=== PATIENT | female | born 1950 | race Caucasian/White ===

== ENCOUNTER 2017-10-04 17:51 | Inpatient (IN) | payer MEDICARE, SELFPAY ==
[2017-10-04 17:52] VITALS: BP 174/96; PULSE 81; RESP 16; TEMP 36.6; O2SAT 97; BMI 21.0
[2017-10-04 17:56] VITALS: BP 174/96; PULSE 79; RESP 16; O2SAT 98
[2017-10-04] MEDS: oxyCODONE 5 MG Tablet 10 MG PO (18:46)
--- NOTE | 2017-10-04 18:50 | RAD_ITS ---
STUDY: X-RAY - PELVIS AND RIGHT HIP REASON FOR EXAM: Female, 67 years old. Fall. Right hip pain. TECHNIQUE: Radiological exam, hip, unilateral, with pelvis when performed; 2 or 3 views. COMPARISON: June 30, 2015. FINDINGS: There is a non-specific bowel gas pattern. Normal visualized soft tissue structures. There is generalized osteopenia. There is mild arthrosis of the left hip. There is a stable right total hip arthroplasty with no complications noted. There are clips in the pelvis unchanged from the prior study. 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 Stable right total hip arthroplasty without acute abnormality. Electronically Signed: Joel Hurtado MD at 19:33 EST , Service support ,
--- NOTE | 2017-10-04 19:46 | CT_ITS ---
STUDY: NONCONTRAST RIGHT HIP CT REASON FOR EXAM: Female, 67 years old. Pain, fall RADIATION DOSAGE (If Supplied By Facility): CTDIvol = ( 15.45 ) mGy, DLP = ( 528.71 ) mGycm. Individualized dose optimization techniques were used for this CT.? FLUOROSCOPY TIME (if supplied): ( ) minutes/seconds TECHNIQUE: Noncontrast axial images with reformatted sagittal and coronal images submitted for evaluation. COMPARISON: 10/04/2017 x-ray. FINDINGS: Fracture involving the anterior aspect of the proximal femur. Hip prosthesis in place without loosening or breakage. Artifact from the hip prosthesis. No soft tissue mass or abnormal fluid collection. CT/Extremity Lower without Contra IMPRESSION: Nondisplaced fracture involving the proximal right femur. Hip prosthesis in place without loosening. Electronically Signed: Nahun Fabian DO at 20:38 EST , Service support ,
[2017-10-04 20:55] VITALS: BP 155/93; PULSE 87; RESP 20; O2SAT 99
--- NOTE | 2017-10-04 21:42 | HP.PCM_ITS ---
Problem List (1) Hip fracture, right Status: Acute Qualifiers: Encounter type: initial encounter Fracture type: closed Qualified Code(s) : S72.001A - Fracture of unspecified part of neck of right femur, initial encounter for closed fracture (2) HTN (hypertension) Status: Chronic Qualifiers: Hypertension type: essential hypertension Qualified Code(s): I10 - Essential (primary) hypertension (3) COPD (chronic obstructive pulmonary disease) Status: Chronic Qualifiers: COPD type: unspecified COPD Qualified Code(s): J44.9 - Chronic obstructive pulmonary disease, unspecified (4) Seizure disorder Status: Chronic (5) Anxiety Status: Chronic History of Present Illness Date of Admission: 10/04/17 Chief Complaint: Right hip pain The patient is a 67 year old F with past medical history of hypertension, seizure disorder, anxiety, COPD comes in after a fall and right hip pain. She has history of right total hip arthroplasty. She states that 2 days prior to being admitted, she had a seizure disorder while sitting at her table. Her daughter was present. Her daughter says she had a total of 3 seizures. She woke up and soon felt pain in the right hip. She felt that she had bruised the right hip. She did not go to the hospital because she felt okay. She however has had progressive pain in the right hip and came to the ED. ED, her vitals were temperature 97.9, heart rate of 81, blood pressure 174/96, respiratory rate is 16, SPO2 97% on room air. Routine blood work showed RBC count of 6.9, Hb 13.0, platelets of 243. Sodium was 131 potassium 3.0 bicarbonate 32 BUN 8, creatinine 0.77. Patient's right hip x-ray was negative. CT scan of the hip shows nondisplaced fracture involving the proximal right femur. Past Medical History Past Medical History (Chronic Problems): Chronic Problems HTN (hypertension) (Chronic) COPD (chronic obstructive pulmonary disease) (Chronic) Seizure disorder (Chronic) Depressed (Chronic) Cardiac dysrhythmia (Chronic) Anxiety (Chronic) Allergies hydrocodone bitartrate [From Vicodin] Allergy (Verified 10/04/17 17:56) Rash Home Medications: Ambulatory Orders Medication Instructions Recorded Albuterol Inhaler [Ventolin Hfa] 2 puff INHALATION Q4H PRN PRN 05/16/14 Fluticasone/Salmeterol [Advair 1 puff INHALATION BID PRN 05/16/14 100/50 Diskus] Levetiracetam [Keppra] 500 mg PO BID 05/16/14 Hydroxyzine HCl 1 - 2 tab PO Q8H PRN PRN 06/17/15 Trazodone HCl [Desyrel] 100 mg PO QHS 06/17/15 Aspirin 325 mg PO BID #60 tablet 07/02/15 Oxycodone HCl/Acetaminophen 1 - 2 tablet PO Q6H PRN PRN #80 07/02/15 [Percocet 5-325] tablet Escitalopram Oxalate [Lexapro] 10 mg PO DAILY 10/04/17 Surgical History: - - back surgeries x 3, spinal fusion surgery, bilateral carpal tunnel surgeries, Right knee surgeries 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, Depression [employer] History: No pertinent [employer] history Smoking Status: Current every day smoker Tobacco Use: Cigarettes Alcohol: None Drugs: None - *Family History Maternal History Items: Heart Disease - CHF Paternal History Items: No pertinent history Review of Systems Constitutional: Denies: Anorexia, Chills, Fever, Weakness, Weight Change Eyes: Denies: Blurred vision, Conjunctivae Inflammation, Redness, Vision Change HEENT: Denies: Difficulty Hearing, Difficulty Swallowing, Head Aches, Sinus Congestion, Sinus Drainage Cardiovascular: Denies: Chest Pain, Claudication, Chest Pressure, Chest Tightness, Orthopnea, Palpitations, Paroxysmal Noc. Dyspnea Respiratory: Denies: Cough, Hemoptysis, Pleuritic Pain, Shortness of breath at rest, Shortness of breath upon exertion, Sputum production Gastrointestinal: Denies: Abdominal Pain, Constipation, Hematemesis, Hematochezia, Nausea, Vomiting Genitourinary: Denies: Dysuria Musculoskeletal: Denies: Joint Pain, Joint stiffness, Joint swelling, Joint Tenderness Skin: Denies: Dryness, Jaundice, Rash, Wounds Neurological: Denies: Difficulty swallowing, Focal weakness, Numbness, Tingling Psychiatric: Denies: Anxiety, Depression, Homicidal Ideations, Suicidal Ideations Endocrine: Denies: Change in Body Habitus, Heat/ Cold Intolerance Hematologic/ Lymphatic: Denies: Easy Bruising, Easy Bleeding VTE Information - Inpt Only VTE Present on Admission: No VTE Pharm Prophylaxis ordered?: Yes Patient Problems: Active and Suspected Problems Hip fracture, right (Acute) - Physical Exam General: Alert, Oriented x3, Cooperative, No apparent distress HEENT: Atraumatic, PERRLA, EOMI, Normocephalic Oral: Moist Mucosa Neck: Supple Lungs: Clear to auscultation, Normal air movement Cardiovascular: Regular rate, Regular Rhythm, Normal S1, Normal S2, No murmurs Abdomen: Bowel Sounds Present, Soft, Non Tender Extremities: No edema, Tenderness - over the right hip, external rotation of hip. Skin: No rashes Musculoskeletal: - - unable to ambulate Lymphatic: No Cervical, Supraclavicular, or Inguinal Adenopathy Neurological: Cranial nerves II-XII grossly intact, Neuro grossly intact Psych/Mental Status: Normal Affect, Appropriate Vital Signs Temp Pulse Resp BP Pulse Ox 97.9 F 87 20 H 155/93 H 99 10/04/17 17:52 10/04/17 20:55 10/04/17 20:55 10/04/17 20:55 10/04/17 20:55 Oxygen Delivery Method Room Air Weight: 59.2 kg Body Mass Index (BMI) 21.0 Assessment/Plan Active and Suspected Problems Hip fracture, right (Acute) 67 year old F with past medical history of seizure disorder, anxiety, COPD comes in after a fall and right hip pain. She has history of right total hip arthroplasty. She states that 2 days prior to being admitted, she had a seizure disorder while sitting at her table. 1. Acute right hip pain secondary to right periprosthetic hip fracture, orthopedic surgery consulted by ED, per the ED, orthopedic team felt that this is nonoperative, patient was unable to ambulate out of the ED, will be admitted for pain control and possible short-term rehab. Plan: Admit to the [facility] floor, pain control with IV morphine and oxycodone, PT and OT to evaluate and treat, care management consult for discharge planning. 2. Possible breakthrough seizure in a patient with history of seizures, on Keppra, patient denies missing any medications, neurology consult, check Keppra levels, continue on Keppra 500 mg twice daily, seizure precautions. 3. Hypokalemia, replaced, recheck in a.m. 4. Hyponatremia, acute, likely secondary to fluid shifts, repeat labs in the morning 5. COPD, stable and not in acute exacerbation 6. History of chronic back pain, prophylaxis, patient needs to be worked up in the outpatient for osteoporosis, will check vitamin D levels, continue with pain control with morphine and oxycodone as needed 7. Chronic nicotine use disorder, patient smokes 1 pack per day, advised to quit, refused nicotine patch in the hospital 8. DVT Prophylaxis with Lovenox subcu Code Visit Inpatient E&M: 72955 Init Hosp L3
[2017-10-04 22:12] VITALS: BP 145/90; PULSE 93; RESP 20; TEMP 36.7; O2SAT 96
[2017-10-04 23:03] LABS: Absolute Lymphocyte Count 1.81 X10^3/ul (0.83-4.51); Absolute Neutrophil Count 4.2 X10^3/uL (2.0-7.7); Basophil# 0.01 X10^3/uL; Basophil% 0.1 % (0-1); Eosinophil# 0.12 X10^3/uL; Eosinophils% 1.7 % (0-5); Hematocrit 37.7 % (37-47); Lymphocyte # 1.81 X10^3/ul (4.0); Lymphocyte % 26.1 % (19-41); Mean Corp Hgb Conc 34.5 g/gl (32-36); Mean Corpuscular Hgb 30.5 pg (27.0-32.0); Mean Corpuscular Volume 88.5 fL (81-99); Mean Platelet Vol. 8.8 fl (6.2-12.0); Monocyte# 0.75 X10^3/uL; Monocyte% 10.8 % (0-10); Neutrophil # 4.24 X10^3/uL (2.7-7.7); Neutrophil % 61.2 % (47-70); Platelet Count 243 K/mm3 (150-450); RBC Distribution Width CV 12.5 % (11.6-14.6); RBC Distribution Width SD 40.3 fl (35.1-43.9); Red Blood Count 4.26 M/mm3 (4.2-5.4); White Blood Count 6.9 K/mm3 (4.4-11.0)
[2017-10-04 23:04] LABS: POSITIVE COUNT NO; POSITIVE DIFFERENTIAL NO; POSITIVE MORPHOLOGY NO
[2017-10-04 23:06] LABS: Prothrombin Time (Protime)PT. 12.4 SECONDS (11.7-14.9)
[2017-10-04 23:07] LABS: Partial Thromboplast Time 26.7 Seconds (24.1-36.2)
[2017-10-04 23:12] VITALS: BMI 19.6; BMI 19.7
[2017-10-04 23:15] LABS: Anion Gap 9 (5-15); BUN 8 mg/dL (7-18); BUN/Creat Ratio 10.4 RATIO (10-20); Calcium,Total 8.7 mg/dL (8.5-10.1); Chloride 90 mmol/L (98-107); Creatinine, Serum 0.77 mg/dL (0.55-1.02); EST Glomerular Filtration Rate 79 mL/min (>60); Est Glom Filt Rate - Afr Amer 96 mL/min (>60); Glucose 103 mg/dL (74-106); Sodium Level 131 mmol/L (136-145)
[2017-10-04 23:53] VITALS: BP 146/97; PULSE 80; RESP 16; TEMP 36.7; O2SAT 99
[2017-10-05] VITALS (10 sets, daily range): BP systolic 90–114; BP diastolic 55–71; PULSE 84–95; RESP 16–18; TEMP 36.6–37.3; O2SAT 87–100
--- NOTE | 2017-10-05 00:06 | ED.VISSUMM ---
- ER Visit Summary Date of Service: 10/05/17 Chief Complaint: Right lower extremity injury History of Present Illness: The patient is a 67 F presenting for evaluation secondary to a fall and right hip pain. Patient has a history of a total hip arthroplasty in the past, and states that she also has an underlying history of seizures. Patient states that on Monday she potentially had a seizure and fell and injured her right hip. She has had increasingly worse pain with ambulation of the right hip, and I was unable to bear weight. She denies any other injuries at this time, states she has maybe some mild right knee pain but denies significant pain with that. Review of systems otherwise negative. Physical Examination: Primary survey: Airway is patent, breath sounds equal bilateral, central peripheral pulses 2+ and symmetric, GCS 15 out of 15. Vitals within normal limits. Secondary survey: General: Well-nourished well-developed no acute distress Head: Normocephalic atraumatic Eyes: PERRLA, EOMI ENT: TMs clear no hemotympanum no drainage Neck: Nontender full range of motion, no step-offs noted Heart: Regular rate and rhythm no murmurs Lungs: Respirations nondistressed, lung sounds clear to auscultation bilaterally, chest nontender, normal chest excursion bilaterally Abdomen: Soft nontender nondistended normal bowel sounds no palpable abdominal masses Back: Nontender no step-offs noted Extremities: Pain with palpation of the right hip, no pain with logroll. Skin: Normal color no trauma Neuro: Alert and oriented ?4, GCS 15 out of 15, no lateralizing neurological deficits. Test Results: X-ray of the right hip found to be negative, CT of the right hip shows a periprosthetic proximal femur fracture Emergency Department Course and Treatment: Patient presented for evaluation secondary to a hip injury. Primary and secondary survey showed only injuries to the right hip. I was going to x-ray the patient's right knee which she states was mildly painful but she declined x-ray. Initial x-rays of the hip were negative, but the patient's inability to ambulate prompted me to order a CT. CT was ordered and showed a periprosthetic hip fracture. I contacted Dr. Judd from orthopedics who states that this is nonoperative, the patient was unable to ambulate, so she will be admitted for physical therapy, and potential placement to rehab Disposition: Admission Impression: 1. Right closed periprosthetic femur fracture 2. Functional decline This note was generated with [employer] dictation software. It may contain incorrect words, spelling, and punctuation that were not noted in review of the chart prior to signing ED Disposition - Plan for ED Patient: Disposition: Acute Care Hospital [facility] Chief Complaint: Lower Extremity Injury
[2017-10-05] MEDS: oxyCODONE 5 MG Tablet PO ×5 (00:11→21:02)
[2017-10-05] MEDS: Aspirin 325 MG Tablet PO ×2 (00:12→08:02)
[2017-10-05] MEDS: levETIRAcetam 500 MG Tablet PO ×3 (00:12→21:03)
--- NOTE | 2017-10-05 00:14 | ED.DCSUM_ITS ---
- ER Visit Summary Date of Service: 10/05/17 Chief Complaint: Right lower extremity injury History of Present Illness: The patient is a 67 F presenting for evaluation secondary to a fall and right hip pain. Patient has a history of a total hip arthroplasty in the past, and states that she also has an underlying history of seizures. Patient states that on Monday she potentially had a seizure and fell and injured her right hip. She has had increasingly worse pain with ambulation of the right hip, and I was unable to bear weight. She denies any other injuries at this time, states she has maybe some mild right knee pain but denies significant pain with that. Review of systems otherwise negative. Physical Examination: Primary survey: Airway is patent, breath sounds equal bilateral, central peripheral pulses 2+ and symmetric, GCS 15 out of 15. Vitals within normal limits. Secondary survey: General: Well-nourished well-developed no acute distress Head: Normocephalic atraumatic Eyes: PERRLA, EOMI ENT: TMs clear no hemotympanum no drainage Neck: Nontender full range of motion, no step-offs noted Heart: Regular rate and rhythm no murmurs Lungs: Respirations nondistressed, lung sounds clear to auscultation bilaterally , chest nontender, normal chest excursion bilaterally Abdomen: Soft nontender nondistended normal bowel sounds no palpable abdominal masses Back: Nontender no step-offs noted Extremities: Pain with palpation of the right hip, no pain with logroll. Skin: Normal color no trauma Neuro: Alert and oriented ?4, GCS 15 out of 15, no lateralizing neurological deficits. Test Results: X-ray of the right hip found to be negative, CT of the right hip shows a periprosthetic proximal femur fracture Emergency Department Course and Treatment: Patient presented for evaluation secondary to a hip injury. Primary and secondary survey showed only injuries to the right hip. I was going to x-ray the patient's right knee which she states was mildly painful but she declined x-ray. Initial x-rays of the hip were negative, but the patient's inability to ambulate prompted me to order a CT. CT was ordered and showed a periprosthetic hip fracture. I contacted Dr. Judd from orthopedics who states that this is nonoperative, the patient was unable to ambulate, so she will be admitted for physical therapy, and potential placement to rehab Disposition: Admission Impression: 1. Right closed periprosthetic femur fracture 2. Functional decline This note was generated with [employer] dictation software. It may contain incorrect words, spelling, and punctuation that were not noted in review of the chart prior to signing ED Disposition - Plan for ED Patient: Disposition: [facility] Chief Complaint: Lower Extremity Injury
--- NOTE | 2017-10-05 02:57 | NURSING ---
Called lab to find out how to enter order for Keppra level in the am as requested by Dr. Morrissey. Lab entered it for me since it would not come up on my screen.
--- NOTE | 2017-10-05 04:27 | NURSING ---
Called lab and spoke with Steve. He stated that there was a label for Michael that printed off and he will make sure order is in. At this time, it is not showing up on my order screen.
[2017-10-05] MEDS: 0.9% NaCl Peripheral Flush Adult/Peds IV ×3 (05:16→16:48)
[2017-10-05 06:08] LABS: Absolute Lymphocyte Count 1.87 X10^3/ul (0.83-4.51); Absolute Neutrophil Count 2.2 X10^3/uL (2.0-7.7); Basophil# 0.02 X10^3/uL; Basophil% 0.4 % (0-1); Eosinophil# 0.25 X10^3/uL; Eosinophils% 4.8 % (0-5); Hematocrit 36.5 % (37-47); Hemoglobin 12.8 g/dl (12.0-15.0); Lymphocyte # 1.87 X10^3/ul (4.0); Lymphocyte % 36.1 % (19-41); Mean Corp Hgb Conc 35.1 g/gl (32-36); Mean Corpuscular Hgb 31.3 pg (27.0-32.0); Mean Corpuscular Volume 89.2 fL (81-99); Mean Platelet Vol. 9.2 fl (6.2-12.0); Monocyte% 15.4 % (0-10); Neutrophil # 2.23 X10^3/uL (2.7-7.7); Neutrophil % 43.1 % (47-70); Platelet Count 254 K/mm3 (150-450); RBC Distribution Width CV 12.6 % (11.6-14.6); RBC Distribution Width SD 40.4 fl (35.1-43.9); Red Blood Count 4.09 M/mm3 (4.2-5.4); White Blood Count 5.2 K/mm3 (4.4-11.0)
[2017-10-05 06:24] LABS: Anion Gap 7 (5-15); BUN 10 mg/dL (7-18); BUN/Creat Ratio 10.9 RATIO (10-20); Calcium,Total 8.5 mg/dL (8.5-10.1); Chloride 93 mmol/L (98-107); Creatinine, Serum 0.92 mg/dL (0.55-1.02); EST Glomerular Filtration Rate 65 mL/min (>60); Est Glom Filt Rate - Afr Amer 78 mL/min (>60); Estimated Creatinine Clearance 51.09 ml/min; Glucose 97 mg/dL (74-106); Potassium 3.1 mmol/L (3.5-5.1); Sodium Level 133 mmol/L (136-145)
[2017-10-05 06:26] LABS: POSITIVE COUNT NO; POSITIVE DIFFERENTIAL NO; POSITIVE MORPHOLOGY NO
[2017-10-05] MEDS: Budesonide Respules 0.5 MG/2 ML AMPUL.NEB. INHALATION ×2 (06:54→19:20)
[2017-10-05] MEDS: Ipratropium/Albuterol Sulfate 3 ML AMPUL.NEB INHALATION ×2 (06:54→19:20)
[2017-10-05] MEDS: Escitalopram Oxalate 10 MG Tablet PO (09:38)
[2017-10-05] MEDS: Enoxaparin 40 MG/0.4 ML Syringe SC (09:38)
--- NOTE | 2017-10-05 10:23 | PCM.PROGNOTE ---
Patient Problems: Active and Suspected Problems Hip fracture, right (Acute) Subjective: Chief complaint: Follow-up after admission for acute nondisplaced traumatic fracture of the proximal right femur and seizure. Patient seen and examined. No acute events overnight. At this time, her right hip pain is controlled, stable. Denies any significant complaints. This past Monday, patient had a seizure and she fell. After she fell, she started having right hip pain but she was able to put some weight on it. Her right hip pain worsened yesterday and she decided to come to the emergency room. At this time, her vital signs are stable. - Physical Exam General: Alert, Oriented x3, Cooperative, No apparent distress HEENT: Atraumatic, PERRLA, EOMI Oral: Moist Mucosa, No Gingival or Mucosal Lesions/ Ulcerations Neck: Supple, No JVD, Negative Carotid Bruits, Trachea Midline, Thyroid Normal Size and Texture Lungs: Clear to auscultation, No rhonchi, No wheeze, No rales, Diminished Cardiovascular: Regular rate, Regular Rhythm, Normal S1, Normal S2, No murmurs Abdomen: Bowel Sounds Present, Soft, Non Tender, Non-Distended, No Hepato-splenomegaly Extremities: No clubbing, No cyanosis, No edema Skin: No rashes, No breakdown Lymphatic: No Cervical, Supraclavicular, or Inguinal Adenopathy Neurological: Cranial nerves II-XII grossly intact, Neuro grossly intact Psych/Mental Status: Normal Affect, Appropriate, Alert and oriented to time, place, person, mood and affect Vital Signs Temp Pulse Resp BP Pulse Ox 98.3 F 88 18 104/69 95 10/05/17 07:59 10/05/17 07:59 10/05/17 07:59 10/05/17 07:59 10/05/17 07:59 Oxygen Flow Rate 2 Oxygen Delivery Method Nasal Cannula Weight: 121 lb 14.4 oz Body Mass Index (BMI) 19.6 Laboratory Tests Past 24 Hrs 10/04/17 10/04/17 10/04/17 22:48 22:48 22:48 WBC 6.9 RBC 4.26 Hgb 13.0 Hct 37.7 MCV 88.5 MCH 30.5 MCHC 34.5 RDW 12.5 RDW Differential 40.3 Plt Count 243 MPV 8.8 Immature Gran % (Auto) 0.100 Neut % (Auto) 61.2 Lymph % (Auto) 26.1 Converse % (Auto) 10.8 H Eos % (Auto) 1.7 Baso % (Auto) 0.1 Absolute Neuts (auto) 4.2 Absolute Lymphs (auto) 1.81 Total Counted Not Reportable PT 12.4 INR 1.0 APTT 26.7 Sodium 131 L Potassium 3.0 L Chloride 90 L Carbon Dioxide 32.0 Anion Gap 9 BUN 8 Creatinine 0.77 Estim Creat Clear Calc 47.00 Est GFR (MDRD) Af Amer 96 Est GFR (MDRD) Non-Af 79 BUN/Creatinine Ratio 10.4 Glucose 103 Calcium 8.7 Vit D 1,25-Dihydroxy Levetiracetam 10/05/17 10/05/17 10/05/17 05:40 05:40 05:40 WBC 5.2 RBC 4.09 L Hgb 12.8 Hct 36.5 L MCV 89.2 MCH 31.3 MCHC 35.1 RDW 12.6 RDW Differential 40.4 Plt Count 254 MPV 9.2 Immature Gran % (Auto) 0.200 Neut % (Auto) 43.1 L Lymph % (Auto) 36.1 Converse % (Auto) 15.4 H Eos % (Auto) 4.8 Baso % (Auto) 0.4 Absolute Neuts (auto) 2.2 Absolute Lymphs (auto) 1.87 Total Counted Not Reportable PT INR APTT Sodium 133 L Potassium 3.1 L Chloride 93 L Carbon Dioxide 33.0 H Anion Gap 7 BUN 10 Creatinine 0.92 Estim Creat Clear Calc 51.09 Est GFR (MDRD) Af Amer 78 Est GFR (MDRD) Non-Af 65 BUN/Creatinine Ratio 10.9 Glucose 97 Calcium 8.5 Vit D 1,25-Dihydroxy Levetiracetam Pending 10/05/17 05:40 WBC RBC Hgb Hct MCV MCH MCHC RDW RDW Differential Plt Count MPV Immature Gran % (Auto) Neut % (Auto) Lymph % (Auto) Converse % (Auto) Eos % (Auto) Baso % (Auto) Absolute Neuts (auto) Absolute Lymphs (auto) Total Counted PT INR APTT Sodium Potassium Chloride Carbon Dioxide Anion Gap BUN Creatinine Estim Creat Clear Calc Est GFR (MDRD) Af Amer Est GFR (MDRD) Non-Af BUN/Creatinine Ratio Glucose Calcium Vit D 1,25-Dihydroxy Pending Levetiracetam Clinical Impression(s) from Imaging Studies Hip/Pelvis X-Ray 10/04/17 18:50 IMPRESSION: 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 Stable right total hip arthroplasty without acute abnormality. Electronically Signed: Joel Hurtado MD at 19:33 EST , Service support , Lower Extremity CT 10/04/17 19:46 IMPRESSION: Nondisplaced fracture involving the proximal right femur. Hip prosthesis in place without loosening. Electronically Signed: Nahun Fabian DO at 20:38 EST , Service support , Assessment/Plan Active and Suspected Problems Hip fracture, right (Acute) This is a 67 years old female patient presented to the emergency room because of right hip pain, found to have nondisplaced fracture of the proximal right femur due to fall secondary to seizure. #1 acute nondisplaced traumatic fracture of the proximal right femur: Due to fall secondary to seizure. CT scan right hip reviewed. She is on IV morphine and oxycodone as needed for pain. Right hip pain is well-controlled. Vital signs are stable. Orthopedic surgery consulted. Reportedly, no plan for surgery, awaiting official consultation. #2 seizure: Patient had a seizure on Monday and then she started having right hip pain. She does have a history of seizure, has been on Keppra. Apparently, her seizure has been under controlled and she has been compliant with her medication. She is on Keppra, neurology consulted. #3 hyponatremia/hypokalemia: Seems to be hypovolemic hyponatremia. Plan to replace sodium and potassium with normal saline with potassium supplement, repeat BMP tomorrow. #4 COPD: Clinically stable, pulse ox is normal on room air. She is on bronchodilators. #5 seizure disorder: Continue Keppra. #6 anxiety/depression: Continue Lexapro and trazodone. #7 DVT prophylaxis: Subcu Lovenox. This note was generated with [employer] software. It may contain incorrect words, spelling, and punctuation that were not noted in checking the note before signing. Code Visit Inpatient E&M: 03214 Subs Hosp L2
--- NOTE | 2017-10-05 10:26 | PN_ITS ---
Patient Problems: Active and Suspected Problems Hip fracture, right (Acute) Subjective: Chief complaint: Follow-up after admission for acute nondisplaced traumatic fracture of the proximal right femur and seizure. Patient seen and examined. No acute events overnight. At this time, her right hip pain is controlled, stable. Denies any significant complaints. This past Monday, patient had a seizure and she fell. After she fell, she started having right hip pain but she was able to put some weight on it. Her right hip pain worsened yesterday and she decided to come to the emergency room. At this time , her vital signs are stable. - Physical Exam General: Alert, Oriented x3, Cooperative, No apparent distress HEENT: Atraumatic, PERRLA, EOMI Oral: Moist Mucosa, No Gingival or Mucosal Lesions/ Ulcerations Neck: Supple, No JVD, Negative Carotid Bruits, Trachea Midline, Thyroid Normal Size and Texture Lungs: Clear to auscultation, No rhonchi, No wheeze, No rales, Diminished Cardiovascular: Regular rate, Regular Rhythm, Normal S1, Normal S2, No murmurs Abdomen: Bowel Sounds Present, Soft, Non Tender, Non-Distended, No Hepato- splenomegaly Extremities: No clubbing, No cyanosis, No edema Skin: No rashes, No breakdown Lymphatic: No Cervical, Supraclavicular, or Inguinal Adenopathy Neurological: Cranial nerves II-XII grossly intact, Neuro grossly intact Psych/Mental Status: Normal Affect, Appropriate, Alert and oriented to time, place, person, mood and affect Vital Signs Temp Pulse Resp BP Pulse Ox 98.3 F 88 18 104/69 95 10/05/17 07:59 10/05/17 07:59 10/05/17 07:59 10/05/17 07:59 10/05/17 07:59 Oxygen Flow Rate 2 Oxygen Delivery Method Nasal Cannula Weight: 121 lb 14.4 oz Body Mass Index (BMI) 19.6 Laboratory Tests Past 24 Hrs 10/04/17 10/04/17 10/04/17 22:48 22:48 22:48 WBC 6.9 RBC 4.26 Hgb 13.0 Hct 37.7 MCV 88.5 MCH 30.5 MCHC 34.5 RDW 12.5 RDW Differential 40.3 Plt Count 243 MPV 8.8 Immature Gran % (Auto) 0.100 Neut % (Auto) 61.2 Lymph % (Auto) 26.1 [place] % (Auto) 10.8 H Eos % (Auto) 1.7 Baso % (Auto) 0.1 Absolute Neuts (auto) 4.2 Absolute Lymphs (auto) 1.81 Total Counted Not Reportable PT 12.4 INR 1.0 APTT 26.7 Sodium 131 L Potassium 3.0 L Chloride 90 L Carbon Dioxide 32.0 Anion Gap 9 BUN 8 Creatinine 0.77 Estim Creat Clear Calc 47.00 Est GFR (MDRD) Af Amer 96 Est GFR (MDRD) Non-Af 79 BUN/Creatinine Ratio 10.4 Glucose 103 Calcium 8.7 Vit D 1,25-Dihydroxy Levetiracetam 10/05/17 10/05/17 10/05/17 05:40 05:40 05:40 WBC 5.2 RBC 4.09 L Hgb 12.8 Hct 36.5 L MCV 89.2 MCH 31.3 MCHC 35.1 RDW 12.6 RDW Differential 40.4 Plt Count 254 MPV 9.2 Immature Gran % (Auto) 0.200 Neut % (Auto) 43.1 L Lymph % (Auto) 36.1 [place] % (Auto) 15.4 H Eos % (Auto) 4.8 Baso % (Auto) 0.4 Absolute Neuts (auto) 2.2 Absolute Lymphs (auto) 1.87 Total Counted Not Reportable PT INR APTT Sodium 133 L Potassium 3.1 L Chloride 93 L Carbon Dioxide 33.0 H Anion Gap 7 BUN 10 Creatinine 0.92 Estim Creat Clear Calc 51.09 Est GFR (MDRD) Af Amer 78 Est GFR (MDRD) Non-Af 65 BUN/Creatinine Ratio 10.9 Glucose 97 Calcium 8.5 Vit D 1,25-Dihydroxy Levetiracetam Pending 10/05/17 05:40 WBC RBC Hgb Hct MCV MCH MCHC RDW RDW Differential Plt Count MPV Immature Gran % (Auto) Neut % (Auto) Lymph % (Auto) [place] % (Auto) Eos % (Auto) Baso % (Auto) Absolute Neuts (auto) Absolute Lymphs (auto) Total Counted PT INR APTT Sodium Potassium Chloride Carbon Dioxide Anion Gap BUN Creatinine Estim Creat Clear Calc Est GFR (MDRD) Af Amer Est GFR (MDRD) Non-Af BUN/Creatinine Ratio Glucose Calcium Vit D 1,25-Dihydroxy Pending Levetiracetam Clinical Impression(s) from Imaging Studies Hip/Pelvis X-Ray 10/04/17 18:50 IMPRESSION: 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 Stable right total hip arthroplasty without acute abnormality. Electronically Signed: Joel Hurtado MD at 19:33 EST , Service support , Lower Extremity CT 10/04/17 19:46 IMPRESSION: Nondisplaced fracture involving the proximal right femur. Hip prosthesis in place without loosening. Electronically Signed: Nahun Fabian DO at 20:38 EST , Service support , Assessment/Plan Active and Suspected Problems Hip fracture, right (Acute) This is a 67 years old female patient presented to the emergency room because of right hip pain, found to have nondisplaced fracture of the proximal right femur due to fall secondary to seizure. #1 acute nondisplaced traumatic fracture of the proximal right femur: Due to fall secondary to seizure. CT scan right hip reviewed. She is on IV morphine and oxycodone as needed for pain. Right hip pain is well-controlled. Vital signs are stable. Orthopedic surgery consulted. Reportedly, no plan for surgery, awaiting official consultation. #2 seizure: Patient had a seizure on Monday and then she started having right hip pain. She does have a history of seizure, has been on Keppra. Apparently, her seizure has been under controlled and she has been compliant with her medication. She is on Keppra, neurology consulted. #3 hyponatremia/hypokalemia: Seems to be hypovolemic hyponatremia. Plan to replace sodium and potassium with normal saline with potassium supplement, repeat BMP tomorrow. #4 COPD: Clinically stable, pulse ox is normal on room air. She is on bronchodilators. #5 seizure disorder: Continue Keppra. #6 anxiety/depression: Continue Lexapro and trazodone. #7 DVT prophylaxis: Subcu Lovenox. This note was generated with ChatLing[employer] software. It may contain incorrect words, spelling, and punctuation that were not noted in checking the note before signing. Code Visit Inpatient E&M: 71603 Subs Hosp L2
--- NOTE | 2017-10-05 10:59 | CASEMGMT ---
Social Work Referral received to determine d/c plan. SW met with pt in room and introduced self and role of SW. Pt lives in a two story home with first floor setup. 3 steps to enter home which pt describes as dangerous. Pt lives with her daughter Rashmi however, dgt works and pt is home alone during the day. Prior to fall at home pt was independent with ADLs and IADLs, continued to drive and took care of own finances. Pt does have a walker, cane and shower chair. Pt sees Dr. Bennett in [place] for PCP and uses [facility] for pharmacy. Pt previously had a hip replacement and was in the [facility] inpatient rehab for post acute care. Pt acknowledging that she will need rehab prior to returning home and would like to go to [facility] inpt rehab. SW explained that if she does not qualify for inpt rehab then TCU or community SNF may be an option. Pt states she would like to stay at [facility] for post acute care and would prefer not to go to community skilled nursing. Referral placed to Nguyen in [place] as well as Jennifer in [facility]. SW will follow to assist with placement in most appropriate setting. Throughout assessment pt mentioned stressors at home. SW encouraged pt to discuss home situation and coping with difficult situations. Pt states she does have depression and anxiety. She has [facility] and has seen a therapist in the past. Pt acknowledges that it has been over a year since she has seen the therapist and should follow up with her. SW encouraged pt to verbalize feelings and emotional support provided. Advance Care planning discussed at length with pt and options reviewed. Pt choosing to complete living will and health care power of traffic law attorney. SW assisted pt with completion of these documents. Original given to pt and copy placed on chart. Plan: [facility] [place] vs TCU, pending insurance authorization [facility] Nicole
[2017-10-05 11:12] LABS: Magnesium 2.2 mg/dL (1.6-2.6)
--- NOTE | 2017-10-05 15:29 | PCM.CONS.GEN ---
Reason for Consult Date of Consultation: 10/05/17 Reason for Consultation: Right periprosthetic femur fracture History of Present Illness: The patient is a 67 year old F [who is a longtime patient of Dr. Darryl Melvin. She has previously had a right total hip arthroplasty. She was doing very well with regards to the hip. Very pleased with her surgical outcome. Apparently Monday evening she was at home and had a seizure. She has a history of a seizure disorder. She fell injuring her right side. She was taken to [facility] emergency department. A CT scan of the right hip revealed a right sided periprosthetic femur fracture. Orthopedics was consulted. She currently complains of right hip pain. Some lateral knee pain. Eyes numbness or tingling into the right lower extremity. She does have a history of smoking. Patient currently rates the pain level is 6-7 out of 10.] Past Medical History Past Medical History (Chronic Problems): Chronic Problems COPD (chronic obstructive pulmonary disease) (Chronic) Seizure disorder (Chronic) Depressed (Chronic) Cardiac dysrhythmia (Chronic) Anxiety (Chronic) Allergies hydrocodone bitartrate [From Vicodin] Allergy (Verified 10/04/17 17:56) Rash Home Medications: Ambulatory Orders Medication Instructions Recorded Albuterol Inhaler [Ventolin Hfa] 2 puff INHALATION Q4H PRN PRN 05/16/14 Fluticasone/Salmeterol [Advair 1 puff INHALATION BID PRN 05/16/14 100/50 Diskus] Levetiracetam [Keppra] 500 mg PO BID 05/16/14 Hydroxyzine HCl 1 - 2 tab PO Q8H PRN PRN 06/17/15 Trazodone HCl [Desyrel] 100 mg PO QHS 06/17/15 Aspirin 325 mg PO BID #60 tablet 07/02/15 Oxycodone HCl/Acetaminophen 1 - 2 tablet PO Q6H PRN PRN #80 07/02/15 [Percocet 5-325] tablet Escitalopram Oxalate [Lexapro] 10 mg PO DAILY 10/04/17 Surgical History: - - back surgeries x 3, spinal fusion surgery, bilateral carpal tunnel surgeries, Right knee surgeries 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, 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 Smoking Status: Current every day smoker Tobacco Use: Cigarettes Alcohol: None Drugs: None - *Family History Maternal History Items: Heart Disease - CHF Paternal History Items: No pertinent history Sibling History Items: No pertinent history Review of Systems Constitutional: Denies: Chills, Fever, Weight Change HEENT: Denies: Head Aches, Sinus Congestion, Sinus Drainage Cardiovascular: Denies: Chest Pain, Palpitations Respiratory: Denies: Cough, Shortness of breath at rest, Sputum production Gastrointestinal: Denies: Abdominal Pain, Nausea, Vomiting Genitourinary: Denies: Dysuria Musculoskeletal: Denies: Joint Pain, Joint Tenderness Skin: Denies: Rash, Wounds Neurological: Denies: Numbness, Tingling, Focal weakness Psychiatric: Denies: Anxiety, Depression, Homicidal Ideations, Suicidal Ideations Hematologic/ Lymphatic: Denies: Easy Bruising, Easy Bleeding Patient Problems: Active and Suspected Problems Hip fracture, right (Acute) Objective: Patient is alert and oriented ?3. No acute distress at rest. Breathing easily without respiratory distress. She has tenderness to palpation over the greater trochanter on the right. She has some hip and thigh pain with gentle flexion and extension of the right hip. Small area of ecchymosis over the lateral knee. There is tenderness over this area. Otherwise knee is without tenderness to palpation. Gentle range of motion of the left knee is without pain. Negative Grace bilaterally. Without signs of DVT. Right ankle is without tenderness to palpation full range of motion without pain pedal pulses present and equal bilaterally. Neurovascularly intact. Patient able to actively plantar and dorsiflex bilateral feet against resistance. Neurovascularly intact. X-rays and CT scan of right hip were discussed and reviewed with Dr. Franklyn Judd revealing no bony abnormalities on the x-rays with a previous right total hip arthroplasty. CT scan is with a nondisplaced fracture involving the right proximal femur - Physical Exam Vital Signs Temp Pulse Resp BP Pulse Ox 98.2 F 91 16 100/64 100 10/05/17 14:23 10/05/17 14:23 10/05/17 14:23 10/05/17 14:23 10/05/17 14:23 Oxygen Flow Rate 2 Oxygen Delivery Method Nasal Cannula Weight: 55.3 kg Body Mass Index (BMI) 19.6 Intake and Output for Last 24 Hours 10/03/17 10/04/17 10/05/17 23:59 23:59 23:59 Intake Total 231 / 231 Balance Laboratory Tests Past 24 Hrs 10/04/17 10/04/17 10/04/17 22:48 22:48 22:48 WBC 6.9 RBC 4.26 Hgb 13.0 Hct 37.7 MCV 88.5 MCH 30.5 MCHC 34.5 RDW 12.5 RDW Differential 40.3 Plt Count 243 MPV 8.8 Immature Gran % (Auto) 0.100 Neut % (Auto) 61.2 Lymph % (Auto) 26.1 Collin % (Auto) 10.8 H Eos % (Auto) 1.7 Baso % (Auto) 0.1 Absolute Neuts (auto) 4.2 Absolute Lymphs (auto) 1.81 Total Counted Not Reportable PT 12.4 INR 1.0 APTT 26.7 Sodium 131 L Potassium 3.0 L Chloride 90 L Carbon Dioxide 32.0 Anion Gap 9 BUN 8 Creatinine 0.77 Estim Creat Clear Calc 47.00 Est GFR (MDRD) Af Amer 96 Est GFR (MDRD) Non-Af 79 BUN/Creatinine Ratio 10.4 Glucose 103 Calcium 8.7 Magnesium Vit D 1,25-Dihydroxy Levetiracetam 10/05/17 10/05/17 10/05/17 05:40 05:40 05:40 WBC 5.2 RBC 4.09 L Hgb 12.8 Hct 36.5 L MCV 89.2 MCH 31.3 MCHC 35.1 RDW 12.6 RDW Differential 40.4 Plt Count 254 MPV 9.2 Immature Gran % (Auto) 0.200 Neut % (Auto) 43.1 L Lymph % (Auto) 36.1 Collin % (Auto) 15.4 H Eos % (Auto) 4.8 Baso % (Auto) 0.4 Absolute Neuts (auto) 2.2 Absolute Lymphs (auto) 1.87 Total Counted Not Reportable PT INR APTT Sodium 133 L Potassium 3.1 L Chloride 93 L Carbon Dioxide 33.0 H Anion Gap 7 BUN 10 Creatinine 0.92 Estim Creat Clear Calc 51.09 Est GFR (MDRD) Af Amer 78 Est GFR (MDRD) Non-Af 65 BUN/Creatinine Ratio 10.9 Glucose 97 Calcium 8.5 Magnesium Vit D 1,25-Dihydroxy Levetiracetam Pending 10/05/17 10/05/17 05:40 05:40 WBC RBC Hgb Hct MCV MCH MCHC RDW RDW Differential Plt Count MPV Immature Gran % (Auto) Neut % (Auto) Lymph % (Auto) Collin % (Auto) Eos % (Auto) Baso % (Auto) Absolute Neuts (auto) Absolute Lymphs (auto) Total Counted PT INR APTT Sodium Potassium Chloride Carbon Dioxide Anion Gap BUN Creatinine Estim Creat Clear Calc Est GFR (MDRD) Af Amer Est GFR (MDRD) Non-Af BUN/Creatinine Ratio Glucose Calcium Magnesium 2.2 Vit D 1,25-Dihydroxy Pending Levetiracetam Assessment/Plan Active and Suspected Problems Hip fracture, right (Acute) Assessment is right sided periprosthetic femur fracture nondisplaced with a history of a right total hip arthroplasty. Patient will rest ice elevate the hip as needed for pain or swelling. She will remain nonweightbearing right lower extremity with a walker for a minimum of 6 weeks. She may work on gentle range of motion of the right hip knee and ankle. Recommend working with physical therapy. Smoking cessation was advised. Continue OxyIR as prescribed as needed for pain. Anticipate that this problem will be treated nonoperatively. Patient will follow-up in 7-10 days for reassessment of right hip in the office with x-rays. I think discharge planning for nursing home facility is reasonable as she lives at home with her daughter who works full-time and she is on her own a lot.
[2017-10-06 04:36] VITALS: BP 128/75; PULSE 82; RESP 14; TEMP 37.1; O2SAT 100
[2017-10-06 06:35] LABS: Anion Gap 7 (5-15); BUN 19 mg/dL (7-18); BUN/Creat Ratio 26.3 RATIO (10-20); Calcium,Total 8.3 mg/dL (8.5-10.1); Chloride 97 mmol/L (98-107); Creatinine, Serum 0.72 mg/dL (0.55-1.02); EST Glomerular Filtration Rate 85 mL/min (>60); Est Glom Filt Rate - Afr Amer 103 mL/min (>60); Estimated Creatinine Clearance 47.01 ml/min; Glucose 93 mg/dL (74-106); Potassium 4.4 mmol/L (3.5-5.1); Sodium Level 135 mmol/L (136-145)
[2017-10-06 07:36] VITALS: PULSE 105; RESP 18; O2SAT 97
[2017-10-06] MEDS: Budesonide Respules 0.5 MG/2 ML AMPUL.NEB. INHALATION (07:36)
[2017-10-06] MEDS: Ipratropium/Albuterol Sulfate 3 ML AMPUL.NEB INHALATION (07:36)
[2017-10-06 08:11] VITALS: BP 129/82; PULSE 90; RESP 20; TEMP 36.9; O2SAT 98
[2017-10-06 08:14] VITALS: PULSE 90
[2017-10-06] MEDS: Escitalopram Oxalate 10 MG Tablet PO (10:05)
[2017-10-06] MEDS: Enoxaparin 40 MG/0.4 ML Syringe SC (10:05)
[2017-10-06] MEDS: levETIRAcetam 500 MG Tablet PO ×2 (10:05→21:01)
[2017-10-06] MEDS: oxyCODONE 5 MG Tablet PO ×3 (10:13→21:01)
--- NOTE | 2017-10-06 10:16 | PCM.PROGNOTE ---
Patient Problems: Active and Suspected Problems Hip fracture, right (Acute) Subjective: Chief complaint: Follow-up after admission for acute nondisplaced traumatic fracture of the proximal right femur and seizure. Patient seen and examined. No acute events overnight. Right hip pain is well-controlled. She denies any significant symptoms. Vital signs are stable. - Physical Exam General: Alert, Oriented x3, Cooperative, No apparent distress HEENT: Atraumatic, PERRLA, EOMI Oral: Moist Mucosa, No Gingival or Mucosal Lesions/ Ulcerations Neck: Supple, No JVD, Negative Carotid Bruits, Trachea Midline, Thyroid Normal Size and Texture Lungs: Clear to auscultation, No rhonchi, No wheeze, No rales, Diminished Cardiovascular: Regular rate, Regular Rhythm, Normal S1, Normal S2, PMI Normal Abdomen: Bowel Sounds Present, Soft, Non Tender, Non-Distended, No Hepato-splenomegaly Extremities: No clubbing, No cyanosis, No edema Skin: No rashes, No breakdown Lymphatic: No Cervical, Supraclavicular, or Inguinal Adenopathy Neurological: Cranial nerves II-XII grossly intact, Motor Exam 5/5 strength throughout Psych/Mental Status: Normal Affect, Appropriate, Alert and oriented to time, place, person, mood and affect Vital Signs Temp Pulse Resp BP Pulse Ox 98.5 F 90 20 H 129/82 H 98 10/06/17 08:11 10/06/17 08:14 10/06/17 08:11 10/06/17 08:11 10/06/17 08:11 Oxygen Flow Rate 1 Oxygen Delivery Method Room Air Weight: 121 lb 14.65 oz Body Mass Index (BMI) 19.6 Intake and Output for Last 24 Hours 10/04/17 10/05/17 10/06/17 23:59 23:59 23:59 Intake Total 936 / 936 500 / 500 Balance 936 / 936 500 / 500 Laboratory Tests Past 24 Hrs 10/05/17 10/06/17 05:40 05:50 Sodium 135 L Potassium 4.4 Chloride 97 L Carbon Dioxide 31.0 Anion Gap 7 BUN 19 H Creatinine 0.72 Estim Creat Clear Calc 47.01 Est GFR (MDRD) Af Amer 103 Est GFR (MDRD) Non-Af 85 BUN/Creatinine Ratio 26.3 H Glucose 93 Calcium 8.3 L Magnesium 2.2 Assessment/Plan Active and Suspected Problems Hip fracture, right (Acute) This is a 67 years old female patient presented to the emergency room because of right hip pain, found to have nondisplaced fracture of the proximal right femur due to fall secondary to seizure. #1 acute nondisplaced traumatic fracture of the proximal right femur: Due to fall secondary to seizure. CT scan right hip reviewed. She is on IV morphine and oxycodone as needed for pain. Right hip pain is well-controlled. Vital signs are stable. Orthopedic surgery consulted and recommended conservative management, no surgery, recommended nonweightbearing. Plan: Placement to nursing home facility. #2 seizure: Patient had a seizure on Monday and then she started having right hip pain. She does have a history of seizure, has been on Keppra. Apparently, her seizure has been under controlled and she has been compliant with her medication. She is on Keppra, awaiting neurology recommendation. #3 hyponatremia/hypokalemia: Seems to be hypovolemic hyponatremia. Potassium replaced and corrected, sodium improved. #4 COPD: Clinically stable, pulse ox is normal on room air. She is on bronchodilators. #5 seizure disorder: Continue Keppra. #6 anxiety/depression: Continue Lexapro and trazodone. #7 DVT prophylaxis: Subcu Lovenox. This note was generated with TaxJar dictation software. It may contain incorrect words, spelling, and punctuation that were not noted in checking the note before signing. Code Visit Inpatient E&M: 71268 Subs Hosp L2
--- NOTE | 2017-10-06 10:20 | PN_ITS ---
Patient Problems: Active and Suspected Problems Hip fracture, right (Acute) Subjective: Chief complaint: Follow-up after admission for acute nondisplaced traumatic fracture of the proximal right femur and seizure. Patient seen and examined. No acute events overnight. Right hip pain is well- controlled. She denies any significant symptoms. Vital signs are stable. - Physical Exam General: Alert, Oriented x3, Cooperative, No apparent distress HEENT: Atraumatic, PERRLA, EOMI Oral: Moist Mucosa, No Gingival or Mucosal Lesions/ Ulcerations Neck: Supple, No JVD, Negative Carotid Bruits, Trachea Midline, Thyroid Normal Size and Texture Lungs: Clear to auscultation, No rhonchi, No wheeze, No rales, Diminished Cardiovascular: Regular rate, Regular Rhythm, Normal S1, Normal S2, PMI Normal Abdomen: Bowel Sounds Present, Soft, Non Tender, Non-Distended, No Hepato- splenomegaly Extremities: No clubbing, No cyanosis, No edema Skin: No rashes, No breakdown Lymphatic: No Cervical, Supraclavicular, or Inguinal Adenopathy Neurological: Cranial nerves II-XII grossly intact, Motor Exam 5/5 strength throughout Psych/Mental Status: Normal Affect, Appropriate, Alert and oriented to time, place, person, mood and affect Vital Signs Temp Pulse Resp BP Pulse Ox 98.5 F 90 20 H 129/82 H 98 10/06/17 08:11 10/06/17 08:14 10/06/17 08:11 10/06/17 08:11 10/06/17 08:11 Oxygen Flow Rate 1 Oxygen Delivery Method Room Air Weight: 121 lb 14.65 oz Body Mass Index (BMI) 19.6 Intake and Output for Last 24 Hours 10/04/17 10/05/17 10/06/17 23:59 23:59 23:59 Intake Total 936 / 936 500 / 500 Balance 936 / 936 500 / 500 Laboratory Tests Past 24 Hrs 10/05/17 10/06/17 05:40 05:50 Sodium 135 L Potassium 4.4 Chloride 97 L Carbon Dioxide 31.0 Anion Gap 7 BUN 19 H Creatinine 0.72 Estim Creat Clear Calc 47.01 Est GFR (MDRD) Af Amer 103 Est GFR (MDRD) Non-Af 85 BUN/Creatinine Ratio 26.3 H Glucose 93 Calcium 8.3 L Magnesium 2.2 Assessment/Plan Active and Suspected Problems Hip fracture, right (Acute) This is a 67 years old female patient presented to the emergency room because of right hip pain, found to have nondisplaced fracture of the proximal right femur due to fall secondary to seizure. #1 acute nondisplaced traumatic fracture of the proximal right femur: Due to fall secondary to seizure. CT scan right hip reviewed. She is on IV morphine and oxycodone as needed for pain. Right hip pain is well-controlled. Vital signs are stable. Orthopedic surgery consulted and recommended conservative management, no surgery, recommended nonweightbearing. Plan: Placement to [facility] facility. #2 seizure: Patient had a seizure on Monday and then she started having right hip pain. She does have a history of seizure, has been on Keppra. Apparently, her seizure has been under controlled and she has been compliant with her medication. She is on Keppra, awaiting neurology recommendation. #3 hyponatremia/hypokalemia: Seems to be hypovolemic hyponatremia. Potassium replaced and corrected, sodium improved. #4 COPD: Clinically stable, pulse ox is normal on room air. She is on bronchodilators. #5 seizure disorder: Continue Keppra. #6 anxiety/depression: Continue Lexapro and trazodone. #7 DVT prophylaxis: Subcu Lovenox. This note was generated with [employer] dictation software. It may contain incorrect words, spelling, and punctuation that were not noted in checking the note before signing. Code Visit Inpatient E&M: 58374 Subs Hosp L2
--- NOTE | 2017-10-06 10:23 | PCM.CONS.GEN ---
Reason for Consult Date of Consultation: 10/06/17 Reason for Consultation: seizure History of Present Illness: The patient is a 67 year old right handed white female who fell monday evening, she was sitting, stood up felt head tingling, hot, blood mendoza next thing she remembers is awakening on the floor, was normal within a few minutes. no tongue biting. daughter apparently witnessed shaking, no incontinence. did not call the squad until monday due to right hip pain, apparently fractured right hip in her fall, now is non-weight bearing. apparently this is non-operative, history of right thr previously. admits to occasional light headedness when stands. no med changes or recent illness, but does admit to stress. history of seizures unclear. saw mati previously. prescribed keppra. Past Medical History Past Medical History (Chronic Problems): Chronic Problems COPD (chronic obstructive pulmonary disease) (Chronic) Seizure disorder (Chronic) Depressed (Chronic) Cardiac dysrhythmia (Chronic) Anxiety (Chronic) Allergies hydrocodone bitartrate [From Vicodin] Allergy (Verified 10/04/17 17:56) Rash Home Medications: Ambulatory Orders Medication Instructions Recorded Albuterol Inhaler [Ventolin Hfa] 2 puff INHALATION Q4H PRN PRN 05/16/14 Fluticasone/Salmeterol [Advair 1 puff INHALATION BID PRN 05/16/14 100/50 Diskus] Levetiracetam [Keppra] 500 mg PO BID 05/16/14 Hydroxyzine HCl 1 - 2 tab PO Q8H PRN PRN 06/17/15 Trazodone HCl [Desyrel] 100 mg PO QHS 06/17/15 Aspirin 325 mg PO BID #60 tablet 07/02/15 Oxycodone HCl/Acetaminophen 1 - 2 tablet PO Q6H PRN PRN #80 07/02/15 [Percocet 5-325] tablet Escitalopram Oxalate [Lexapro] 10 mg PO DAILY 10/04/17 Surgical History: - - back surgeries x 3, spinal fusion surgery, bilateral carpal tunnel surgeries, Right knee surgeries 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, Depression [employer]IDE [employer] History: No pertinent OUTSIDE [employer] SAL[employer]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 history Smoking Status: Current every day smoker Tobacco Use: Cigarettes Alcohol: None Drugs: None - *Family History Maternal History Items: Heart Disease - CHF Paternal History Items: No pertinent history Sibling History Items: No pertinent history Review of Systems Constitutional: Denies: Chills, Fever, Weight Change HEENT: Denies: Head Aches, Sinus Congestion, Sinus Drainage Cardiovascular: Denies: Chest Pain, Palpitations Respiratory: Denies: Cough, Shortness of breath at rest, Sputum production Gastrointestinal: Denies: Abdominal Pain, Nausea, Vomiting Genitourinary: Denies: Dysuria Musculoskeletal: Denies: Joint Pain, Joint Tenderness Skin: Denies: Rash, Wounds Neurological: Denies: Numbness, Tingling, Focal weakness Psychiatric: Denies: Anxiety, Depression, Homicidal Ideations, Suicidal Ideations Hematologic/ Lymphatic: Denies: Easy Bruising, Easy Bleeding Patient Problems: Active and Suspected Problems Hip fracture, right (Acute) - Physical Exam General: Alert, Oriented x3, Cooperative HEENT: Atraumatic, PERRLA, EOMI, Normocephalic Neck: Supple, No JVD, Negative Carotid Bruits Lungs: Clear to auscultation, Normal air movement Cardiovascular: Regular rate, No murmurs Abdomen: Bowel Sounds Present, Soft, Non Tender Extremities: No edema, Capillary Refill Less than 3 Seconds Skin: No rashes, No breakdown Musculoskeletal: No Tenderness to Palpation of Joints or Extremities Neurological: Cranial nerves II-XII grossly intact Psych/Mental Status: Normal Affect, Appropriate Vital Signs Temp Pulse Resp BP Pulse Ox 36.9 C 90 20 H 129/82 H 98 10/06/17 08:11 10/06/17 08:14 10/06/17 08:11 10/06/17 08:11 10/06/17 08:11 Oxygen Flow Rate 1 Oxygen Delivery Method Room Air Weight: 55.3 kg Body Mass Index (BMI) 19.6 Intake and Output for Last 24 Hours 10/04/17 10/05/17 10/06/17 23:59 23:59 23:59 Intake Total 936 / 936 500 / 500 Balance 936 / 936 500 / 500 Laboratory Tests Past 24 Hrs 10/05/17 10/06/17 05:40 05:50 Sodium 135 L Potassium 4.4 Chloride 97 L Carbon Dioxide 31.0 Anion Gap 7 BUN 19 H Creatinine 0.72 Estim Creat Clear Calc 47.01 Est GFR (MDRD) Af Amer 103 Est GFR (MDRD) Non-Af 85 BUN/Creatinine Ratio 26.3 H Glucose 93 Calcium 8.3 L Magnesium 2.2 Assessment/Plan Active and Suspected Problems Hip fracture, right (Acute) seizure vs syncope, favor syncope, due to multiple factors including mild hyponatremia,depression, copd now complicated by right hip fx continue keppra 500mg bid ok to dc from neuro f/u as op increase fluid intake ? op eval for weight loss ? hyponatremia : rec follow as op
--- NOTE | 2017-10-06 10:33 | CASEMGMT ---
Social Work Note Placed call to [facility] to check on status of pre-cert. At this time there has not been a determination made by insurance. SW to continue to follow and assist with discharge planning. Plan: RANJIT vs. JODIE Castelan, [employer], [employer]
[2017-10-06 15:00] VITALS: BP 101/65; PULSE 107; RESP 18; TEMP 37.1; O2SAT 94
[2017-10-06 20:52] VITALS: BP 138/83; PULSE 80; RESP 18; TEMP 36.9; O2SAT 94
[2017-10-06] MEDS: Ondansetron 4 MG/2 ML Vial IV (22:16)
[2017-10-06] MEDS: 0.9% NaCl Peripheral Flush Adult/Peds IV (22:26)
[2017-10-07] VITALS (7 sets, daily range): BP systolic 104–150; BP diastolic 67–84; PULSE 83–95; RESP 14–20; TEMP 36.4–37.2; O2SAT 92–97
[2017-10-07] MEDS: Ipratropium/Albuterol Sulfate 3 ML AMPUL.NEB INHALATION ×3 (07:11→19:09)
[2017-10-07] MEDS: Budesonide Respules 0.5 MG/2 ML AMPUL.NEB. INHALATION ×2 (07:11→19:09)
[2017-10-07] MEDS: Ondansetron 4 MG/2 ML Vial IV (07:45)
--- NOTE | 2017-10-07 10:28 | NURSING ---
pt wishes to hold off on taking 1000 meds due to nausea at this time.
[2017-10-07] MEDS: Enoxaparin 40 MG/0.4 ML Syringe SC (10:50)
[2017-10-07] MEDS: Escitalopram Oxalate 10 MG Tablet PO (10:50)
[2017-10-07] MEDS: levETIRAcetam 500 MG Tablet PO ×2 (10:50→21:15)
--- NOTE | 2017-10-07 10:54 | PCM.PROGNOTE ---
Patient Problems: Active and Suspected Problems Hip fracture, right (Acute) Subjective: Chief complaint: Follow-up after admission for acute nondisplaced traumatic fracture of the proximal right femur and seizure. Patient seen and examined. No acute events overnight. This morning, she complained of back pain as well as nausea. She reported mild abdominal discomfort and she attributed to the back pain it. History of chronic back pain and she has been on Percocet chronically. Her vital signs are stable. - Physical Exam General: Alert, Oriented x3, Cooperative HEENT: Atraumatic, PERRLA, EOMI Oral: Moist Mucosa, No Gingival or Mucosal Lesions/ Ulcerations Neck: Supple, No JVD, Negative Carotid Bruits, Trachea Midline, Thyroid Normal Size and Texture Lungs: Clear to auscultation, No rhonchi, No wheeze, No rales, Diminished Cardiovascular: Regular rate, Regular Rhythm, Normal S1, Normal S2, PMI Normal Abdomen: Bowel Sounds Present, Soft, Non Tender, Non-Distended, No Hepato-splenomegaly Extremities: No clubbing, No cyanosis, No edema Skin: No rashes, No breakdown Lymphatic: No Cervical, Supraclavicular, or Inguinal Adenopathy Neurological: Cranial nerves II-XII grossly intact, Neuro grossly intact Psych/Mental Status: Normal Affect, Appropriate Vital Signs Temp Pulse Resp BP Pulse Ox 98.6 F 91 18 150/77 H 93 10/07/17 07:40 10/07/17 07:40 10/07/17 07:40 10/07/17 07:40 10/07/17 07:40 Oxygen Flow Rate 1 Oxygen Delivery Method Room Air Weight: 121 lb 14.65 oz Body Mass Index (BMI) 19.6 Intake and Output for Last 24 Hours 10/05/17 10/06/17 10/07/17 23:59 23:59 23:59 Intake Total 936 / 936 500 / 500 Output Total 600 / 600 Balance 936 / 936 500 / 500 -600 / -600 Assessment/Plan Active and Suspected Problems Hip fracture, right (Acute) This is a 67 years old female patient presented to the emergency room because of right hip pain, found to have nondisplaced fracture of the proximal right femur due to fall secondary to seizure. #1 acute nondisplaced traumatic fracture of the proximal right femur: Due to fall secondary to seizure. CT scan right hip reviewed. She is on IV morphine and oxycodone as needed for pain. Time, her right hip pain and back pain is not well controlled. She is stated that she takes Percocet 10/325 at home. Vital signs are stable. Orthopedic surgery consulted and recommended conservative management, no surgery, recommended nonweightbearing. Plan: Increase OxyIR to 10 mg every 6 as needed, IV antiemetics, awaiting insurance approval for placement to [facility] facility. #2 seizure: Patient had a seizure on Monday and then she started having right hip pain. She does have a history of seizure, has been on Keppra. Neurology evaluated the patient and recommended to keep her on Keppra 500 mg p.o. daily. #3 hyponatremia/hypokalemia: Seems to be hypovolemic hyponatremia. Potassium replaced and corrected, sodium improved. #4 COPD: Clinically stable, pulse ox is normal on room air. She is on bronchodilators. #5 seizure disorder: Continue Keppra. #6 anxiety/depression: Continue Lexapro and trazodone. #7 DVT prophylaxis: Subcu Lovenox. This note was generated with [employer] dictation software. It may contain incorrect words, spelling, and punctuation that were not noted in checking the note before signing. Code Visit Inpatient E&M: 39483 Subs Hosp L2
--- NOTE | 2017-10-07 10:57 | PN_ITS ---
Patient Problems: Active and Suspected Problems Hip fracture, right (Acute) Subjective: Chief complaint: Follow-up after admission for acute nondisplaced traumatic fracture of the proximal right femur and seizure. Patient seen and examined. No acute events overnight. This morning, she complained of back pain as well as nausea. She reported mild abdominal discomfort and she attributed to the back pain it. History of chronic back pain and she has been on Percocet chronically. Her vital signs are stable. - Physical Exam General: Alert, Oriented x3, Cooperative HEENT: Atraumatic, PERRLA, EOMI Oral: Moist Mucosa, No Gingival or Mucosal Lesions/ Ulcerations Neck: Supple, No JVD, Negative Carotid Bruits, Trachea Midline, Thyroid Normal Size and Texture Lungs: Clear to auscultation, No rhonchi, No wheeze, No rales, Diminished Cardiovascular: Regular rate, Regular Rhythm, Normal S1, Normal S2, PMI Normal Abdomen: Bowel Sounds Present, Soft, Non Tender, Non-Distended, No Hepato- splenomegaly Extremities: No clubbing, No cyanosis, No edema Skin: No rashes, No breakdown Lymphatic: No Cervical, Supraclavicular, or Inguinal Adenopathy Neurological: Cranial nerves II-XII grossly intact, Neuro grossly intact Psych/Mental Status: Normal Affect, Appropriate Vital Signs Temp Pulse Resp BP Pulse Ox 98.6 F 91 18 150/77 H 93 10/07/17 07:40 10/07/17 07:40 10/07/17 07:40 10/07/17 07:40 10/07/17 07:40 Oxygen Flow Rate 1 Oxygen Delivery Method Room Air Weight: 121 lb 14.65 oz Body Mass Index (BMI) 19.6 Intake and Output for Last 24 Hours 10/05/17 10/06/17 10/07/17 23:59 23:59 23:59 Intake Total 936 / 936 500 / 500 Output Total 600 / 600 Balance 936 / 936 500 / 500 -600 / -600 Assessment/Plan Active and Suspected Problems Hip fracture, right (Acute) This is a 67 years old female patient presented to the emergency room because of right hip pain, found to have nondisplaced fracture of the proximal right femur due to fall secondary to seizure. #1 acute nondisplaced traumatic fracture of the proximal right femur: Due to fall secondary to seizure. CT scan right hip reviewed. She is on IV morphine and oxycodone as needed for pain. Time, her right hip pain and back pain is not well controlled. She is stated that she takes Percocet 10/325 at home. Vital signs are stable. Orthopedic surgery consulted and recommended conservative management, no surgery, recommended nonweightbearing. Plan: Increase OxyIR to 10 mg every 6 as needed, IV antiemetics, awaiting insurance approval for placement to [facility] facility. #2 seizure: Patient had a seizure on Monday and then she started having right hip pain. She does have a history of seizure, has been on Keppra. Neurology evaluated the patient and recommended to keep her on Keppra 500 mg p.o. daily. #3 hyponatremia/hypokalemia: Seems to be hypovolemic hyponatremia. Potassium replaced and corrected, sodium improved. #4 COPD: Clinically stable, pulse ox is normal on room air. She is on bronchodilators. #5 seizure disorder: Continue Keppra. #6 anxiety/depression: Continue Lexapro and trazodone. #7 DVT prophylaxis: Subcu Lovenox. This note was generated with [employer] dictation software. It may contain incorrect words, spelling, and punctuation that were not noted in checking the note before signing. Code Visit Inpatient E&M: 44038 Subs Hosp L2
[2017-10-07] MEDS: oxyCODONE 5 MG Tablet 10 MG PO ×2 (11:08→18:48)
[2017-10-08] VITALS (8 sets, daily range): BP systolic 109–133; BP diastolic 68–80; PULSE 81–98; RESP 16–20; TEMP 36.4–36.9; O2SAT 94–96
[2017-10-08] MEDS: oxyCODONE 5 MG Tablet 10 MG PO ×4 (01:50→21:29)
[2017-10-08] MEDS: Ipratropium/Albuterol Sulfate 3 ML AMPUL.NEB INHALATION ×3 (07:17→19:45)
[2017-10-08] MEDS: Budesonide Respules 0.5 MG/2 ML AMPUL.NEB. INHALATION ×2 (07:18→19:45)
--- NOTE | 2017-10-08 07:26 | NURSING ---
Gave prune juice this am, last bm was last Monday.
[2017-10-08 08:51] LABS: KEPPRA (LEVETIRACETAM) 13.6 ug/mL (10.0-40.0)
--- NOTE | 2017-10-08 09:42 | PCM.PROGNOTE ---
Patient Problems: Active and Suspected Problems Hip fracture, right (Acute) Subjective: Chief complaint: Follow-up after admission for acute nondisplaced traumatic fracture of the proximal right femur and seizure. Patient seen and examined. No acute events overnight. Back pain and right hip pain is manageable with the current pain medication regimen. she has no more abdominal pain or nausea. Vital signs are stable. - Physical Exam General: Alert, Oriented x3, Cooperative, No apparent distress HEENT: Atraumatic, PERRLA, EOMI Oral: Moist Mucosa, No Gingival or Mucosal Lesions/ Ulcerations Neck: Supple, No JVD, Negative Carotid Bruits, Trachea Midline Lungs: Clear to auscultation, No rhonchi, No wheeze, No rales, Diminished Cardiovascular: Regular rate, Regular Rhythm, Normal S1, Normal S2, No murmurs Abdomen: Bowel Sounds Present, Soft, Non Tender, Non-Distended, No Hepato-splenomegaly Extremities: No clubbing, No cyanosis, No edema Skin: No rashes, No breakdown Lymphatic: No Cervical, Supraclavicular, or Inguinal Adenopathy Neurological: Cranial nerves II-XII grossly intact, Neuro grossly intact Psych/Mental Status: Normal Affect, Appropriate Vital Signs Temp Pulse Resp BP Pulse Ox 98 F 85 20 H 133/71 H 94 10/08/17 07:50 10/08/17 07:50 10/08/17 08:00 10/08/17 07:50 10/08/17 08:00 Oxygen Flow Rate 1 Oxygen Delivery Method Room Air Weight: 121 lb 14.65 oz Body Mass Index (BMI) 19.6 Intake and Output for Last 24 Hours 10/06/17 10/07/17 10/08/17 23:59 23:59 23:59 Intake Total 500 / 500 460 / 460 550 / 550 Output Total 1200 / 1200 Balance 500 / 500 -740 / -740 550 / 550 Laboratory Tests Past 24 Hrs 10/05/17 05:40 Levetiracetam 13.6 Assessment/Plan Active and Suspected Problems Hip fracture, right (Acute) This is a 67 years old female patient presented to the emergency room because of right hip pain, found to have nondisplaced fracture of the proximal right femur due to fall secondary to seizure. #1 acute nondisplaced traumatic fracture of the proximal right femur: Due to fall secondary to seizure. CT scan right hip reviewed. She is on IV morphine and oxycodone as needed for pain. Dose of OxyIR increased to 10 mg every 6 hours yesterday. Her pain as manageable at this time. Vital signs are stable. Orthopedic surgery consulted and recommended conservative management, no surgery, recommended nonweightbearing. Plan: Awaiting insurance approval for placement to halfway facility. #2 seizure: Breakthrough seizure. Patient was on Keppra, compliant. Keppra level is therapeutic. Patient had a seizure on Monday and then she started having right hip pain. She does have a history of seizure, has been on Keppra. Neurology evaluated the patient and recommended to keep her on Keppra 500 mg p.o. daily. #3 hyponatremia/hypokalemia: Seems to be hypovolemic hyponatremia. Potassium replaced and corrected, sodium improved. #4 COPD: Clinically stable, pulse ox is normal on room air. She is on bronchodilators. #5 seizure disorder: Continue Keppra. #6 anxiety/depression: Continue Lexapro and trazodone. #7 DVT prophylaxis: Subcu Lovenox. This note was generated with [employer] dictation software. It may contain incorrect words, spelling, and punctuation that were not noted in checking the note before signing. Code Visit Inpatient E&M: 29325 Subs Hosp L2
--- NOTE | 2017-10-08 09:45 | PN_ITS ---
Patient Problems: Active and Suspected Problems Hip fracture, right (Acute) Subjective: Chief complaint: Follow-up after admission for acute nondisplaced traumatic fracture of the proximal right femur and seizure. Patient seen and examined. No acute events overnight. Back pain and right hip pain is manageable with the current pain medication regimen. she has no more abdominal pain or nausea. Vital signs are stable. - Physical Exam General: Alert, Oriented x3, Cooperative, No apparent distress HEENT: Atraumatic, PERRLA, EOMI Oral: Moist Mucosa, No Gingival or Mucosal Lesions/ Ulcerations Neck: Supple, No JVD, Negative Carotid Bruits, Trachea Midline Lungs: Clear to auscultation, No rhonchi, No wheeze, No rales, Diminished Cardiovascular: Regular rate, Regular Rhythm, Normal S1, Normal S2, No murmurs Abdomen: Bowel Sounds Present, Soft, Non Tender, Non-Distended, No Hepato- splenomegaly Extremities: No clubbing, No cyanosis, No edema Skin: No rashes, No breakdown Lymphatic: No Cervical, Supraclavicular, or Inguinal Adenopathy Neurological: Cranial nerves II-XII grossly intact, Neuro grossly intact Psych/Mental Status: Normal Affect, Appropriate Vital Signs Temp Pulse Resp BP Pulse Ox 98 F 85 20 H 133/71 H 94 10/08/17 07:50 10/08/17 07:50 10/08/17 08:00 10/08/17 07:50 10/08/17 08:00 Oxygen Flow Rate 1 Oxygen Delivery Method Room Air Weight: 121 lb 14.65 oz Body Mass Index (BMI) 19.6 Intake and Output for Last 24 Hours 10/06/17 10/07/17 10/08/17 23:59 23:59 23:59 Intake Total 500 / 500 460 / 460 550 / 550 Output Total 1200 / 1200 Balance 500 / 500 -740 / -740 550 / 550 Laboratory Tests Past 24 Hrs 10/05/17 05:40 Levetiracetam 13.6 Assessment/Plan Active and Suspected Problems Hip fracture, right (Acute) This is a 67 years old female patient presented to the emergency room because of right hip pain, found to have nondisplaced fracture of the proximal right femur due to fall secondary to seizure. #1 acute nondisplaced traumatic fracture of the proximal right femur: Due to fall secondary to seizure. CT scan right hip reviewed. She is on IV morphine and oxycodone as needed for pain. Dose of OxyIR increased to 10 mg every 6 hours yesterday. Her pain as manageable at this time. Vital signs are stable. Orthopedic surgery consulted and recommended conservative management, no surgery, recommended nonweightbearing. Plan: Awaiting insurance approval for placement to [facility] facility. #2 seizure: Breakthrough seizure. Patient was on Keppra, compliant. Keppra level is therapeutic. Patient had a seizure on Monday and then she started having right hip pain. She does have a history of seizure, has been on Keppra. Neurology evaluated the patient and recommended to keep her on Keppra 500 mg p.o. daily. #3 hyponatremia/hypokalemia: Seems to be hypovolemic hyponatremia. Potassium replaced and corrected, sodium improved. #4 COPD: Clinically stable, pulse ox is normal on room air. She is on bronchodilators. #5 seizure disorder: Continue Keppra. #6 anxiety/depression: Continue Lexapro and trazodone. #7 DVT prophylaxis: Subcu Lovenox. This note was generated with [employer] dictation software. It may contain incorrect words, spelling, and punctuation that were not noted in checking the note before signing. Code Visit Inpatient E&M: 38140 Subs Hosp L2
[2017-10-08] MEDS: Enoxaparin 40 MG/0.4 ML Syringe SC (10:46)
[2017-10-08] MEDS: levETIRAcetam 500 MG Tablet PO ×2 (10:46→21:29)
[2017-10-08] MEDS: Escitalopram Oxalate 10 MG Tablet PO (10:46)
[2017-10-08] MEDS: Magnesium Hydroxide 30 ML UDC PO (10:52)
[2017-10-09] VITALS (9 sets, daily range): BP systolic 110–127; BP diastolic 72–80; PULSE 72–91; RESP 14–18; TEMP 36.7–37; O2SAT 94–98
[2017-10-09] MEDS: Budesonide Respules 0.5 MG/2 ML AMPUL.NEB. INHALATION ×2 (07:23→18:38)
[2017-10-09] MEDS: Ipratropium/Albuterol Sulfate 3 ML AMPUL.NEB INHALATION ×3 (07:23→18:38)
[2017-10-09] MEDS: oxyCODONE 5 MG Tablet 10 MG PO ×3 (08:48→22:18)
[2017-10-09] MEDS: Enoxaparin 40 MG/0.4 ML Syringe SC (08:51)
[2017-10-09] MEDS: Escitalopram Oxalate 10 MG Tablet PO (08:51)
[2017-10-09] MEDS: levETIRAcetam 500 MG Tablet PO ×2 (08:51→22:17)
--- NOTE | 2017-10-09 10:05 | PCM.PN.HOSP ---
Patient Problems: Active and Suspected Problems Hip fracture, right (Acute) Subjective: Patient with no acute events overnight per self and per nursing report. She states that she has been performing in bed exercises per PT, OT direction. She remains nonweightbearing. She notes pain has increased over the weekend and does feel a little bit more debilitated; however, this is improved with pain regimen. She remains amenable to [facility]iary facility versus acute rehabilitation placement. Patient denies fevers, chills, nausea, emesis, abdominal pain, chest pain or dyspnea. Objective: Physical Examination: General: awake, alert, oriented x 3 and cooperative, seated upright in bed in no apparent distress, fatigued appearance. Skin: normal color, turgor, no icterus, cyanosis. HEENT: AT/NC, EOMI, PERRLA, MMM. Lungs: CTA bilaterally, moderate effort, moderate decrease BL bases, no rales, ronchi or wheezing. Heart: Regular rate and rhythm; no gallop, rub audible. Abdomen: soft, thin habitus, NTTP, ND, normal BS. Extremities: no cyanosis, clubbing, s/p fall w/ R hip/RLE pain, s/p femur fx, distal pulses intact BL. Neurological: patient awake, alert, oriented x 3; cognitive function intact; pupils equally reactive to light and accomodation; cranial nerves II-XII grossly normal, moving all 4 extremities, limited RLE s/p femur fracture/fall, NWB status, strength accordingly severely globally decreased. Psychiatric: affect appears fatigued, mildly flat, no acute evidence of depressive or anxiety feelings. Vitals/I&O's: Vital Signs Temp Pulse Resp BP Pulse Ox 98.3 F 74 18 127/77 H 97 10/09/17 09:41 10/09/17 09:41 10/09/17 09:41 10/09/17 09:41 10/09/17 09:41 Oxygen Flow Rate 1 Oxygen Delivery Method Room Air Weight: 121 lb 14.65 oz Body Mass Index (BMI) 19.6 Intake and Output for Last 24 Hours 10/07/17 10/08/17 10/09/17 23:59 23:59 23:59 Intake Total 460 / 460 1270 / 1270 200 / 200 Output Total 1200 / 1200 700 / 700 Balance -740 / -740 570 / 570 200 / 200 Current Medications Albuterol Sulfate (Ventolin Aerosols) 2.5 mg INHALATION Q4HWA.RT PRN PRN Reason: SHORTNESS OF BREATH Albuterol/Ipratropium (Duoneb) 3 ml INHALATION Q6H.RT [facility] Last Admin: 10/09/17 07:23 Dose: 3 ml Budesonide (Pulmicort Aerosol) 0.5 mg INHALATION Q12H.RT [facility] Last Admin: 10/09/17 07:23 Dose: 0.5 mg Enoxaparin Sodium (Lovenox) 40 mg SC DAILY@1000 [facility] Last Admin: 10/09/17 08:51 Dose: 40 mg Escitalopram Oxalate (Lexapro) 10 mg PO DAILY [facility] Last Admin: 10/09/17 08:51 Dose: 10 mg Hydralazine HCl (Apresoline) 5 mg IV Q6H PRN PRN PRN Reason: BLOOD PRESSURE Levetiracetam (Keppra) 500 mg PO BID [facility] Last Admin: 10/09/17 08:51 Dose: 500 mg Magnesium Hydroxide (Milk Of Magnesia) 30 ml PO DAILY PRN PRN PRN Reason: Constipation Last Admin: 10/08/17 10:52 Dose: 30 ml Morphine Sulfate (Morphine) 1 mg IV Q4H PRN PRN PRN Reason: SEVERE PAIN (6-10/10) Last Admin: 10/07/17 07:46 Dose: 1 mg Nutritional Formula (Lactose Free) (Ensure Clear) 120 ml PO 4X/DAY [facility] Last Admin: 10/09/17 08:53 Dose: 120 ml Ondansetron HCl (Zofran) 4 mg IV Q8H PRN PRN PRN Reason: NAUSEA Last Admin: 10/07/17 07:45 Dose: 4 mg Oxycodone HCl (Oxyir) 10 mg PO Q6H PRN PRN PRN Reason: SEVERE PAIN (6-10/10) Last Admin: 10/09/17 08:48 Dose: 10 mg Sodium Chloride () 5 - 30 ml IV UD PRN PRN Reason: SALINE FLUSH Last Admin: 10/06/17 22:26 Dose: 10 ml Trazodone HCl (Desyrel) 100 mg PO QHS [facility] Last Admin: 10/08/17 21:29 Dose: 100 mg Assessment/Plan Active and Suspected Problems Hip fracture, right (Acute) The patient is a 67 y/o F w/ PMHx: Seizure Disorder, Chronic COPD, Anxiety and Depression, Chronic COPD who presents to the [facility] ED on 10/04/17 with history of breakthrough seizure with following resolution of post-ictal phase, R sided hip and lower extremity pain. (1) General debility, R hip pain s/p mechanical fall w/ acute nondisplaced traumatic fracture of the proximal right femur: Plain film noting acute nondisplaced traumatic fracture of the proximal right femur. Orthopedic surgery consulted from ED. Admitted to [facility], Orthopedic surgery evaluation performed, decision for conservative management, no OR intervention, NWB status until cleared per Orthopedic surgery, plan SNF placement per PT, OT, CM recommendations. (2) Seizure disorder: Patient maintained on keppra, therapeutic, Neurology consulted and recommended continuation keppra 500 mg daily. Seizure precautions. (3) Acute Electrolyte Disturbances, hyponatremia/hypokalemia: Hypovolemic hyponatremia, improved w/ hydration, trending. Mild Hypokalemia, corrected with supplementation. (4) Will maintain on ATC duonebs, PRN albuterol, HOB, IS parameters. (5) Anxiety and Depression: Maintain on home Lexapro and trazodone. (6) Chronic Severe Protein-Calorie Malnutrition: Evidenced per habitus, BMI, chronic disease states, debility, muscle and fat loss. Nutrition consulted. (7) Tobacco Abuse: Encouraged cessation, inpatient consultation per RT, NR if desired. (8) DVT Prophylaxis: SCDs, lovenox. Code Visit Inpatient E&M: 81363 Subs Hosp L2
--- NOTE | 2017-10-09 10:11 | PN_ITS ---
Patient Problems: Active and Suspected Problems Hip fracture, right (Acute) Subjective: Patient with no acute events overnight per self and per nursing report. She states that she has been performing in bed exercises per PT, OT direction. She remains nonweightbearing. She notes pain has increased over the weekend and does feel a little bit more debilitated; however, this is improved with pain regimen. She remains amenable to residential facility versus acute rehabilitation placement. Patient denies fevers, chills, nausea, emesis, abdominal pain, chest pain or dyspnea. Objective: Physical Examination: General: awake, alert, oriented x 3 and cooperative, seated upright in bed in no apparent distress, fatigued appearance. Skin: normal color, turgor, no icterus, cyanosis. HEENT: AT/NC, EOMI, PERRLA, MMM. Lungs: CTA bilaterally, moderate effort, moderate decrease BL bases, no rales, ronchi or wheezing. Heart: Regular rate and rhythm; no gallop, rub audible. Abdomen: soft, thin habitus, NTTP, ND, normal BS. Extremities: no cyanosis, clubbing, s/p fall w/ R hip/RLE pain, s/p femur fx, distal pulses intact BL. Neurological: patient awake, alert, oriented x 3; cognitive function intact; pupils equally reactive to light and accomodation; cranial nerves II-XII grossly normal, moving all 4 extremities, limited RLE s/p femur fracture/fall, NWB status, strength accordingly severely globally decreased. Psychiatric: affect appears fatigued, mildly flat, no acute evidence of depressive or anxiety feelings. Vitals/I&O's: Vital Signs Temp Pulse Resp BP Pulse Ox 98.3 F 74 18 127/77 H 97 10/09/17 09:41 10/09/17 09:41 10/09/17 09:41 10/09/17 09:41 10/09/17 09:41 Oxygen Flow Rate 1 Oxygen Delivery Method Room Air Weight: 121 lb 14.65 oz Body Mass Index (BMI) 19.6 Intake and Output for Last 24 Hours 10/07/17 10/08/17 10/09/17 23:59 23:59 23:59 Intake Total 460 / 460 1270 / 1270 200 / 200 Output Total 1200 / 1200 700 / 700 Balance -740 / -740 570 / 570 200 / 200 Current Medications Albuterol Sulfate (Ventolin Aerosols) 2.5 mg INHALATION Q4HWA.RT PRN PRN Reason: SHORTNESS OF BREATH Albuterol/Ipratropium (Duoneb) 3 ml INHALATION Q6H.RT [facility] Last Admin: 10/09/17 07:23 Dose: 3 ml Budesonide (Pulmicort Aerosol) 0.5 mg INHALATION Q12H.RT [facility] Last Admin: 10/09/17 07:23 Dose: 0.5 mg Enoxaparin Sodium (Lovenox) 40 mg SC DAILY@1000 [facility] Last Admin: 10/09/17 08:51 Dose: 40 mg Escitalopram Oxalate (Lexapro) 10 mg PO DAILY [facility] Last Admin: 10/09/17 08:51 Dose: 10 mg Hydralazine HCl (Apresoline) 5 mg IV Q6H PRN PRN PRN Reason: BLOOD PRESSURE Levetiracetam (Keppra) 500 mg PO BID [facility] Last Admin: 10/09/17 08:51 Dose: 500 mg Magnesium Hydroxide (Milk Of Magnesia) 30 ml PO DAILY PRN PRN PRN Reason: Constipation Last Admin: 10/08/17 10:52 Dose: 30 ml Morphine Sulfate (Morphine) 1 mg IV Q4H PRN PRN PRN Reason: SEVERE PAIN (6-10/10) Last Admin: 10/07/17 07:46 Dose: 1 mg Nutritional Formula (Lactose Free) (Ensure Clear) 120 ml PO 4X/DAY [facility] Last Admin: 10/09/17 08:53 Dose: 120 ml Ondansetron HCl (Zofran) 4 mg IV Q8H PRN PRN PRN Reason: NAUSEA Last Admin: 10/07/17 07:45 Dose: 4 mg Oxycodone HCl (Oxyir) 10 mg PO Q6H PRN PRN PRN Reason: SEVERE PAIN (6-10/10) Last Admin: 10/09/17 08:48 Dose: 10 mg Sodium Chloride () 5 - 30 ml IV UD PRN PRN Reason: SALINE FLUSH Last Admin: 10/06/17 22:26 Dose: 10 ml Trazodone HCl (Desyrel) 100 mg PO QHS [facility] Last Admin: 10/08/17 21:29 Dose: 100 mg Assessment/Plan Active and Suspected Problems Hip fracture, right (Acute) The patient is a 67 y/o F w/ PMHx: Seizure Disorder, Chronic COPD, Anxiety and Depression, Chronic COPD who presents to the [facility] ED on 10/04/17 with history of breakthrough seizure with following resolution of post-ictal phase, R sided hip and lower extremity pain. (1) General debility, R hip pain s/p mechanical fall w/ acute nondisplaced traumatic fracture of the proximal right femur: Plain film noting acute nondisplaced traumatic fracture of the proximal right femur. Orthopedic surgery consulted from ED. Admitted to [place], Orthopedic surgery evaluation performed, decision for conservative management, no OR intervention, NWB status until cleared per Orthopedic surgery, plan SNF placement per PT, OT, CM recommendations. (2) Seizure disorder: Patient maintained on keppra, therapeutic, Neurology consulted and recommended continuation keppra 500 mg daily. Seizure precautions. (3) Acute Electrolyte Disturbances, hyponatremia/hypokalemia: Hypovolemic hyponatremia, improved w/ hydration, trending. Mild Hypokalemia, corrected with supplementation. (4) Will maintain on ATC duonebs, PRN albuterol, HOB, IS parameters. (5) Anxiety and Depression: Maintain on home Lexapro and trazodone. (6) Chronic Severe Protein-Calorie Malnutrition: Evidenced per habitus, BMI, chronic disease states, debility, muscle and fat loss. Nutrition consulted. (7) Tobacco Abuse: Encouraged cessation, inpatient consultation per RT, NR if desired. (8) DVT Prophylaxis: SCDs, lovenox. Code Visit Inpatient E&M: 78891 Subs Hosp L2
--- NOTE | 2017-10-09 11:03 | DCINST_ITS ---
- Discharge Diagnoses Current Active Problems: Current Active and Chronic Problems Hip fracture, right (Acute) (1) General debility, R hip pain s/p mechanical fall w/ acute nondisplaced traumatic fracture of the proximal right femur (2) Seizure disorder with breakthrough seizure (3) Acute Electrolyte Disturbances, hyponatremia (hypovolemia), hypokalema (4) Anxiety and Depression: Maintain on home Lexapro and trazodone. (5) Chronic Severe Protein-Calorie Malnutrition: Evidenced per habitus, BMI, chronic disease states, debility, muscle and fat loss. Nutrition consulted. (6) Tobacco Abuse: Encouraged cessation, inpatient consultation per RT, NR if desired. You will use the following diet at home:: Regular Your food should be the consistency of: Regular Your liquids should be the consistency of: Regular/Thin Discharge Activity: - - NWB to the RLE until otherwise determined per Orthopedic surgery. May resume sexual activity in: - - Once cleared per Orthopedic surgery. Weight Bearing Status: No weight bearing - NWB to RLE. Keep extremity elevated above heart level: Right Leg Call your doctor if you observe: Fever of 101 or Higher, Inability to urinate, Inability to have a bowel movement, Shortness of breath, Dizziness, Fainting spells, Chest pain, Calf discomfort, Uncontrolled pain Instructions: Understanding Hip Fractures, After a Hip Fracture: Common Questions, What is COPD?, Caring for Your Inhaler, Using an Inhaler Without a Spacer, Why Do You Smoke?, Planning to Quit Smoking, Getting Support for Quitting Smoking Allergies/Adverse Reactions: Allergies hydrocodone bitartrate [From Vicodin] Allergy (Mild, Verified 10/07/17 03:40) Rash itching and rash Milk Containing Products Adverse Reaction (Mild, Verified 10/07/17 03:42) Abd cramps/vomiting/nausea stomach upset, nausea, vomiting, cramping when to much milk is consumed Medications to take at Discharge Albuterol Inhaler [Ventolin Hfa] 2 puff INHALATION Q4H PRN PRN 05/16/14 Fluticasone/Salmeterol [Advair 100/50 Diskus] 1 puff INHALATION BID PRN Levetiracetam [Keppra] 500 mg PO BID 05/16/14 Hydroxyzine HCl 1 - 2 tab PO Q8H PRN PRN 06/17/15 Trazodone HCl [Desyrel] 100 mg PO QHS 06/17/15 Aspirin 325 mg PO BID #60 tablet 07/02/15 Escitalopram Oxalate [Lexapro] 10 mg PO DAILY 10/04/17 Docusate Sodium [Colace] 100 mg PO BID #60 capsule 10/09/17 Ensure Clear 120 ml PO 4X/DAY liquid 10/09/17 Magnesium Hydroxide [Milk Of Magnesia] 30 ml PO DAILY PRN PRN udc 10/09/17 Oxycodone [Oxyir] 10 mg PO Q6H PRN PRN #20 tab 10/09/17 The following prescriptions were given: Oxycodone [Oxyir] 10 mg PO Q6H PRN PRN #20 tab PRN Reason: Severe Pain (-05/23) Docusate Sodium [Colace] 100 mg PO BID #60 capsule Primary Care Physician: Ashley Bennett [Primary Care Provider] - Please follow up with your Primary Care Physician in: Follow-up within 3-5 days of rehab discharge to review admission. Please Follow Up With: Emeterio Esquivel MD When: Follow-up with your Neurologist or Dr. Esquivel (BRAILLE AND TALKING BOOKS CLERK/PA) within 1-2 weeks. Proposed Discharge Date: 10/09/17
--- NOTE | 2017-10-09 11:04 | TREXTCAR_ITS ---
- Diet 10/06/17 10:10 Diet: Regular Diet Is pt able to select menu?: Yes Diet Comments: milk sensitivity - Routine Orders/Code Status Enema Type: Fleetz Enema Frequency: Daily PRN Suppository Type: Dulcolax 10mg Suppository Frequency: Daily PRN Keep PO Greater than or Equal to (%): 90 Routine Lab Work: - - Repeat CBC, BMP within 1 week. Code Status: Full Code - Suggestions for Active Care Change Position every (hours): 2 Hours to sit in a chair: 6 Times a day to sit in chair: 3 - Therapies Weight Bearing: Non weight bearing - NWB to RLE. Extremity Affected:: Right Lower Physical Therapy: Eval and Treat Occupational Therapy: Eval and Treat - Problem/Diagnosis (1) Hip fracture, right Status: Acute Comment: Non-operable, conservative treatment, continue NWB status. Current Visit: Yes (2) COPD (chronic obstructive pulmonary disease) Status: Chronic Current Visit: No (3) Seizure disorder Status: Chronic Current Visit: No (4) Depressed Status: Chronic Current Visit: No (5) Anxiety Status: Chronic Current Visit: No - Allergies/Procedures Done in Hospital Allergies/Adverse Reactions: Allergies hydrocodone bitartrate [From Vicodin] Allergy (Mild, Verified 10/07/17 03:40) Rash itching and rash Milk Containing Products Adverse Reaction (Mild, Verified 10/07/17 03:42) Abd cramps/vomiting/nausea stomach upset, nausea, vomiting, cramping when to much milk is consumed Procedures: EKG - Type of Care/Length of Stay Estimated LOS: Convalescent Care Less Than 30 days Type of Care Needed: Skilled Rehab Potential: Good Prognosis: Good - Additional Orders/Day of Discharge Additional Orders: (1) HOB. (2) Fall precautions. (3) IS 10x/hr 7a-7p. (4) Continued PT, OT therapies. (5) OOB to chair for all meals. (6) NWB to RLE until cleared per Orthopedic surgery. (7) Follow-up with her Neurologist or if preference may follow-up with Dr. Esquivel office, may see TELEVISION ENGINEERING TEACHER/PA. H&P will serve as current which was dated: 10/04/17 Day of Discharge: 10/09/17 - Follow Up Care Primary Care Physician: Ashley Bennett [Primary Care Provider] - Please follow up with your Primary Care Physician in: Follow-up within 3-5 days of rehab discharge to review admission. Please Follow Up With: Emeterio Esquivel MD When: Follow-up with your Neurologist or Dr. Esquivel (TELEVISION ENGINEERING TEACHER/PA) within 1-2 weeks. Please Follow Up With: Franklyn Judd MD When: Follow-up within 1-2 weeks.
--- NOTE | 2017-10-09 11:08 | PCM.DC.SUM ---
Discharge Date and Diagnosis - Problem List Patient Problems: Active and Suspected Problems Hip fracture, right (Acute) Non-operable, conservative treatment, continue NWB status. Date of Admission: 10/04/17 Date of Discharge: 10/09/17 - Primary Discharge Diagnosis Active and Suspected Problems Hip fracture, right (Acute) Non-operable, conservative treatment, continue NWB status. (1) General debility, R hip pain s/p mechanical fall w/ acute nondisplaced traumatic fracture of the proximal right femur (2) Seizure disorder with breakthrough seizure (3) Acute Electrolyte Disturbances, hyponatremia (hypovolemia), hypokalema (4) Anxiety and Depression (5) Chronic Severe Protein-Calorie Malnutrition (6) Tobacco Abuse - Secondary Discharge Diagnosis Chronic Problems COPD (chronic obstructive pulmonary disease) (Chronic) Seizure disorder (Chronic) Depressed (Chronic) Cardiac dysrhythmia (Chronic) Anxiety (Chronic) Hospital Course and Treatment Dr. Judd Orthopedic surgery Operations: None Procedures: EKG Summary of Care Provided: The patient is a 67 y/o F w/ PMHx: Seizure Disorder, Chronic COPD, Anxiety and Depression, Chronic COPD who presented to the [facility] ED on 10/04/17 with history of breakthrough seizure with following resolution of post-ictal phase, R sided hip and lower extremity pain. ED evaluation with Plain film noting acute nondisplaced traumatic fracture of the proximal right femur. Orthopedic surgery consulted from ED. Admitted to [place], Orthopedic surgery evaluation performed, decision for conservative management, no OR intervention, NWB status until cleared per Orthopedic surgery, SNF placement per PT, OT, CM recommendations. Patient maintained on keppra, therapeutic, Neurology consulted and recommended continuation keppra regimen. Seizure precautions maintained without further event. Upon ED presentation noted mild Electrolyte Disturbances w/ hyponatremia/hypokalemia felt secondary to Hypovolemic hyponatremia, improved w/ hydration, trending. Mild Hypokalemia, corrected with supplementation. Maintianed on ATC duonebs, PRN albuterol, HOB, IS parameters. Noted Chronic Severe Protein-Calorie Malnutrition evidenced per habitus, BMI, chronic disease states, debility, muscle and fat loss. Nutrition consulted during admission. Encouraged tobacco cessation, inpatient consultation per RT, NR if desired. Patient discharged to in stable condition with follow-up recommended with her PCP, her Neurologist or Dr. Esquivel office if desired as well as Dr. Judd, Orthopedic surgery. Discharge Activity: - - NWB to the RLE until otherwise determined per Orthopedic surgery. May resume sexual activity in: - - Once cleared per Orthopedic surgery. Weight Bearing Status: No weight bearing - NWB to RLE. Keep extremity elevated above heart level: Right Leg Call your doctor if you observe: Fever of 101 or Higher, Inability to urinate, Inability to have a bowel movement, Shortness of breath, Dizziness, Fainting spells, Chest pain, Calf discomfort, Uncontrolled pain Home Medications: Medications to take at Discharge Albuterol Inhaler [Ventolin Hfa] 2 puff INHALATION Q4H PRN PRN 05/16/14 Fluticasone/Salmeterol [Advair 100/50 Diskus] 1 puff INHALATION BID PRN 05/16/14 Levetiracetam [Keppra] 500 mg PO BID 05/16/14 Hydroxyzine HCl 1 - 2 tab PO Q8H PRN PRN 06/17/15 Trazodone HCl [Desyrel] 100 mg PO QHS 06/17/15 Aspirin 325 mg PO BID #60 tablet 07/02/15 Escitalopram Oxalate [Lexapro] 10 mg PO DAILY 10/04/17 Docusate Sodium [Colace] 100 mg PO BID #60 capsule 10/09/17 Ensure Clear 120 ml PO 4X/DAY liquid 10/09/17 Magnesium Hydroxide [Milk Of Magnesia] 30 ml PO DAILY PRN PRN udc 10/09/17 Oxycodone [Oxyir] 10 mg PO Q6H PRN PRN #20 tab 10/09/17 Following Prescrptions Were Given to Patient: Oxycodone [Oxyir] 10 mg PO Q6H PRN PRN #20 tab PRN Reason: Severe Pain (-05/23) Docusate Sodium [Colace] 100 mg PO BID #60 capsule Primary Care Physician: Ashley Bennett [Primary Care Provider] - Please follow up with your Primary Care Physician in: Follow-up within 3-5 days of rehab discharge to review admission. Please Follow Up With: Emeterio Esquivel MD When: Follow-up with your Neurologist or Dr. Esquivel (QUANTITATIVE ASSOCIATE/PA) within 1-2 weeks. Please Follow Up With: Franklyn Judd MD When: Follow-up within 1-2 weeks. Patient Instructions: What is COPD?, Caring for Your Inhaler, Using an Inhaler Without a Spacer, Why Do You Smoke?, Planning to Quit Smoking, Getting Support for Quitting Smoking, Understanding Hip Fractures, After a Hip Fracture: Common Questions Minutes spent on discharge:: 35 Patient Condition:: Fair Meaningful Use Info Meaningful Use Diagnoses (Choose all that apply): None applicable
--- NOTE | 2017-10-09 11:11 | DS.PCM_ITS ---
Discharge Date and Diagnosis - Problem List Patient Problems: Active and Suspected Problems Hip fracture, right (Acute) Non-operable, conservative treatment, continue NWB status. Date of Admission: 10/04/17 Date of Discharge: 10/09/17 - Primary Discharge Diagnosis Active and Suspected Problems Hip fracture, right (Acute) Non-operable, conservative treatment, continue NWB status. (1) General debility, R hip pain s/p mechanical fall w/ acute nondisplaced traumatic fracture of the proximal right femur (2) Seizure disorder with breakthrough seizure (3) Acute Electrolyte Disturbances, hyponatremia (hypovolemia), hypokalema (4) Anxiety and Depression (5) Chronic Severe Protein-Calorie Malnutrition (6) Tobacco Abuse - Secondary Discharge Diagnosis Chronic Problems COPD (chronic obstructive pulmonary disease) (Chronic) Seizure disorder (Chronic) Depressed (Chronic) Cardiac dysrhythmia (Chronic) Anxiety (Chronic) Hospital Course and Treatment Dr. Judd Orthopedic surgery Operations: None Procedures: EKG Summary of Care Provided: The patient is a 67 y/o F w/ PMHx: Seizure Disorder, Chronic COPD, Anxiety and Depression, Chronic COPD who presented to the [facility] ED on 10/04/17 with history of breakthrough seizure with following resolution of post-ictal phase, R sided hip and lower extremity pain. ED evaluation with Plain film noting acute nondisplaced traumatic fracture of the proximal right femur. Orthopedic surgery consulted from ED. Admitted to [place], Orthopedic surgery evaluation performed, decision for conservative management, no OR intervention, NWB status until cleared per Orthopedic surgery, SNF placement per PT, OT, CM recommendations. Patient maintained on keppra, therapeutic, Neurology consulted and recommended continuation keppra regimen. Seizure precautions maintained without further event. Upon ED presentation noted mild Electrolyte Disturbances w/ hyponatremia/ hypokalemia felt secondary to Hypovolemic hyponatremia, improved w/ hydration, trending. Mild Hypokalemia, corrected with supplementation. Maintianed on ATC duonebs, PRN albuterol, HOB, IS parameters. Noted Chronic Severe Protein- Calorie Malnutrition evidenced per habitus, BMI, chronic disease states, debility, muscle and fat loss. Nutrition consulted during admission. Encouraged tobacco cessation, inpatient consultation per RT, NR if desired. Patient discharged to in stable condition with follow-up recommended with her PCP, her Neurologist or Dr. Esquivel office if desired as well as Dr. Judd, Orthopedic surgery. Discharge Activity: - - NWB to the RLE until otherwise determined per Orthopedic surgery. May resume sexual activity in: - - Once cleared per Orthopedic surgery. Weight Bearing Status: No weight bearing - NWB to RLE. Keep extremity elevated above heart level: Right Leg Call your doctor if you observe: Fever of 101 or Higher, Inability to urinate, Inability to have a bowel movement, Shortness of breath, Dizziness, Fainting spells, Chest pain, Calf discomfort, Uncontrolled pain Home Medications: Medications to take at Discharge Albuterol Inhaler [Ventolin Hfa] 2 puff INHALATION Q4H PRN PRN 05/16/14 Fluticasone/Salmeterol [Advair 100/50 Diskus] 1 puff INHALATION BID PRN Levetiracetam [Keppra] 500 mg PO BID 05/16/14 Hydroxyzine HCl 1 - 2 tab PO Q8H PRN PRN 06/17/15 Trazodone HCl [Desyrel] 100 mg PO QHS 06/17/15 Aspirin 325 mg PO BID #60 tablet 07/02/15 Escitalopram Oxalate [Lexapro] 10 mg PO DAILY 10/04/17 Docusate Sodium [Colace] 100 mg PO BID #60 capsule 10/09/17 Ensure Clear 120 ml PO 4X/DAY liquid 10/09/17 Magnesium Hydroxide [Milk Of Magnesia] 30 ml PO DAILY PRN PRN udc 10/09/17 Oxycodone [Oxyir] 10 mg PO Q6H PRN PRN #20 tab 10/09/17 Following Prescrptions Were Given to Patient: Oxycodone [Oxyir] 10 mg PO Q6H PRN PRN #20 tab PRN Reason: Severe Pain (-05/23) Docusate Sodium [Colace] 100 mg PO BID #60 capsule Primary Care Physician: Ashley Bennett [Primary Care Provider] - Please follow up with your Primary Care Physician in: Follow-up within 3-5 days of rehab discharge to review admission. Please Follow Up With: Emeterio Esquivel MD When: Follow-up with your Neurologist or Dr. Esquivel (OWNER CONSULTING ENGINEER/PA) within 1-2 weeks. Please Follow Up With: Franklyn Judd MD When: Follow-up within 1-2 weeks. Patient Instructions: What is COPD?, Caring for Your Inhaler, Using an Inhaler Without a Spacer, Why Do You Smoke?, Planning to Quit Smoking, Getting Support for Quitting Smoking, Understanding Hip Fractures, After a Hip Fracture: Common Questions Minutes spent on discharge:: 35 Patient Condition:: Fair Meaningful Use Info Meaningful Use Diagnoses (Choose all that apply): None applicable
--- NOTE | 2017-10-09 12:06 | CASEMGMT ---
Social Work Note Placed call to [facility] who states they still do not have pre-cert, but that [facility] requested updated clinicals this date. Anticipate a response today. Physician has completed discharge orders if needed. Plan: RANJIT vs. JODIE Castelan, HEARING CONSULTANT, [employer]
--- NOTE | 2017-10-09 14:19 | CASEMGMT ---
Social Work Note Call from Irene, nurse at [facility], stating that pre-cert has been denied for [facility]. Inform that we will be submitting for pre-cert on our TCU. Notified Jennifer via vm and pre-cert for TCU to be initiated. Plan: TCU pending pre-cert. Madeline Castelan, GENERAL CLEANER, HOTEL ATTENDANT
[2017-10-09] MEDS: Magnesium Hydroxide 30 ML UDC PO (16:03)
[2017-10-10 04:20] VITALS: BP 124/70; PULSE 80; RESP 16; TEMP 36.7; O2SAT 97
[2017-10-10] MEDS: oxyCODONE 5 MG Tablet 10 MG PO ×2 (04:25→11:52)
[2017-10-10 07:39] VITALS: O2SAT 96
--- NOTE | 2017-10-10 08:17 | PCM.PN.HOSP ---
Patient Problems: Active and Suspected Problems Hip fracture, right (Acute) Non-operable, conservative treatment, continue NWB status. Subjective: Patient with no acute events overnight per self and per nursing report. She does state she is mildly constipated and requesting an enema which she notes always works. She notes difficulty sleeping overnight secondary to mild discomfort but otherwise states she is feeling well and eager for discharge to assisted facility. Certification for TCU transition obtained this morning with plan for transition there today. Patient denies fevers, chills, nausea, emesis, abdominal pain, chest pain or dyspnea. Objective: Physical Examination: General: awake, alert, oriented x 3 and cooperative, seated upright in bedside chair, in no apparent distress. Skin: normal color, turgor, no icterus, cyanosis. HEENT: AT/NC, EOMI, PERRLA, MMM. Lungs: CTA bilaterally, moderate effort, moderate decrease BL bases, no rales, ronchi or wheezing. Heart: Regular rate and rhythm; no gallop, rub audible. Abdomen: soft, thin habitus, NTTP, ND, normal BS. Extremities: no cyanosis, clubbing, s/p fall w/ R hip/RLE pain, s/p femur fx, distal pulses intact BL. Neurological: patient awake, alert, oriented x 3; cognitive function intact; pupils equally reactive to light and accomodation; cranial nerves II-XII grossly normal, moving all 4 extremities, limited RLE s/p femur fracture/fall, NWB status, strength accordingly moderate to severely globally decreased. Psychiatric: affect appears normal, no acute evidence of depressive or anxiety feelings. Vitals/I&O's: Vital Signs Temp Pulse Resp BP Pulse Ox 98.0 F 80 16 124/70 H 96 10/10/17 04:20 10/10/17 04:20 10/10/17 04:20 10/10/17 04:20 10/10/17 07:39 Oxygen Flow Rate 1 Oxygen Delivery Method Room Air Weight: 121 lb 14.65 oz Body Mass Index (BMI) 19.6 Intake and Output for Last 24 Hours 10/08/17 10/09/17 10/10/17 23:59 23:59 23:59 Intake Total 1270 / 1270 1989 Output Total 700 / 700 1949 Balance 570 / 570 1989 -1949 Current Medications Albuterol Sulfate (Ventolin Aerosols) 2.5 mg INHALATION Q4HWA.RT PRN PRN Reason: SHORTNESS OF BREATH Albuterol/Ipratropium (Duoneb) 3 ml INHALATION Q6H.RT [facility] Last Admin: 10/10/17 07:40 Dose: Not Given Budesonide (Pulmicort Aerosol) 0.5 mg INHALATION Q12H.RT [facility] Last Admin: 10/10/17 07:41 Dose: Not Given Enoxaparin Sodium (Lovenox) 40 mg SC DAILY@1000 [facility] Last Admin: 10/09/17 08:51 Dose: 40 mg Escitalopram Oxalate (Lexapro) 10 mg PO DAILY [facility] Last Admin: 10/09/17 08:51 Dose: 10 mg Hydralazine HCl (Apresoline) 5 mg IV Q6H PRN PRN PRN Reason: BLOOD PRESSURE Levetiracetam (Keppra) 500 mg PO BID [facility] Last Admin: 10/09/17 22:17 Dose: 500 mg Magnesium Hydroxide (Milk Of Magnesia) 30 ml PO DAILY PRN PRN PRN Reason: Constipation Last Admin: 10/09/17 16:03 Dose: 30 ml Morphine Sulfate (Morphine) 1 mg IV Q4H PRN PRN PRN Reason: SEVERE PAIN (6-10/10) Last Admin: 10/07/17 07:46 Dose: 1 mg Nutritional Formula (Lactose Free) (Ensure Clear) 120 ml PO 4X/DAY [facility] Last Admin: 10/09/17 22:17 Dose: 120 ml Ondansetron HCl (Zofran) 4 mg IV Q8H PRN PRN PRN Reason: NAUSEA Last Admin: 10/07/17 07:45 Dose: 4 mg Oxycodone HCl (Oxyir) 10 mg PO Q6H PRN PRN PRN Reason: SEVERE PAIN (6-10/10) Last Admin: 10/10/17 04:25 Dose: 10 mg Sodium Chloride () 5 - 30 ml IV UD PRN PRN Reason: SALINE FLUSH Last Admin: 10/06/17 22:26 Dose: 10 ml Trazodone HCl (Desyrel) 100 mg PO QHS [facility] Last Admin: 10/09/17 22:18 Dose: 100 mg Assessment/Plan Active and Suspected Problems Hip fracture, right (Acute) Non-operable, conservative treatment, continue NWB status. The patient is a 67 y/o F w/ PMHx: Seizure Disorder, Chronic COPD, Anxiety and Depression, Chronic COPD who presents to the [facility] ED on 10/04/17 with history of breakthrough seizure with following resolution of post-ictal phase, R sided hip and lower extremity pain. (1) General debility, R hip pain s/p mechanical fall w/ acute nondisplaced traumatic fracture of the proximal right femur: Plain film noting acute nondisplaced traumatic fracture of the proximal right femur. Orthopedic surgery consulted from ED. Admitted to ND, Orthopedic surgery evaluation performed, decision for conservative management, no OR intervention, NWB status until cleared per Orthopedic surgery. Attempted acute rehab placement, denied, 10/10/17 AM SNF/TCU placement certification obtained, will transition this AM per PT, OT, CM recommendations. (2) Seizure disorder: Patient maintained on keppra, therapeutic, Neurology consulted and recommended continuation keppra home regimen. Seizure precautions. (3) Acute Electrolyte Disturbances, hyponatremia/hypokalemia: Hypovolemic hyponatremia, improved w/ hydration, trending. Mild Hypokalemia, corrected with supplementation. 10/10/17 repeat BMP stable appearing, Na 136, K 4.3. (4) Chronic COPD: Will maintain on ATC duonebs, PRN albuterol, HOB, IS parameters. (5) Anxiety and Depression: Maintain on home Lexapro and trazodone. (6) Chronic Severe Protein-Calorie Malnutrition: Evidenced per habitus, BMI, chronic disease states, debility, muscle and fat loss. Nutrition consulted. (7) Tobacco Abuse: Encouraged cessation, inpatient consultation per RT, NR if desired. (8) DVT Prophylaxis: SCDs, lovenox. Code Visit Inpatient E&M: 97653 Disch Hosp - See discharge note.
[2017-10-10 09:13] LABS: Anion Gap 5 (5-15); BUN 22 mg/dL (7-18); BUN/Creat Ratio 33.1 RATIO (10-20); Calcium,Total 8.8 mg/dL (8.5-10.1); Chloride 98 mmol/L (98-107); Creatinine, Serum 0.66 mg/dL (0.55-1.02); EST Glomerular Filtration Rate 94 mL/min (>60); Est Glom Filt Rate - Afr Amer 113 mL/min (>60); Estimated Creatinine Clearance 47.01 ml/min; Glucose 84 mg/dL (74-106); Potassium 4.3 mmol/L (3.5-5.1); Sodium Level 136 mmol/L (136-145)
[2017-10-10 09:38] VITALS: BP 127/71; PULSE 78; RESP 18; TEMP 36.4; O2SAT 99
--- NOTE | 2017-10-10 09:40 | CASEMGMT ---
Social Work Note Call from Jennifer that the pt has been approved for TCU. Paged physician to update and notified RN. Discharge summary, medlist and scripts faxed to unit. Plan: TCU for rehabilitation. Madeline Castelan, CAMPUS WELLNESS COORDINATOR, FORESTRY PATROLMAN
[2017-10-10] MEDS: levETIRAcetam 500 MG Tablet PO (10:25)
[2017-10-10] MEDS: Enoxaparin 40 MG/0.4 ML Syringe SC (10:25)
[2017-10-10] MEDS: Escitalopram Oxalate 10 MG Tablet PO (10:25)
[2017-10-10] MEDS: Fleet Enema 1 ML RECTAL (10:30)
[2017-10-10] MEDS: Ipratropium/Albuterol Sulfate 3 ML AMPUL.NEB INHALATION (12:48)
[2017-10-10 13:23] VITALS: PULSE 84; RESP 17
[2017-10-10 13:54] VITALS: BP 128/60; PULSE 74; RESP 18; TEMP 36.8; O2SAT 98
== END 2017-10-10 14:06 | disposition skilled nursing facility (03) | DRG 536 ==
LOC: ED 21:21 → MS3 21:50
PROVIDERS: Hospitalist; Admitting Provider Internal Medicine; Emergency Provider Emergency Medicine; Family Provider Family Medicine; PCP Family Medicine; Visit Provider Family Medicine
DX: S72.001A Fracture of unspecified part of neck of right femur, initial encounter for closed fracture (principal); M97.01XA Periprosthetic fracture around internal prosthetic right hip joint, initial encounter; Z68.1 Body mass index [BMI] 19.9 or less, adult; E87.1 Hypo-osmolality and hyponatremia; E46 Unspecified protein-calorie malnutrition; J44.9 Chronic obstructive pulmonary disease, unspecified; Z23 Encounter for immunization; W19.XXXA Unspecified fall, initial encounter; G40.909 Epilepsy, unspecified, not intractable, without status epilepticus; F32.9 Major depressive disorder, single episode, unspecified; F41.9 Anxiety disorder, unspecified; E87.6 Hypokalemia; F17.210 Nicotine dependence, cigarettes, uncomplicated; Z96.641 Presence of right artificial hip joint
CPT/HCPCS: 36415; 73502; 73700; 80048; 80177; 82652; 83735; 85025; 85610; 85730; 94640; 97110; 97116; 97162; 97165; 97530; 97535; 97802; 99285; 99406; J7030; 90686; A4216; J2405

== ENCOUNTER 2017-10-10 14:15 | Inpatient (IN) | payer MEDICARE, SELFPAY ==
--- NOTE | 2017-10-10 14:24 | NURSING ---
Pt arrived via bed from [facility]
[2017-10-10 14:51] VITALS: BMI 20.9
[2017-10-10 14:58] VITALS: BMI 21.0
[2017-10-10 14:59] VITALS: BP 117/70; PULSE 93; RESP 16; TEMP 36.9; O2SAT 96
[2017-10-10] MEDS: Aspirin 325 MG Tablet PO (18:44)
[2017-10-10] MEDS: Docusate Sodium 100 MG Capsule PO (18:44)
[2017-10-10] MEDS: levETIRAcetam 500 MG Tablet PO (18:44)
[2017-10-10] MEDS: oxyCODONE 5 MG Tablet 10 MG PO (18:52)
[2017-10-10 19:40] VITALS: O2SAT 96
--- NOTE | 2017-10-10 19:43 | PCM.HP.STD ---
Problem List (1) Fall Status: Acute (2) Hypertension Status: Chronic (3) Insomnia Status: Chronic (4) Tobacco abuse Status: Chronic (5) Hip fracture, right Status: Acute Qualifiers: Comment: Non-operable, conservative treatment, continue NWB status. (6) COPD (chronic obstructive pulmonary disease) Status: Chronic Qualifiers: (7) Seizure disorder Status: Chronic (8) Depressed Status: Chronic (9) Anxiety Status: Chronic History of Present Illness Date of Admission: 10/10/17 Chief Complaint: Here for rehabilitation, strengthening, prior to discharge home with family. The patient is a 67 year old Female with below past medical history presented to [facility] Emergency Department 10/05/2017 with right lower extremity injury. 10/04/2017 X-ray pelvis, right hip showed osteopenia, osteoarthritis left hip, stable right total hip arthroplasty without acute abnormality. 10/04/2017 CT right hip showed nondisplaced fracture involving proximal right femur, hip prosthesis in place without loosening. Fall, right hip pain, history of seizures. Seizures, fall, right hip pain. Increased pain with walking, unable to bear weight. 10/04/2017 Admit to Hospital. Pain control, PT/OT. Consult Neurology for seizure disorder. 10/05/2017 Dr. Franklyn Judd recommended non-operative management of right hip fracture. 10/06/2017 Dr. Esquivel thought syncope mult-factorial. Continue Keppra 500MG BID for seizure control. Insurance denied acute rehab placement. 10/10/2017 Admit to TCU for rehabilitation, strengthening, prior to discharge home with family. Past Medical History Past Medical History (Chronic Problems): Chronic Problems Hypertension (Chronic) Insomnia (Chronic) Tobacco abuse (Chronic) COPD (chronic obstructive pulmonary disease) (Chronic) Seizure disorder (Chronic) Depressed (Chronic) Cardiac dysrhythmia (Chronic) Anxiety (Chronic) Allergies hydrocodone bitartrate [From Vicodin] Allergy (Mild, Verified 10/07/17 03:40) Rash itching and rash Milk Containing Products Adverse Reaction (Mild, Verified 10/07/17 03:42) Abd cramps/vomiting/nausea stomach upset, nausea, vomiting, cramping when to much milk is consumed Home Medications: Ambulatory Orders Medication Instructions Recorded Albuterol Inhaler [Ventolin Hfa] 2 puff INHALATION Q4H PRN PRN 05/16/14 Fluticasone/Salmeterol [Advair 1 puff INHALATION BID PRN 05/16/14 100/50 Diskus] Levetiracetam [Keppra] 500 mg PO BID 05/16/14 Hydroxyzine HCl 1 - 2 tab PO Q8H PRN PRN 06/17/15 Trazodone HCl [Desyrel] 100 mg PO QHS 06/17/15 Escitalopram Oxalate [Lexapro] 10 mg PO DAILY 10/04/17 Magnesium Hydroxide [Milk Of 30 ml PO DAILY PRN PRN udc 10/09/17 Magnesia] Oxycodone [Oxyir] 10 mg PO Q6H PRN PRN #20 tab 10/09/17 Aspirin 325 mg PO BID 10/10/17 Docusate Sodium [Colace] 100 mg PO BID 10/10/17 Ensure Clear 120 ml PO 4X/DAY 10/10/17 Surgical History: total hip arthroplasty - Right., - - back surgeries x 3, spinal fusion surgery, bilateral carpal tunnel surgeries, Right knee surgeries 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, Depression UNDERCOVER COP History: No pertinent UNDERCOVER COP history Lives: With Family Smoking Status: Current every day smoker Tobacco Use: Cigarettes Alcohol: None Drugs: None - *Family History Maternal History Items: Heart Disease - CHF Paternal History Items: No pertinent history Sibling History Items: No pertinent history Review of Systems Constitutional: Denies: Chills, Fever, Weight Change HEENT: Denies: Head Aches, Sinus Congestion, Sinus Drainage Cardiovascular: Denies: Chest Pain, Palpitations Respiratory: Denies: Cough, Shortness of breath at rest, Sputum production Gastrointestinal: Denies: Abdominal Pain, Nausea, Vomiting Genitourinary: Denies: Dysuria Musculoskeletal: Denies: Joint Pain, Joint Tenderness Skin: Denies: Rash, Wounds Neurological: Denies: Numbness, Tingling, Focal weakness Psychiatric: Denies: Anxiety, Depression, Homicidal Ideations, Suicidal Ideations Hematologic/ Lymphatic: Denies: Easy Bruising, Easy Bleeding VTE Information - Inpt Only VTE Present on Admission: No VTE Mechan Device Prophylaxis: Knee High KEENAN Hose VTE Pharm Prophylaxis ordered?: Yes Patient Problems: Active and Suspected Problems Fall (Acute) - Physical Exam General: Alert, Oriented x3, Cooperative HEENT: Atraumatic, PERRLA, EOMI, Normocephalic Neck: Supple, No JVD, Negative Carotid Bruits Lungs: Clear to auscultation, Normal air movement Cardiovascular: Regular rate, No murmurs Abdomen: Bowel Sounds Present, Soft, Non Tender Extremities: No edema, Capillary Refill Less than 3 Seconds Skin: No rashes, No breakdown Musculoskeletal: No Tenderness to Palpation of Joints or Extremities Neurological: Cranial nerves II-XII grossly intact Psych/Mental Status: Normal Affect, Appropriate Vital Signs Temp Pulse Resp BP Pulse Ox 98.4 F 93 16 117/70 96 10/10/17 14:59 10/10/17 14:59 10/10/17 14:59 10/10/17 14:59 10/10/17 19:40 Oxygen Delivery Method Room Air Weight: 58.9 kg Body Mass Index (BMI) 20.9 Intake and Output for Last 24 Hours 10/08/17 10/09/17 10/10/17 23:59 23:59 23:59 Intake Total 120 / 120 Balance 120 / 120 Assessment/Plan Active and Suspected Problems Fall (Acute) 67 year old female with below past medical history hospitalized for fall, acute non-displaced fracture right hip, Dr. Judd recommended non-operative management, complicated by seizure disorder, admitted to TCU for debility, rehabilitation, strengthening, prior to discharge home with family. Debility - PT/OT. Pain - Tylenol 1000MG Q8H PRN mild pain, Oxycodone 10MG Q6H PRN severe pain. Bowel - Miralax 17GM daily, Senna/colace 2 tablets BID, Dulcolax 10MG [place] PRN. Pneumonia vaccination - Administer Prevnar 13 and/or Pneumovax 23 as necessary. DVT Prophylaxis - Aspirin 325MG BID. COPD - Advair 100/50mg 1 puff BID, Albuterol 2 puffs Q4H PRN. Nutrition - Ensure Clear 120ML 4x/day. Depression - Escitalopram 10MG daily. Anxiety - Hydroxyzine 10-20MG Q8H PRN. Seizure disorder - Keppra 500MG BID. Insomnia - Trazodone 100MG QHS. Tobacco Abuse - Counseled resident on smoking cessation.
--- NOTE | 2017-10-10 19:51 | HP.PCM_ITS ---
Problem List (1) Fall Status: Acute (2) Hypertension Status: Chronic (3) Insomnia Status: Chronic (4) Tobacco abuse Status: Chronic (5) Hip fracture, right Status: Acute Qualifiers: Comment: Non-operable, conservative treatment, continue NWB status. (6) COPD (chronic obstructive pulmonary disease) Status: Chronic Qualifiers: (7) Seizure disorder Status: Chronic (8) Depressed Status: Chronic (9) Anxiety Status: Chronic History of Present Illness Date of Admission: 10/10/17 Chief Complaint: Here for rehabilitation, strengthening, prior to discharge home with family. The patient is a 67 year old Female with below past medical history presented to [facility] Emergency Department 10/05/2017 with right lower extremity injury. 10/04/2017 X-ray pelvis, right hip showed osteopenia, osteoarthritis left hip, stable right total hip arthroplasty without acute abnormality. 10/04/2017 CT right hip showed nondisplaced fracture involving proximal right femur, hip prosthesis in place without loosening. Fall, right hip pain, history of seizures. Seizures, fall, right hip pain. Increased pain with walking, unable to bear weight. 10/04/2017 Admit to Hospital. Pain control, PT/OT. Consult Neurology for seizure disorder. 10/05/2017 Dr. Franklyn Judd recommended non-operative management of right hip fracture. 10/06/2017 Dr. Esquivel thought syncope mult-factorial. Continue Keppra 500MG BID for seizure control. Insurance denied acute rehab placement. 10/10/2017 Admit to TCU for rehabilitation, strengthening, prior to discharge home with family. Past Medical History Past Medical History (Chronic Problems): Chronic Problems Hypertension (Chronic) Insomnia (Chronic) Tobacco abuse (Chronic) COPD (chronic obstructive pulmonary disease) (Chronic) Seizure disorder (Chronic) Depressed (Chronic) Cardiac dysrhythmia (Chronic) Anxiety (Chronic) Allergies hydrocodone bitartrate [From Vicodin] Allergy (Mild, Verified 10/07/17 03:40) Rash itching and rash Milk Containing Products Adverse Reaction (Mild, Verified 10/07/17 03:42) Abd cramps/vomiting/nausea stomach upset, nausea, vomiting, cramping when to much milk is consumed Home Medications: Ambulatory Orders Medication Instructions Recorded Albuterol Inhaler [Ventolin Hfa] 2 puff INHALATION Q4H PRN PRN 05/16/14 Fluticasone/Salmeterol [Advair 1 puff INHALATION BID PRN 05/16/14 100/50 Diskus] Levetiracetam [Keppra] 500 mg PO BID 05/16/14 Hydroxyzine HCl 1 - 2 tab PO Q8H PRN PRN 06/17/15 Trazodone HCl [Desyrel] 100 mg PO QHS 06/17/15 Escitalopram Oxalate [Lexapro] 10 mg PO DAILY 10/04/17 Magnesium Hydroxide [Milk Of 30 ml PO DAILY PRN PRN udc 10/09/17 Magnesia] Oxycodone [Oxyir] 10 mg PO Q6H PRN PRN #20 tab 10/09/17 Aspirin 325 mg PO BID 10/10/17 Docusate Sodium [Colace] 100 mg PO BID 10/10/17 Ensure Clear 120 ml PO 4X/DAY 10/10/17 Surgical History: total hip arthroplasty - Right., - - back surgeries x 3, spinal fusion surgery, bilateral carpal tunnel surgeries, Right knee surgeries 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, Depression 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/WAITRESS 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: No pertinent WAITER/WAITRESS BAR history Lives: With Family Smoking Status: Current every day smoker Tobacco Use: Cigarettes Alcohol: None Drugs: None - *Family History Maternal History Items: Heart Disease - CHF Paternal History Items: No pertinent history Sibling History Items: No pertinent history Review of Systems Constitutional: Denies: Chills, Fever, Weight Change HEENT: Denies: Head Aches, Sinus Congestion, Sinus Drainage Cardiovascular: Denies: Chest Pain, Palpitations Respiratory: Denies: Cough, Shortness of breath at rest, Sputum production Gastrointestinal: Denies: Abdominal Pain, Nausea, Vomiting Genitourinary: Denies: Dysuria Musculoskeletal: Denies: Joint Pain, Joint Tenderness Skin: Denies: Rash, Wounds Neurological: Denies: Numbness, Tingling, Focal weakness Psychiatric: Denies: Anxiety, Depression, Homicidal Ideations, Suicidal Ideations Hematologic/ Lymphatic: Denies: Easy Bruising, Easy Bleeding VTE Information - Inpt Only VTE Present on Admission: No VTE Mechan Device Prophylaxis: Knee High KEENAN Hose VTE Pharm Prophylaxis ordered?: Yes Patient Problems: Active and Suspected Problems Fall (Acute) - Physical Exam General: Alert, Oriented x3, Cooperative HEENT: Atraumatic, PERRLA, EOMI, Normocephalic Neck: Supple, No JVD, Negative Carotid Bruits Lungs: Clear to auscultation, Normal air movement Cardiovascular: Regular rate, No murmurs Abdomen: Bowel Sounds Present, Soft, Non Tender Extremities: No edema, Capillary Refill Less than 3 Seconds Skin: No rashes, No breakdown Musculoskeletal: No Tenderness to Palpation of Joints or Extremities Neurological: Cranial nerves II-XII grossly intact Psych/Mental Status: Normal Affect, Appropriate Vital Signs Temp Pulse Resp BP Pulse Ox 98.4 F 93 16 117/70 96 10/10/17 14:59 10/10/17 14:59 10/10/17 14:59 10/10/17 14:59 10/10/17 19:40 Oxygen Delivery Method Room Air Weight: 58.9 kg Body Mass Index (BMI) 20.9 Intake and Output for Last 24 Hours 10/08/17 10/09/17 10/10/17 23:59 23:59 23:59 Intake Total 120 / 120 Balance 120 / 120 Assessment/Plan Active and Suspected Problems Fall (Acute) 67 year old female with below past medical history hospitalized for fall, acute non-displaced fracture right hip, Dr. Judd recommended non-operative management, complicated by seizure disorder, admitted to TCU for debility, rehabilitation, strengthening, prior to discharge home with family. * Debility - PT/OT. * Pain - Tylenol 1000MG Q8H PRN mild pain, Oxycodone 10MG Q6H PRN severe pain. * Bowel - Miralax 17GM daily, Senna/colace 2 tablets BID, Dulcolax 10MG [place] PRN. * Pneumonia vaccination - Administer Prevnar 13 and/or Pneumovax 23 as necessary. * DVT Prophylaxis - Aspirin 325MG BID. * COPD - Advair 100/50mg 1 puff BID, Albuterol 2 puffs Q4H PRN. * Nutrition - Ensure Clear 120ML 4x/day. * Depression - Escitalopram 10MG daily. * Anxiety - Hydroxyzine 10-20MG Q8H PRN. * Seizure disorder - Keppra 500MG BID. * Insomnia - Trazodone 100MG QHS. * Tobacco Abuse - Counseled resident on smoking cessation.
[2017-10-11] MEDS: levETIRAcetam 500 MG Tablet PO ×2 (05:57→17:18)
[2017-10-11] MEDS: Senna/Docusate Sodium 1 Tablet 2 TABLET PO ×2 (05:57→16:07)
[2017-10-11] MEDS: Escitalopram Oxalate 10 MG Tablet PO (05:57)
[2017-10-11 06:32] LABS: Anion Gap 7 (5-15); BUN 23 mg/dL (7-18); BUN/Creat Ratio 35.8 RATIO (10-20); Calcium,Total 8.7 mg/dL (8.5-10.1); Chloride 100 mmol/L (98-107); Creatinine, Serum 0.64 mg/dL (0.55-1.02); EST Glomerular Filtration Rate 98 mL/min (>60); Est Glom Filt Rate - Afr Amer 118 mL/min (>60); Estimated Creatinine Clearance 50.07 ml/min; Glucose 90 mg/dL (74-106); Potassium 4.2 mmol/L (3.5-5.1); Sodium Level 137 mmol/L (136-145)
[2017-10-11 06:35] LABS: Absolute Neutrophil Count 1.9 X10^3/uL (2.0-7.7); Basophil# 0.03 X10^3/uL; Basophil% 0.7 % (0-1); Eosinophil# 0.24 X10^3/uL; Eosinophils% 5.6 % (0-5); Hematocrit 34.3 % (37-47); Hemoglobin 11.2 g/dl (12.0-15.0); Lymphocyte % 32.9 % (19-41); Mean Corp Hgb Conc 32.7 g/gl (32-36); Mean Corpuscular Hgb 30.9 pg (27.0-32.0); Mean Corpuscular Volume 94.5 fL (81-99); Mean Platelet Vol. 9.1 fl (6.2-12.0); Monocyte# 0.65 X10^3/uL; Monocyte% 15.3 % (0-10); Neutrophil # 1.92 X10^3/uL (2.7-7.7); Neutrophil % 45.3 % (47-70); Platelet Count 338 K/mm3 (150-450); RBC Distribution Width CV 12.9 % (11.6-14.6); Red Blood Count 3.63 M/mm3 (4.2-5.4); White Blood Count 4.3 K/mm3 (4.4-11.0)
[2017-10-11 06:36] LABS: POSITIVE COUNT NO; POSITIVE DIFFERENTIAL NO; POSITIVE MORPHOLOGY NO
[2017-10-11] MEDS: Aspirin 325 MG Tablet PO ×2 (07:22→16:06)
[2017-10-11] MEDS: oxyCODONE 5 MG Tablet 10 MG PO ×2 (09:45→16:07)
[2017-10-11] MEDS: Tuberculin,Purif.prot.deriv. 50 TU/ML Vial 5 ML ID (09:46)
[2017-10-11 15:51] VITALS: BP 114/71; PULSE 92; RESP 22; TEMP 36.7; O2SAT 97
--- NOTE | 2017-10-11 17:12 | CHAPLAIN ---
Type of Pastoral Visit _x__ Initial Visit ___ Follow-up Visit ___ On-call Visit ___ General Patient Visit ___ Spiritual Assessment ___ Family Conference ___ Bereavement ___ Rapid Response ___ Code Blue ___ Other (describe below) Pastoral Care Referral From _x__ Patient ___ Family ___ Nurse ___ Physician ___ Microbiology Quality Control Technician ___ Clinical Research Physician ___ Other (describe below) Sacrament/Intervention _x__ Active listening ___ Anointing ___ Jewish ___ Bereavement ___ Communion ___ Gloria exploration ___ _x__ Life review _x__ Prayer ___ Reconciliation ___ Sacrament of Sick _x__ Supportive presence ___ Wedding ___ Other (describe below) Pastoral Comments patient describes her life and calls it troubled; pt says that most of her family has nothing to do with me; pt has animals at her home and finds her greatest veronica from them; pt said several times that I just needed to talk about these things; pt was tearful at times; pt welcomed prayer; pt has no active confucianist connection but did when she was young;
[2017-10-12] MEDS: oxyCODONE 5 MG Tablet 10 MG PO ×4 (00:35→21:23)
[2017-10-12] MEDS: Escitalopram Oxalate 10 MG Tablet PO (05:16)
[2017-10-12] MEDS: levETIRAcetam 500 MG Tablet PO ×2 (05:16→18:03)
[2017-10-12] MEDS: Senna/Docusate Sodium 1 Tablet 2 TABLET PO ×2 (05:16→18:03)
[2017-10-12] MEDS: Aspirin 325 MG Tablet PO ×2 (08:29→18:02)
--- NOTE | 2017-10-12 11:25 | CASEMGMT ---
Insurance Clinical information sent. Pending continued stay approval at this time. Auth#[id number] Elizabeth MCFADDEN, TRACKWALKER
--- NOTE | 2017-10-12 13:12 | PCM.PN.RX ---
<Guillermo Martinez - Last Filed: 10/12/17 13:12> Progress Note - Pharmacy Subjective: TCU Admission Objective: Allergies hydrocodone bitartrate [From Vicodin] Allergy (Mild, Verified 10/07/17 03:40) Rash itching and rash Milk Containing Products Adverse Reaction (Mild, Verified 10/07/17 03:42) Abd cramps/vomiting/nausea stomach upset, nausea, vomiting, cramping when to much milk is consumed Home Medications Medication Instructions Recorded Albuterol Inhaler [Ventolin Hfa] 2 puff INHALATION Q4H PRN PRN 05/16/14 Fluticasone/Salmeterol [Advair 1 puff INHALATION BID PRN 05/16/14 100/50 Diskus] Levetiracetam [Keppra] 500 mg PO BID 05/16/14 Hydroxyzine HCl 1 - 2 tab PO Q8H PRN PRN 06/17/15 Trazodone HCl [Desyrel] 100 mg PO QHS 06/17/15 Escitalopram Oxalate [Lexapro] 10 mg PO DAILY 10/04/17 Magnesium Hydroxide [Milk Of 30 ml PO DAILY PRN PRN udc 10/09/17 Magnesia] Oxycodone [Oxyir] 10 mg PO Q6H PRN PRN #20 tab 10/09/17 Aspirin 325 mg PO BID 10/10/17 Docusate Sodium [Colace] 100 mg PO BID 10/10/17 Ensure Clear 120 ml PO 4X/DAY 10/10/17 Current Medications Generic Name Dose Route Start Last Admin Trade Name Nhanq PRN Reason Stop Dose Admin Acetaminophen 1,000 mg 10/10/17 19:58 Tylenol PO Q8H PRN PRN MILD PAIN (1-3/10) Albuterol Sulfate 2 puff 10/10/17 17:36 Ventolin Hfa (Sp) INHALATION Q4H PRN PRN WHEEZING Aspirin 325 mg 10/10/17 18:00 10/12/17 08:29 Aspirin PO 325 mg BIDCM JAMIE Administration Bisacodyl 10 mg 10/10/17 14:40 Dulcolax RECTAL DAILY PRN Constipation Escitalopram Oxalate 10 mg 10/11/17 06:00 10/12/17 05:16 Lexapro PO 10 mg DAILY JAMIE Administration Hydroxyzine HCl 10 - 20 mg 10/10/17 17:36 Atarax PO Q8H PRN PRN ANXIETY Levetiracetam 500 mg 10/10/17 18:00 10/12/17 05:16 Keppra PO 500 mg BID JAMIE Administration Nutritional Formula (Lactose Free) 120 ml 10/10/17 22:00 10/12/17 12:25 Ensure Clear PO 120 ml 4X/DAY JAMIE Administration Oxycodone HCl 10 mg 10/10/17 17:36 10/12/17 06:41 Oxyir PO 10 mg Q6H PRN PRN Administration SEVERE PAIN (6-05/23) Polyethylene Glycol 17 gm 10/11/17 06:00 10/12/17 05:19 Miralax PO Not Given DAILY [facility] Fluticasone/Salmeterol 1 puff 10/11/17 06:00 10/12/17 05:15 Advair 100/50 Diskus INHALATION 1 puff BID JAMIE Administration Senna/Docusate Sodium 2 tablet 10/11/17 06:00 10/12/17 05:16 Senokot-S, Zena-Colace PO 2 tablet BID JAMIE Administration Trazodone HCl 100 mg 10/10/17 22:00 10/11/17 21:45 Desyrel PO 100 mg QHS JAMIE Administration Tuberculin PPD 5 tu 10/18/17 10:00 Tubersol, Aplisol, Ppd ID 10/18/17 10:01 X1 ONE Problem List Fall (Acute) Hypertension (Chronic) Insomnia (Chronic) Tobacco abuse (Chronic) Vital Signs Temp Pulse Resp BP Pulse Ox 98.1 F 92 22 H 114/71 97 10/11/17 15:51 10/11/17 15:51 10/11/17 15:51 10/11/17 15:51 10/11/17 15:51 Oxygen Delivery Method Room Air Weight: 58.9 kg Body Mass Index (BMI) 20.9 Sodium 137 mmol/L (136-145) 10/11/17 05:30 Potassium 4.2 mmol/L (3.5-5.1) 10/11/17 05:30 Chloride 100 mmol/L (98-107) 10/11/17 05:30 Carbon Dioxide 30.0 mmol/L (21.0-32.0) 10/11/17 05:30 Anion Gap 7 (5-15) 10/11/17 05:30 BUN 23 mg/dL (7-18) H 10/11/17 05:30 Creatinine 0.64 mg/dL (0.55-1.02) 10/11/17 05:30 Est GFR (MDRD) Af Amer 118 mL/min (>60) 10/11/17 05:30 Est GFR (MDRD) Non-Af 98 mL/min (>60) 10/11/17 05:30 BUN/Creatinine Ratio 35.8 RATIO (10-20) H 10/11/17 05:30 Glucose 90 mg/dL (74-106) 10/11/17 05:30 Assessment/Plan: 1) Pain APAP for mild pain, oxycodone for severe pain. Continue to monitor prn medication use, daily pain scores. 2) COPD Albuterol prn for wheeze, Advair inhaler twice daily. Continue to monitor prn medication use, for wheezing. 3) DVT PPx ASA twice daily. Continue to monitor platelets, s/s bleeding/clot. 4) Nutrition Ensure supplement. Continue to monitor clinically. 5) Seizure Levetiracetam twice daily. Continue to monitor for seizure. Psychotropic Medications: 6) Sleep Trazodone at HS. Continue to monitor for insomnia. 7) Depression/Anxiety Escitalopram daily, hydroxyzine prn for anxiety. Continue to monitor prn medication use, s/s depression, for sweating, shaking, fever. Unnecessary Medications: None Bowel Regimen: 8) Senna/s, PEG, prn bisacodyl. Continue to monitor prn medication use, for constipation/diarrhea. Date of Note:: 10/12/17 - Provider Comments Provider responsibility: Provider responsible to enter orders to implement recommendations <Kayden Morejon Chi - Last Filed: 10/12/17 17:52> Progress Note - Pharmacy Subjective: [] Objective: Allergies hydrocodone bitartrate [From Vicodin] Allergy (Mild, Verified 10/07/17 03:40) Rash itching and rash Milk Containing Products Adverse Reaction (Mild, Verified 10/07/17 03:42) Abd cramps/vomiting/nausea stomach upset, nausea, vomiting, cramping when to much milk is consumed Home Medications Medication Instructions Recorded Albuterol Inhaler [Ventolin Hfa] 2 puff INHALATION Q4H PRN PRN 05/16/14 Fluticasone/Salmeterol [Advair 1 puff INHALATION BID PRN 05/16/14 100/50 Diskus] Levetiracetam [Keppra] 500 mg PO BID 05/16/14 Hydroxyzine HCl 1 - 2 tab PO Q8H PRN PRN 06/17/15 Trazodone HCl [Desyrel] 100 mg PO QHS 06/17/15 Escitalopram Oxalate [Lexapro] 10 mg PO DAILY 10/04/17 Magnesium Hydroxide [Milk Of 30 ml PO DAILY PRN PRN udc 10/09/17 Magnesia] Oxycodone [Oxyir] 10 mg PO Q6H PRN PRN #20 tab 10/09/17 Aspirin 325 mg PO BID 10/10/17 Docusate Sodium [Colace] 100 mg PO BID 10/10/17 Ensure Clear 120 ml PO 4X/DAY 10/10/17 Current Medications Generic Name Dose Route Start Last Admin Trade Name Freq PRN Reason Stop Dose Admin Acetaminophen 1,000 mg 10/10/17 19:58 Tylenol PO Q8H PRN PRN MILD PAIN (1-3/10) Albuterol Sulfate 2 puff 10/10/17 17:36 Ventolin Hfa (Sp) INHALATION Q4H PRN PRN WHEEZING Aspirin 325 mg 10/10/17 18:00 10/12/17 08:29 Aspirin PO 325 mg BIDCM JAMIE Administration Bisacodyl 10 mg 10/10/17 14:40 Dulcolax RECTAL DAILY PRN Constipation Escitalopram Oxalate 10 mg 10/11/17 06:00 10/12/17 05:16 Lexapro PO 10 mg DAILY JAMIE Administration Hydroxyzine HCl 10 - 20 mg 10/10/17 17:36 Atarax PO Q8H PRN PRN ANXIETY Levetiracetam 500 mg 10/10/17 18:00 10/12/17 05:16 Keppra PO 500 mg BID JAMIE Administration Nutritional Formula (Lactose Free) 120 ml 10/10/17 22:00 10/12/17 12:25 Ensure Clear PO 120 ml 4X/DAY JAMIE Administration Oxycodone HCl 10 mg 10/10/17 17:36 10/12/17 15:21 Oxyir PO 10 mg Q6H PRN PRN Administration SEVERE PAIN (6-05/23) Polyethylene Glycol 17 gm 10/11/17 06:00 10/12/17 05:19 Miralax PO Not Given DAILY JAMIE Fluticasone/Salmeterol 1 puff 10/11/17 06:00 10/12/17 05:15 Advair 100/50 Diskus INHALATION 1 puff BID JAMIE Administration Senna/Docusate Sodium 2 tablet 10/11/17 06:00 10/12/17 05:16 Senokot-S, Zena-Colace PO 2 tablet BID JAMIE Administration Trazodone HCl 100 mg 10/10/17 22:00 10/11/17 21:45 Desyrel PO 100 mg QHS JAMIE Administration Tuberculin PPD 5 tu 10/18/17 10:00 Tubersol, Aplisol, Ppd ID 10/18/17 10:01 X1 ONE Problem List Fall (Acute) Hypertension (Chronic) Insomnia (Chronic) Tobacco abuse (Chronic) Vital Signs Temp Pulse Resp BP Pulse Ox 98.2 F 100 22 H 108/65 95 10/12/17 16:00 10/12/17 16:00 10/12/17 16:00 10/12/17 16:00 10/12/17 16:00 Oxygen Delivery Method Room Air Weight: 58.9 kg Body Mass Index (BMI) 20.9 Sodium 137 mmol/L (136-145) 10/11/17 05:30 Potassium 4.2 mmol/L (3.5-5.1) 10/11/17 05:30 Chloride 100 mmol/L (98-107) 10/11/17 05:30 Carbon Dioxide 30.0 mmol/L (21.0-32.0) 10/11/17 05:30 Anion Gap 7 (5-15) 10/11/17 05:30 BUN 23 mg/dL (7-18) H 10/11/17 05:30 Creatinine 0.64 mg/dL (0.55-1.02) 10/11/17 05:30 Est GFR (MDRD) Af Amer 118 mL/min (>60) 10/11/17 05:30 Est GFR (MDRD) Non-Af 98 mL/min (>60) 10/11/17 05:30 BUN/Creatinine Ratio 35.8 RATIO (10-20) H 10/11/17 05:30 Glucose 90 mg/dL (74-106) 10/11/17 05:30 Assessment/Plan: Psychotropic Medications: Unnecessary Medications: Bowel Regimen: - Provider Comments Provider responsibility: Provider responsible to enter orders to implement recommendations Provider Comments to Recommendations by Pharmacy: Agree
--- NOTE | 2017-10-12 14:14 | CASEMGMT ---
Insurance Continued stay approved with next update due on 10/17/17. Auth#[id number] Elizabeth MCFADDEN, HYDRAULIC STRAINER OPERATOR
[2017-10-12 15:55] VITALS: O2SAT 94
[2017-10-12 16:00] VITALS: BP 108/65; PULSE 100; RESP 22; TEMP 36.8; O2SAT 95
--- NOTE | 2017-10-13 02:11 | NURSING ---
Pt requesting seizure pads be removed. Pt informed this nurse, she is unable to see the buttons on the side rails to adjust the bed. This nurse explained the importance of seizure pads for pt safety. Pt verbalized understanding and still requests seizure pads be removed.
[2017-10-13] MEDS: Polyethylene Glycol 3350 17 GM PACKET PO (06:53)
[2017-10-13] MEDS: oxyCODONE 5 MG Tablet 10 MG PO ×3 (06:53→23:34)
[2017-10-13] MEDS: Senna/Docusate Sodium 1 Tablet 2 TABLET PO ×2 (06:53→17:18)
[2017-10-13] MEDS: Escitalopram Oxalate 10 MG Tablet PO (06:53)
[2017-10-13] MEDS: levETIRAcetam 500 MG Tablet PO ×2 (06:53→17:18)
[2017-10-13] MEDS: Aspirin 325 MG Tablet PO ×2 (06:54→17:18)
[2017-10-13] MEDS: Bisacodyl 10 MG Suppository RECTAL (07:06)
[2017-10-13 09:11] VITALS: O2SAT 95
--- NOTE | 2017-10-13 12:31 | PCM.PROGNOTE ---
Patient Problems: Active and Suspected Problems Fall (Acute) Subjective: This 67-year-old female was consulted to podiatry for painful ingrowing toenail of the right great toe, medial border. Patient states that this is been tender for a while now and she thinks it started by wearing shoes that were too tight. She says she has never had an ingrown toenail before. She denies any redness or drainage to the toe. She also denies any feelings of nausea vomiting fever chills at this time. - Physical Exam General: Alert, Oriented x3, Cooperative Extremities: No edema, Capillary Refill Less than 3 Seconds, No Calf Tenderness - Negative Grace and Akers sign bilateral, Peripheral Pulses Normal - DP and PT pulses palpable bilateral Skin: - - Thickened, discolored, painful, with the presence of subungual debris noted to bilateral hallux toenails. Some incurvation appreciated to the medial border of the right hallux nail. There is no erythema, edema, purulence, malodor, or any other signs of local infection appreciated at this time. Musculoskeletal: Tenderness - to after mentioned hallux toenails Neurological: Sensory exam intact to light touch and pain Psych/Mental Status: Normal Affect, Appropriate Vital Signs Temp Pulse Resp BP Pulse Ox 98.2 F 100 22 H 108/65 95 10/12/17 16:00 10/12/17 16:00 10/12/17 16:00 10/12/17 16:00 10/13/17 09:11 Oxygen Delivery Method Room Air Weight: 58.9 kg Body Mass Index (BMI) 20.9 Intake and Output for Last 24 Hours 10/11/17 10/12/17 10/13/17 23:59 23:59 23:59 Intake Total 580 / 580 740 / 740 Balance 580 / 580 740 / 740 Assessment/Plan Active and Suspected Problems Fall (Acute) Ingrown hallux toenail right medial border Right hallux toe pain Patient was carefully examined and evaluated bedside. Patient is resting comfortably. A curette was then used to carefully free up the medial toenail border of the right hallux. Next, nail nipper was used to carefully excise the medial hallux toenail border and a slant back fashion. Upon completion, the patient noted immediate relief of pain. She is to keep an eye on this toe, and was educated on all signs and symptoms of local and systemic infection and was instructed to call the nurses should she notice any. Patient is more than welcome to follow-up in office as needed upon discharge. Thank you for this consult.
[2017-10-13 15:39] VITALS: BP 118/73; PULSE 79; RESP 18; TEMP 36.8; O2SAT 96
[2017-10-14] MEDS: Polyethylene Glycol 3350 17 GM PACKET PO (05:34)
[2017-10-14] MEDS: Escitalopram Oxalate 10 MG Tablet PO (05:35)
[2017-10-14] MEDS: levETIRAcetam 500 MG Tablet PO ×2 (05:35→16:19)
[2017-10-14] MEDS: Senna/Docusate Sodium 1 Tablet 2 TABLET PO ×2 (05:35→16:19)
[2017-10-14 06:56] VITALS: O2SAT 96
[2017-10-14] MEDS: oxyCODONE 5 MG Tablet 10 MG PO ×2 (09:36→16:18)
[2017-10-14] MEDS: Aspirin 325 MG Tablet PO ×2 (09:36→16:19)
[2017-10-14 15:08] VITALS: BP 116/65; PULSE 73; RESP 16; TEMP 35.8; O2SAT 95
[2017-10-15] MEDS: oxyCODONE 5 MG Tablet 10 MG PO ×3 (05:20→21:18)
[2017-10-15] MEDS: Polyethylene Glycol 3350 17 GM PACKET PO (05:20)
[2017-10-15] MEDS: levETIRAcetam 500 MG Tablet PO ×2 (05:20→16:12)
[2017-10-15] MEDS: Escitalopram Oxalate 10 MG Tablet PO (05:20)
[2017-10-15] MEDS: Senna/Docusate Sodium 1 Tablet 2 TABLET PO ×2 (05:20→16:09)
[2017-10-15] MEDS: Aspirin 325 MG Tablet PO ×2 (07:58→16:09)
[2017-10-15 10:00] VITALS: PULSE 73; RESP 16
[2017-10-15 15:41] VITALS: BP 137/76; PULSE 85; RESP 15; TEMP 37; O2SAT 95
[2017-10-16] MEDS: Polyethylene Glycol 3350 17 GM PACKET PO (06:31)
[2017-10-16] MEDS: Escitalopram Oxalate 10 MG Tablet PO (06:31)
[2017-10-16] MEDS: Senna/Docusate Sodium 1 Tablet 2 TABLET PO ×2 (06:31→16:42)
[2017-10-16] MEDS: levETIRAcetam 500 MG Tablet PO ×2 (06:31→16:41)
[2017-10-16] MEDS: oxyCODONE 5 MG Tablet 10 MG PO ×2 (09:14→16:41)
[2017-10-16] MEDS: Aspirin 325 MG Tablet PO ×2 (09:14→16:41)
[2017-10-16 15:30] VITALS: BP 107/69; PULSE 77; RESP 22; TEMP 36.3; O2SAT 96
[2017-10-17] MEDS: oxyCODONE 5 MG Tablet 10 MG PO ×2 (06:44→13:50)
[2017-10-17] MEDS: Senna/Docusate Sodium 1 Tablet 2 TABLET PO ×2 (06:45→17:02)
[2017-10-17] MEDS: Polyethylene Glycol 3350 17 GM PACKET PO (06:45)
[2017-10-17] MEDS: levETIRAcetam 500 MG Tablet PO ×2 (06:45→17:02)
[2017-10-17] MEDS: Escitalopram Oxalate 10 MG Tablet PO (06:45)
[2017-10-17] MEDS: Aspirin 325 MG Tablet PO ×2 (07:01→17:02)
--- NOTE | 2017-10-17 09:55 | CASEMGMT ---
Insurance Clinical information faxed. Pending continued stay approval at this time. Auth#[id number] Elizabeth MCFADDEN, RESEARCH AND DEVELOPMENT TECHNICIAN
--- NOTE | 2017-10-17 13:06 | NURSING ---
No BM since 10/14/17. Prune juice given at this time. Refusing dulcolax suppository.
[2017-10-17 15:10] VITALS: BP 114/70; PULSE 79; RESP 16; TEMP 36.5; O2SAT 97
--- NOTE | 2017-10-17 15:44 | CASEMGMT ---
Brief interview for mental status (BIMS) and resident mood interview (PHQ-9) completed on this day. BIMS score 1515. PHQ-9 score 11/07
--- NOTE | 2017-10-17 16:10 | CASEMGMT ---
Insurance Continued stay denied with last cover day being 10/19/17 and resident financial responsibility to begin or discharge on 10/20/17. Auth#[id number] Elizabeth MCFADDEN, FOOD SAFETY DIRECTOR
--- NOTE | 2017-10-17 16:50 | CASEMGMT ---
Social Work Spoke with resident in room. This licensed clinical social worker communicating to resident that continued stay has been denied by insurance with a last cover day of 10/19/17 and resident financial responsibility to begin or discharge on 10/20/17. Resident choosing to discharge on 10/20/17. Resident plans to discharge home with daughter. Support given. Proposed discharge date: 10/20/17 PLAN: Discharge home with daughter. Elizabeth MCFADDEN, SENIOR TREASURY CONSULTANT
--- NOTE | 2017-10-17 17:23 | NURSING ---
pt c/o constipation, new order for Lactulose PRN and x1 today.
[2017-10-17] MEDS: Lactulose 20 GM/30 ML UDC 30 GM PO (18:12)
--- NOTE | 2017-10-17 22:41 | PCM.DC ---
- Discharge Diagnoses Current Active Problems: Current Active and Chronic Problems Fall (Acute) Hypertension (Chronic) Insomnia (Chronic) Tobacco abuse (Chronic) You will use the following diet at home:: No restrictions, Regular Your food should be the consistency of: Regular Your liquids should be the consistency of: Regular/Thin Discharge Activity: Return to Normal Activity, May Shower, Use Walker Weight Bearing Status: Weight bearing as tolerated Call your doctor if you observe: Fever of 101 or Higher, Inability to urinate, Inability to have a bowel movement, Shortness of breath, Chest pain, Uncontrolled pain Allergies/Adverse Reactions: Allergies hydrocodone bitartrate [From Vicodin] Allergy (Mild, Verified 10/07/17 03:40) Rash itching and rash Milk Containing Products Adverse Reaction (Mild, Verified 10/07/17 03:42) Abd cramps/vomiting/nausea stomach upset, nausea, vomiting, cramping when to much milk is consumed Medications to take at Discharge Albuterol Inhaler [Ventolin Hfa] 2 puff INHALATION Q4H PRN PRN 05/16/14 Fluticasone/Salmeterol [Advair 100/50 Diskus] 1 puff INHALATION BID PRN 05/16/14 Levetiracetam [Keppra] 500 mg PO BID 05/16/14 Hydroxyzine HCl 1 - 2 tab PO Q8H PRN PRN 06/17/15 Trazodone HCl [Desyrel] 100 mg PO QHS 06/17/15 Escitalopram Oxalate [Lexapro] 10 mg PO DAILY 10/04/17 Acetaminophen [Tylenol] 1,000 mg PO Q8H PRN PRN tablet 10/17/17 Aspirin 325 mg PO BID #40 tab 10/17/17 Oxycodone [Oxyir] 10 mg PO Q6H PRN PRN #30 tab 10/17/17 Polyethylene Glycol 3350 [Miralax] 17 gm PO DAILY #30 packet 10/17/17 Senna/Docusate Sodium [Senokot-S] 2 tab PO BID #120 tab 10/17/17 The following prescriptions were given: Oxycodone [Oxyir] 10 mg PO Q6H PRN PRN #30 tab PRN Reason: Severe Pain (-05/23) Polyethylene Glycol 3350 [Miralax] 17 gm PO DAILY #30 packet Aspirin 325 mg PO BID #40 tab Senna/Docusate Sodium [Senokot-S] 2 tab PO BID #120 tab Primary Care Physician: Ashley Bennett [Primary Care Provider] - Please follow up with your Primary Care Physician in: 1 week. Please Follow Up With: Dr Emeterio Esquivel When: 1 to 2 weeks Proposed Discharge Date: 10/20/17
--- NOTE | 2017-10-17 22:42 | PCM.DC.SUM ---
Discharge Date and Diagnosis - Problem List Patient Problems: Active and Suspected Problems Fall (Acute) Date of Admission: 10/10/17 Date of Discharge: 10/20/17 - Primary Discharge Diagnosis Active and Suspected Problems Fall (Acute) - Secondary Discharge Diagnosis Chronic Problems Hypertension (Chronic) Insomnia (Chronic) Tobacco abuse (Chronic) COPD (chronic obstructive pulmonary disease) (Chronic) Seizure disorder (Chronic) Depressed (Chronic) Cardiac dysrhythmia (Chronic) Anxiety (Chronic) Hospital Course and Treatment Imaging Results: 10/10/17 14:32 Diet: Regular Diet Is pt able to select menu?: Yes Diet Comments: milk sensitivity. Wants a mighty shake sent on her meal trays. Operations: None Procedures: None Summary of Care Provided: The patient is a 67 year old Female with below past medical history hospitalized for fall, acute non-displaced fracture right hip, Dr. Judd recommended non-operative management, complicated by seizure disorder, admitted to TCU for debility, rehabilitation, strengthening, prior to discharge home with family. [] Discharge home with daughter. Discharge Diet: No Restrictions Discharge Activity: Return to Normal Activity, May Shower, Use Walker Weight Bearing Status: Weight bearing as tolerated Call your doctor if you observe: Fever of 101 or Higher, Inability to urinate, Inability to have a bowel movement, Shortness of breath, Chest pain, Uncontrolled pain Home Medications: Medications to take at Discharge Albuterol Inhaler [Ventolin Hfa] 2 puff INHALATION Q4H PRN PRN 05/16/14 Fluticasone/Salmeterol [Advair 100/50 Diskus] 1 puff INHALATION BID PRN 05/16/14 Levetiracetam [Keppra] 500 mg PO BID 05/16/14 Hydroxyzine HCl 1 - 2 tab PO Q8H PRN PRN 06/17/15 Trazodone HCl [Desyrel] 100 mg PO QHS 06/17/15 Escitalopram Oxalate [Lexapro] 10 mg PO DAILY 10/04/17 Acetaminophen [Tylenol] 1,000 mg PO Q8H PRN PRN tablet 10/17/17 Aspirin 325 mg PO BID #40 tab 10/17/17 Oxycodone [Oxyir] 10 mg PO Q6H PRN PRN #30 tab 10/17/17 Polyethylene Glycol 3350 [Miralax] 17 gm PO DAILY #30 packet 10/17/17 Senna/Docusate Sodium [Senokot-S] 2 tab PO BID #120 tab 10/17/17 Following Prescrptions Were Given to Patient: Oxycodone [Oxyir] 10 mg PO Q6H PRN PRN #30 tab PRN Reason: Severe Pain (-05/23) Polyethylene Glycol 3350 [Miralax] 17 gm PO DAILY #30 packet Aspirin 325 mg PO BID #40 tab Senna/Docusate Sodium [Senokot-S] 2 tab PO BID #120 tab Primary Care Physician: Ashley Bennett [Primary Care Provider] - Please follow up with your Primary Care Physician in: 1 week. Please Follow Up With: Dr Emeterio Esquivel When: 1 to 2 weeks Disposition: Home Minutes spent on discharge:: 30 Patient Condition:: Good Meaningful Use Info Meaningful Use Diagnoses (Choose all that apply): None applicable
[2017-10-18] MEDS: levETIRAcetam 500 MG Tablet PO ×2 (06:07→16:28)
[2017-10-18] MEDS: Senna/Docusate Sodium 1 Tablet 2 TABLET PO ×2 (06:07→16:28)
[2017-10-18] MEDS: Polyethylene Glycol 3350 17 GM PACKET PO (06:07)
[2017-10-18] MEDS: oxyCODONE 5 MG Tablet 10 MG PO ×2 (06:07→15:45)
[2017-10-18] MEDS: Escitalopram Oxalate 10 MG Tablet PO (06:07)
[2017-10-18 06:54] LABS: Absolute Lymphocyte Count 1.56 X10^3/ul (0.83-4.51); Absolute Neutrophil Count 3.6 X10^3/uL (2.0-7.7); Basophil# 0.04 X10^3/uL; Basophil% 0.7 % (0-1); Eosinophil# 0.24 X10^3/uL; Eosinophils% 3.9 % (0-5); Hematocrit 36.6 % (37-47); Hemoglobin 11.7 g/dl (12.0-15.0); Lymphocyte # 1.56 X10^3/ul (4.0); Lymphocyte % 25.4 % (19-41); Mean Corpuscular Hgb 30.1 pg (27.0-32.0); Mean Corpuscular Volume 94.1 fL (81-99); Mean Platelet Vol. 8.8 fl (6.2-12.0); Monocyte# 0.65 X10^3/uL; Monocyte% 10.6 % (0-10); Neutrophil # 3.63 X10^3/uL (2.7-7.7); Neutrophil % 59.2 % (47-70); Platelet Count 470 K/mm3 (150-450); RBC Distribution Width CV 13.1 % (11.6-14.6); RBC Distribution Width SD 44.7 fl (35.1-43.9); Red Blood Count 3.89 M/mm3 (4.2-5.4); White Blood Count 6.1 K/mm3 (4.4-11.0)
[2017-10-18 06:59] LABS: POSITIVE COUNT NO; POSITIVE DIFFERENTIAL NO; POSITIVE MORPHOLOGY NO
[2017-10-18 07:14] LABS: Anion Gap 7 (5-15); BUN 22 mg/dL (7-18); BUN/Creat Ratio 29.7 RATIO (10-20); Chloride 101 mmol/L (98-107); Creatinine, Serum 0.74 mg/dL (0.55-1.02); EST Glomerular Filtration Rate 83 mL/min (>60); Est Glom Filt Rate - Afr Amer 100 mL/min (>60); Estimated Creatinine Clearance 50.41 ml/min; Glucose 114 mg/dL (74-106); Potassium 4.2 mmol/L (3.5-5.1); Sodium Level 138 mmol/L (136-145)
[2017-10-18] MEDS: Aspirin 325 MG Tablet PO ×2 (07:55→16:28)
--- NOTE | 2017-10-18 09:28 | CASEMGMT ---
Plan of care meeting held. Resident present, no support person present at this time. Resident plans to discharge on 10/20/17 to home with daughter. No further therapy recommendations at this time. Resident to follow up with ortho and when weight bearing is increased resident plans to have outpatient physical therapy. Resident daughter to provide transportation home for resident. Resident reporting to have all needed durable medical equipment already set up within the home. Support given. Proposed discharge date: 10/20/17 PLAN: Discharge home with daughter. Elizabeth MCFADDEN, BUILDING ENERGY CONSULTANT
[2017-10-18] MEDS: Tuberculin,Purif.prot.deriv. 50 TU/ML Vial 5 ML ID (10:36)
[2017-10-18 16:00] VITALS: BP 126/84; PULSE 85; RESP 22; TEMP 36.7; O2SAT 98
--- NOTE | 2017-10-18 16:27 | CHAPLAIN ---
Type of Pastoral Visit ___ Initial Visit _x__ Follow-up Visit ___ On-call Visit ___ General Patient Visit ___ Spiritual Assessment ___ Family Conference ___ Bereavement ___ Rapid Response ___ Code Blue ___ Other (describe below) Pastoral Care Referral From _x__ Patient ___ Family ___ Nurse ___ Physician ___ Sheet Metal Technician ___ Food Services Coordinator ___ Other (describe below) Sacrament/Intervention _x__ Active listening ___ Anointing ___ Anabaptism ___ Bereavement ___ Communion ___ Gloria exploration ___ _x__ Life review _x__ Prayer ___ Reconciliation ___ Sacrament of Sick _x__ Supportive presence ___ Wedding ___ Other (describe below) Pastoral Comments patient is talkative about her family and her problems with them; pt says that she wants to go home but again I'm not sure I do, and I don't want to start smoking again but I know my daughter living with me will cause me to smoke again; patient expresses disappointment with how her life has turned out; pt welcomes prayer and supportive presence
--- NOTE | 2017-10-18 18:45 | NURSING ---
DR CHENG SAW PT TODAY, NO NEW ORDERS, CONTINUE MEDS ORDERED ON TCU
[2017-10-19] MEDS: Senna/Docusate Sodium 1 Tablet 2 TABLET PO ×2 (04:41→16:56)
[2017-10-19] MEDS: Polyethylene Glycol 3350 17 GM PACKET PO (04:41)
[2017-10-19] MEDS: oxyCODONE 5 MG Tablet 10 MG PO ×3 (04:41→18:50)
[2017-10-19] MEDS: Escitalopram Oxalate 10 MG Tablet PO (04:41)
[2017-10-19] MEDS: levETIRAcetam 500 MG Tablet PO ×2 (04:41→16:56)
[2017-10-19] MEDS: Aspirin 325 MG Tablet PO ×2 (08:34→16:55)
[2017-10-19 15:56] VITALS: BP 114/72; PULSE 83; RESP 16; TEMP 36.9; O2SAT 96
[2017-10-19 22:00] VITALS: RESP 16
[2017-10-20] MEDS: Escitalopram Oxalate 10 MG Tablet PO (06:20)
[2017-10-20] MEDS: levETIRAcetam 500 MG Tablet PO (06:20)
[2017-10-20] MEDS: Polyethylene Glycol 3350 17 GM PACKET PO (06:20)
[2017-10-20] MEDS: Senna/Docusate Sodium 1 Tablet 2 TABLET PO (06:20)
[2017-10-20] MEDS: oxyCODONE 5 MG Tablet 10 MG PO (06:27)
[2017-10-20 06:29] VITALS: RESP 16
[2017-10-20] MEDS: Aspirin 325 MG Tablet PO (08:01)
--- NOTE | 2017-10-20 15:46 | CASEMGMT ---
Insurance Notified insurance of resident discharge on 10/20/17 to home with daughter. Auth#[id number] Elizabeth MCFADDEN, TELECOM FIELD TECHNICIAN
--- NOTE | 2017-10-23 14:48 | NURSING ---
Information for the [facility] was obtained from review of the medical record, interview of resident and staff, and direct observation of their care.
== END 2017-10-20 14:27 | disposition home or self-care (01) | DRG 561 ==
PROVIDERS: Admitting Provider Family Medicine Geriatric Medicine; Family Provider Family Medicine; PCP Family Medicine; Visit Provider Family Medicine Geriatric Medicine
DX: S72.091D Other fracture of head and neck of right femur, subsequent encounter for closed fracture with routine healing (principal); J44.9 Chronic obstructive pulmonary disease, unspecified; F17.210 Nicotine dependence, cigarettes, uncomplicated; F32.9 Major depressive disorder, single episode, unspecified; W19.XXXD Unspecified fall, subsequent encounter; F41.9 Anxiety disorder, unspecified; G40.909 Epilepsy, unspecified, not intractable, without status epilepticus; Z96.641 Presence of right artificial hip joint; I10 Essential (primary) hypertension; Z79.899 Other long term (current) drug therapy; L60.0 Ingrowing nail
CPT/HCPCS: 36415; 80048; 85025; 97110; 97116; 97162; 97165; 97530; 97535; 97802

== ENCOUNTER 2017-12-14 11:30 | Inpatient (IN) | payer MEDICARE, SELFPAY ==
[2017-12-14 11:31] VITALS: BP 162/100; PULSE 83; RESP 18; TEMP 36.8; O2SAT 98; BMI 21.1
--- NOTE | 2017-12-14 11:45 | RAD_ITS ---
STUDY: X-RAY - PELVIS AND LEFT HIP REASON FOR EXAM: Female, 67 years old. FELL TODAY LEFT HIP PAIN TECHNIQUE: Radiological exam, hip, unilateral, with pelvis when performed; 2 or 3 views. COMPARISON: None. FINDINGS: There is a non-specific bowel gas pattern. Normal visualized soft tissue structures. There is narrowing with cortical sclerosis and osteophyte formation of the sacroiliac joint consistent with degenerative osteoarthritic changes. Normal bilateral superior and inferior pubic rami. There are degenerative changes of the pubic symphysis with articular narrowing and sclerosis. Normal bilateral ischial tuberosities. There is a displaced comminuted intertrochanteric fracture of the left femur. RAD/Hip 2-3 Views with Pelvis IMPRESSION: There is a displaced comminuted intertrochanteric fracture of the left femur. Electronically Signed: Betsy Frost MD at 12:29 EDT Tel , Service support ,
[2017-12-14] MEDS: Morphine 4 MG/ML Syringe IV (11:50)
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
[2017-12-14] MEDS: fentaNYL 100 MCG/2 ML Ampul 50 MCG IV (12:54)
--- NOTE | 2017-12-14 12:57 | ED.DCSUM_ITS ---
- ER Visit Summary Date of Service: 12/14/17 Chief Complaint: Left hip pain History of Present Illness: The patient is a 67 F who presents with left hip pain. She was knocked over by a horse today. She landed directly on her left hip. She describes as sharp. She was unable to ambulate afterwards. Denies any head trauma or LOC. She has had multiple right hip replacements and revisions by Dr. Melvin. Physical Examination: Vital signs reviewed. HEENT exam unremarkable. Heart is regular rate and rhythm without murmurs. Lungs are clear to auscultation. Abdomen is soft and nontender. Extremities reveal pain at the left greater trochanter. She has pain with logroll. She has decreased range of motion secondary to this pain. Skin exam normal. Neurologic exam normal. Test Results: Left hip x-ray reveals a comminuted intertrochanteric fracture Emergency Department Course and Treatment: Patient was given morphine and fentanyl. I discussed this with Dr. Guerra in the hospitalist. The patient will be admitted for repair of her fracture. Treatment Plan: [] Disposition: Admit Impression: Left intertrochanteric fracture This note was generated with [employer] dictation software. It may contain incorrect words, spelling, and punctuation that were not noted in review of the chart prior to signing ED Disposition - Plan for ED Patient: Chief Complaint: Trauma Referrals: Ashley Bennett DO [Primary Care Provider] -
[2017-12-14 13:09] VITALS: BP 166/86; PULSE 85; RESP 16; O2SAT 95
[2017-12-14 13:14] LABS: Absolute Lymphocyte Count 0.96 X10^3/ul (0.83-4.51); Absolute Neutrophil Count 11.4 X10^3/uL (2.0-7.7); Basophil# 0.02 X10^3/uL; Basophil% 0.2 % (0-1); Eosinophil# 0.02 X10^3/uL; Eosinophils% 0.2 % (0-5); Hematocrit 35.8 % (37-47); Hemoglobin 12.4 g/dl (12.0-15.0); Lymphocyte # 0.96 X10^3/ul (4.0); Lymphocyte % 7.3 % (19-41); Mean Corp Hgb Conc 34.6 g/gl (32-36); Mean Corpuscular Hgb 31.2 pg (27.0-32.0); Mean Corpuscular Volume 90.2 fL (81-99); Mean Platelet Vol. 9.3 fl (6.2-12.0); Monocyte# 0.75 X10^3/uL; Monocyte% 5.7 % (0-10); Neutrophil # 11.41 X10^3/uL (2.7-7.7); Neutrophil % 86.4 % (47-70); Platelet Count 286 K/mm3 (150-450); RBC Distribution Width CV 13.3 % (11.6-14.6); RBC Distribution Width SD 43.5 fl (35.1-43.9); Red Blood Count 3.97 M/mm3 (4.2-5.4); White Blood Count 13.2 K/mm3 (4.4-11.0)
[2017-12-14 13:16] LABS: POSITIVE COUNT NO; POSITIVE DIFFERENTIAL NO; POSITIVE MORPHOLOGY NO
[2017-12-14 13:26] LABS: Anion Gap 7 (5-15); BUN 18 mg/dL (7-18); Calcium,Total 8.5 mg/dL (8.5-10.1); Chloride 103 mmol/L (98-107); Creatinine, Serum 0.75 mg/dL (0.55-1.02); EST Glomerular Filtration Rate 82 mL/min (>60); Est Glom Filt Rate - Afr Amer 99 mL/min (>60); Estimated Creatinine Clearance 50.41 ml/min; Glucose 104 mg/dL (74-106); Potassium 3.2 mmol/L (3.5-5.1); Sodium Level 137 mmol/L (136-145)
[2017-12-14 13:28] LABS: International Normalized Ratio 0.9; Prothrombin Time (Protime)PT. 12.6 SECONDS (11.7-14.9)
[2017-12-14 13:55] VITALS: BP 149/87; PULSE 75; RESP 18; TEMP 36.8; O2SAT 98; BMI 21.3
--- NOTE | 2017-12-14 15:09 | CASEMGMT ---
See RN RENEE Assessment Link. DC Plan: [facility] Inpt Rehab vs SNF. -Intro role of CM to patient in room. Surgery is planned for Friday, December 15. Pt stated she would like to return to TCU on discharge for rehab. -Call to [facility], Inpt rehab/TCU referral line. She will evaluate for Inpt Rehab vs TCU after PT/OT sees pt. Precertification will not be able to be started until Monday (surgery is tomorrow, then pt will need PT/OT prior to precert). -AV DURAN asked pt re: cost of Keppra medication. Pt states it is $20-25 and she cannot afford. Discussed importance of seizure medications. ABalogh AV DURAN
[2017-12-14] MEDS: oxyCODONE 5 MG Tablet 10 MG PO (15:25)
[2017-12-14 16:05] VITALS: O2SAT 97
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
[2017-12-14] MEDS: Morphine 4 MG/ML Syringe 1 MG IV (18:11)
[2017-12-14] MEDS: 0.9% NaCl Peripheral Flush Adult/Peds IV ×2 (18:12→20:06)
[2017-12-14 19:37] VITALS: BP 151/90; PULSE 67; RESP 18; TEMP 36.9; O2SAT 98
[2017-12-14] MEDS: Morphine 4 MG/ML Syringe 2 MG IV (20:06)
[2017-12-14] MEDS: levETIRAcetam 500 MG Tablet PO (22:09)
[2017-12-14] MEDS: traZODone 100 MG Tablet PO (22:09)
[2017-12-14] MEDS: oxyCODONE CR 15 MG Tablet PO (22:09)
[2017-12-14] MEDS: Senna/Docusate Sodium 1 Tablet 2 TABLET PO (22:11)
[2017-12-15] VITALS (13 sets, daily range): BP systolic 100–152; BP diastolic 62–104; PULSE 69–116; RESP 16–18; TEMP 36.3–37.1; O2SAT 93–100; BMI 21.3
[2017-12-15 05:34] LABS: Absolute Lymphocyte Count 1.46 X10^3/ul (0.83-4.51); Absolute Neutrophil Count 3.9 X10^3/uL (2.0-7.7); Basophil# 0.02 X10^3/uL; Basophil% 0.3 % (0-1); Eosinophil# 0.18 X10^3/uL; Eosinophils% 2.9 % (0-5); Hematocrit 36.1 % (37-47); Lymphocyte # 1.46 X10^3/ul (4.0); Lymphocyte % 23.7 % (19-41); Mean Corp Hgb Conc 33.2 g/gl (32-36); Mean Corpuscular Hgb 30.9 pg (27.0-32.0); Mean Platelet Vol. 9.4 fl (6.2-12.0); Monocyte# 0.57 X10^3/uL; Monocyte% 9.2 % (0-10); Neutrophil # 3.93 X10^3/uL (2.7-7.7); Neutrophil % 63.7 % (47-70); Platelet Count 271 K/mm3 (150-450); RBC Distribution Width CV 13.8 % (11.6-14.6); RBC Distribution Width SD 46.1 fl (35.1-43.9); Red Blood Count 3.88 M/mm3 (4.2-5.4); White Blood Count 6.2 K/mm3 (4.4-11.0)
[2017-12-15 05:37] LABS: POSITIVE COUNT NO; POSITIVE DIFFERENTIAL NO; POSITIVE MORPHOLOGY NO
[2017-12-15 05:46] LABS: Anion Gap 7 (5-15); BUN 15 mg/dL (7-18); BUN/Creat Ratio 20.7 RATIO (10-20); Calcium,Total 8.8 mg/dL (8.5-10.1); Chloride 104 mmol/L (98-107); Creatinine, Serum 0.72 mg/dL (0.55-1.02); EST Glomerular Filtration Rate 85 mL/min (>60); Est Glom Filt Rate - Afr Amer 103 mL/min (>60); Estimated Creatinine Clearance 50.41 ml/min; Glucose 89 mg/dL (74-106); Potassium 3.7 mmol/L (3.5-5.1); Sodium Level 138 mmol/L (136-145)
--- NOTE | 2017-12-15 06:00 | EKG12_ITS ---
Test Reason : PRE OP Blood Pressure : / mmHG Vent. Rate : 076 BPM Atrial Rate : 076 BPM P-R Int : 132 ms QRS Dur : 082 ms QT Int : 398 ms P-R-T Axes : 049 029 -02 degrees QTc Int : 447 ms Normal sinus rhythm ST & T wave abnormality, consider inferior ischemia Abnormal ECG Confirmed by DEL SHAW, CHAR ([id number]), book editor KENNETH LOVELACE ([id number]) on 12/18/2017 2:21:22 PM Referred By: CELESTINO Confirmed By:CHAR MATHIS MD
[2017-12-15] MEDS: Morphine 4 MG/ML Syringe 2 MG IV ×2 (06:56→11:11)
[2017-12-15] MEDS: 0.9% NaCl Peripheral Flush Adult/Peds IV ×2 (06:57→11:11)
--- NOTE | 2017-12-15 07:12 | PCM.PN.HOSP ---
Subjective: Patient was seen and examined. She feels well. Going for surgery this afternoon. No acute events overnight. No seizures seen. Complains of pain when she moves. Or chills or chest pain no dizziness or palpitations. No acute events on telemetry. Objective: Physical Exam General: Alert, Oriented x3, Cooperative, No apparent distress, in pain on moving extremities. HEENT: Atraumatic, PERRLA, EOMI, Normocephalic Oral: Moist Mucosa - lying comfortably in bed Neck: Supple, No JVD, Negative Carotid Bruits Lungs: Clear to auscultation, Normal air movement Cardiovascular: Regular rate, Regular Rhythm, Normal S1, Normal S2, No murmurs Abdomen: Bowel Sounds Present, Soft, Non Tender, Non-Distended, No Hepato-splenomegaly Extremities: No edema, - - Left lower extremity is shortened and externally rotated, tenderness on moving the leg Skin: No rashes Musculoskeletal: No Tenderness to Palpation of Joints or Extremities Lymphatic: No Cervical, Supraclavicular, or Inguinal Adenopathy Neurological: Cranial nerves II-XII grossly intact, Neuro grossly intact Psych/Mental Status: Normal Affect, Appropriate Vitals/I&O's: Vital Signs Temp Pulse Resp BP Pulse Ox 97.7 F L 69 18 147/86 H 97 12/15/17 01:37 12/15/17 01:37 12/15/17 01:37 12/15/17 01:37 12/15/17 01:37 Oxygen Delivery Method Room Air Weight: 60 kg Body Mass Index (BMI) 21.3 Intake and Output for Last 24 Hours 12/13/17 12/14/17 12/15/17 23:59 23:59 23:59 Intake Total 900 / 900 260 / 260 Output Total 425 / 425 525 / 525 Balance 475 / 475 -265 / -265 Laboratory Results 12/14/17 13:01: WBC 13.2 H, RBC 3.97 L, Hgb 12.4, Hct 35.8 L, MCV 90.2, MCH 31.2, MCHC 34.6, RDW 13.3, RDW Differential 43.5, Plt Count 286, MPV 9.3, Immature Gran % (Auto) 0.200, Neut % (Auto) 86.4 H, Lymph % (Auto) 7.3 L, [place] % (Auto) 5.7, Eos % (Auto) 0.2, Baso % (Auto) 0.2, Absolute Neuts (auto) 11.4 H, Absolute Lymphs (auto) 0.96, Total Counted Not Reportable 12/14/17 13:01: Sodium 137, Potassium 3.2 L, Chloride 103, Carbon Dioxide 27.0, Anion Gap 7, BUN 18, Creatinine 0.75, Estim Creat Clear Calc 50.41, Est GFR (MDRD) Af Amer 99, Est GFR (MDRD) Non-Af 82, BUN/Creatinine Ratio 24.0 H, Glucose 104, Calcium 8.5 12/14/17 13:01: PT 12.6, INR 0.9 12/14/17 17:25: Blood Type A POSITIVE, Antibody Screen NEGATIVE 12/15/17 05:12: WBC 6.2, RBC 3.88 L, Hgb 12.0, Hct 36.1 L, MCV 93.0, MCH 30.9, MCHC 33.2, RDW 13.8, RDW Differential 46.1 H, Plt Count 271, MPV 9.4, Immature Gran % (Auto) 0.200, Neut % (Auto) 63.7, Lymph % (Auto) 23.7, [place] % (Auto) 9.2, Eos % (Auto) 2.9, Baso % (Auto) 0.3, Absolute Neuts (auto) 3.9, Absolute Lymphs (auto) 1.46, Total Counted Not Reportable 12/15/17 05:12: Sodium 138, Potassium 3.7, Chloride 104, Carbon Dioxide 27.0, Anion Gap 7, BUN 15, Creatinine 0.72, Estim Creat Clear Calc 50.41, Est GFR (MDRD) Af Amer 103, Est GFR (MDRD) Non-Af 85, BUN/Creatinine Ratio 20.7 H, Glucose 89, Calcium 8.8 12/15/17 05:12: Levetiracetam Pending 12/15/17 05:12: APTT 27.0 Current Medications Acetaminophen (Tylenol) 1,000 mg PO Q8H PRN PRN PRN Reason: MILD PAIN (1-3) Albuterol/Ipratropium (Duoneb) 3 ml INHALATION Q4HWA.RT PRN PRN Reason: SOB &/OR WHEEZING Enoxaparin Sodium (Lovenox) 40 mg SC DAILY@1000 [facility] Escitalopram Oxalate (Lexapro) 10 mg PO DAILY [facility] Cefazolin Sodium 2 gm/ Sodium (Chloride) 120 mls @ 240 mls/hr IV SEND TO OR W/PATIENT ONE Stop: 12/15/17 14:29 Levetiracetam (Keppra Tablet) 500 mg PO BID [facility] Last Admin: 12/14/17 22:09 Dose: 500 mg Magnesium Hydroxide (Milk Of Magnesia) 30 ml PO DAILY PRN PRN PRN Reason: Constipation Morphine Sulfate () 2 mg IV Q4H PRN PRN PRN Reason: SEVERE PAIN (6-1010) Last Admin: 12/15/17 06:56 Dose: 2 mg Nicotine (Nicoderm Cq (Pbkc)) 21 mg TRANSDERM. DAILY [facility] Ondansetron HCl (Zofran) 4 mg IV Q8H PRN PRN PRN Reason: NAUSEA Oxycodone HCl (Oxyir) 10 mg PO Q6H PRN PRN PRN Reason: SEVERE PAIN (6-1010) Last Admin: 12/14/17 15:25 Dose: 10 mg Oxycodone HCl (Oxycontin) 15 mg PO BID [facility] Last Admin: 12/14/17 22:09 Dose: 15 mg Polyethylene Glycol (Miralax) 17 gm PO DAILY [facility] Senna/Docusate Sodium (Senokot-S, Zena-Colace) 2 tablet PO BID [facility] Last Admin: 12/14/17 22:11 Dose: 2 tablet Sodium Chloride () 5 - 30 ml IV UD PRN PRN Reason: SALINE FLUSH Last Admin: 12/15/17 06:57 Dose: 10 ml Trazodone HCl (Desyrel) 100 mg PO QHS [facility] Last Admin: 12/14/17 22:09 Dose: 100 mg Medical Necessity - Tobacco Use Smoking Status: Current every day smoker Tobacco Use: Cigarettes Assessment/Plan 67 year old F with past medical history of hypertension, seizure disorder, anxiety disorder, COPD, recently admitted and discharged with right hip fracture comes in with complaints of a fall and left hip pain. Patient says she was kicked down by her horse whilst trying to feed to the house in the barn. 1. Acute left intertrochanteric fracture secondary to a mechanical fall; kicked down by her horse, pain is fairly controlled, on an increased dose of morphine and oxycodone, going for surgery this afternoon, will follow up after surgery. 2. Seizure disorder, no seizures noted, on Keppra, continue seizure precautions, patient may need assistance with medication on discharge 3. Hypertension, slightly uncontrolled secondary to pain, will continue on same home medications. 4. Hypokalemia, placed, will recheck BMP in a.m. after surgery 5. COPD, stable, not in acute exacerbation, would add as needed breathing treatments 6. Nicotine use disorder, on replacement, advised to quit 7. DVT PPx with Lovenox subcu Code Visit Inpatient E&M: 89813 Subs Hosp L2
[2017-12-15] MEDS: levETIRAcetam 500 MG Tablet PO ×2 (08:55→22:12)
[2017-12-15] MEDS: Escitalopram Oxalate 10 MG Tablet PO (08:55)
[2017-12-15] MEDS: oxyCODONE CR 15 MG Tablet PO ×2 (09:32→22:11)
--- NOTE | 2017-12-15 13:02 | NURSING ---
called report to Nallely in AC at this time.
[2017-12-15] MEDS: Cefazolin 2 GM in 0.9% Normal Saline 100 ML IV (14:27)
--- NOTE | 2017-12-15 14:30 | RAD_ITS ---
STUDY: X-RAY - LEFT FEMUR REASON FOR STUDY: Female, 67 years old. Intraoperative assessment TECHNIQUE: Radiological exam, femur, minimum 2 views COMPARISON: Left hip study dated December 14, 2017 FINDINGS: Limited images of the left femur show an intramedullary young in place with hip nails proximally and one screw distally. There is near-anatomic alignment of the comminuted intertrochanteric fracture. Fluoroscopy time 39.4 seconds. Cumulative dose 5.57 mGy. RAD/Femur Min 2 Views IMPRESSION: Limited images of the left femur were obtained intraoperatively during fracture fixation. Electronically Signed: Orin Newsome MD at 16:03 EDT Tel Direct: [phone], Service support ,
--- NOTE | 2017-12-15 15:35 | OP.PCM_ITS ---
Report of Operation Date of Procedure: 12/15/17 Pre-Operative Diagnosis: Reverse oblique intertrochanteric femur fracture left Post-Operative Diagnosis: Same Surgery/Procedure Performed:: Closed reduction with open internal fixation using cephalo-medullary nail left femur Description of Surgical Findings:: Unstable reverse intertrochanteric femur fracture Type of Anesthesia:: General Anesthesiologist: Krishna Morrison Estimated Blood Loss (mL): 150 Fluids Replaced: See anesthesia report Description of Procedure: Implants: Rangel and nephew InterTAN 36 cm x 10 mm 130? valgus angle with distal locking screw 85 mm lag screw with compression screw Procedure description: The patient was greeted in the preoperative area. The left lower extremity was marked with surgical marker. Preoperative antibiotics were administered. The patient was then placed in supine position on a fracture table, a padded perineal post was utilized, all bony prominences were well-padded. Patient's leg was then secured in the fracture leg almazan and the well leg was placed in the well-leg almazan both were well-padded. Closed reduction maneuver was then performed under biplanar fluoroscopic imaging. Once anatomic alignment of the fracture was confirmed the leg was prepped and draped in usual sterile fashion. Surgical timeout was performed and surgery was commenced. Fluoroscopic imaging was used to identify the tip of the greater trochanter. A 3 cm incision was then made 3 cm above the tip of the greater trochanter and a guidepin was then placed at the junction of the anterior one third and posterior two thirds of the greater trochanter. This was then placed intramedullary. an opening reamer was then used and a ball-tipped guidewire was then placed to the superior pole of the patella and measured. Sequential reaming was then commenced over the ball-tipped guidewire to the appropriate diameter and where chatter was identified. Appropriate size InterTAN was then placed on the guide handle on the operating table and confirmed to be appropriately placed. This was then inserted into the body over the ball-tipped guidewire to the appropriate depth. A stab incision was then made on lateral aspect of the thigh for placement of the lag screw which was then placed in center-center position confirmed in both AP and lateral. This was then measured. A derotational step drill was then used and a derotation bar was then placed. Lag screw reamer was then used over the guidepin and the lag screw was then placed into subchondral bone with tip to apex distance less than 25 mm on both the AP and lateral. The insertion handle was then removed after the compression screw was applied. Attention was then turned to the distal fixation. A perfect [place] and [place] technique was used and a screw was then placed from lateral to medial through the eccentric hole distally. This was drilled measured and a screw was placed with excellent purchase. Final imaging was obtained with fluoroscopic imaging AP and lateral. The wounds were then irrigated with copious irrigation and closed in layers with 2-0 Vicryl and surgical karishma. A well-padded nonadherent dressing is applied patient was taken to recovery room in stable condition. Postoperatively patient may be weightbearing as tolerated without restrictions - Complications None known - Admit VTE Documentation VTE Present on Admission: Yes VTE Mechan Device Prophylaxis: SCD's, Thigh High KEENAN Hose VTE Pharm Prophylaxis ordered?: Yes
[2017-12-15] MEDS: oxyCODONE 5 MG Tablet 10 MG PO (17:35)
[2017-12-15] MEDS: Lactated Ringers 1,000 ML 125 ML IV ×2 (17:37→20:57)
[2017-12-15] MEDS: Cefazolin 1 GM/50 ML BAG IV (22:12)
[2017-12-15] MEDS: Senna/Docusate Sodium 1 Tablet 2 TABLET PO (22:12)
[2017-12-15] MEDS: traZODone 100 MG Tablet PO (22:12)
[2017-12-16] VITALS (19 sets, daily range): BP systolic 86–129; BP diastolic 42–77; PULSE 69–87; RESP 14–18; TEMP 36.9–37.3; O2SAT 91–100
[2017-12-16] MEDS: 0.9% NaCl Peripheral Flush Adult/Peds IV ×2 (03:54→20:34)
[2017-12-16] MEDS: Morphine 4 MG/ML Syringe 2 MG IV (03:54)
[2017-12-16] MEDS: Cefazolin 1 GM/50 ML BAG IV (06:43)
[2017-12-16] MEDS: oxyCODONE 5 MG Tablet 10 MG PO (06:45)
--- NOTE | 2017-12-16 06:51 | PCM.PN.ORT ---
Subjective: Patient is having pain as expected. She denies any chest pain or shortness of breath Objective: Dressing is intact. No calf pain is noted. Patient remains neurologically intact. - Physical Exam Vital Signs Temp Pulse Resp BP Pulse Ox 98.9 F 72 18 104/77 97 12/16/17 03:51 12/16/17 03:56 12/16/17 03:51 12/16/17 03:51 12/16/17 03:51 Oxygen Flow Rate (L/min) 1 Oxygen Delivery Method Nasal Cannula Weight: 132 lb 4.438 oz Body Mass Index (BMI) 21.3 Intake and Output for Last 24 Hours 12/14/17 12/15/17 12/16/17 23:59 23:59 23:59 Intake Total 900 / 900 2735 / 2735 845 / 845 Output Total 425 / 425 850 / 850 400 / 400 Balance 475 / 475 1885 / 1885 445 / 445 Medical Necessity - Tobacco Use Smoking Status: Current every day smoker Tobacco Use: Cigarettes Assessment/Plan Postop day 1 status post cephalo-medullary nail left femur Lab work is pending. Mobilize with therapy, pain control, anticoagulation. Patient will require assessment as to discharge needs
--- NOTE | 2017-12-16 07:15 | PCM.PN.HOSP ---
Subjective: Patient was seen and examined. She complained of left upper extremity weakness which started this morning; not new to the patient. Pain is fairly controlled. Of note is that her blood pressures have been low. Denies any dizziness or palpitation. Objective: hysical Exam General: Alert, Oriented x3, Cooperative, No apparent distress, in pain on moving extremities. HEENT: Atraumatic, PERRLA, EOMI, Normocephalic Oral: Moist Mucosa - lying comfortably in bed Neck: Supple, No JVD, Negative Carotid Bruits Lungs: Clear to auscultation, Normal air movement Cardiovascular: Regular rate, Regular Rhythm, Normal S1, Normal S2, No murmurs Abdomen: Bowel Sounds Present, Soft, Non Tender, Non-Distended, No Hepato-splenomegaly Extremities: No edema, - - Left lower extremity is shortened and externally rotated, tenderness on moving the leg Skin: No rashes Musculoskeletal: No Tenderness to Palpation of Joints or Extremities Lymphatic: No Cervical, Supraclavicular, or Inguinal Adenopathy Neurological: Cranial nerves II-XII grossly intact, Neuro grossly intact Psych/Mental Status: Normal Affect, Appropriate Vitals/I&O's: Vital Signs Temp Pulse Resp BP Pulse Ox 98.9 F 72 18 104/77 97 12/16/17 03:51 12/16/17 03:56 12/16/17 03:51 12/16/17 03:51 12/16/17 03:51 Oxygen Flow Rate (L/min) 1 Oxygen Delivery Method Nasal Cannula Weight: 60 kg Body Mass Index (BMI) 21.3 Intake and Output for Last 24 Hours 12/14/17 12/15/17 12/16/17 23:59 23:59 23:59 Intake Total 900 / 900 2735 / 2735 1692 / 1692 Output Total 425 / 425 850 / 850 650 / 650 Balance 475 / 475 1885 / 1885 1042 / 1042 Current Medications Acetaminophen (Tylenol) 1,000 mg PO Q8H PRN PRN PRN Reason: MILD PAIN (1-3/10) Albuterol/Ipratropium (Duoneb) 3 ml INHALATION Q4HWA.RT PRN PRN Reason: SOB &/OR WHEEZING Enoxaparin Sodium (Lovenox) 40 mg SC DAILY@1000 JAMIE Last Admin: 12/15/17 08:43 Dose: Not Given Escitalopram Oxalate (Lexapro) 10 mg PO DAILY [facility] Last Admin: 12/15/17 08:55 Dose: 10 mg Levetiracetam (Keppra Tablet) 500 mg PO BID [facility] Last Admin: 12/15/17 22:12 Dose: 500 mg Magnesium Hydroxide (Milk Of Magnesia) 30 ml PO DAILY PRN PRN PRN Reason: Constipation Morphine Sulfate () 2 mg IV Q4H PRN PRN PRN Reason: SEVERE PAIN (6-10/10) Last Admin: 12/16/17 03:54 Dose: 2 mg Nicotine (Nicoderm Cq (Pbkc)) 21 mg TRANSDERM. DAILY [facility] Last Admin: 12/15/17 08:54 Dose: Not Given Ondansetron HCl (Zofran) 4 mg IV Q8H PRN PRN PRN Reason: NAUSEA Oxycodone HCl (Oxyir) 10 mg PO Q6H PRN PRN PRN Reason: SEVERE PAIN (6-10/10) Last Admin: 12/16/17 06:45 Dose: 10 mg Oxycodone HCl (Oxycontin) 15 mg PO BID [facility] Last Admin: 12/15/17 22:11 Dose: 15 mg Polyethylene Glycol (Miralax) 17 gm PO DAILY [facility] Last Admin: 12/15/17 08:54 Dose: Not Given Senna/Docusate Sodium (Senokot-S, Zena-Colace) 2 tablet PO BID [facility] Last Admin: 12/15/17 22:12 Dose: 2 tablet Sodium Chloride () 5 - 30 ml IV UD PRN PRN Reason: SALINE FLUSH Last Admin: 12/16/17 03:54 Dose: 10 ml Trazodone HCl (Desyrel) 100 mg PO QHS [facility] Last Admin: 12/15/17 22:12 Dose: 100 mg Medical Necessity - Tobacco Use Smoking Status: Current every day smoker Tobacco Use: Cigarettes Assessment/Plan 67 year old F with past medical history of hypertension, seizure disorder, anxiety disorder, COPD, recently admitted and discharged with right hip fracture comes in with complaints of a fall and left hip pain. Patient says she was kicked down by her horse whilst trying to feed to the house in the barn. 1. POD #1, s/p closed reduction with open internal fixation using cephalo-medullary nail for acute left intertrochanteric fracture secondary to a mechanical fall; she was kicked down by her horse, Her pain is controlled, will continue on a decreased amount of narcotic medication in light of hypotension. 2. Hypotension likely related to medication side effect, will give fluid boluses and some fluids, and decreased the amount of pain medication 3. Seizure disorder, no seizures noted, on Keppra, continue seizure precautions, discussed with patient and stressed on medication compliance, patient may need assistance with medication on discharge 4. Hypertension, relatively hypotensive, not on any medications, continue to monitor 5. Hypokalemia, based 6. COPD, stable, not in acute exacerbation, would add as needed breathing treatments 7. Nicotine use disorder, on replacement, advised to quit 8. DVT PPx with Lovenox subcu Code Visit Inpatient E&M: 91728 Subs Hosp L3
[2017-12-16 08:38] LABS: Absolute Lymphocyte Count 1.22 X10^3/ul (0.83-4.51); Absolute Neutrophil Count 5.5 X10^3/uL (2.0-7.7); Basophil# 0.01 X10^3/uL; Basophil% 0.1 % (0-1); Eosinophil# 0.01 X10^3/uL; Eosinophils% 0.1 % (0-5); Hematocrit 25.4 % (37-47); Hemoglobin 8.2 g/dl (12.0-15.0); Lymphocyte # 1.22 X10^3/ul (4.0); Lymphocyte % 16.8 % (19-41); Mean Corp Hgb Conc 32.3 g/gl (32-36); Mean Corpuscular Hgb 30.1 pg (27.0-32.0); Mean Corpuscular Volume 93.4 fL (81-99); Mean Platelet Vol. 9.1 fl (6.2-12.0); Monocyte# 0.55 X10^3/uL; Monocyte% 7.6 % (0-10); Neutrophil # 5.45 X10^3/uL (2.7-7.7); Neutrophil % 75.3 % (47-70); POSITIVE COUNT NO; POSITIVE DIFFERENTIAL NO; POSITIVE MORPHOLOGY NO; Platelet Count 206 K/mm3 (150-450); RBC Distribution Width SD 47.8 fl (35.1-43.9); Red Blood Count 2.72 M/mm3 (4.2-5.4); White Blood Count 7.3 K/mm3 (4.4-11.0)
[2017-12-16 09:00] LABS: Anion Gap 7 (5-15); BUN 12 mg/dL (7-18); BUN/Creat Ratio 17.4 RATIO (10-20); Calcium,Total 7.9 mg/dL (8.5-10.1); Chloride 105 mmol/L (98-107); Creatinine, Serum 0.69 mg/dL (0.55-1.02); EST Glomerular Filtration Rate 90 mL/min (>60); Est Glom Filt Rate - Afr Amer 108 mL/min (>60); Estimated Creatinine Clearance 50.41 ml/min; Glucose 103 mg/dL (74-106); Potassium 4.2 mmol/L (3.5-5.1); Sodium Level 139 mmol/L (136-145)
[2017-12-16] MEDS: 0.9% Normal Saline 1,000 ML 75 ML IV (09:05)
--- NOTE | 2017-12-16 09:15 | NURSING ---
states my vision feels different, but i have had that my eyes are real tired i have this with my cataracts. denies any blurred vision or spots. states i feel like i am mehnaz short of breath. Dr. Morrissey at bedside at this time.
--- NOTE | 2017-12-16 09:16 | NURSING ---
pt states my left arm feels like it is . Dr. Morrissey at bedside evaluating pt.
--- NOTE | 2017-12-16 09:24 | NURSING ---
pt states i don't mean to be grouchy, i usually have this breathing issue when it gets hot and humid out, and my eyes bother me.
[2017-12-16] MEDS: levETIRAcetam 500 MG Tablet PO ×2 (09:25→20:30)
[2017-12-16] MEDS: Escitalopram Oxalate 10 MG Tablet PO (09:25)
[2017-12-16] MEDS: Polyethylene Glycol 3350 17 GM PACKET PO (09:25)
[2017-12-16] MEDS: Enoxaparin 40 MG/0.4 ML Syringe SC (09:26)
[2017-12-16] MEDS: Senna/Docusate Sodium 1 Tablet 2 TABLET PO ×2 (09:26→20:31)
[2017-12-16] MEDS: Acetaminophen 500 MG Tablet 1000 MG PO ×2 (09:43→19:05)
[2017-12-16] MEDS: Magnesium Hydroxide 30 ML UDC PO (09:44)
--- NOTE | 2017-12-16 17:45 | NURSING ---
2ND ATTEMPT TO REACH PT DAUGHTER SATURNINO BY CELLPHONE # [phone] AND NO ANSWER- STATES VOICEMAIL BOX NOT SET UP. CONFIRMED NUMBER WITH PT. PT STATES 'OH IF YOU GET THAT MESSAGE IT IS PROBABLY BECAUSE SHE IS ON THE PHONE.
--- NOTE | 2017-12-16 18:53 | NURSING ---
SPOKE WITH PT DAUGHTER SATURNINO- UPDATED.
[2017-12-16] MEDS: oxyCODONE 5 MG Tablet PO (20:30)
[2017-12-16] MEDS: traZODone 100 MG Tablet PO (20:31)
[2017-12-16] MEDS: Morphine 4 MG/ML Syringe 1 MG IV (21:36)
[2017-12-17 01:26] VITALS: BP 164/95; PULSE 76; RESP 18; TEMP 36.6; O2SAT 97
[2017-12-17] MEDS: Morphine 4 MG/ML Syringe 1 MG IV (01:35)
[2017-12-17] MEDS: oxyCODONE 5 MG Tablet PO ×2 (03:57→22:41)
[2017-12-17] MEDS: Acetaminophen 500 MG Tablet 1000 MG PO ×2 (04:01→22:41)
[2017-12-17 06:35] VITALS: BP 104/67; PULSE 69; RESP 18; TEMP 36.9; O2SAT 94
[2017-12-17 06:45] LABS: Absolute Lymphocyte Count 1.56 X10^3/ul (0.83-4.51); Absolute Neutrophil Count 3.8 X10^3/uL (2.0-7.7); Basophil# 0.02 X10^3/uL; Basophil% 0.3 % (0-1); Eosinophil# 0.14 X10^3/uL; Eosinophils% 2.3 % (0-5); Hematocrit 24.4 % (37-47); Lymphocyte # 1.56 X10^3/ul (4.0); Lymphocyte % 25.4 % (19-41); Mean Corp Hgb Conc 32.8 g/gl (32-36); Mean Corpuscular Hgb 30.9 pg (27.0-32.0); Mean Corpuscular Volume 94.2 fL (81-99); Mean Platelet Vol. 9.4 fl (6.2-12.0); Monocyte# 0.58 X10^3/uL; Monocyte% 9.4 % (0-10); Neutrophil # 3.84 X10^3/uL (2.7-7.7); Neutrophil % 62.6 % (47-70); Platelet Count 230 K/mm3 (150-450); RBC Distribution Width SD 48.4 fl (35.1-43.9); Red Blood Count 2.59 M/mm3 (4.2-5.4); White Blood Count 6.1 K/mm3 (4.4-11.0)
[2017-12-17 06:56] LABS: POSITIVE COUNT NO; POSITIVE DIFFERENTIAL NO; POSITIVE MORPHOLOGY NO
--- NOTE | 2017-12-17 07:19 | PN_ITS ---
Subjective: Patient was seen and examined. Had issues with pain overnight. Blood pressure is improved with fluid boluses. Denies any fever or chills. No issues with seizures overnight. Objective: Physical Exam General: Alert, Oriented x3, Cooperative, No apparent distress, in pain on moving extremities. HEENT: Atraumatic, PERRLA, EOMI, Normocephalic Oral: Moist Mucosa - lying comfortably in bed Neck: Supple, No JVD, Negative Carotid Bruits Lungs: Clear to auscultation, Normal air movement Cardiovascular: Regular rate, Regular Rhythm, Normal S1, Normal S2, No murmurs Abdomen: Bowel Sounds Present, Soft, Non Tender, Non-Distended, No Hepato- splenomegaly Extremities: No edema, - - Left lower extremity is shortened and externally rotated, tenderness on moving the leg Skin: No rashes Musculoskeletal: No Tenderness to Palpation of Joints or Extremities Lymphatic: No Cervical, Supraclavicular, or Inguinal Adenopathy Neurological: Cranial nerves II-XII grossly intact, Neuro grossly intact Psych/Mental Status: Normal Affect, Appropriate Vitals/I&O's: Vital Signs Temp Pulse Resp BP Pulse Ox 98.5 F 69 18 104/67 94 12/17/17 06:35 12/17/17 06:35 12/17/17 06:35 12/17/17 06:35 12/17/17 06:35 Oxygen Flow Rate (L/min) 1 Oxygen Delivery Method Room Air Weight: 60 kg Body Mass Index (BMI) 21.3 Intake and Output for Last 24 Hours 12/15/17 12/16/17 12/17/17 23:59 23:59 23:59 Intake Total 2735 / 2735 3383 / 3383 1552 / 1552 Output Total 850 / 850 950 / 950 1650 / 1650 Balance 1885 / 1885 2433 / 2433 -98 / -98 Laboratory Results 12/16/17 08:00: WBC 7.3, RBC 2.72 L, Hgb 8.2 L, Hct 25.4 L, MCV 93.4, MCH 30.1, MCHC 32.3, RDW 14.0, RDW Differential 47.8 H, Plt Count 206, MPV 9.1, Immature Gran % (Auto) 0.100, Neut % (Auto) 75.3 H, Lymph % (Auto) 16.8 L, Hunt % (Auto) 7.6, Eos % (Auto) 0.1, Baso % (Auto) 0.1, Absolute Neuts (auto) 5.5, Absolute Lymphs (auto) 1.22, Total Counted Not Reportable 12/16/17 08:00: Sodium 139, Potassium 4.2, Chloride 105, Carbon Dioxide 27.0, Anion Gap 7, BUN 12, Creatinine 0.69, Estim Creat Clear Calc 50.41, Est GFR ( MDRD) Af Amer 108, Est GFR (MDRD) Non-Af 90, BUN/Creatinine Ratio 17.4, Glucose 103, Calcium 7.9 L 12/16/17 11:55: Troponin I < 0.02 12/17/17 05:26: WBC 6.1, RBC 2.59 L, Hgb 8.0 L, Hct 24.4 L, MCV 94.2, MCH 30.9, MCHC 32.8, RDW 14.0, RDW Differential 48.4 H, Plt Count 230, MPV 9.4, Immature Gran % (Auto) 0.000, Neut % (Auto) 62.6, Lymph % (Auto) 25.4, Hunt % (Auto) 9.4 , Eos % (Auto) 2.3, Baso % (Auto) 0.3, Absolute Neuts (auto) 3.8, Absolute Lymphs (auto) 1.56, Total Counted Not Reportable 12/17/17 05:26: Sodium Pending, Potassium Pending, Chloride Pending, Carbon Dioxide Pending, Anion Gap Pending, BUN Pending, Creatinine Pending, Est GFR ( MDRD) Af Amer Pending, Est GFR (MDRD) Non-Af Pending, BUN/Creatinine Ratio Pending, Glucose Pending, Calcium Pending Current Medications Acetaminophen (Tylenol) 1,000 mg PO Q8H PRN PRN PRN Reason: MILD PAIN (1-310) Last Admin: 12/17/17 04:01 Dose: 1,000 mg Albuterol/Ipratropium (Duoneb) 3 ml INHALATION Q4HWA.RT PRN PRN Reason: SOB &/OR WHEEZING Enoxaparin Sodium (Lovenox) 40 mg SC DAILY@1000 JAMIE Last Admin: 12/16/17 09:26 Dose: 40 mg Escitalopram Oxalate (Lexapro) 10 mg PO DAILY [facility] Last Admin: 12/16/17 09:25 Dose: 10 mg Levetiracetam (Keppra Tablet) 500 mg PO BID [facility] Last Admin: 12/16/17 20:30 Dose: 500 mg Magnesium Hydroxide (Milk Of Magnesia) 30 ml PO DAILY PRN PRN PRN Reason: Constipation Last Admin: 12/16/17 09:44 Dose: 30 ml Morphine Sulfate () 1 mg IV Q4H PRN PRN PRN Reason: SEVERE PAIN (6-10/10) Last Admin: 12/17/17 01:35 Dose: 1 mg Nicotine (Nicoderm Cq (Pbkc)) 21 mg TRANSDERM. DAILY [facility] Last Admin: 12/16/17 09:44 Dose: Not Given Ondansetron HCl (Zofran) 4 mg IV Q8H PRN PRN PRN Reason: NAUSEA Oxycodone HCl (Oxyir) 5 mg PO Q6H PRN PRN PRN Reason: SEVERE PAIN (6-10/10) Last Admin: 12/17/17 03:57 Dose: 5 mg Oxycodone HCl (Oxycontin) 15 mg PO BID [facility] Polyethylene Glycol (Miralax) 17 gm PO DAILY [facility] Last Admin: 12/16/17 09:25 Dose: 17 gm Senna/Docusate Sodium (Senokot-S, Zena-Colace) 2 tablet PO BID [facility] Last Admin: 12/16/17 20:31 Dose: 2 tablet Sodium Chloride () 5 - 30 ml IV UD PRN PRN Reason: SALINE FLUSH Last Admin: 12/16/17 20:34 Dose: 10 ml Trazodone HCl (Desyrel) 100 mg PO QHS [facility] Last Admin: 12/16/17 20:31 Dose: 100 mg Medical Necessity - Tobacco Use Smoking Status: Current every day smoker Tobacco Use: Cigarettes Assessment/Plan 67 year old F with past medical history of hypertension, seizure disorder, anxiety disorder, COPD, recently admitted and discharged with right hip fracture comes in with complaints of a fall and left hip pain. Patient says she was kicked down by her horse whilst trying to feed to the house in the barn. 1. POD #2, s/p closed reduction with open internal fixation using cephalo- medullary nail for acute left traumatic fracture/intertrochanteric fracture secondary to a mechanical fall; she was kicked down by her horse, Pain is fairly controlled, will continue on current pain regimen. Unclear if she has osteoporosis, patient will need work-up in the outpatient as she has had multiple fractures in the last couple of years 2. Hypotension likely related to medication side effect, resolved, will stop IV fluids. 3. Seizure disorder, no seizures noted, on Keppra, continue seizure precautions , discussed with patient and stressed on medication compliance, patient may need assistance with medication on discharge 4. Hypertension, continue to monitor, not on any medication 5. Hypokalemia, based 6. COPD, stable, not in acute exacerbation, would add as needed breathing treatments 7. Nicotine use disorder, on replacement, advised to quit 8. DVT PPx with Lovenox subcu 9. Disposition: Pending social work and case management evaluation to assist with discharge planning and disposition. Code Visit Inpatient E&M: 06641 Subs Hosp L2
[2017-12-17 07:21] LABS: Anion Gap 4 (5-15); BUN 14 mg/dL (7-18); BUN/Creat Ratio 20.7 RATIO (10-20); Calcium,Total 7.8 mg/dL (8.5-10.1); Chloride 108 mmol/L (98-107); Creatinine, Serum 0.68 mg/dL (0.55-1.02); EST Glomerular Filtration Rate 92 mL/min (>60); Est Glom Filt Rate - Afr Amer 111 mL/min (>60); Estimated Creatinine Clearance 50.41 ml/min; Glucose 88 mg/dL (74-106); Sodium Level 142 mmol/L (136-145)
[2017-12-17 08:00] LABS: Immature Platelet Fraction 1.2 % (1.0-7.9); RET-HE 31.7 pg (30-35); Reticulocyte Count 1.93 % (0.5-1.5)
[2017-12-17 08:21] VITALS: BP 128/81; PULSE 91; RESP 18; TEMP 36.8; O2SAT 97
[2017-12-17] MEDS: Escitalopram Oxalate 10 MG Tablet PO (08:24)
[2017-12-17] MEDS: oxyCODONE CR 15 MG Tablet PO ×2 (08:24→20:38)
[2017-12-17] MEDS: Senna/Docusate Sodium 1 Tablet 2 TABLET PO (08:25)
[2017-12-17] MEDS: Polyethylene Glycol 3350 17 GM PACKET PO (08:25)
[2017-12-17] MEDS: levETIRAcetam 500 MG Tablet PO ×2 (08:25→20:37)
[2017-12-17] MEDS: Enoxaparin 40 MG/0.4 ML Syringe SC (08:25)
[2017-12-17 08:45] LABS: Ferritin 129 ng/mL (8-252); Iron 23 ug/dL (50-170); Iron Binding Capacity,Total 255 ug/dL (250-450)
[2017-12-17] MEDS: Ipratropium/Albuterol Sulfate 3 ML AMPUL.NEB INHALATION (11:33)
[2017-12-17 11:35] VITALS: PULSE 87; RESP 16; O2SAT 93
[2017-12-17 14:29] VITALS: BP 107/64; PULSE 86; RESP 16; TEMP 37.1; O2SAT 98
[2017-12-17 20:25] VITALS: BP 121/71; PULSE 96; RESP 16; TEMP 37.1; O2SAT 97
[2017-12-17] MEDS: traZODone 100 MG Tablet PO (20:38)
[2017-12-17] MEDS: 0.9% NaCl Peripheral Flush Adult/Peds IV (22:43)
[2017-12-18 03:11] VITALS: BP 145/91; PULSE 94; RESP 18; TEMP 37; O2SAT 96
[2017-12-18 07:28] VITALS: O2SAT 96
--- NOTE | 2017-12-18 07:52 | PCM.PN.ORT ---
Subjective: Patient is doing much better today. She had a lot of difficulty with pain and discomfort on Monday. She has been up walking with therapy and sitting in the bedside chair Objective: Incisions are clean and dry. Patient is neurovascularly intact. She is able to wiggle all of her toes. No calf pain is elicited or noted - Physical Exam Vital Signs Temp Pulse Resp BP Pulse Ox 98.6 F 94 18 145/91 H 96 12/18/17 03:11 12/18/17 03:11 12/18/17 03:11 12/18/17 03:11 12/18/17 07:28 Oxygen Flow Rate (L/min) 1 Oxygen Delivery Method Room Air Weight: 132 lb 4.438 oz Body Mass Index (BMI) 21.3 Intake and Output for Last 24 Hours 12/16/17 12/17/17 12/18/17 23:59 23:59 23:59 Intake Total 3383 / 3383 1552 / 1552 100 / 100 Output Total 950 / 950 1950 / 1950 1150 / 1150 Balance 2433 / 2433 -398 / -398 -1050 / -1050 Laboratory Tests Past 24 Hrs 12/17/17 12/17/17 05:26 05:26 Immature Plt Fraction 1.2 Retic Count 1.93 H Immature Retic Fraction 5.70 Retic Hgb Equivalent 31.7 Iron 23 L TIBC 255 Iron Saturation 9.0 L Ferritin 129 Medical Necessity - Tobacco Use Smoking Status: Current every day smoker Tobacco Use: Cigarettes Assessment/Plan Postop day #3 placement of cephalo-medullary nail left femur From my standpoint patient is doing well. Continue with physical therapy anticoagulation and pain control. Anticipate need for placement to rehab versus snf facility. She will be instructed to follow-up in my office in approximately 2 weeks
--- NOTE | 2017-12-18 08:07 | PN_ITS ---
Subjective: No fever or chills. Vitals/I&O's: Vital Signs Temp Pulse Resp BP Pulse Ox 98.6 F 94 18 145/91 H 96 12/18/17 03:11 12/18/17 03:11 12/18/17 03:11 12/18/17 03:11 12/18/17 07:28 Oxygen Flow Rate (L/min) 1 Oxygen Delivery Method Room Air Weight: 132 lb 4.438 oz Body Mass Index (BMI) 21.3 Intake and Output for Last 24 Hours 12/16/17 12/17/17 12/18/17 23:59 23:59 23:59 Intake Total 3383 / 3383 1552 / 1552 100 / 100 Output Total 950 / 950 1950 / 1950 1150 / 1150 Balance 2433 / 2433 -398 / -398 -1050 / -1050 General: Alert, Oriented x3, Cooperative HEENT: Atraumatic, PERRLA, EOMI, Normocephalic Neck: Supple, No JVD, Negative Carotid Bruits Lungs: Clear to auscultation, Normal air movement Cardiovascular: Regular rate, Regular Rhythm, Normal S1, Normal S2, No murmurs Abdomen: Bowel Sounds Present, Soft, Non Tender, Non-Distended Extremities: Capillary Refill Less than 3 Seconds, Edema Skin: Ulcer/ Wound - Left hip surgical wound after hip surgery. Minimal/tiny discharge with one staple fell off. Wound is healthy. Musculoskeletal: No Tenderness to Palpation of Joints or Extremities Neurological: Cranial nerves II-XII grossly intact Psych/Mental Status: Normal Affect, Appropriate Laboratory Results 12/17/17 05:26: Iron 23 L, TIBC 255, Iron Saturation 9.0 L, Ferritin 129 Current Medications Acetaminophen (Tylenol) 1,000 mg PO Q8H PRN PRN PRN Reason: MILD PAIN (1-3/10) Last Admin: 12/17/17 22:41 Dose: 1,000 mg Albuterol/Ipratropium (Duoneb) 3 ml INHALATION Q4HWA.RT PRN PRN Reason: SOB &/OR WHEEZING Last Admin: 12/17/17 11:33 Dose: 3 ml Enoxaparin Sodium (Lovenox) 40 mg SC DAILY@1000 JAMIE Last Admin: 12/17/17 08:25 Dose: 40 mg Escitalopram Oxalate (Lexapro) 10 mg PO DAILY [facility] Last Admin: 12/17/17 08:24 Dose: 10 mg Levetiracetam (Keppra Tablet) 500 mg PO BID [facility] Last Admin: 12/17/17 20:37 Dose: 500 mg Magnesium Hydroxide (Milk Of Magnesia) 30 ml PO DAILY PRN PRN PRN Reason: Constipation Last Admin: 12/16/17 09:44 Dose: 30 ml Morphine Sulfate () 1 mg IV Q4H PRN PRN PRN Reason: SEVERE PAIN (6-10/10) Last Admin: 12/17/17 01:35 Dose: 1 mg Nicotine (Nicoderm Cq (Pbkc)) 21 mg TRANSDERM. DAILY [facility] Last Admin: 12/17/17 08:22 Dose: Not Given Ondansetron HCl (Zofran) 4 mg IV Q8H PRN PRN PRN Reason: NAUSEA Oxycodone HCl (Oxyir) 5 mg PO Q6H PRN PRN PRN Reason: SEVERE PAIN (6-10/10) Last Admin: 12/17/17 22:41 Dose: 5 mg Oxycodone HCl (Oxycontin) 15 mg PO BID [facility] Last Admin: 12/17/17 20:38 Dose: 15 mg Polyethylene Glycol (Miralax) 17 gm PO DAILY [facility] Last Admin: 12/17/17 08:25 Dose: 17 gm Senna/Docusate Sodium (Senokot-S, Znea-Colace) 2 tablet PO BID [facility] Last Admin: 12/17/17 23:53 Dose: Not Given Sodium Chloride () 5 - 30 ml IV UD PRN PRN Reason: SALINE FLUSH Last Admin: 12/17/17 22:43 Dose: 10 ml Trazodone HCl (Desyrel) 100 mg PO QHS [facility] Last Admin: 12/17/17 20:38 Dose: 100 mg Medical Necessity - Tobacco Use Smoking Status: Current every day smoker Tobacco Use: Cigarettes Assessment/Plan 67 year old F with past medical history of hypertension, seizure disorder, anxiety disorder, COPD, recently admitted and discharged with right hip fracture comes in with complaints of a fall and left hip pain. Patient says she was kicked down by her horse whilst trying to feed to the house in the barn. 1. POD #3, s/p closed reduction with open internal fixation using cephalo- medullary nail for acute left traumatic fracture/intertrochanteric fracture secondary to a mechanical fall; she was kicked down by her horse Pain is fairly controlled, will continue on current pain regimen. Tiny amount of discharge although it seems insignificant was informed to Dr. Guerra on patient request although does not seem significant. No associated pain tenderness or collection. Dressing to be changed today. Patient is stable to be Transfer to rehab Unclear if she has osteoporosis, patient will need work-up in the outpatient as she has had multiple fractures in the last couple of years 2. Hypotension likely related to medication side effect, resolved, will stop IV fluids. 3. Seizure disorder, no seizures noted, on Keppra, continue seizure precautions , discussed with patient and stressed on medication compliance, patient may need assistance with medication on discharge 4. Hypertension, continue to monitor, not on any medication 5. Hypokalemia, based 6. COPD, stable, not in acute exacerbation, would add as needed breathing treatments 7. Nicotine use disorder, on replacement, advised to quit 8. DVT PPx with Lovenox subcu 9. Disposition: Pending social work and case management evaluation to assist with discharge planning and disposition. Code Visit Inpatient E&M: 93687 Subs Hosp L3
[2017-12-18 08:47] VITALS: BP 109/69; PULSE 71; RESP 16; TEMP 37.1; O2SAT 98
--- NOTE | 2017-12-18 09:15 | CASEMGMT ---
Social Work Note SW received message from Jennifer in TCU asking if pt is interested in TCU or inpatient rehab. Per Tara SOLANO notes, pt was put on both TCU and inpatient rehab list. MANUEL met with pt to confirm discharge plans. Per pt she would like to try inpatient rehab first to see if her insurance will approve it. MANUEL informed pt that pre-cert through pt's insurance will have to be obtained before pt can go to inpatient rehab. Pt states understanding. Pt denied additional needs or concerns at this time. MANUEL updated Dr. Pickard that pt would like to go to inpatient rehab at discharge. MANUEL placed call to Jennifer in TCU/Inpatient rehab updating her that pt is interested in inpatient rehab. Per Jennifer she will submit for pre-cert. Plan: Inpatient rehab pending pre-cert Fabi Tariq [employer], [employer]
[2017-12-18] MEDS: levETIRAcetam 500 MG Tablet PO ×2 (10:24→21:20)
[2017-12-18] MEDS: Escitalopram Oxalate 10 MG Tablet PO (10:25)
[2017-12-18] MEDS: Enoxaparin 40 MG/0.4 ML Syringe SC (10:25)
[2017-12-18] MEDS: Senna/Docusate Sodium 1 Tablet 2 TABLET PO ×2 (10:26→21:20)
[2017-12-18] MEDS: Polyethylene Glycol 3350 17 GM PACKET PO (10:26)
[2017-12-18] MEDS: oxyCODONE CR 15 MG Tablet PO ×2 (10:29→21:20)
--- NOTE | 2017-12-18 15:29 | CASEMGMT ---
Social Work Note MANUEL received a call from [facility] that they denied pt to go to inpatient rehab as it is not medically necessary. MANUEL placed a call to Nguyen in Inpatient rehab to inform her that pt has been denied. MANUEL placed a call to Jennifer with TCU to inform her that pt was denied for inpatient rehab and to submit pre-cert for TCU. MANUEL will continue to follow to assist with discharge planning. Plan: TCU pending pre-cert Fabi Tariq FIRE FIGHTER, YARD JACKER
[2017-12-18 15:30] VITALS: BP 98/56; PULSE 83; RESP 18; TEMP 36.8; O2SAT 93
[2017-12-18] MEDS: oxyCODONE 5 MG Tablet PO (15:32)
[2017-12-18] MEDS: Acetaminophen 500 MG Tablet 1000 MG PO (15:34)
[2017-12-18 20:58] VITALS: BP 112/69; PULSE 78; RESP 18; TEMP 36.9; O2SAT 94
[2017-12-18] MEDS: traZODone 100 MG Tablet PO (21:20)
[2017-12-19 02:51] VITALS: BP 134/86; PULSE 81; RESP 16; TEMP 36.6; O2SAT 93
[2017-12-19] MEDS: oxyCODONE 5 MG Tablet PO ×3 (02:56→15:19)
[2017-12-19 07:32] VITALS: O2SAT 95
[2017-12-19] MEDS: oxyCODONE CR 15 MG Tablet PO (08:40)
[2017-12-19] MEDS: Senna/Docusate Sodium 1 Tablet 2 TABLET PO (08:40)
[2017-12-19] MEDS: levETIRAcetam 500 MG Tablet PO (08:41)
[2017-12-19] MEDS: Polyethylene Glycol 3350 17 GM PACKET PO (08:41)
[2017-12-19] MEDS: Enoxaparin 40 MG/0.4 ML Syringe SC (08:41)
[2017-12-19] MEDS: Escitalopram Oxalate 10 MG Tablet PO (08:41)
[2017-12-19 08:46] VITALS: BP 120/74; PULSE 86; RESP 16; TEMP 37.1; O2SAT 97
[2017-12-19] MEDS: Morphine 4 MG/ML Syringe 1 MG IV (12:55)
[2017-12-19 13:55] VITALS: BP 102/56; PULSE 81; RESP 16; TEMP 36.8; O2SAT 100
[2017-12-19] MEDS: Acetaminophen 500 MG Tablet 1000 MG PO (15:19)
[2017-12-19 15:29] VITALS: BP 122/65; PULSE 80; RESP 16; TEMP 36.8; O2SAT 95
--- NOTE | 2017-12-19 15:30 | PCM.PN.HOSP ---
Subjective: No fever or chills. Complaint of left hip pain on walking and muscle tightness. Vitals/I&O's: Vital Signs Temp Pulse Resp BP Pulse Ox 98.2 F 81 16 102/56 L 100 12/19/17 13:55 12/19/17 13:55 12/19/17 13:55 12/19/17 13:55 12/19/17 13:55 Oxygen Flow Rate (L/min) 1 Oxygen Delivery Method Room Air Weight: 132 lb 4.438 oz Body Mass Index (BMI) 21.3 Intake and Output for Last 24 Hours 12/17/17 12/18/17 12/19/17 23:59 23:59 23:59 Intake Total 1552 / 1552 340 / 340 850 / 850 Output Total 1950 / 1950 1750 / 1750 850 / 850 Balance -398 / -398 -1410 / -1410 0 / 0 General: Alert, Oriented x3, Cooperative HEENT: Atraumatic, PERRLA, EOMI, Normocephalic Neck: Supple, No JVD, Negative Carotid Bruits Lungs: Clear to auscultation, Normal air movement Cardiovascular: Regular rate, Regular Rhythm, Normal S1, Normal S2, No murmurs Abdomen: Bowel Sounds Present, Soft, Non Tender, Non-Distended Extremities: No edema, Capillary Refill Less than 3 Seconds Skin: No rashes, No breakdown Musculoskeletal: Arthritic Changes, - - Left hip postoperative wound. No soakage. Dressing is dry Neurological: Cranial nerves II-XII grossly intact Psych/Mental Status: Normal Affect, Appropriate Current Medications Acetaminophen (Tylenol) 1,000 mg PO Q8H PRN PRN PRN Reason: MILD PAIN (1-3/10) Last Admin: 12/19/17 15:19 Dose: 1,000 mg Albuterol/Ipratropium (Duoneb) 3 ml INHALATION Q4HWA.RT PRN PRN Reason: SOB &/OR WHEEZING Last Admin: 12/17/17 11:33 Dose: 3 ml Enoxaparin Sodium (Lovenox) 40 mg SC DAILY@1000 JAMIE Last Admin: 12/19/17 08:41 Dose: 40 mg Escitalopram Oxalate (Lexapro) 10 mg PO DAILY [facility] Last Admin: 12/19/17 08:41 Dose: 10 mg Levetiracetam (Keppra Tablet) 500 mg PO BID [facility] Last Admin: 12/19/17 08:41 Dose: 500 mg Magnesium Hydroxide (Milk Of Magnesia) 30 ml PO DAILY PRN PRN PRN Reason: Constipation Last Admin: 12/16/17 09:44 Dose: 30 ml Morphine Sulfate () 1 mg IV Q4H PRN PRN PRN Reason: SEVERE PAIN (6-10/10) Last Admin: 12/19/17 12:55 Dose: 1 mg Nicotine (Nicoderm Cq (Pbkc)) 21 mg TRANSDERM. DAILY [facility] Last Admin: 12/19/17 08:46 Dose: Not Given Ondansetron HCl (Zofran) 4 mg IV Q8H PRN PRN PRN Reason: NAUSEA Oxycodone HCl (Oxyir) 5 mg PO Q6H PRN PRN PRN Reason: SEVERE PAIN (6-10/10) Last Admin: 12/19/17 15:19 Dose: 5 mg Oxycodone HCl (Oxycontin) 15 mg PO BID [facility] Last Admin: 12/19/17 08:40 Dose: 15 mg Polyethylene Glycol (Miralax) 17 gm PO DAILY [facility] Last Admin: 12/19/17 08:41 Dose: 17 gm Senna/Docusate Sodium (Senokot-S, Zena-Colace) 2 tablet PO BID [facility] Last Admin: 12/19/17 08:40 Dose: 2 tablet Sodium Chloride () 5 - 30 ml IV UD PRN PRN Reason: SALINE FLUSH Last Admin: 12/17/17 22:43 Dose: 10 ml Trazodone HCl (Desyrel) 100 mg PO QHS [facility] Last Admin: 12/18/17 21:20 Dose: 100 mg Medical Necessity - Tobacco Use Smoking Status: Current every day smoker Tobacco Use: Cigarettes Assessment/Plan 67 year old F with past medical history of hypertension, seizure disorder, anxiety disorder, COPD, recently admitted and discharged with right hip fracture comes in with complaints of a fall and left hip pain. Patient says she was kicked down by her horse whilst trying to feed to the house in the barn. 1. POD #4, s/p closed reduction with open internal fixation using cephalo-medullary nail for acute left traumatic, displaced comminuted intertrochanteric fracture secondary to a mechanical fall; she was kicked down by her horse Pain is fairly controlled, will continue on current pain regimen. Tiny amount of discharge although it seems insignificant was informed to Dr. Guerra on patient request although does not seem significant. No associated pain tenderness or collection. Dressing to be changed today. Patient is stable to be Transfer to rehab Unclear if she has osteoporosis, patient will need work-up in the outpatient as she has had multiple fractures in the last couple of years 2. Hypotension likely related to medication side effect, resolved, will stop IV fluids. 3. Seizure disorder, no seizures noted, on Keppra, continue seizure precautions, discussed with patient and stressed on medication compliance, patient may need assistance with medication on discharge 4. Hypertension, continue to monitor, not on any medication 5. Hypokalemia, based 6. COPD, stable, not in acute exacerbation, would add as needed breathing treatments 7. Nicotine use disorder, on replacement, advised to quit 8. DVT PPx with Lovenox subcu 9. Disposition: Pending social work and case management evaluation to assist with discharge planning and disposition. Clinical Impression(s) from Imaging Studies Hip/Pelvis X-Ray 12/14/17 11:45 IMPRESSION: There is a displaced comminuted intertrochanteric fracture of the left femur. Electronically Signed: Betsy Frost MD at 12:29 EDT Tel , Service support , Femur X-Ray 12/15/17 14:30 IMPRESSION: Limited images of the left femur were obtained intraoperatively during fracture fixation. Electronically Signed: Orin Newsome MD at 16:03 EDT Tel Direct: [phone], Service support , Code Visit Inpatient E&M: 46007 Subs Hosp L2
--- NOTE | 2017-12-19 15:35 | PCM.TXEXTCAR ---
- Diet 12/16/17 08:39 Diet: Regular Diet Is pt able to select menu?: Yes - Routine Orders/Code Status Suppository Type: Dulcolax 10mg Suppository Frequency: Daily PRN Routine Lab Work: CBC - On December 22, 2017, BMP - On December 22, 2017 - Wound(s) left forearm Wound Type: Abrasion LEFT HIP Wound Type: Surgical Incision Dressing Change: Dry Sterile Dressing - Therapies Weight Bearing: Weight bearing as tolerated - Allergies/Procedures Done in Hospital Allergies/Adverse Reactions: Allergies hydrocodone bitartrate [From Vicodin] Allergy (Mild, Verified 12/14/17 11:35) Rash itching and rash Milk Containing Products Adverse Reaction (Mild, Verified 12/14/17 11:35) Abd cramps/vomiting/nausea stomach upset, nausea, vomiting, cramping when to much milk is consumed - Type of Care/Length of Stay Estimated LOS: Convalescent Care Less Than 30 days Type of Care Needed: Skilled Rehab Potential: Good Prognosis: Good - Additional Orders/Day of Discharge Day of Discharge: 12/19/17 - Dietary and Speech Recommendations Dietitian Recommendations/Changes: Suggest no added salt diet as needed. - Follow Up Care Primary Care Physician: Ashley Bennett DO [Primary Care Provider] - Please follow up with your Primary Care Physician in: In 2 weeks Please Follow Up With: Freddy Guerra DO When: In 1-2 weeks
--- NOTE | 2017-12-19 15:43 | CASEMGMT ---
Addendum entered by Fabi Tariq 12/19/17 16:05: Copies of transfer to extended care facility, signed medication and scripts are on pt's chart. Originals in SNF folder. Original Note: Social Work Note SW received call from Jennifer in TCU that pre-cert was obtained and pt is able to go to TCU. MANUEL updated Dr. Pickard and Charge Nurse Paris of this. SW updated pt of this. Pt states that she will call her daughter once she is moved to TCU so she can tell her the room number. Pt denied wanting this worker to call anyone else. Pt denied additional needs or concerns at this time. 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
--- NOTE | 2017-12-19 16:00 | PCM.DC.SUM ---
Discharge Date and Diagnosis Date of Admission: 12/14/17 Date of Discharge: 12/19/17 - Primary Discharge Diagnosis 1. acute left traumatic, displaced comminuted intertrochanteric fracture secondary to a mechanical fall s/p closed reduction with open internal fixation using cephalo-medullary nail 2. Hypotension likely related to medication side effect, resolved 3. Hypokalemia, replaced and corrected - Secondary Discharge Diagnosis Chronic Problems Hypertension (Chronic) Insomnia (Chronic) Tobacco abuse (Chronic) COPD (chronic obstructive pulmonary disease) (Chronic) Seizure disorder (Chronic) Depressed (Chronic) Cardiac dysrhythmia (Chronic) Anxiety (Chronic) Hospital Course and Treatment Operations: None Summary of Care Provided: The patient is a 67 year old Fwith past medical history of hypertension, seizure disorder, anxiety disorder, COPD, recently admitted and discharged with right hip fracture comes in with complaints of a fall and left hip pain. Patient says she was kicked down by her horse whilst trying to feed to the house in the barn. 1. POD #4, s/p closed reduction with open internal fixation using cephalo-medullary nail for acute left traumatic, displaced comminuted intertrochanteric fracture secondary to a mechanical fall; she was kicked down by her horse Pain is fairly controlled, will continue on current pain regimen. Tiny amount of discharge although it seems insignificant was informed to Dr. Guerra on patient request. No associated pain, tenderness or collection. Unclear if she has osteoporosis, patient will need work-up in the outpatient as she has had multiple fractures in the last couple of years 2. Hypotension likely related to medication side effect, resolved, will stop IV fluids. 3. Seizure disorder, no seizures noted, on Keppra, continue seizure precautions, discussed with patient and stressed on medication compliance, patient may need assistance with medication on discharge 4. Hypertension, continue to monitor, not on any medication 5. Hypokalemia, based 6. COPD, stable, not in acute exacerbation, would add as needed breathing treatments 7. Nicotine use disorder, on replacement, advised to quit 8. DVT PPx with Lovenox subcut The patient is being discharged to TCU. Discharge medication reconciliation done. Prescription given for Eliquis 2.5 mg p.o. twice daily for due to prophylaxis. Discharge instructions completed Total time spent, exact 35 minutes on discharge meds reconciliation, examination, review of imaging and blood test and discussion with the patient on follow-up instructions. Home Medications: Medications to take at Discharge levETIRAcetam tablet [Keppra tablet] 500 mg PO BID 05/16/14 traZODone [Desyrel] 100 mg PO QHS 06/17/15 Escitalopram Oxalate [Lexapro] 10 mg PO DAILY 10/04/17 Polyethylene Glycol 3350 [Miralax] 17 gm PO DAILY #30 packet 10/17/17 Apixaban [Eliquis] 2.5 mg PO BID #60 tab 12/19/17 Senna/Docusate Sodium [Senokot-S] 2 tablet PO BID PRN tablet 12/19/17 Following Prescrptions Were Given to Patient: Apixaban [Eliquis] 2.5 mg PO BID #60 tab Primary Care Physician: Ashley Bennett DO [Primary Care Provider] - Please follow up with your Primary Care Physician in: In 2 weeks Please Follow Up With: Freddy Guerra DO When: In 1-2 weeks Medical Necessity - Tobacco Use Smoking Status: Current every day smoker Tobacco Use: Cigarettes Meaningful Use Info Meaningful Use Diagnoses (Choose all that apply): None applicable Code Visit Inpatient E&M: 92433 Disch Hosp
--- NOTE | 2017-12-19 16:03 | DS.PCM_ITS ---
Discharge Date and Diagnosis Date of Admission: 12/14/17 Date of Discharge: 12/19/17 - Primary Discharge Diagnosis 1. acute left traumatic, displaced comminuted intertrochanteric fracture secondary to a mechanical fall s/p closed reduction with open internal fixation using cephalo-medullary nail 2. Hypotension likely related to medication side effect, resolved 3. Hypokalemia, replaced and corrected - Secondary Discharge Diagnosis Chronic Problems Hypertension (Chronic) Insomnia (Chronic) Tobacco abuse (Chronic) COPD (chronic obstructive pulmonary disease) (Chronic) Seizure disorder (Chronic) Depressed (Chronic) Cardiac dysrhythmia (Chronic) Anxiety (Chronic) Hospital Course and Treatment Operations: None Summary of Care Provided: The patient is a 67 year old Fwith past medical history of hypertension, seizure disorder, anxiety disorder, COPD, recently admitted and discharged with right hip fracture comes in with complaints of a fall and left hip pain. Patient says she was kicked down by her horse whilst trying to feed to the house in the barn. 1. POD #4, s/p closed reduction with open internal fixation using cephalo- medullary nail for acute left traumatic, displaced comminuted intertrochanteric fracture secondary to a mechanical fall; she was kicked down by her horse Pain is fairly controlled, will continue on current pain regimen. Tiny amount of discharge although it seems insignificant was informed to Dr. Guerra on patient request. No associated pain, tenderness or collection. Unclear if she has osteoporosis, patient will need work-up in the outpatient as she has had multiple fractures in the last couple of years 2. Hypotension likely related to medication side effect, resolved, will stop IV fluids. 3. Seizure disorder, no seizures noted, on Keppra, continue seizure precautions , discussed with patient and stressed on medication compliance, patient may need assistance with medication on discharge 4. Hypertension, continue to monitor, not on any medication 5. Hypokalemia, based 6. COPD, stable, not in acute exacerbation, would add as needed breathing treatments 7. Nicotine use disorder, on replacement, advised to quit 8. DVT PPx with Lovenox subcut The patient is being discharged to TCU. Discharge medication reconciliation done. Prescription given for Eliquis 2.5 mg p.o. twice daily for due to prophylaxis. Discharge instructions completed Total time spent, exact 35 minutes on discharge meds reconciliation, examination , review of imaging and blood test and discussion with the patient on follow-up instructions. Home Medications: Medications to take at Discharge levETIRAcetam tablet [Keppra tablet] 500 mg PO BID 05/16/14 traZODone [Desyrel] 100 mg PO QHS 06/17/15 Escitalopram Oxalate [Lexapro] 10 mg PO DAILY 10/04/17 Polyethylene Glycol 3350 [Miralax] 17 gm PO DAILY #30 packet 10/17/17 Apixaban [Eliquis] 2.5 mg PO BID #60 tab 12/19/17 Senna/Docusate Sodium [Senokot-S] 2 tablet PO BID PRN tablet 12/19/17 Following Prescrptions Were Given to Patient: Apixaban [Eliquis] 2.5 mg PO BID #60 tab Primary Care Physician: Ashley Bennett DO [Primary Care Provider] - Please follow up with your Primary Care Physician in: In 2 weeks Please Follow Up With: Freddy Guerra DO When: In 1-2 weeks Medical Necessity - Tobacco Use Smoking Status: Current every day smoker Tobacco Use: Cigarettes Meaningful Use Info Meaningful Use Diagnoses (Choose all that apply): None applicable Code Visit Inpatient E&M: 10843 Disch Hosp
--- NOTE | 2017-12-19 16:50 | NURSING ---
CALLED REPORT TO TCU
[2017-12-21 10:09] LABS: KEPPRA (LEVETIRACETAM) 9.5 ug/mL (10.0-40.0)
== END 2017-12-19 16:40 | disposition skilled nursing facility (03) | DRG 482 ==
LOC: ED 12:29 → MS2 13:04 → MS3 12-15 13:27
PROVIDERS: Anesthesiology; Orthopaedic Surgery; Admitting Provider Internal Medicine; Emergency Provider Emergency Medicine; Family Provider Family Medicine; PCP Family Medicine; Visit Provider Internal Medicine
PROC: 0QS736Z Reposition Left Upper Femur with Intramedullary Internal Fixation Device, Percutaneous Approach (ICD-10-PCS; CPT 27245; principal; 2017-12-15 14:00)
DX: S72.142A Displaced intertrochanteric fracture of left femur, initial encounter for closed fracture (principal); W55.12XA Struck by horse, initial encounter; Y93.F9 Activity, other caregiving; Y92.71 Barn as the place of occurrence of the external cause; Y99.8 Other external cause status; I95.2 Hypotension due to drugs; Z96.641 Presence of right artificial hip joint; J44.9 Chronic obstructive pulmonary disease, unspecified; F41.9 Anxiety disorder, unspecified; F32.9 Major depressive disorder, single episode, unspecified; I10 Essential (primary) hypertension; G47.00 Insomnia, unspecified; G40.909 Epilepsy, unspecified, not intractable, without status epilepticus; Z79.82 Long term (current) use of aspirin; Z79.899 Other long term (current) drug therapy; F17.210 Nicotine dependence, cigarettes, uncomplicated; E87.6 Hypokalemia
CPT/HCPCS: 36415; 73502; 73552; 76000; 80048; 80177; 82728; 83540; 83550; 84484; 85025; 85045; 85610; 85730; 86850; 86900; 93005; 94640; 97110; 97116; 97162; 97166; 97530; 97535; 99285; 99406; C1713; J7030; J7040; J7050; J7120; A4216; J2405

== ENCOUNTER 2017-12-19 17:00 | Inpatient (IN) | payer MEDICARE, SELFPAY ==
--- NOTE | 2017-12-19 17:16 | NURSING ---
Patient admitted to room 6 from MS3 via bed, oriented to room and call light system explained.
[2017-12-19 17:19] VITALS: BP 121/64; PULSE 85; RESP 16; TEMP 36.4; O2SAT 96
--- NOTE | 2017-12-19 19:37 | NURSING ---
Pt AOx3, code status discussed with pt, pt wishes to be a full code.
[2017-12-19 19:41] VITALS: BMI 24.5
[2017-12-19 19:48] VITALS: BMI 24.5
[2017-12-19] MEDS: levETIRAcetam 500 MG Tablet PO (19:58)
[2017-12-19] MEDS: traZODone 100 MG Tablet PO (19:59)
[2017-12-19] MEDS: APIXABAN 2.5 MG TABLET PO (19:59)
--- NOTE | 2017-12-19 20:52 | NURSING ---
SL removed from right wrist and left FA. both catheters intact. Pt tolerated well. DSD applied with pressure. Will continue to monitor and asses.
--- NOTE | 2017-12-19 21:09 | NURSING ---
Dr hackett aware of pt pain and LBM 12/14/17. New Order SSE and oxycodone entered.
--- NOTE | 2017-12-19 21:28 | PCM.HP.STD ---
Problem List (1) Closed left hip fracture Status: Acute (2) Hypertension Status: Chronic Qualifiers: (3) Insomnia Status: Chronic Qualifiers: (4) Tobacco abuse Status: Chronic (5) COPD (chronic obstructive pulmonary disease) Status: Chronic Qualifiers: (6) Seizure disorder Status: Chronic (7) Depressed Status: Chronic (8) Anxiety Status: Chronic History of Present Illness Date of Admission: 12/19/17 Chief Complaint: Here for rehabilitation, strengthening, prior to discharge home with family. The patient is a 67 year old Female with below past medical history presented to [facility] Emergency Department 12/14/2017 with left hip pain. 12/14/2017 X-ray pelvis, left hip showed left hip fracture. Knocked over by horse, landed on left hip. Unable to walk. Morphine, Fentanyl given. 12/14/2017 Admit to Hospital. Consult Dr. Guerra for left hip fracture. 12/15/2017 EKG Normal sinus rhythm, ST&T wave abnormality, consider inferior ischemia. 12/15/2017 Dr. Guerra performed closed reduction with open internal fixation using cephalo-medullary nail left femur. Hypotension resolved with IV fluids. Keppra for seizure disorder, patient does not take Keppra at home due to cost. Eliquis 2.5MG BID for DVT prophylaxis thru 01/20/2018. 12/19/2017 Admit to TCU for rehabilitation, strengthening, prior to discharge home with family. Past Medical History Past Medical History (Chronic Problems): Chronic Problems Hypertension (Chronic) Insomnia (Chronic) Tobacco abuse (Chronic) COPD (chronic obstructive pulmonary disease) (Chronic) Seizure disorder (Chronic) Depressed (Chronic) Cardiac dysrhythmia (Chronic) Anxiety (Chronic) Allergies hydrocodone bitartrate [From Vicodin] Allergy (Mild, Verified 12/14/17 11:35) Rash itching and rash Milk Containing Products Adverse Reaction (Mild, Verified 12/14/17 11:35) Abd cramps/vomiting/nausea stomach upset, nausea, vomiting, cramping when to much milk is consumed Home Medications: Ambulatory Orders Medication Instructions Recorded levETIRAcetam tablet [Keppra 500 mg PO BID 05/16/14 tablet] traZODone [Desyrel] 100 mg PO QHS 06/17/15 Escitalopram Oxalate [Lexapro] 10 mg PO DAILY 10/04/17 Apixaban [Eliquis] 2.5 mg PO BID 12/19/17 Polyethylene Glycol 3350 [Miralax] 17 gm PO DAILY 12/19/17 Senna/Docusate Sodium [Senokot-S] 2 tablet PO BID PRN tablet 12/19/17 Surgical History: total hip arthroplasty - Right., - - back surgeries x 3, spinal fusion surgery, bilateral carpal tunnel surgeries, Right knee surgeries 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, Depression TOBACCO PACKER History: No pertinent TOBACCO PACKER history Lives: With Family Smoking Status: Current every day smoker Tobacco Use: Cigarettes Alcohol: None Drugs: None - *Family History Maternal History Items: Heart Disease - CHF Paternal History Items: No pertinent history Sibling History Items: No pertinent history Review of Systems Constitutional: Denies: Chills, Fever, Weight Change HEENT: Denies: Head Aches, Sinus Congestion, Sinus Drainage Cardiovascular: Denies: Chest Pain, Palpitations Respiratory: Denies: Cough, Shortness of breath at rest, Sputum production Gastrointestinal: Reports: Constipation. Denies: Abdominal Pain, Nausea, Vomiting Genitourinary: Denies: Dysuria Musculoskeletal: Reports: Joint Pain - Left hip.. Denies: Joint Tenderness Skin: Denies: Rash, Wounds Neurological: Denies: Numbness, Tingling, Focal weakness Psychiatric: Denies: Anxiety, Depression, Homicidal Ideations, Suicidal Ideations Hematologic/ Lymphatic: Denies: Easy Bruising, Easy Bleeding VTE Information - Inpt Only VTE Present on Admission: No VTE Mechan Device Prophylaxis: Knee High KEENAN Hose VTE Pharm Prophylaxis ordered?: Yes Patient Problems: Active and Suspected Problems Closed left hip fracture (Acute) - Physical Exam General: Alert, Oriented x3, Cooperative HEENT: Atraumatic, PERRLA, EOMI, Normocephalic Neck: Supple, No JVD, Negative Carotid Bruits Lungs: Clear to auscultation, Normal air movement Cardiovascular: Regular rate, No murmurs Abdomen: Bowel Sounds Present, Soft, Non Tender Extremities: No edema, Capillary Refill Less than 3 Seconds Skin: No rashes, No breakdown, Incision - Left hip, clean, dry, intact. Musculoskeletal: No Tenderness to Palpation of Joints or Extremities Neurological: Cranial nerves II-XII grossly intact Psych/Mental Status: Normal Affect, Appropriate Vital Signs Temp Pulse Resp BP Pulse Ox 97.6 F L 85 16 121/64 H 96 12/19/17 17:19 12/19/17 17:19 12/19/17 17:19 12/19/17 17:19 12/19/17 17:19 Oxygen Delivery Method Room Air Weight: 68.8 kg Body Mass Index (BMI) 24.5 Intake and Output for Last 24 Hours 12/17/17 12/18/17 12/19/17 23:59 23:59 23:59 Intake Total 240 / 240 Balance 240 / 240 Assessment/Plan Active and Suspected Problems Closed left hip fracture (Acute) 67 year old female with below past medical history hospitalized for left hip fracture, underwent closed reduction with open internal fixation using cephalo-medullary nail left femur per Dr. Guerra 12/15/2017, admitted to TCU with debility, here for rehabilitation, strengthening, prior to discharge home with family. Debility - PT/OT. Pain - Tylenol 1000MG Q8H PRN mild pain, Tramadol 50MG Q6H PRN moderate pain, Oxycodone 10MG Q4H PRN severe pain. Bowel - Miralax 17GM daily, Senna/colace 2 tablets BID, Dulcolax 10MG RI PRN. Soap Suds enema. Pneumonia vaccination - Administer Prevnar 13 and/or Pneumovax 23 as necessary. DVT prophylaxis Eliquis 2.5MG BID thru 01/20/2018. Depression - Lexapro 10MG daily. Seizure disorder - Keppra 500MG BID. Skin irritation - Eucerin BID bilateral feet. Insomnia - Trazodone 100MG QHS.
--- NOTE | 2017-12-19 21:37 | HP.PCM_ITS ---
Problem List (1) Closed left hip fracture Status: Acute (2) Hypertension Status: Chronic Qualifiers: (3) Insomnia Status: Chronic Qualifiers: (4) Tobacco abuse Status: Chronic (5) COPD (chronic obstructive pulmonary disease) Status: Chronic Qualifiers: (6) Seizure disorder Status: Chronic (7) Depressed Status: Chronic (8) Anxiety Status: Chronic History of Present Illness Date of Admission: 12/19/17 Chief Complaint: Here for rehabilitation, strengthening, prior to discharge home with family. The patient is a 67 year old Female with below past medical history presented to [facility] Emergency Department 12/14/2017 with left hip pain. 12/14/2017 X-ray pelvis, left hip showed left hip fracture. Knocked over by horse, landed on left hip. Unable to walk. Morphine, Fentanyl given. 12/14/2017 Admit to Hospital. Consult Dr. Guerra for left hip fracture. 12/15/2017 EKG Normal sinus rhythm, ST&T wave abnormality, consider inferior ischemia. 12/15/2017 Dr. Guerra performed closed reduction with open internal fixation using cephalo-medullary nail left femur. Hypotension resolved with IV fluids. Keppra for seizure disorder, patient does not take Keppra at home due to cost. Eliquis 2.5MG BID for DVT prophylaxis thru 01/20/2018. 12/19/2017 Admit to TCU for rehabilitation, strengthening, prior to discharge home with family. Past Medical History Past Medical History (Chronic Problems): Chronic Problems Hypertension (Chronic) Insomnia (Chronic) Tobacco abuse (Chronic) COPD (chronic obstructive pulmonary disease) (Chronic) Seizure disorder (Chronic) Depressed (Chronic) Cardiac dysrhythmia (Chronic) Anxiety (Chronic) Allergies hydrocodone bitartrate [From Vicodin] Allergy (Mild, Verified 12/14/17 11:35) Rash itching and rash Milk Containing Products Adverse Reaction (Mild, Verified 12/14/17 11:35) Abd cramps/vomiting/nausea stomach upset, nausea, vomiting, cramping when to much milk is consumed Home Medications: Ambulatory Orders Medication Instructions Recorded levETIRAcetam tablet [Keppra 500 mg PO BID 05/16/14 tablet] traZODone [Desyrel] 100 mg PO QHS 06/17/15 Escitalopram Oxalate [Lexapro] 10 mg PO DAILY 10/04/17 Apixaban [Eliquis] 2.5 mg PO BID 12/19/17 Polyethylene Glycol 3350 [Miralax] 17 gm PO DAILY 12/19/17 Senna/Docusate Sodium [Senokot-S] 2 tablet PO BID PRN tablet 12/19/17 Surgical History: total hip arthroplasty - Right., - - back surgeries x 3, spinal fusion surgery, bilateral carpal tunnel surgeries, Right knee surgeries 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, Depression TRIAGE RN History: No pertinent TRIAGE RN history Lives: With Family Smoking Status: Current every day smoker Tobacco Use: Cigarettes Alcohol: None Drugs: None - *Family History Maternal History Items: Heart Disease - CHF Paternal History Items: No pertinent history Sibling History Items: No pertinent history Review of Systems Constitutional: Denies: Chills, Fever, Weight Change HEENT: Denies: Head Aches, Sinus Congestion, Sinus Drainage Cardiovascular: Denies: Chest Pain, Palpitations Respiratory: Denies: Cough, Shortness of breath at rest, Sputum production Gastrointestinal: Reports: Constipation. Denies: Abdominal Pain, Nausea, Vomiting Genitourinary: Denies: Dysuria Musculoskeletal: Reports: Joint Pain - Left hip.. Denies: Joint Tenderness Skin: Denies: Rash, Wounds Neurological: Denies: Numbness, Tingling, Focal weakness Psychiatric: Denies: Anxiety, Depression, Homicidal Ideations, Suicidal Ideations Hematologic/ Lymphatic: Denies: Easy Bruising, Easy Bleeding VTE Information - Inpt Only VTE Present on Admission: No VTE Mechan Device Prophylaxis: Knee High KEENAN Hose VTE Pharm Prophylaxis ordered?: Yes Patient Problems: Active and Suspected Problems Closed left hip fracture (Acute) - Physical Exam General: Alert, Oriented x3, Cooperative HEENT: Atraumatic, PERRLA, EOMI, Normocephalic Neck: Supple, No JVD, Negative Carotid Bruits Lungs: Clear to auscultation, Normal air movement Cardiovascular: Regular rate, No murmurs Abdomen: Bowel Sounds Present, Soft, Non Tender Extremities: No edema, Capillary Refill Less than 3 Seconds Skin: No rashes, No breakdown, Incision - Left hip, clean, dry, intact. Musculoskeletal: No Tenderness to Palpation of Joints or Extremities Neurological: Cranial nerves II-XII grossly intact Psych/Mental Status: Normal Affect, Appropriate Vital Signs Temp Pulse Resp BP Pulse Ox 97.6 F L 85 16 121/64 H 96 12/19/17 17:19 12/19/17 17:19 12/19/17 17:19 12/19/17 17:19 12/19/17 17:19 Oxygen Delivery Method Room Air Weight: 68.8 kg Body Mass Index (BMI) 24.5 Intake and Output for Last 24 Hours 12/17/17 12/18/17 12/19/17 23:59 23:59 23:59 Intake Total 240 / 240 Balance 240 / 240 Assessment/Plan Active and Suspected Problems Closed left hip fracture (Acute) 67 year old female with below past medical history hospitalized for left hip fracture, underwent closed reduction with open internal fixation using cephalo- medullary nail left femur per Dr. Guerra 12/15/2017, admitted to TCU with debility, here for rehabilitation, strengthening, prior to discharge home with family. * Debility - PT/OT. * Pain - Tylenol 1000MG Q8H PRN mild pain, Tramadol 50MG Q6H PRN moderate pain, Oxycodone 10MG Q4H PRN severe pain. * Bowel - Miralax 17GM daily, Senna/colace 2 tablets BID, Dulcolax 10MG UT PRN. Soap Suds enema. * Pneumonia vaccination - Administer Prevnar 13 and/or Pneumovax 23 as necessary. * DVT prophylaxis Eliquis 2.5MG BID thru 01/20/2018. * Depression - Lexapro 10MG daily. * Seizure disorder - Keppra 500MG BID. * Skin irritation - Eucerin BID bilateral feet. * Insomnia - Trazodone 100MG QHS.
[2017-12-19] MEDS: oxyCODONE 5 MG Tablet 10 MG PO (22:33)
[2017-12-20] MEDS: oxyCODONE 5 MG Tablet 10 MG PO ×4 (03:56→20:17)
[2017-12-20] MEDS: traMADol 50 MG Tablet PO (05:24)
[2017-12-20] MEDS: levETIRAcetam 500 MG Tablet PO ×2 (05:25→17:32)
[2017-12-20] MEDS: Escitalopram Oxalate 10 MG Tablet PO (05:25)
[2017-12-20] MEDS: APIXABAN 2.5 MG TABLET PO ×2 (05:25→17:32)
[2017-12-20] MEDS: Polyethylene Glycol 3350 17 GM PACKET PO (05:25)
[2017-12-20] MEDS: Senna/Docusate Sodium 1 Tablet 2 TABLET PO ×2 (05:29→17:32)
[2017-12-20 06:05] LABS: Absolute Lymphocyte Count 1.42 X10^3/ul (0.83-4.51); Absolute Neutrophil Count 3.7 X10^3/uL (2.0-7.7); Basophil# 0.03 X10^3/uL; Basophil% 0.5 % (0-1); Eosinophil# 0.23 X10^3/uL; Eosinophils% 3.8 % (0-5); Hematocrit 26.4 % (37-47); Hemoglobin 8.6 g/dl (12.0-15.0); Lymphocyte # 1.42 X10^3/ul (4.0); Lymphocyte % 23.3 % (19-41); Mean Corp Hgb Conc 32.6 g/gl (32-36); Mean Corpuscular Hgb 30.9 pg (27.0-32.0); Mean Platelet Vol. 9.6 fl (6.2-12.0); Monocyte# 0.72 X10^3/uL; Monocyte% 11.8 % (0-10); Neutrophil # 3.69 X10^3/uL (2.7-7.7); Neutrophil % 60.4 % (47-70); Platelet Count 382 K/mm3 (150-450); RBC Distribution Width CV 13.5 % (11.6-14.6); Red Blood Count 2.78 M/mm3 (4.2-5.4); White Blood Count 6.1 K/mm3 (4.4-11.0)
--- NOTE | 2017-12-20 06:07 | NURSING ---
SSE ORDERED PATIENT REQUESTED WAIT TILL AM. GIVEN SSE TOOK WELL. HAS NOT RETURNED ENEMA YET. WILL CONT TO MONITOR.
[2017-12-20 06:17] LABS: POSITIVE COUNT NO; POSITIVE DIFFERENTIAL NO; POSITIVE MORPHOLOGY NO
[2017-12-20 06:20] LABS: Anion Gap 8 (5-15); BUN 17 mg/dL (7-18); BUN/Creat Ratio 23.4 RATIO (10-20); Calcium,Total 8.8 mg/dL (8.5-10.1); Chloride 102 mmol/L (98-107); Creatinine, Serum 0.73 mg/dL (0.55-1.02); EST Glomerular Filtration Rate 85 mL/min (>60); Est Glom Filt Rate - Afr Amer 102 mL/min (>60); Estimated Creatinine Clearance 50.41 ml/min; Glucose 92 mg/dL (74-106); Potassium 4.1 mmol/L (3.5-5.1); Sodium Level 140 mmol/L (136-145)
[2017-12-20] MEDS: Iron Polysaccharide Complex 150 MG CAPSULE PO (09:01)
[2017-12-20 09:58] VITALS: PULSE 77; RESP 18; O2SAT 91
[2017-12-20] MEDS: Tuberculin,Purif.prot.deriv. 50 TU/ML Vial 5 ML ID (10:37)
[2017-12-20 15:22] VITALS: BP 104/58; PULSE 82; RESP 16; TEMP 36.8; O2SAT 96
--- NOTE | 2017-12-20 18:26 | NURSING ---
NO RESULTS FROM SOAP SUDS ENEMA, LBM 12/14, NEW ORDER FOR MAG CITRATE
[2017-12-20] MEDS: Magnesium Citrate 300 ML PO (20:16)
[2017-12-20] MEDS: traZODone 100 MG Tablet PO (20:17)
[2017-12-21] MEDS: oxyCODONE 5 MG Tablet 10 MG PO ×3 (06:17→20:55)
[2017-12-21] MEDS: levETIRAcetam 500 MG Tablet PO ×2 (06:18→17:37)
[2017-12-21] MEDS: APIXABAN 2.5 MG TABLET PO ×2 (06:18→17:37)
[2017-12-21] MEDS: Escitalopram Oxalate 10 MG Tablet PO (06:18)
[2017-12-21] MEDS: Polyethylene Glycol 3350 17 GM PACKET PO (06:19)
[2017-12-21] MEDS: Senna/Docusate Sodium 1 Tablet 2 TABLET PO ×2 (06:26→17:36)
[2017-12-21] MEDS: Iron Polysaccharide Complex 150 MG CAPSULE PO (08:00)
--- NOTE | 2017-12-21 11:50 | PCM.PN.RX ---
<Guillermo Martinez Jodi - Last Filed: 12/21/17 11:50> Progress Note - Pharmacy Subjective: TCU Admission Objective: Allergies hydrocodone bitartrate [From Vicodin] Allergy (Mild, Verified 12/14/17 11:35) Rash itching and rash Milk Containing Products Adverse Reaction (Mild, Verified 12/14/17 11:35) Abd cramps/vomiting/nausea stomach upset, nausea, vomiting, cramping when to much milk is consumed Home Medications Medication Instructions Recorded levETIRAcetam tablet [Keppra 500 mg PO BID 05/16/14 tablet] traZODone [Desyrel] 100 mg PO QHS 06/17/15 Escitalopram Oxalate [Lexapro] 10 mg PO DAILY 10/04/17 Apixaban [Eliquis] 2.5 mg PO BID 12/19/17 Polyethylene Glycol 3350 [Miralax] 17 gm PO DAILY 12/19/17 Senna/Docusate Sodium [Senokot-S] 2 tablet PO BID PRN tablet 12/19/17 Current Medications Generic Name Dose Route Start Last Admin Trade Name Freq PRN Reason Stop Dose Admin Acetaminophen 1,000 mg 12/19/17 21:57 Tylenol PO Q8H PRN PRN MILD PAIN (1-3/10) Apixaban 2.5 mg 12/19/17 19:30 12/21/17 06:18 Eliquis PO 01/20/18 23:59 2.5 mg BID JAMIE Administration Escitalopram Oxalate 10 mg 12/20/17 06:00 12/21/17 06:18 Lexapro PO 10 mg DAILY JAMIE Administration Levetiracetam 500 mg 12/19/17 18:00 12/21/17 06:18 Keppra Tablet PO 500 mg BID JAMIE Administration Multi-Ingredient Cream 1 applic 12/19/17 22:00 12/21/17 06:18 Eucerin TOPICAL 1 applicatio 0600,2200 [facility] Administration Protocol Nutritional Formula (Lactose Free) 120 ml 12/20/17 07:45 12/21/17 11:40 Ensure Clear PO 120 ml TIDCM JAMIE Administration Oxycodone HCl 10 mg 12/19/17 21:10 12/21/17 06:17 Oxyir PO 10 mg Q4H PRN PRN Administration SEVERE PAIN (6-10/10) Polyethylene Glycol 17 gm 12/20/17 06:00 12/21/17 06:19 Miralax PO 17 gm DAILY JAMIE Administration Polysaccharide Iron Complex 150 mg 12/20/17 08:00 12/21/17 08:00 Ferrex 150 PO 150 mg DAILYCM JAMIE Administration Senna/Docusate Sodium 2 tablet 12/20/17 06:00 12/21/17 06:26 Senokot-S, Zena-Colace PO 1 tablet BID JAMIE Administration Tramadol HCl 50 mg 12/19/17 21:57 12/20/17 05:24 Ultram PO 50 mg Q6H PRN PRN Administration MODERATE PAIN (4-510) Trazodone HCl 100 mg 12/19/17 22:00 12/20/17 20:17 Desyrel PO 100 mg QHS JAMIE Administration Tuberculin PPD 5 tu 12/27/17 10:00 Tubersol, Aplisol, Ppd ID 12/27/17 10:01 X1 ONE Problem List Closed left hip fracture (Acute) Vital Signs Temp Pulse Resp BP Pulse Ox 98.3 F 82 16 104/58 L 96 12/20/17 15:22 12/20/17 15:22 12/20/17 15:22 12/20/17 15:22 12/20/17 15:22 Oxygen Delivery Method Room Air Weight: 68.8 kg Body Mass Index (BMI) 24.5 Sodium 140 mmol/L (136-145) 12/20/17 05:05 Potassium 4.1 mmol/L (3.5-5.1) 12/20/17 05:05 Chloride 102 mmol/L (98-107) 12/20/17 05:05 Carbon Dioxide 30.0 mmol/L (21.0-32.0) 12/20/17 05:05 Anion Gap 8 (5-15) 12/20/17 05:05 BUN 17 mg/dL (7-18) 12/20/17 05:05 Creatinine 0.73 mg/dL (0.55-1.02) 12/20/17 05:05 Est GFR (MDRD) Af Amer 102 mL/min (>60) 12/20/17 05:05 Est GFR (MDRD) Non-Af 85 mL/min (>60) 12/20/17 05:05 BUN/Creatinine Ratio 23.4 RATIO (10-20) H 12/20/17 05:05 Glucose 92 mg/dL (74-106) 12/20/17 05:05 Assessment/Plan: 1) Pain APAP for mild pain, tramadol for moderate pain, oxycodone for severe pain. Continue to monitor prn medication use, daily pain scores. 2) DVT PPx Apixaban twice daily. Continue to monitor hgb/hct, s/s bleeding/clot. 3) Seizure Levetiracetam daily. Continue to monitor for seizure. 4) Nutrition Ensure, Fe. Continue to monitor clinically. Psychotropic Medications: 5) Depression/Insomnia Escitalopram daily, trazodone at HS. Continue to monitor s/s depression/anxiety, insomnia, agitation, sweating, nausea, fever. Unnecessary Medications: None Bowel Regimen: 6) Senna/s, PEG. Continue to monitor for constipation/diarrhea. Date of Note:: 12/21/17 - Provider Comments Provider responsibility: Provider responsible to enter orders to implement recommendations <Kayden Morejon Chi - Last Filed: 12/21/17 17:56> Progress Note - Pharmacy Subjective: [] Objective: Allergies hydrocodone bitartrate [From Vicodin] Allergy (Mild, Verified 12/14/17 11:35) Rash itching and rash Milk Containing Products Adverse Reaction (Mild, Verified 12/14/17 11:35) Abd cramps/vomiting/nausea stomach upset, nausea, vomiting, cramping when to much milk is consumed Home Medications Medication Instructions Recorded levETIRAcetam tablet [Keppra 500 mg PO BID 05/16/14 tablet] traZODone [Desyrel] 100 mg PO QHS 06/17/15 Escitalopram Oxalate [Lexapro] 10 mg PO DAILY 10/04/17 Apixaban [Eliquis] 2.5 mg PO BID 12/19/17 Polyethylene Glycol 3350 [Miralax] 17 gm PO DAILY 12/19/17 Senna/Docusate Sodium [Senokot-S] 2 tablet PO BID PRN tablet 12/19/17 Current Medications Generic Name Dose Route Start Last Admin Trade Name Freq PRN Reason Stop Dose Admin Acetaminophen 1,000 mg 12/19/17 21:57 Tylenol PO Q8H PRN PRN MILD PAIN (1-3) Apixaban 2.5 mg 12/19/17 19:30 12/21/17 17:37 Eliquis PO 01/20/18 23:59 2.5 mg BID JAMIE Administration Escitalopram Oxalate 10 mg 12/20/17 06:00 12/21/17 06:18 Lexapro PO 10 mg DAILY JAMIE Administration Levetiracetam 500 mg 12/19/17 18:00 12/21/17 17:37 Keppra Tablet PO 500 mg BID JAMIE Administration Multi-Ingredient Cream 1 applic 12/19/17 22:00 12/21/17 06:18 Eucerin TOPICAL 1 applicatio 0600,2200 [facility] Administration Protocol Nutritional Formula (Lactose Free) 120 ml 12/20/17 07:45 12/21/17 17:37 Ensure Clear PO 120 ml TIDCM JAMIE Administration Oxycodone HCl 10 mg 12/19/17 21:10 12/21/17 13:03 Oxyir PO 10 mg Q4H PRN PRN Administration SEVERE PAIN (6-10/10) Polyethylene Glycol 17 gm 12/20/17 06:00 12/21/17 06:19 Miralax PO 17 gm DAILY JAMIE Administration Polysaccharide Iron Complex 150 mg 12/20/17 08:00 12/21/17 08:00 Ferrex 150 PO 150 mg DAILYCM [facility] Administration Senna/Docusate Sodium 2 tablet 12/20/17 06:00 12/21/17 17:36 Senokot-S, Zena-Colace PO 2 tablet BID [facility] Administration Sodium Chloride/Electrolytes 4,000 ml 12/21/17 17:53 Nulytely PO 12/21/17 17:54 X1 ONE Tramadol HCl 50 mg 12/19/17 21:57 12/20/17 05:24 Ultram PO 50 mg Q6H PRN PRN Administration MODERATE PAIN (4-5/10) Trazodone HCl 100 mg 12/19/17 22:00 12/20/17 20:17 Desyrel PO 100 mg QHS JAMIE Administration Tuberculin PPD 5 tu 12/27/17 10:00 Tubersol, Aplisol, Ppd ID 12/27/17 10:01 X1 ONE Problem List Closed left hip fracture (Acute) Vital Signs Temp Pulse Resp BP Pulse Ox 98.7 F 80 16 99/62 93 12/21/17 15:07 12/21/17 15:07 12/21/17 15:07 12/21/17 15:07 12/21/17 15:07 Oxygen Delivery Method Room Air Weight: 68.8 kg Body Mass Index (BMI) 24.5 Sodium 140 mmol/L (136-145) 12/20/17 05:05 Potassium 4.1 mmol/L (3.5-5.1) 12/20/17 05:05 Chloride 102 mmol/L (98-107) 12/20/17 05:05 Carbon Dioxide 30.0 mmol/L (21.0-32.0) 12/20/17 05:05 Anion Gap 8 (5-15) 12/20/17 05:05 BUN 17 mg/dL (7-18) 12/20/17 05:05 Creatinine 0.73 mg/dL (0.55-1.02) 12/20/17 05:05 Est GFR (MDRD) Af Amer 102 mL/min (>60) 12/20/17 05:05 Est GFR (MDRD) Non-Af 85 mL/min (>60) 12/20/17 05:05 BUN/Creatinine Ratio 23.4 RATIO (10-20) H 12/20/17 05:05 Glucose 92 mg/dL (74-106) 12/20/17 05:05 Assessment/Plan: Psychotropic Medications: Unnecessary Medications: Bowel Regimen: - Provider Comments Provider responsibility: Provider responsible to enter orders to implement recommendations Provider Comments to Recommendations by Pharmacy: Agree
--- NOTE | 2017-12-21 11:54 | PHA.CONS_ITS ---
<Guillermo Martinez Jodi - Last Filed: 12/21/17 11:50> Progress Note - Pharmacy Subjective: TCU Admission Objective: Allergies hydrocodone bitartrate [From Vicodin] Allergy (Mild, Verified 12/14/17 11:35) Rash itching and rash Milk Containing Products Adverse Reaction (Mild, Verified 12/14/17 11:35) Abd cramps/vomiting/nausea stomach upset, nausea, vomiting, cramping when to much milk is consumed Home Medications Medication Instructions Recorded levETIRAcetam tablet [Keppra 500 mg PO BID 05/16/14 tablet] traZODone [Desyrel] 100 mg PO QHS 06/17/15 Escitalopram Oxalate [Lexapro] 10 mg PO DAILY 10/04/17 Apixaban [Eliquis] 2.5 mg PO BID 12/19/17 Polyethylene Glycol 3350 [Miralax] 17 gm PO DAILY 12/19/17 Senna/Docusate Sodium [Senokot-S] 2 tablet PO BID PRN tablet 12/19/17 Current Medications Generic Name Dose Route Start Last Admin Trade Name Freq PRN Reason Stop Dose Admin Acetaminophen 1,000 mg 12/19/17 21:57 Tylenol PO Q8H PRN PRN MILD PAIN (1-3/10) Apixaban 2.5 mg 12/19/17 19:30 12/21/17 06:18 Eliquis PO 01/20/18 23:59 2.5 mg BID JAMIE Administration Escitalopram Oxalate 10 mg 12/20/17 06:00 12/21/17 06:18 Lexapro PO 10 mg DAILY JAMIE Administration Levetiracetam 500 mg 12/19/17 18:00 12/21/17 06:18 Keppra Tablet PO 500 mg BID JAMIE Administration Multi-Ingredient Cream 1 applic 12/19/17 22:00 12/21/17 06:18 Eucerin TOPICAL 1 applicatio 0600,2200 [facility] Administration Protocol Nutritional Formula (Lactose Free) 120 ml 12/20/17 07:45 12/21/17 11:40 Ensure Clear PO 120 ml TIDCM JAMIE Administration Oxycodone HCl 10 mg 12/19/17 21:10 12/21/17 06:17 Oxyir PO 10 mg Q4H PRN PRN Administration SEVERE PAIN (6-10/10) Polyethylene Glycol 17 gm 12/20/17 06:00 12/21/17 06:19 Miralax PO 17 gm DAILY JAMIE Administration Polysaccharide Iron Complex 150 mg 12/20/17 08:00 12/21/17 08:00 Ferrex 150 PO 150 mg DAILYCM JAMIE Administration Senna/Docusate Sodium 2 tablet 12/20/17 06:00 12/21/17 06:26 Senokot-S, Zena-Colace PO 1 tablet BID JAMIE Administration Tramadol HCl 50 mg 12/19/17 21:57 12/20/17 05:24 Ultram PO 50 mg Q6H PRN PRN Administration MODERATE PAIN (4-510) Trazodone HCl 100 mg 12/19/17 22:00 12/20/17 20:17 Desyrel PO 100 mg QHS JAMIE Administration Tuberculin PPD 5 tu 12/27/17 10:00 Tubersol, Aplisol, Ppd ID 12/27/17 10:01 X1 ONE Problem List Closed left hip fracture (Acute) Vital Signs Temp Pulse Resp BP Pulse Ox 98.3 F 82 16 104/58 L 96 12/20/17 15:22 12/20/17 15:22 12/20/17 15:22 12/20/17 15:22 12/20/17 15:22 Oxygen Delivery Method Room Air Weight: 68.8 kg Body Mass Index (BMI) 24.5 Sodium 140 mmol/L (136-145) 12/20/17 05:05 Potassium 4.1 mmol/L (3.5-5.1) 12/20/17 05:05 Chloride 102 mmol/L (98-107) 12/20/17 05:05 Carbon Dioxide 30.0 mmol/L (21.0-32.0) 12/20/17 05:05 Anion Gap 8 (5-15) 12/20/17 05:05 BUN 17 mg/dL (7-18) 12/20/17 05:05 Creatinine 0.73 mg/dL (0.55-1.02) 12/20/17 05:05 Est GFR (MDRD) Af Amer 102 mL/min (>60) 12/20/17 05:05 Est GFR (MDRD) Non-Af 85 mL/min (>60) 12/20/17 05:05 BUN/Creatinine Ratio 23.4 RATIO (10-20) H 12/20/17 05:05 Glucose 92 mg/dL (74-106) 12/20/17 05:05 Assessment/Plan: 1) Pain APAP for mild pain, tramadol for moderate pain, oxycodone for severe pain. Continue to monitor prn medication use, daily pain scores. 2) DVT PPx Apixaban twice daily. Continue to monitor hgb/hct, s/s bleeding/clot. 3) Seizure Levetiracetam daily. Continue to monitor for seizure. 4) Nutrition Ensure, Fe. Continue to monitor clinically. Psychotropic Medications: 5) Depression/Insomnia Escitalopram daily, trazodone at HS. Continue to monitor s/s depression/ anxiety, insomnia, agitation, sweating, nausea, fever. Unnecessary Medications: None Bowel Regimen: 6) Senna/s, PEG. Continue to monitor for constipation/diarrhea. Date of Note:: 12/21/17 - Provider Comments Provider responsibility: Provider responsible to enter orders to implement recommendations <Kayden Morejon Chi - Last Filed: 12/21/17 17:56> Progress Note - Pharmacy Subjective: [] Objective: Allergies hydrocodone bitartrate [From Vicodin] Allergy (Mild, Verified 12/14/17 11:35) Rash itching and rash Milk Containing Products Adverse Reaction (Mild, Verified 12/14/17 11:35) Abd cramps/vomiting/nausea stomach upset, nausea, vomiting, cramping when to much milk is consumed Home Medications Medication Instructions Recorded levETIRAcetam tablet [Keppra 500 mg PO BID 05/16/14 tablet] traZODone [Desyrel] 100 mg PO QHS 06/17/15 Escitalopram Oxalate [Lexapro] 10 mg PO DAILY 10/04/17 Apixaban [Eliquis] 2.5 mg PO BID 12/19/17 Polyethylene Glycol 3350 [Miralax] 17 gm PO DAILY 12/19/17 Senna/Docusate Sodium [Senokot-S] 2 tablet PO BID PRN tablet 12/19/17 Current Medications Generic Name Dose Route Start Last Admin Trade Name Freq PRN Reason Stop Dose Admin Acetaminophen 1,000 mg 12/19/17 21:57 Tylenol PO Q8H PRN PRN MILD PAIN (1-3) Apixaban 2.5 mg 12/19/17 19:30 12/21/17 17:37 Eliquis PO 01/20/18 23:59 2.5 mg BID JAMIE Administration Escitalopram Oxalate 10 mg 12/20/17 06:00 12/21/17 06:18 Lexapro PO 10 mg DAILY JAMIE Administration Levetiracetam 500 mg 12/19/17 18:00 12/21/17 17:37 Keppra Tablet PO 500 mg BID JAMIE Administration Multi-Ingredient Cream 1 applic 12/19/17 22:00 12/21/17 06:18 Eucerin TOPICAL 1 applicatio 0600,2200 [facility] Administration Protocol Nutritional Formula (Lactose Free) 120 ml 12/20/17 07:45 12/21/17 17:37 Ensure Clear PO 120 ml TIDCM JAMIE Administration Oxycodone HCl 10 mg 12/19/17 21:10 12/21/17 13:03 Oxyir PO 10 mg Q4H PRN PRN Administration SEVERE PAIN (6-10/10) Polyethylene Glycol 17 gm 12/20/17 06:00 12/21/17 06:19 Miralax PO 17 gm DAILY JAMIE Administration Polysaccharide Iron Complex 150 mg 12/20/17 08:00 12/21/17 08:00 Ferrex 150 PO 150 mg DAILYCM [facility] Administration Senna/Docusate Sodium 2 tablet 12/20/17 06:00 12/21/17 17:36 Senokot-S, Zena-Colace PO 2 tablet BID [facility] Administration Sodium Chloride/Electrolytes 4,000 ml 12/21/17 17:53 Nulytely PO 12/21/17 17:54 X1 ONE Tramadol HCl 50 mg 12/19/17 21:57 12/20/17 05:24 Ultram PO 50 mg Q6H PRN PRN Administration MODERATE PAIN (4-5/10) Trazodone HCl 100 mg 12/19/17 22:00 12/20/17 20:17 Desyrel PO 100 mg QHS JAMIE Administration Tuberculin PPD 5 tu 12/27/17 10:00 Tubersol, Aplisol, Ppd ID 12/27/17 10:01 X1 ONE Problem List Closed left hip fracture (Acute) Vital Signs Temp Pulse Resp BP Pulse Ox 98.7 F 80 16 99/62 93 12/21/17 15:07 12/21/17 15:07 12/21/17 15:07 12/21/17 15:07 12/21/17 15:07 Oxygen Delivery Method Room Air Weight: 68.8 kg Body Mass Index (BMI) 24.5 Sodium 140 mmol/L (136-145) 12/20/17 05:05 Potassium 4.1 mmol/L (3.5-5.1) 12/20/17 05:05 Chloride 102 mmol/L (98-107) 12/20/17 05:05 Carbon Dioxide 30.0 mmol/L (21.0-32.0) 12/20/17 05:05 Anion Gap 8 (5-15) 12/20/17 05:05 BUN 17 mg/dL (7-18) 12/20/17 05:05 Creatinine 0.73 mg/dL (0.55-1.02) 12/20/17 05:05 Est GFR (MDRD) Af Amer 102 mL/min (>60) 12/20/17 05:05 Est GFR (MDRD) Non-Af 85 mL/min (>60) 12/20/17 05:05 BUN/Creatinine Ratio 23.4 RATIO (10-20) H 12/20/17 05:05 Glucose 92 mg/dL (74-106) 12/20/17 05:05 Assessment/Plan: Psychotropic Medications: Unnecessary Medications: Bowel Regimen: - Provider Comments Provider responsibility: Provider responsible to enter orders to implement recommendations Provider Comments to Recommendations by Pharmacy: Agree
[2017-12-21 15:07] VITALS: BP 99/62; PULSE 80; RESP 16; TEMP 37.1; O2SAT 93
--- NOTE | 2017-12-21 16:07 | CHAPLAIN ---
Type of Pastoral Visit _x__ Initial Visit ___ Follow-up Visit ___ On-call Visit ___ General Patient Visit ___ Spiritual Assessment ___ Family Conference ___ Bereavement ___ Rapid Response ___ Code Blue ___ Other (describe below) Pastoral Care Referral From _x__ Patient ___ Family ___ Nurse ___ Physician ___ Astrophysics Teacher ___ Health Claims Examiner ___ Other (describe below) Sacrament/Intervention _x__ Active listening ___ Anointing ___ Orthodoxy ___ Bereavement ___ Communion _x__ Gloria exploration ___ _x__ Life review _x__ Prayer ___ Reconciliation ___ Sacrament of Sick _x__ Supportive presence ___ Wedding ___ Other (describe below) Pastoral Comments patient has been admitted in TCU previously and she requested visits from this director of institutional sales; pt expresses being unlucky and how much more can I take of this bad luck; pt is thankful that her daughter is now consistently working but still speaks of lack of real support from most family members; pt is very sad about prospect of selling her horse which she finds so difficult to take care of anymore; pt has questions about what God gives us in life; pt welcomes more visits from director of institutional sales and prayers
--- NOTE | 2017-12-21 17:54 | NURSING ---
Patient c/o constipation, NO for 4L golytly.
[2017-12-21] MEDS: traZODone 100 MG Tablet PO (20:55)
[2017-12-21] MEDS: Electrolyte Solution/Peg's 4000 ML PO (20:55)
[2017-12-22] MEDS: APIXABAN 2.5 MG TABLET PO ×2 (06:17→17:39)
[2017-12-22] MEDS: Escitalopram Oxalate 10 MG Tablet PO (06:17)
[2017-12-22] MEDS: levETIRAcetam 500 MG Tablet PO ×2 (06:17→17:39)
[2017-12-22] MEDS: oxyCODONE 5 MG Tablet 10 MG PO ×4 (06:21→23:23)
[2017-12-22] MEDS: Iron Polysaccharide Complex 150 MG CAPSULE PO (08:10)
[2017-12-22 14:53] VITALS: PULSE 75; RESP 18; O2SAT 91
[2017-12-22 15:40] VITALS: BP 101/60; PULSE 84; RESP 18; TEMP 36.7; O2SAT 95
[2017-12-22] MEDS: traZODone 100 MG Tablet PO (20:36)
--- NOTE | 2017-12-22 20:37 | NURSING ---
Pt asked this nurse about prn pain medication oxyir 10mg, was told it was too early to have, not allowed to give until at least 941pm, pt asked nurse to bring it 'every four hours even if I'm asleep because if I go longer than four hours I have really bad pain. Assured pt nurse would check on her later to assess pain and if she needed medication it would be given as orders allow. Pt pleased with this. Offered tylenol, pt refused. RN aware. Continuing to monitor.
[2017-12-23] MEDS: oxyCODONE 5 MG Tablet 10 MG PO ×3 (05:33→20:52)
[2017-12-23] MEDS: Escitalopram Oxalate 10 MG Tablet PO (05:34)
[2017-12-23] MEDS: levETIRAcetam 500 MG Tablet PO ×2 (05:35→16:23)
[2017-12-23] MEDS: APIXABAN 2.5 MG TABLET PO ×2 (05:35→16:23)
[2017-12-23] MEDS: Iron Polysaccharide Complex 150 MG CAPSULE PO (08:36)
[2017-12-23 15:28] VITALS: BP 106/58; PULSE 66; RESP 18; TEMP 37; O2SAT 90
[2017-12-23] MEDS: Senna/Docusate Sodium 1 Tablet 2 TABLET PO (16:23)
[2017-12-23] MEDS: traZODone 100 MG Tablet PO (20:53)
[2017-12-24] MEDS: oxyCODONE 5 MG Tablet 10 MG PO ×3 (05:20→18:11)
[2017-12-24] MEDS: APIXABAN 2.5 MG TABLET PO ×2 (05:22→16:59)
[2017-12-24] MEDS: Polyethylene Glycol 3350 17 GM PACKET PO (05:22)
[2017-12-24] MEDS: Escitalopram Oxalate 10 MG Tablet PO (05:22)
[2017-12-24] MEDS: levETIRAcetam 500 MG Tablet PO ×2 (05:22→16:59)
[2017-12-24] MEDS: Iron Polysaccharide Complex 150 MG CAPSULE PO (08:09)
[2017-12-24] MEDS: Senna/Docusate Sodium 1 Tablet 2 TABLET PO ×2 (08:09→16:59)
--- NOTE | 2017-12-24 11:33 | NURSING ---
PT IN TEARS WHEN THIS NURSE WALKED INTO ROOM. ASKED PT WHAT WAS WRONG, PT STATED JUST GOT OFF OF PHONE WITH DAUGHTER AND SAID DAUGHTER WAS NOT COMING IN TODAY FOR MOTHERS DAY. ASKED PT IF THERE WAS ANY THING I COULD DO FOR HER,PT STATED NO. STATED TO PT TO PLEASE CALL OUT IF SHE NEEDED ANY THING,EVEN TO TALK. PT THANKED ME.
[2017-12-24 15:33] VITALS: BP 101/66; PULSE 72; RESP 20; TEMP 36.4; O2SAT 92
[2017-12-24 16:01] VITALS: PULSE 78; RESP 18; O2SAT 91
[2017-12-24] MEDS: traMADol 50 MG Tablet PO (21:23)
[2017-12-24] MEDS: traZODone 100 MG Tablet PO (21:25)
[2017-12-25] MEDS: levETIRAcetam 500 MG Tablet PO ×2 (06:01→17:02)
[2017-12-25] MEDS: oxyCODONE 5 MG Tablet 10 MG PO ×4 (06:01→23:44)
[2017-12-25] MEDS: Escitalopram Oxalate 10 MG Tablet PO (06:01)
[2017-12-25] MEDS: Senna/Docusate Sodium 1 Tablet 2 TABLET PO (06:01)
[2017-12-25] MEDS: APIXABAN 2.5 MG TABLET PO ×2 (06:01→17:02)
[2017-12-25] MEDS: Polyethylene Glycol 3350 17 GM PACKET PO (06:02)
[2017-12-25] MEDS: Iron Polysaccharide Complex 150 MG CAPSULE PO (08:32)
--- NOTE | 2017-12-25 09:51 | NURSING ---
Addendum entered by Madeline Acuna 12/25/17 15:58: Dr. Morejon reviewed UA, NNO, urine culture pending. Original Note: Dr. Morejon updated that pt is c/o burning with urination and increased incontinence. N.O. for UA, C&S. Pt updated on new orders.
[2017-12-25 10:29] LABS: Mucous, Urine 0 SEEN /hpf (<or=2+); Red Blood Cells-Urine 0 SEEN /hpf (0-5)
[2017-12-25 10:31] LABS: Color, Urine Yellow (Yellow); Glucose, Dipstick Normal (Normal); Ketone-Dipstick Negative (Negative); Leukocyte Esterase-Dipstick 100 /ul (Negative); Nitrite-Dipstick Negative (Negative); Occult Blood-Urine 25 /ul (Negative); Protein-Dipstick Negative (Negative); Specific Gravity, Urine 1.015 (1.002-1.030); Urine Bilirubin Dipstick Negative (Negative); Urine Clarity Sl. Cloudy (Clear); Urine Urobilinogen Normal (Normal)
[2017-12-25 10:38] LABS: Amorphous Sediment 1+; Bacteria 1+ /hpf (None Seen); Squamous Epithelial Cells - UA 0-5 SEEN /hpf (5-10); White Blood Cells 5-10 SEEN /hpf (0-5)
--- NOTE | 2017-12-25 12:37 | CASEMGMT ---
Insurance Clinical information sent. Pending continued stay approval at this time. Auth#[id number] Elizabeth MCFADDEN, SEPARATING MACHINE OPERATOR
--- NOTE | 2017-12-25 13:46 | CASEMGMT ---
Insurance Continued stay approved with next update due on 12/28/17 Auth#[id number] Elizabeth MCFADDEN, BLAIR
[2017-12-25 15:04] VITALS: BP 101/63; PULSE 80; RESP 18; TEMP 36.8; O2SAT 94
--- NOTE | 2017-12-25 16:35 | CHAPLAIN ---
Type of Pastoral Visit ___ Initial Visit _x__ Follow-up Visit ___ On-call Visit ___ General Patient Visit ___ Spiritual Assessment ___ Family Conference ___ Bereavement ___ Rapid Response ___ Code Blue ___ Other (describe below) Pastoral Care Referral From _x__ Patient ___ Family ___ Nurse ___ Physician ___ Email Marketing Processor ___ Semiconductor Wafer Inspector ___ Other (describe below) Sacrament/Intervention _x__ Active listening ___ Anointing ___ Episcopal ___ Bereavement ___ Communion ___ Gloria exploration ___ _x__ Life review _x__ Prayer ___ Reconciliation ___ Sacrament of Sick _x__ Supportive presence ___ Wedding ___ Other (describe below) Pastoral Comments patient has had two of her children visit her in last 48 hours and this has been a turn around of events that can be positive for her outlook; pt says she has some progress but it is very slow
[2017-12-25 20:11] VITALS: PULSE 72; RESP 18; O2SAT 97
[2017-12-25] MEDS: traZODone 100 MG Tablet PO (20:19)
[2017-12-26] MEDS: oxyCODONE 5 MG Tablet 10 MG PO ×4 (05:27→21:31)
[2017-12-26] MEDS: levETIRAcetam 500 MG Tablet PO ×2 (05:29→17:31)
[2017-12-26] MEDS: APIXABAN 2.5 MG TABLET PO ×2 (05:29→17:31)
[2017-12-26] MEDS: Escitalopram Oxalate 10 MG Tablet PO (05:29)
[2017-12-26] MEDS: Iron Polysaccharide Complex 150 MG CAPSULE PO (08:27)
--- NOTE | 2017-12-26 11:03 | CASEMGMT ---
Brief interview for mental status (BIMS) and resident mood interview (PHQ-9) completed on this day. BIMS score . PHQ-9 score 02/25.
--- NOTE | 2017-12-26 12:33 | NURSING ---
OFF UNIT TO DR BANEGAS F/U APPT.
[2017-12-26 15:22] VITALS: BP 113/70; PULSE 79; RESP 16; TEMP 36.7; O2SAT 96
--- NOTE | 2017-12-26 15:31 | NURSING ---
Patient returned from appointment with Dr. Guerra, karishma d/c'd and steri strips intact to incision. No precautions to left hip, WBAT, okay to shower, f/u in four weeks.
[2017-12-26] MEDS: traZODone 100 MG Tablet PO (21:31)
[2017-12-27] MEDS: oxyCODONE 5 MG Tablet 10 MG PO ×4 (04:45→20:28)
[2017-12-27 05:36] LABS: Absolute Lymphocyte Count 1.69 X10^3/ul (0.83-4.51); Absolute Neutrophil Count 3.2 X10^3/uL (2.0-7.7); Basophil# 0.03 X10^3/uL; Basophil% 0.5 % (0-1); Eosinophil# 0.36 X10^3/uL; Eosinophils% 5.8 % (0-5); Hematocrit 27.3 % (37-47); Hemoglobin 8.8 g/dl (12.0-15.0); Lymphocyte # 1.69 X10^3/ul (4.0); Lymphocyte % 27.4 % (19-41); Mean Corp Hgb Conc 32.2 g/gl (32-36); Mean Corpuscular Hgb 31.1 pg (27.0-32.0); Mean Corpuscular Volume 96.5 fL (81-99); Mean Platelet Vol. 8.8 fl (6.2-12.0); Monocyte# 0.88 X10^3/uL; Monocyte% 14.3 % (0-10); Neutrophil # 3.19 X10^3/uL (2.7-7.7); Neutrophil % 51.7 % (47-70); Platelet Count 594 K/mm3 (150-450); RBC Distribution Width CV 13.7 % (11.6-14.6); RBC Distribution Width SD 45.4 fl (35.1-43.9); Red Blood Count 2.83 M/mm3 (4.2-5.4); White Blood Count 6.2 K/mm3 (4.4-11.0)
[2017-12-27] MEDS: APIXABAN 2.5 MG TABLET PO ×2 (05:53→17:21)
[2017-12-27] MEDS: Escitalopram Oxalate 10 MG Tablet PO (05:54)
[2017-12-27] MEDS: levETIRAcetam 500 MG Tablet PO ×2 (05:54→17:21)
[2017-12-27] MEDS: Polyethylene Glycol 3350 17 GM PACKET PO (05:55)
[2017-12-27 05:58] LABS: Anion Gap 6 (5-15); BUN 24 mg/dL (7-18); BUN/Creat Ratio 32.7 RATIO (10-20); Calcium,Total 9.1 mg/dL (8.5-10.1); Chloride 102 mmol/L (98-107); Creatinine, Serum 0.73 mg/dL (0.55-1.02); EST Glomerular Filtration Rate 84 mL/min (>60); Est Glom Filt Rate - Afr Amer 101 mL/min (>60); Estimated Creatinine Clearance 50.41 ml/min; Glucose 83 mg/dL (74-106); Potassium 4.2 mmol/L (3.5-5.1); Sodium Level 139 mmol/L (136-145)
[2017-12-27 06:18] LABS: POSITIVE COUNT NO; POSITIVE DIFFERENTIAL NO; POSITIVE MORPHOLOGY NO
[2017-12-27] MEDS: Iron Polysaccharide Complex 150 MG CAPSULE PO (09:32)
--- NOTE | 2017-12-27 09:47 | CASEMGMT ---
Plan of care meeting held. Resident present, no support person present. No discharge date set at this time. Resident plans to continue with further care and treatment on the Transitional Care Unit at this time. Resident plans to discharge home with daughter at time of discharge. Resident with next insurance update due on 12/28/17, resident aware that continued stay approval is not guaranteed. Resident declining for this social security benefits interviewer to contact resident daughter in regards to plan of care meeting. Support given. Will continue to follow. Elizabeth MCFADDEN, JACKET CHANGER
[2017-12-27] MEDS: Tuberculin,Purif.prot.deriv. 50 TU/ML Vial 5 ML ID (12:53)
[2017-12-27 15:30] VITALS: BP 113/67; PULSE 94; RESP 18; TEMP 36.6; O2SAT 95
[2017-12-27] MEDS: traZODone 100 MG Tablet PO (20:27)
--- NOTE | 2017-12-27 21:18 | NURSING ---
Dr. Morejon notified of patient c/o of indigestion at night. New orders given, patient updated.
[2017-12-28] MEDS: oxyCODONE 5 MG Tablet 10 MG PO ×4 (03:40→20:12)
[2017-12-28] MEDS: APIXABAN 2.5 MG TABLET PO ×2 (06:02→17:35)
[2017-12-28] MEDS: Escitalopram Oxalate 10 MG Tablet PO (06:03)
[2017-12-28] MEDS: levETIRAcetam 500 MG Tablet PO ×2 (06:03→17:35)
[2017-12-28] MEDS: Iron Polysaccharide Complex 150 MG CAPSULE PO (08:06)
--- NOTE | 2017-12-28 12:53 | CASEMGMT ---
Insurance Clinical information sent. Pending continued stay approval at this time. Auth#[id number] Elizabeth MCFADDEN, LEAD CARGOMAN
[2017-12-28 15:57] VITALS: BP 104/62; PULSE 90; RESP 18; TEMP 36.4; O2SAT 96
--- NOTE | 2017-12-28 19:34 | NURSING ---
Pt noted to have a rash to back. Dr. Morejon updated. Orders entered.
[2017-12-28 20:00] VITALS: PULSE 90; O2SAT 92
[2017-12-28] MEDS: Senna/Docusate Sodium 1 Tablet 2 TABLET PO (20:15)
[2017-12-28] MEDS: Mag Hydrox/Al Hydrox/Simeth 30 ML UDC 15 ML PO (22:48)
[2017-12-28] MEDS: Hydrocortisone 2.5% Crm 1 APPLIC TOPICAL (22:48)
[2017-12-28] MEDS: traZODone 100 MG Tablet PO (22:48)
[2017-12-29] MEDS: oxyCODONE 5 MG Tablet 10 MG PO ×4 (03:58→22:25)
[2017-12-29] MEDS: Hydrocortisone 2.5% Crm 1 APPLIC TOPICAL ×2 (06:33→22:21)
[2017-12-29] MEDS: levETIRAcetam 500 MG Tablet PO ×2 (06:34→17:15)
[2017-12-29] MEDS: APIXABAN 2.5 MG TABLET PO ×2 (06:34→17:15)
[2017-12-29] MEDS: Escitalopram Oxalate 10 MG Tablet PO (06:34)
[2017-12-29] MEDS: Polyethylene Glycol 3350 17 GM PACKET PO (06:34)
[2017-12-29] MEDS: Senna/Docusate Sodium 1 Tablet 2 TABLET PO ×2 (06:36→17:15)
[2017-12-29] MEDS: traMADol 50 MG Tablet PO (06:57)
[2017-12-29] MEDS: Iron Polysaccharide Complex 150 MG CAPSULE PO (06:59)
[2017-12-29 07:05] VITALS: PULSE 80; RESP 16
--- NOTE | 2017-12-29 10:16 | CASEMGMT ---
Insurance Continued stay denied with last cover day being 12/31/17 and resident to discharge on or financial responsibility to begin on 01/01/18. Auth#[id number] Elizabeth MCFADDEN, WEB PROJECT MANAGER
--- NOTE | 2017-12-29 10:17 | CASEMGMT ---
Social Work Spoke with resident in room. This clinical social work therapist communicating to resident that continue stay has been denied by insurance with a last cover day of 12/31/17 and resident to discharge or financial responsibility to begin on 01/01/18. Resident is not agreeable to discharge date. Resident issued NOMNOC. Resident signing NOMNOC and initiating appeal. Resident discharge plan in the event that the appeal is lost is to transition home alone with outpatient physical therapy through [facility]. Resident declining home health services as resident is reporting to have a dog that will not respond well to visitors. This clinical social work therapist broaching topic of ways to restrain dog while visitors are in the home, resident not open to having dog in other room while visitors are in the home. Resident voicing to not be able to get in and out of a car safely and to be concerned about being at home alone if resident would need to discharge on 01/01/18 (resident reporting to not be able to afford private pay and to not want to apply for medicaid). Support given. Proposed discharge date: 01/01/18 pending appeal. PLAN: Discharge home alone with outpatient physical therapy - in the event that appeal is lost. Elizabeth UPTONW, CABLE FERRY OPERATOR
--- NOTE | 2017-12-29 14:41 | PCM.DC ---
- Discharge Diagnoses Current Active Problems: Current Active and Chronic Problems Closed left hip fracture (Acute) You will use the following diet at home:: No restrictions, Regular Your food should be the consistency of: Regular Your liquids should be the consistency of: Regular/Thin Discharge Activity: Return to Normal Activity, May Shower, Use Walker Weight Bearing Status: Weight bearing as tolerated Call your doctor if you observe: Fever of 101 or Higher, Inability to urinate, Inability to have a bowel movement, Shortness of breath, Chest pain, Uncontrolled pain Allergies/Adverse Reactions: Allergies hydrocodone bitartrate [From Vicodin] Allergy (Mild, Verified 12/14/17 11:35) Rash itching and rash Milk Containing Products Adverse Reaction (Mild, Verified 12/14/17 11:35) Abd cramps/vomiting/nausea stomach upset, nausea, vomiting, cramping when to much milk is consumed Medications to take at Discharge levETIRAcetam tablet [Keppra tablet] 500 mg PO BID 05/16/14 traZODone [Desyrel] 100 mg PO QHS 06/17/15 Escitalopram Oxalate [Lexapro] 10 mg PO DAILY 10/04/17 Acetaminophen [Tylenol] 1,000 mg PO Q8H PRN PRN tablet 12/29/17 Apixaban [Eliquis] 2.5 mg PO BID #38 tab 12/29/17 Hydrocortisone 2.5% Crm [Hytone] 1 applic TOPICAL 0600,2200 #1 tube 12/29/17 Iron Polysaccharide Complex [Ferrex 150] 150 mg PO DAILYCM #30 cap 12/29/17 Mag Hydrox/Al Hydrox/Simeth [Mylanta II] 15 ml PO Q6H PRN PRN udc 12/29/17 Mineral Oil/Petrolatum,White [Eucerin] 1 applic TOPICAL 0600,2200 jar 12/29/17 Oxycodone [Oxyir] 10 mg PO Q4H PRN PRN #60 tablet 12/29/17 Polyethylene Glycol 3350 [Miralax] 17 gm PO DAILY #30 packet 12/29/17 Senna/Docusate Sodium [Senokot-S] 2 tab PO BID PRN #120 tab 12/29/17 traMADol [Ultram] 50 mg PO Q6H PRN PRN #30 tablet 12/29/17 The following prescriptions were given: Oxycodone [Oxyir] 10 mg PO Q4H PRN PRN #60 tablet PRN Reason: Severe Pain (6-10/10) traMADol [Ultram] 50 mg PO Q6H PRN PRN #30 tablet PRN Reason: Moderate Pain (4-5/10) Hydrocortisone 2.5% Crm [Hytone] 1 applic TOPICAL 0600,2200 #1 tube Iron Polysaccharide Complex [Ferrex 150] 150 mg PO DAILYCM #30 cap Polyethylene Glycol 3350 [Miralax] 17 gm PO DAILY #30 packet Apixaban [Eliquis] 2.5 mg PO BID #38 tab Senna/Docusate Sodium [Senokot-S] 2 tab PO BID PRN #120 tab PRN Reason: Constipation Primary Care Physician: Ashley Bennett DO [Primary Care Provider] - Please follow up with your Primary Care Physician in: 1 week. Please Follow Up With: Dr Freddy Guerra When: 2 weeks. Proposed Discharge Date: 01/01/18
--- NOTE | 2017-12-29 14:43 | PCM.DC.SUM ---
Discharge Date and Diagnosis - Problem List Patient Problems: Active and Suspected Problems Closed left hip fracture (Acute) Date of Admission: 12/19/17 Date of Discharge: 01/01/18 - Primary Discharge Diagnosis Active and Suspected Problems Closed left hip fracture (Acute) - Secondary Discharge Diagnosis Chronic Problems Hypertension (Chronic) Insomnia (Chronic) Tobacco abuse (Chronic) COPD (chronic obstructive pulmonary disease) (Chronic) Seizure disorder (Chronic) Depressed (Chronic) Cardiac dysrhythmia (Chronic) Anxiety (Chronic) Hospital Course and Treatment Imaging Results: 12/19/17 18:12 Diet: Regular Diet Operations: None Procedures: None Summary of Care Provided: The patient is a 67 year old Female with below past medical history hospitalized for left hip fracture, underwent closed reduction with open internal fixation using cephalo-medullary nail left femur per Dr. Guerra 12/15/2017, admitted to TCU with debility, here for rehabilitation, strengthening, prior to discharge home with family. Discharge home alone, with outpatient physical therapy. Discharge Diet: No Restrictions Discharge Activity: Return to Normal Activity, May Shower, Use Walker Weight Bearing Status: Weight bearing as tolerated Call your doctor if you observe: Fever of 101 or Higher, Inability to urinate, Inability to have a bowel movement, Shortness of breath, Chest pain, Uncontrolled pain Home Medications: Medications to take at Discharge levETIRAcetam tablet [Keppra tablet] 500 mg PO BID 05/16/14 traZODone [Desyrel] 100 mg PO QHS 06/17/15 Escitalopram Oxalate [Lexapro] 10 mg PO DAILY 10/04/17 Acetaminophen [Tylenol] 1,000 mg PO Q8H PRN PRN tablet 12/29/17 Apixaban [Eliquis] 2.5 mg PO BID #38 tab 12/29/17 Hydrocortisone 2.5% Crm [Hytone] 1 applic TOPICAL 0600,2200 #1 tube 12/29/17 Iron Polysaccharide Complex [Ferrex 150] 150 mg PO DAILYCM #30 cap 12/29/17 Mag Hydrox/Al Hydrox/Simeth [Mylanta II] 15 ml PO Q6H PRN PRN udc 12/29/17 Mineral Oil/Petrolatum,White [Eucerin] 1 applic TOPICAL 0600,2200 jar 12/29/17 Oxycodone [Oxyir] 10 mg PO Q4H PRN PRN #60 tablet 12/29/17 Polyethylene Glycol 3350 [Miralax] 17 gm PO DAILY #30 packet 12/29/17 Senna/Docusate Sodium [Senokot-S] 2 tab PO BID PRN #120 tab 12/29/17 traMADol [Ultram] 50 mg PO Q6H PRN PRN #30 tablet 12/29/17 Following Prescrptions Were Given to Patient: Oxycodone [Oxyir] 10 mg PO Q4H PRN PRN #60 tablet PRN Reason: Severe Pain (6-10/10) traMADol [Ultram] 50 mg PO Q6H PRN PRN #30 tablet PRN Reason: Moderate Pain (4-5/10) Hydrocortisone 2.5% Crm [Hytone] 1 applic TOPICAL 0600,2200 #1 tube Iron Polysaccharide Complex [Ferrex 150] 150 mg PO DAILYCM #30 cap Polyethylene Glycol 3350 [Miralax] 17 gm PO DAILY #30 packet Apixaban [Eliquis] 2.5 mg PO BID #38 tab Senna/Docusate Sodium [Senokot-S] 2 tab PO BID PRN #120 tab PRN Reason: Constipation Primary Care Physician: Ashley Bennett DO [Primary Care Provider] - Please follow up with your Primary Care Physician in: 1 week. Please Follow Up With: Dr Freddy Guerra When: 2 weeks. Disposition: Home Minutes spent on discharge:: 30 Patient Condition:: Good Medical Necessity - Tobacco Use Smoking Status: Current every day smoker Tobacco Use: Cigarettes Meaningful Use Info Meaningful Use Diagnoses (Choose all that apply): None applicable
--- NOTE | 2017-12-29 15:13 | CASEMGMT ---
Social Work Spoke with resident in room. Resident agreeable to this manager social work making referral for outpatient physical therapy in the event that resident looses appeal. Resident requesting for outpatient physical therapy to be set up through [facility] and is reporting to need the van for transportation. Resident aware that an order will be faxed to [facility] and then [facility] will contact van transportation to coordinate setting up appointment. Support given. Order faxed to [facility] for outpatient physical therapy, [facility] to contact manager social work will appointment date and time as well as when transportation will meat pickler resident. Proposed discharge date: 01/01/18 pending appeal. PLAN: Discharge home with daughter and outpatient physical therapy - pending appeal outcome. Elizabeth MCFADDEN, INFANTRY OPERATIONS SPECIALIST
[2017-12-29 15:23] VITALS: BP 99/60; PULSE 66; RESP 16; TEMP 36.7; O2SAT 97
[2017-12-29] MEDS: traZODone 100 MG Tablet PO (22:22)
[2017-12-30] MEDS: Hydrocortisone 2.5% Crm 1 APPLIC TOPICAL ×2 (06:08→20:40)
[2017-12-30] MEDS: oxyCODONE 5 MG Tablet 10 MG PO ×4 (06:12→20:39)
[2017-12-30] MEDS: Escitalopram Oxalate 10 MG Tablet PO (06:13)
[2017-12-30] MEDS: levETIRAcetam 500 MG Tablet PO ×2 (06:13→17:15)
[2017-12-30] MEDS: Polyethylene Glycol 3350 17 GM PACKET PO (06:14)
[2017-12-30] MEDS: APIXABAN 2.5 MG TABLET PO ×2 (06:14→17:14)
[2017-12-30] MEDS: Senna/Docusate Sodium 1 Tablet 2 TABLET PO ×2 (06:16→17:15)
[2017-12-30] MEDS: Iron Polysaccharide Complex 150 MG CAPSULE PO (08:37)
[2017-12-30 10:00] VITALS: PULSE 78; RESP 16; O2SAT 94
[2017-12-30 15:43] VITALS: BP 102/56; PULSE 75; RESP 20; TEMP 36.8; O2SAT 94
[2017-12-30] MEDS: traZODone 100 MG Tablet PO (20:46)
[2017-12-31] MEDS: Escitalopram Oxalate 10 MG Tablet PO (05:30)
[2017-12-31] MEDS: levETIRAcetam 500 MG Tablet PO ×2 (05:30→17:09)
[2017-12-31] MEDS: Senna/Docusate Sodium 1 Tablet 2 TABLET PO ×2 (05:30→17:10)
[2017-12-31] MEDS: Polyethylene Glycol 3350 17 GM PACKET PO (05:30)
[2017-12-31] MEDS: APIXABAN 2.5 MG TABLET PO ×2 (05:31→17:09)
[2017-12-31] MEDS: oxyCODONE 5 MG Tablet 10 MG PO ×4 (05:41→22:18)
[2017-12-31] MEDS: Iron Polysaccharide Complex 150 MG CAPSULE PO (08:03)
[2017-12-31] MEDS: traMADol 50 MG Tablet PO (08:05)
[2017-12-31 10:00] VITALS: PULSE 80; RESP 18; O2SAT 95
[2017-12-31] MEDS: Hydrocortisone 2.5% Crm 1 APPLIC TOPICAL ×2 (10:24→22:25)
[2017-12-31 16:00] VITALS: BP 110/62; PULSE 63; RESP 18; TEMP 36.5; O2SAT 99
[2017-12-31] MEDS: traZODone 100 MG Tablet PO (22:18)
[2018-01-01] MEDS: Polyethylene Glycol 3350 17 GM PACKET PO (05:28)
[2018-01-01] MEDS: Escitalopram Oxalate 10 MG Tablet PO (05:29)
[2018-01-01] MEDS: levETIRAcetam 500 MG Tablet PO (05:29)
[2018-01-01] MEDS: Menthol/Lanolin/Calamine/Znox 113 GM Tube 1 APPLIC TOPICAL (05:29)
[2018-01-01] MEDS: APIXABAN 2.5 MG TABLET PO (05:29)
[2018-01-01] MEDS: Senna/Docusate Sodium 1 Tablet 2 TABLET PO (05:29)
[2018-01-01] MEDS: oxyCODONE 5 MG Tablet 10 MG PO ×2 (07:27→11:38)
[2018-01-01] MEDS: Hydrocortisone 2.5% Crm 1 APPLIC TOPICAL (08:02)
[2018-01-01] MEDS: Iron Polysaccharide Complex 150 MG CAPSULE PO (08:02)
--- NOTE | 2018-01-01 08:57 | NURSING ---
Pt requesting Ventolin inhaler per her home dose, Dr. Morejon updated and new order received.
[2018-01-01 10:00] VITALS: RESP 16
--- NOTE | 2018-01-01 11:20 | CASEMGMT ---
Received voicemail that pt appeal has been denied and last covered day is 12/31 with d/c or financial liability starting 01/01. SW met with pt in room and informed her of appeal decision. Pt does not wish to stay and will plan on returning home. Pt calling her daughter to arrange for transportation home. Phone call to [facility] to confirm appointment. They do have order and will call patient to set up an appointment. Pt notifed pt to expect a phone call from [facility]. Nursing notified that pt dgt is on her way in to strip picker pt. Team notified of d/c today. No further d/c needs. LESA Nicole
--- NOTE | 2018-01-01 11:21 | MDS.RN ---
Information for the mds was obtained from review of the clinical record, interview of resident, staff, and direct observation of resident's care.
[2018-01-01 13:17] VITALS: BP 108/65; PULSE 85; RESP 20; TEMP 36.7; O2SAT 98
--- NOTE | 2018-01-01 14:59 | CASEMGMT ---
Insurance Call to insurance informing that pt d/c today with outpt therapy. Auth # [id number] LESA Hernandez
--- NOTE | 2018-01-22 07:52 | MDS.RN ---
DC MDS assessment due by 01/15/18 was completed on 01/18/18 due to hospital computers down
== END 2018-01-01 13:18 | disposition home or self-care (01) | DRG 561 ==
PROVIDERS: Admitting Provider Family Medicine Geriatric Medicine; Family Provider Family Medicine; PCP Family Medicine; Visit Provider Family Medicine Geriatric Medicine
DX: S72.002D Fracture of unspecified part of neck of left femur, subsequent encounter for closed fracture with routine healing (principal); Z96.642 Presence of left artificial hip joint; F32.9 Major depressive disorder, single episode, unspecified; G40.909 Epilepsy, unspecified, not intractable, without status epilepticus; I10 Essential (primary) hypertension; J44.9 Chronic obstructive pulmonary disease, unspecified; F41.9 Anxiety disorder, unspecified; Z79.899 Other long term (current) drug therapy; W55.12XD Struck by horse, subsequent encounter; Z98.1 Arthrodesis status; F17.210 Nicotine dependence, cigarettes, uncomplicated
CPT/HCPCS: 36415; 80048; 81001; 85025; 87086; 97110; 97116; 97162; 97166; 97530; 97535; 97802; 99406

== ENCOUNTER 2018-04-09 11:00 | Outpatient (RCR) | payer MEDICARE, SELFPAY ==
--- NOTE | 2018-01-24 10:48 | HP.PTEVAL ---
Patient's Visit Information KATE LEMUS is a 68 year old F referred to Physical Therapy by Kayden Morejon with a diagnosis of Left Femur Fracture with ORIF. Date of Evaluation: 01/24/18 Physical Therapist: Rylie Olivarez - Visit Plan Frequency: 3x /Week Duration: 4 Weeks Plan: Hip fracture with ORIF- WBAT- focus on strength/stabilization and functional mobility - Subjective Subjective: Broke right hip in Oct 02- did not have to have surgery- was NWb but that healed okay- she has mild pain. Broke left femur December 14 when her horse was spooked- had surgery at [place] on December [address] Guerra. Went to [facility] and came home December 28. Has been at home since then. Her daughter lives with her- she can help if she has to but does not like to help. Pain is located in the groin- radiates to the ankle. Patient reports WBAT through the LE- Was not using an AD before this happened. Worst: 03/23 Agg: being up on the leg Eases: ice Best: 10/21. Describes the pain as achy. Sleep: disturbed when she tries to move around- she also has restless leg syndrome. PMHx/Meds: no changes since last hospital stay. - Objective Posture: FH, RS, Increased kyphosis. Gait: antalgic- decreased stance on the left LE- FWW. Balance WS but unable to SLS. HR/TR: WNL with UE A. Stairs: not attempted secondary to ramp on house and safety. ROM: ankle/Knee: WFL Hip: flexion to 90 degrees, Abd/extn: WNL IR/ER: not tested. Palpation: tender along quad, medial knee and calf- not point tender. Strength: Ankle: 5/5, Knee: 4+/5, Hip: 4/5 throughout with discomfort Core: fair. Flex: HS: moderate, Gastroc: moderate. Sensation: WNL - Goals Goal 1:: Patient will be I with HEP and progression Goal Time Frame: 4-6 Weeks Goal 2:: Patient will ambulate >300 feet with a normalized gait pattern and LRD Goal Time Frame: 4-6 Weeks Goal 3:: Patient will demo 5/5 strength in LE Goal Time Frame: 4-6 Weeks Goal 4:: Patient will report 2/10 pain for 1 week Goal Time Frame: 4-6 Weeks Goal 5:: Patient will SLS for 10 sec without LOB Goal Time Frame: 4-6 Weeks - Rehabilitation Potential Physical Therapy Diagnosis: Patient presents with hypomobilty- she has decreased ROM, strength and muscular endurance leading to abnormal gait and increased pain with ADL's. Rehabilitation Potential: Fair - Anticipated Interventions Patient/Client Instruction: Educate patient on: Benefits of Fitness Program For the Purpose of:: To improve ability to perform ADL's Therapeutic Exercise to Include: Strength training, Endurance training, Balance training, Agility training, Body mechanics, Postural training, Flexibilty training, Gait and locomotor training, Dynamic Lumbar Stabilization For the Purpose of:: To improve muscle performance and motor function, To improve ability to perform ADL's TENS: Yes Cryotherapy (ice pack, ice massage): Yes Thermo therapy (hot pack): Yes Ultrasound (thermal/non thermal): No For the Purpose of:: To decrease pain Thank you for the opportunity to evaluate your patient. For Medicare and Medicare HMO plans, please review the plan of care and approve it. It will need to be FAXED BACK to us at [phone] for Medicare purposes. Please let me know if there are questions or concerns regarding this plan of care. Physician Signature: Date:
--- NOTE | 2018-05-04 10:25 | HP.PTDCSUM ---
HP - PT D/C Summary It has been my pleasure to treat KATE LEMUS under orders from Kayden Morejon, for the diagnosis of Left Femur Fracture with ORIF for a total of 11 visit(s). Discharge Date: Please see the following information for a summary of their discharge status. - Subjective Subjective: Patient reports that yesterday was a really bad day and she was not sure that she wanted to be here anymore but today is better and she is not having those thoughts. She is working with her MD for depression and plans to call him when she leaves here. She is worried about her daughter, daughters boyfriend, horse care etc. She is very depressed and cries throughout session. Goes back to MD for hip May 2-nd pain is a constant 6/10 she is using the cane only in the community and feels she is 60% better- wants to ride horses again - Pain L hip Pain Intensity (Out of 10): 7 L knee Pain Intensity (Out of 10): 7 - Overall Improvement % Improvement: 60 - Objective Objective/Function: PT spoke to patient about people to contact when she is having a bad day. suicide hotline and crisis center of [place]. Spoke to Sam Jackson who felt was the best course of action. Patient will contact MD when she leaves clinic. PT volunteered to contact physician but patient declined. Encouraged her to call people as needed and to get ahold of [facility]. - Goals Goal 1:: Patient will be I with HEP and progression Goal 2:: Patient will ambulate >300 feet with a normalized gait pattern and LRD Goal 3:: Patient will demo 5/5 strength in LE Goal 4:: Patient will report 2/10 pain for 1 week Goal 5:: Patient will SLS for 10 sec without LOB - Plan Plan: Discharge- - D/C Information If there are questions or concerns regarding this patient's physical therapy, please feel free to call me at [phone]. Thank you for the referral of this patient. Sincerely, Rylie Olivarez
== END 2018-04-09 19:00 | disposition home or self-care (01) ==
LOC: PT 11:00
PROVIDERS: Family Provider Family Medicine; PCP Family Medicine; Visit Provider Family Medicine Geriatric Medicine
DX: S72.002D Fracture of unspecified part of neck of left femur, subsequent encounter for closed fracture with routine healing (principal); J44.9 Chronic obstructive pulmonary disease, unspecified
CPT/HCPCS: 97110; 97162

== ENCOUNTER → 2020-03-27 | Outpatient (CLI) | payer MEDICARE, SELFPAY ==
[2020-03-19 09:19] VITALS: BMI 22.3
--- NOTE | 2020-03-27 09:23 | MRI_ITS ---
STUDY: MRI BRAIN WITHOUT CONTRAST REASON FOR EXAM: Female, 70 years old. History of seizures, recheck TECHNIQUE: Standardized multiplanar fat and water weighted pulse sequences were obtained. COMPARISON: None. FINDINGS: No restricted diffusion. Normal size of the ventricles and extra-axial spaces for the patient''s age. Small the T2 FLAIR hyperintensity foci in the white matter of both cerebral hemispheres are most likely chronic white matter ischemic changes. No midline shift and no mass effects. Thin coronal sections of the limbic lobes are also normal. Normal bilateral basal ganglia. Normal thalami. There is no extra-axial fluid accumulation. Normal flow voids within the major intracranial circulation suggesting patency by spin echo criteria. Normal sella turcica, pituitary gland, infundibular stalk, optic chiasm and hypothalamus. Normal tectal plate and pineal gland. Normal midbrain, alisia and medulla. Normal cerebellum. Normal basal cisterns. Normal bilateral temporal bones. Normal bilateral internal auditory canals. No demonstrated orbital abnormality, within the constraints of a routine brain study. Normal visualized paranasal sinuses. Normal calvarium and skull base. Normal visualized soft tissue structures. Normal visualized upper cervical spine. MRI/Brain without Contrast IMPRESSION: 1. No MRI evidence of acute or subacute ischemic infarct or intracranial mass. 2. Chronic white matter ischemic changes in both cerebral hemispheres. Electronically Signed: Salo Haney MD at 11:08 EDT , Service support ,
[2020-03-27 10:00] LABS: CREATININE FINGERSTICK 1.1 mg/dL (0.55-1.02)
== END | disposition home or self-care (01) ==
PROVIDERS: PCP Family Medicine; Referring Provider Psychiatry & Neurology Neurology; Visit Provider Psychiatry & Neurology Neurology
DX: R56.9 Unspecified convulsions (principal)
CPT/HCPCS: 70551

== ENCOUNTER → 2020-06-23 14:38 | Outpatient (CLI) | payer MEDICARE, SELFPAY ==
[2020-06-23 15:13] LABS: Ammonia < 10.0 umol/L (11-32)
== END ==
PROVIDERS: PCP Family Medicine; Visit Provider Nurse Practitioner Family
DX: G40.909 Epilepsy, unspecified, not intractable, without status epilepticus (principal)
CPT/HCPCS: 36415; 82140

== ENCOUNTER 2020-06-28 19:08 | Inpatient (IN) | payer MEDICARE, SELFPAY ==
[2020-06-28 17:49] VITALS: BMI 23.2
[2020-06-28 18:45] VITALS: BP 148/90; PULSE 73; RESP 18; TEMP 36.8; O2SAT 100
--- NOTE | 2020-06-28 19:13 | HP.PCM_ITS ---
Problem List (1) SBO (small bowel obstruction) Status: Acute (2) Epilepsy Status: Chronic Qualifiers: (3) Fatigue Status: Chronic Qualifiers: (4) MCI (mild cognitive impairment) Status: Chronic (5) Fall Status: Inactive (6) Hypertension Status: Chronic Qualifiers: (7) Insomnia Status: Chronic Qualifiers: (8) Tobacco abuse Status: Chronic (9) Closed left hip fracture Status: Inactive (10) Hip fracture, right Status: Inactive Qualifiers: Comment: Non-operable, conservative treatment, continue NWB status. (11) COPD (chronic obstructive pulmonary disease) Status: Chronic Qualifiers: (12) Seizure disorder Status: Chronic (13) Depressed Status: Chronic (14) Cardiac dysrhythmia Status: Chronic (15) Anxiety Status: Chronic History of Present Illness Date of Admission: 06/28/20 Chief Complaint: abdominal pain The patient is a 70 year old F Kina with abdominal pain, nausea, vomiting and diarrhea. Symptoms began today. Patient noted that her abdomen was slightly distended as well. Presented to [facility] and had a CAT scan that showed small bowel obstruction with a transition point at the midline in the upper pelvis. Patient requested transfer to [facility] for further management of her bowel obstruction. Patient denies ever having had a bowel obstruction before. At the outside emergency room, patient received 2 L of IV fluids and 2 doses of Zofran. Feeling better but still with abdominal pain. [] Past Medical History Past Medical History (Chronic Problems): Chronic Problems (Last Reviewed 06/28/20 @ 19:[address] Sam Guillaume DO) Epilepsy (Chronic) Fatigue (Chronic) MCI (mild cognitive impairment) (Chronic) Hypertension (Chronic) Insomnia (Chronic) Tobacco abuse (Chronic) COPD (chronic obstructive pulmonary disease) (Chronic) Seizure disorder (Chronic) Depressed (Chronic) Cardiac dysrhythmia (Chronic) Anxiety (Chronic) Medical History: Medical History (Last Reviewed 06/28/20 @ 19:[address] Sam Guillaume DO) Epilepsy (Chronic) G40.909 Fatigue (Chronic) R53.83 MCI (mild cognitive impairment) (Chronic) G31.84 Back problem M53.9 Hearing problem H91.90 History of emotional problems Z86.59 Osteoarthritis M19.90 Osteoporosis M81.0 Seizures R56.9 Chronic bronchitis J42 Allergies hydrocodone bitartrate [From Vicodin] Allergy (Mild, Verified 06/23/20 14:11) Rash itching and rash Home Medications: Ambulatory Orders Medication Instructions Recorded duloxetine 30 mg capsule,delayed 30 mg PO BID cap 03/19/20 release gabapentin 100 mg capsule 100 mg PO TID PRN PRN cap 03/19/20 lisinopril 10 mg tablet 10 mg PO DAILY tab 03/19/20 quetiapine 25 mg tablet 1 PO 03/19/20 levetiracetam 500 mg tablet 500 mg PO BID #180 tab 06/04/20 aspirin 81 mg tablet,delayed 81 mg PO DAILY 06/23/20 release oxybutynin chloride 5 mg 5 mg PO DAILY tab 06/23/20 tablet,extended release 24 hr Albuterol IH (ProAir) [Proair Hfa] 2 puff INHALATION Q4H PRN PRN 06/28/20 Surgical History: Surgical History (Last Reviewed 06/28/20 @ 19:[address] 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 Denies: Malaise Eyes: Denies: Blurred vision, Double vision HEENT: Denies: Head Aches, Sinus Congestion, Sinus Drainage Cardiovascular: Denies: Chest Pain, Palpitations Respiratory: Denies: Cough, Shortness of breath at rest, Sputum production Gastrointestinal: Reports: Abdominal Pain, Diarrhea, Nausea, Vomiting Genitourinary: Denies: Dysuria Musculoskeletal: Denies: Joint Pain, Joint Tenderness Skin: Denies: Rash, Wounds Neurological: Denies: Balance problems, Change in Speech Psychiatric: Reports: Depression. Denies: Anxiety Hematologic/ Lymphatic: Denies: Easy Bruising, Easy Bleeding, Hx of blood clot Comment: All review of systems were negative except as mentioned above in the history of present illness and the other review of systems. VTE Information - Inpt Only VTE Present on Admission: No VTE Mechan Device Prophylaxis: None VTE Pharm Prophylaxis ordered?: Yes Patient Problems: Active and Suspected Problems (Last Reviewed 06/28/20 @ 19:[address] Sam Guillaume DO) SBO (small bowel obstruction) (Acute) - Physical Exam Vitals/I&O's: Weight: 63.3 kg Body Mass Index (BMI) 23.2 General: Alert, No apparent distress HEENT: Atraumatic, Normocephalic Oral: Moist Mucosa, No Gingival or Mucosal Lesions/ Ulcerations Neck: No Nodes, Thyroid Normal Size and Texture Lungs: Clear to auscultation, Normal air movement, No rhonchi, No wheeze, No rales Cardiovascular: Regular rate, Regular Rhythm, Normal S1, Normal S2, No murmurs Abdomen: Hypoactive Bowel Sounds, - - Slightly distended but soft. Diffusely tender. Extremities: No edema, No Calf Tenderness Skin: No rashes, No breakdown Musculoskeletal: No Tenderness to Palpation of Joints or Extremities, No Muscle Wasting Neurological: Muscle tone normal, - - No clonus Psych/Mental Status: Normal Affect, Appropriate Labs: Urinalysis shows 5 gravity of 1.01, otherwise unremarkable. AST was 30, ALT 16, creatinine 1.63, sodium 130, potassium 3.9, CO2 22 CBC White count 9.11, hemoglobin 14.1, platelets 316 EKG reviewed showed normal sinus rhythm with no acute changes. CT scan: Liver no mass, no biliary duct dilation, gallbladder unremarkable, spleen unremarkable, pancreas unremarkable, adrenals unremarkable, kidneys unremarkable. GI tract. Small hiatal hernia, dilation of small bowel to 4 cm with transition point in the midline upper pelvis. Current Medications Sodium Chloride (0.9% Saline Lock 10 Ml Syringe) 10 - 40 ml IV UD PRN PRN Reason: SALINE FLUSH Assessment/Plan All Active Problems (Last Reviewed 06/28/20 @ 19:[address] Sam Guillaume DO) SBO (small bowel obstruction) (Acute) 1. Partial small bowel obstruction: Conservative management at this time. Plan is for IV fluids, n.p.o. with exception of meds and ice chips, pain control and antiemetics. Patient does get worse consider consulting general surgery. Is no t a surgical abdomen at this time. Anticipate improvement with conservative measures. 2. Seizure disorder: On levetiracetam. Patient continue with his medications while she is here. 3. Chronic pain: Complicates overall pain control. Hold her Cymbalta and gabapentin for now until she can take oral again. 4. COPD: Stable. Not on supplementary oxygen at this time. 5. VTE prophylaxis: Moderate risk. Enoxaparin. 6. Advanced care planning: Discussed with the patient. Patient wishes to be DNR Comfort Care arrest no intubation. Patient made aware that she is certainly welcome to change her mind at any time, however I told her I have minimal concerns for any need for any cardiopulmonary resuscitation during this hospitalization. Inpatient E&M: 85502 In Hosp L3
[2020-06-28] MEDS: 0.9% Normal Saline 1,000 ML 150 ML IV (19:53)
[2020-06-28] MEDS: Ondansetron 4 MG/2 ML Vial IV (20:18)
[2020-06-28] MEDS: Morphine 4 MG/ML Syringe IV (20:18)
[2020-06-28] MEDS: proCHLORPERazine 10 MG/2 ML Vial 5 MG IV (22:28)
[2020-06-28] MEDS: levETIRAcetam 500 MG Tablet PO (22:58)
[2020-06-28] MEDS: QUEtiapine 25 MG Tablet PO (22:58)
[2020-06-29 02:15] VITALS: BP 104/47; PULSE 81; RESP 20; TEMP 36.8; O2SAT 95
[2020-06-29] MEDS: 0.9% Normal Saline 1,000 ML 150 ML IV ×3 (02:35→15:46)
[2020-06-29 05:54] LABS: Absolute Lymphocyte Count 0.47 X10^3/uL (0.83-4.51); Absolute Neutrophil Count 4.3 X10^3/uL (2.0-7.7); Basophil# 0.01 X10^3/uL; Basophil% 0.2 % (0-1); Eosinophil# 0.06 X10^3/uL; Eosinophils% 1.1 % (0-5); Hematocrit 37.8 % (37-47); Hemoglobin 12.7 g/dL (12.0-15.0); Lymphocyte # 0.47 X10^3/ul (4.0); Lymphocyte % 8.9 % (19-41); Mean Corp Hgb Conc 33.6 g/dL (32-36); Mean Corpuscular Volume 95.2 fL (81-99); Mean Platelet Vol. 9.8 fl (6.2-12.0); Monocyte# 0.46 X10^3/uL; Monocyte% 8.7 % (0-10); NRBC Flagged by Analyzer 0 % (0-5); Neutrophil # 4.26 X10^3/uL (2.7-7.7); Neutrophil % 80.9 % (47-70); POSITIVE DIFFERENTIAL YES; Platelet Count 285 K/mm3 (150-450); RBC Distribution Width SD 42.4 fl (35.1-43.9); Red Blood Count 3.97 M/mm3 (4.2-5.4); White Blood Count 5.3 K/mm3 (4.4-11.0)
[2020-06-29 05:57] LABS: Differential Indicated SCAN CRITERIA MET
[2020-06-29 06:25] LABS: Differential Comment SCANNED
[2020-06-29 06:38] LABS: Anion Gap 3 (5-15); BUN 15 mg/dL (7-18); BUN/Creat Ratio 13.6 RATIO (10-20); Calcium,Total 8.3 mg/dL (8.5-10.1); Chloride 108 mmol/L (98-107); EST Glomerular Filtration Rate 52 mL/min (>60); Est Glom Filt Rate - Afr Amer 63 mL/min (>60); Estimated Creatinine Clearance 42.21 ml/min; Glucose 100 mg/dL (74-106); Potassium 4.4 mmol/L (3.5-5.1); Sodium Level 136 mmol/L (136-145)
[2020-06-29 08:55] VITALS: BP 108/70; PULSE 87; RESP 18; TEMP 37; O2SAT 98
[2020-06-29] MEDS: levETIRAcetam 500 MG Tablet PO (08:56)
[2020-06-29] MEDS: Enoxaparin 40 MG/0.4 ML Syringe SC (09:00)
--- NOTE | 2020-06-29 11:05 | CASEMGMT ---
RN RENEE Face to Face with patient for initial transition planning/care coordination assessment. RN CM introduced self and role at [facility]. Patient sitting in chair, alert and oriented. Patient willing to participate in assessment and is able to answer all questions appropriately. Care providers, pharmacy, and demographics verified. Patient wishes to discharge home, denies need for home health at this time. Patient states she has no further needs or concerns at this time. CM to follow for discharge planning needs that may arise. PCP: Ashley Bennett Specialists: John, pain; Pedro, neurology [facility]erred [facility]acy: [facility] Insurance: [facility] Prescription Benefit: yes Living Will/HPOA: yes son Darian Broderick LNOK: son, daughter Living Arrangements: Patient lives in a 2 story home with bed and bath on main level. Daughter lives on second floor. Patient states she is independent at home and has ramp to enter the home. Transportation: self/family/ [facility] Van DME/HHC: Patient states she has cane, walker, and tub bench at home. Patient denies previous HHC. Disposition Plan: Patient to discharge home with family support and follow-up plans in place. Fabi RETANA, RN, CM
[2020-06-29 14:15] VITALS: BP 118/70; PULSE 84; RESP 18; TEMP 36.9; O2SAT 100
--- NOTE | 2020-06-29 17:19 | DCINST_ITS ---
- Discharge Diagnoses Current Active Problems: Current Active and Chronic Problems (Last Reviewed 06/28/20 @ 19:[address] Sam Guillaume DO) SBO (small bowel obstruction) (Acute) Epilepsy (Chronic) Fatigue (Chronic) MCI (mild cognitive impairment) (Chronic) Hypertension (Chronic) Insomnia (Chronic) Tobacco abuse (Chronic) COPD (chronic obstructive pulmonary disease) (Chronic) Seizure disorder (Chronic) Depressed (Chronic) Cardiac dysrhythmia (Chronic) Anxiety (Chronic) You will use the following diet at home:: No restrictions Your food should be the consistency of: Regular Your liquids should be the consistency of: Regular/Thin Discharge Activity: Return to Normal Activity Weight Bearing Status: Full weight bearing Additional Instructions: Watch for constipation while taking Oxybutynin- you may take Miralax 17 grams daily if needed for constipation Allergies/Adverse Reactions: Allergies hydrocodone bitartrate [From Vicodin] Allergy (Mild, Verified 06/23/20 14:11) Rash itching and rash Medications to take at Discharge duloxetine 30 mg capsule,delayed release 30 mg PO BID cap 03/19/20 gabapentin 100 mg capsule 100 mg PO TID PRN PRN cap 03/19/20 lisinopril 10 mg tablet 10 mg PO DAILY tab 03/19/20 quetiapine 25 mg tablet 25 mg PO QHS 03/19/20 levetiracetam 500 mg tablet 500 mg PO BID #180 tab 06/04/20 aspirin 81 mg tablet,delayed release 81 mg PO DAILY 06/23/20 oxybutynin chloride 5 mg tablet,extended release 24 hr 5 mg PO DAILY tab 06/23/20 Albuterol IH (ProAir) [Proair Hfa] 2 puff INHALATION Q4H PRN PRN 06/28/20 Primary Care Physician: Ashley Bennett DO [Primary Care Provider] - Please follow up with your Primary Care Physician in: in 2-3 weeks Test Results: Test results from this visit will be discussed in further detail at your follow- up appointment, if applicable.
--- NOTE | 2020-06-29 17:22 | PCM.DC.SUM ---
Discharge Date and Diagnosis - Problem List Patient Problems: Active and Suspected Problems (Last Reviewed 06/28/20 @ 19:[address] Sam Guillaume DO) SBO (small bowel obstruction) (Acute) Date of Admission: 06/28/20 Date of Discharge: 06/29/20 - Primary Discharge Diagnosis Acute Problems: Active Problems (Last Reviewed 06/28/20 @ 19:[address] Sam Guillaume DO) #1 SBO (small bowel obstruction) (Acute) #2 epilepsy #3 essential hypertension #4 COPD - Secondary Discharge Diagnosis Chronic Problems: Chronic Problems (Last Reviewed 06/28/20 @ 19:[address] Sam Guillaume DO) Epilepsy (Chronic) Fatigue (Chronic) MCI (mild cognitive impairment) (Chronic) Hypertension (Chronic) Insomnia (Chronic) Tobacco abuse (Chronic) COPD (chronic obstructive pulmonary disease) (Chronic) Seizure disorder (Chronic) Depressed (Chronic) Cardiac dysrhythmia (Chronic) Anxiety (Chronic) Hospital Course and Treatment Operations: None Procedures: None Summary of Care Provided: The patient is a 70 year old F that was directly admitted from [facility] emergency room with a small bowel obstruction. Patient requested transfer to [facility] for ongoing care. Patient was directly admitted to [place] [address] and placed on clear liquids, she was not seen in consultation by general surgery, she did not have an NG tube placed. Patient was seen and examined by myself in the morning hours of 06/29/2020, according to the patient, she had had a bowel movement several hours before and was passing gas. At the time my examination, patient's abdomen was soft to palpation and she had good bowel sounds. Patient was observed throughout that day on 06/29/2020, she had no more complaints of abdominal pain or nausea or or vomiting. Patient's diet was advanced on that day and she tolerated a regular diet well. On 06/29/2020, patient was seen and examined: On examination she appeared in good health and spirits, she does not appear to be in any distress. Vital signs as documented. Skin warm and dry and without overt rashes. Neck without JVD, thyroid appears normal, trachea is midline, neck is supple. Lungs clear, normal air movement was noted. Heart exam notable for regular rhythm, normal sounds and absence of murmurs, rubs or gallops. Abdomen unremarkable and without evidence of organomegaly, masses, or abdominal aortic enlargement, bowel sounds are present in all 4 quadrants, no abdominal tenderness was noted. Extremities nonedematous, no cyanosis was noted, no clubbing was noted. Neuro: Cranial nerves II through XII are grossly intact, no focal motor deficits were noted, sensation to light touch and pinprick is intact, motor exam 5/5 throughout. Psych: Patient is alert and oriented x3, she does not appear anxious or depressed, she does not appear agitated. She was felt to be stable for discharge on 06/29/2020. Patient Problems: Active and Suspected Problems (Last Reviewed 06/28/20 @ 19:[address] Sam Guillaume, DO) SBO (small bowel obstruction) (Acute) - Physical Exam Vitals/I&O's: Vital Signs Temp Pulse Resp BP Pulse Ox 98.4 F 84 18 118/70 100 06/29/20 14:15 06/29/20 14:15 06/29/20 14:15 06/29/20 14:15 06/29/20 14:15 Oxygen Delivery Method Room Air Weight: 63.3 kg Body Mass Index (BMI) 23.2 Intake and Output for Last 24 Hours 06/27/20 06/28/20 06/29/20 23:59 23:59 23:59 Intake Total 3185.0 / 3185.0 Output Total 400 / 400 Balance 2785.0 / 2785.0 Laboratory Results 06/29/20 05:10: WBC 5.3, RBC 3.97 L, Hgb 12.7, Hct 37.8, MCV 95.2, MCH 32.0, MCHC 33.6, RDW Std Deviation 42.4, RDW Coeff of Ran 12.0, Plt Count 285, MPV 9.8, Immature Gran % (Auto) 0.200, Neut % (Auto) 80.9 H, Lymph % (Auto) 8.9 L, Lawrence % (Auto) 8.7, Eos % (Auto) 1.1, Baso % (Auto) 0.2, Absolute Neuts (auto) 4.3, Absolute Lymphs (auto) 0.47 L, Nucleated RBC % 0, Differential Comment SCANNED 06/29/20 05:10: Sodium 136, Potassium 4.4, Chloride 108 H, Carbon Dioxide 25.0, Anion Gap 3 L, BUN 15, Creatinine 1.10 H, Estim Creat Clear Calc 42.21, Est GFR (MDRD) Af Amer 63, Est GFR (MDRD) Non-Af 52 L, BUN/Creatinine Ratio 13.6, Glucose 100, Calcium 8.3 L Current Medications Albuterol Sulfate (Albuterol 2.5 Mg/3 Ml Vial.Neb.) 2.5 mg INHALATION Q4H PRN PRN PRN Reason: wheezing/SOB Enoxaparin Sodium (Enoxaparin 40 Mg/0.4 Ml Syringe) 40 mg SC DAILY [facility] Last Admin: 06/29/20 09:00 Dose: 40 mg Documented by: Sodium Chloride () 1,000 mls @ 150 mls/hr IV .Q6H40M [facility] Last Infusion: 06/29/20 17:15 Dose: Infused Documented by: Levetiracetam (Levetiracetam 500 Mg Tablet) 500 mg PO BID [facility] Last Admin: 06/29/20 08:56 Dose: 500 mg Documented by: Morphine Sulfate (Morphine 2 Mg/Ml Syringe) 2 mg IV Q3H PRN PRN PRN Reason: Pain Score 4-5 Morphine Sulfate (Morphine 4 Mg/Ml Syringe) 4 mg IV Q3H PRN PRN PRN Reason: Pain Score 6-10 Last Admin: 06/28/20 20:18 Dose: 4 mg Documented by: Ondansetron HCl (Ondansetron 4 Mg/2 Ml Vial) 4 mg IV Q8H PRN PRN PRN Reason: NAUSEA/VOMITING Last Admin: 06/28/20 20:18 Dose: 4 mg Documented by: Prochlorperazine Edisylate (Prochlorperazine 10 Mg/2 Ml Vial) 5 mg IV Q4H PRN PRN PRN Reason: Breakthrough nausea/vomiting Last Admin: 06/28/20 22:28 Dose: 5 mg Documented by: Quetiapine Fumarate (Quetiapine 25 Mg Tablet) 25 mg PO QHS [facility] Last Admin: 06/28/20 22:58 Dose: 25 mg Documented by: Sodium Chloride (0.9% Saline Lock 10 Ml Syringe) 10 - 40 ml IV UD PRN PRN Reason: SALINE FLUSH Discharge Activity: Return to Normal Activity Weight Bearing Status: Full weight bearing Home Medications: Medications to take at Discharge duloxetine 30 mg capsule,delayed release 30 mg PO BID cap 03/19/20 gabapentin 100 mg capsule 100 mg PO TID PRN PRN cap 03/19/20 lisinopril 10 mg tablet 10 mg PO DAILY tab 03/19/20 quetiapine 25 mg tablet 25 mg PO QHS 03/19/20 levetiracetam 500 mg tablet 500 mg PO BID #180 tab 06/04/20 aspirin 81 mg tablet,delayed release 81 mg PO DAILY 06/23/20 oxybutynin chloride 5 mg tablet,extended release 24 hr 5 mg PO DAILY tab 06/23/20 Albuterol IH (ProAir) [Proair Hfa] 2 puff INHALATION Q4H PRN PRN 06/28/20 Primary Care Physician: Ashley Bennett DO [Primary Care Provider] - Please follow up with your Primary Care Physician in: in 2-3 weeks Disposition: Home Minutes spent on discharge:: 31 Patient Condition:: Stable Medical Necessity - Tobacco Use Smoking Status: Current every day smoker Meaningful Use Info Meaningful Use Diagnoses (Choose all that apply): None applicable Inpatient E&M: 42311 Disch Hosp
== END 2020-06-29 18:50 | disposition home or self-care (01) | DRG 390 ==
PROVIDERS: PCP Family Medicine; Visit Provider Internal Medicine
DX: K56.600 Partial intestinal obstruction, unspecified as to cause (principal); G40.909 Epilepsy, unspecified, not intractable, without status epilepticus; G89.29 Other chronic pain; J44.9 Chronic obstructive pulmonary disease, unspecified; Z66 Do not resuscitate; I10 Essential (primary) hypertension; Z79.899 Other long term (current) drug therapy; F17.200 Nicotine dependence, unspecified, uncomplicated; Z23 Encounter for immunization
CPT/HCPCS: 80048; 85025; 99406; G0008; J7030; 90686; J2405

== ENCOUNTER → 2021-03-04 13:04 | Outpatient (CLI) | payer MEDICARE, SELFPAY ==
[2020-06-28 17:49] VITALS: BMI 23.2
[2021-03-04 13:49] LABS: Ammonia < 10.0 umol/L (11-32)
== END ==
PROVIDERS: PCP Family Medicine; Referring Provider Nurse Practitioner Family; Visit Provider Nurse Practitioner Family
DX: G40.909 Epilepsy, unspecified, not intractable, without status epilepticus (principal)
CPT/HCPCS: 36415; 82140

== ENCOUNTER → 2023-01-04 | Outpatient (CLI) | payer MEDICARE, SELFPAY ==
[2023-01-05 15:08] LABS: KEPPRA (LEVETIRACETAM) 25.9 ug/mL (10.0-40.0)
== END | disposition home or self-care (01) ==
LOC: LAB 11:23
PROVIDERS: PCP Family Medicine; Referring Provider Psychiatry & Neurology Neurology; Visit Provider Psychiatry & Neurology Neurology
DX: G40.909 Epilepsy, unspecified, not intractable, without status epilepticus (principal)
CPT/HCPCS: 36415; 80177; 82140

== ENCOUNTER → 2023-09-26 | Outpatient (CLI) | payer MEDICARE, SELFPAY ==
--- OUTSIDE RECORDS SUMMARY | 2023-09-26 11:45 | XMS RPT_ITS | CCD ---
Author Name Unknown Address [address] [place] [address] Organization [facility] Care Team Providers Care [employer] Name Role Phone Sheets DO, Erasmo Shen Primary Care Provider [phone] ANNA TEJADA Attending Unavailable SHEETS, ERASMO C Referring Unavailable SHEETS, ERASMO C Primary Care Unavailable SHEETS, ERASMO C Referring Unavailable SHEETS, ERASMO C Primary Care Unavailable Sheets DO, Erasmo C Primary Care Provider [phone] SHEETS, ERASMO C Referring Unavailable SHEETS, ERASMO C Primary Care Unavailable SHEETS, ERASMO C Referring Unavailable SHEETS, ERASMO C Primary Care Unavailable SHEETS, ERASMO C Primary Care Unavailable ANNE-MARIE DIANE Attending Unavailable SHEETS, ERASMO C Referring Unavailable SHEETS, ERASMO C Primary Care Unavailable SHEETS, ERASMO C Referring Unavailable SHEETS, REASMO C Primary Care Unavailable SHEETS, ERASMO C Attending Unavailable SHEETS, ERASMO C Primary Care Unavailable SHEETS, ERASMO C Attending Unavailable SHEETS, ERASMO C Primary Care Unavailable SHEETS, ERASMO C Primary Care Unavailable SHEETS, ERASMO C Primary Care Unavailable SHEETS, ERASMO C Referring Unavailable SHEETS, ERASMO C Primary Care Unavailable Allergies Allergy Classification Reported Allergen(s) Allergy Type Date of Onset Reaction(s) Facility (20 sources) Acetaminophen / HYDROcodone; Translations: [HYDROCODONE-ACETA MINOPHEN] Drug Allergy 06-20-2016 Itching [facility] Medications Current Medications Medication Drug Class(es) Dates Sig (Normalized) Sig (Original) predniSONE 20 mg oral tablet (1 source) Start: 12-07-2021 End: 12-12-2021 take 2 tablets by mouth once daily predniSONE (DELTASONE) 20 mg tablet Indications: COPD with exacerbation (HCC) Take 2 tablets by mouth once daily for 5 days. 10 tablet 0 12/07/2021 12/12/2021 Active Completed/Discontinued Medications Medication Drug Class(es) Dates Sig (Normalized) Sig (Original) [id number] 200 actuat albuterol 0.09 mg/actuat metered dose inhaler (20 sources) beta2-Adrenergic Agonist Start: 04-22-2021 End: 05-29-2023 take 2 puff(s) by inhalation every four hours as needed albuterol HFA (PROAIR HFA) 90 mcg/actuation inhaler Indications: Other emphysema (HCC) Inhale 2 Puffs as instructed every 4 hours as needed. 18 g 2 05/29/2023 Active Problems Active Problems Problem Classification Problem Date Documented Da te Episodic/Chronic Anxiety disorders (20 sources) Anxiety; Translations: [Anxiety disorder, unspecified] Onset: 06-15-2021 06-15-2021 Chronic Chronic kidney disease (20 sources) Chronic kidney disease stage 3A ; Translations: [Stage 3a chronic kidney disease] Onset: 12-29-2021 12-29-2021 Chronic Chronic obstructive pulmonary disease and bronchiectasis (20 sources) Acute exacerbation of chronic obstructive airways disease; Translations: [Chronic obstructive pulmonary disease with (acute) exacerbation] Onset: 01-03-2022 Chronic Disorders of lipid metabolism (20 sources) Mixed hyperlipidemia; Translations: [Mixed hyperlipidemia] Onset: 05-09-2021 05-09-2021 Chronic Epilepsy; convulsions (20 sources) Seizure disorder; Translations: [Epilepsy, unspecified, not intractable, without status epilepticus] 08-10-2021 Chronic Essential hypertension (20 sources) Essential hypertension; Translations: [Essential (primary) hypertension] Onset: 01-27-2018 08-12-2019 Chronic Genitourinary symptoms and ill-defined conditions (20 sources) Urinary incontinence; Translations: [Unspecified urinary incontinence] Onset: 01-18-2018 01-18-2018 Chronic Immunizations and screening for infectious disease (7 sources) Patient encounter status; Translations: [Encounter for immunization] Onset: 10-31-2022 Episodic Malaise and fatigue (2 sources) Fatigue; Translations: [Other fatigue] Onset: 05-29-2023 05-29-2023 Episodic Mood disorders (20 sources) Recurrent major depression in partial remission; Translations: [Major depressive disorder, recurrent, in partial remission] Onset: 06-23-2016 06-23-2016 Chronic Nausea and vomiting (1 source) Nausea; Translations: [Nausea] Episodic Nonspecific chest pain (2 sources) Chest pain; Translations: [Other chest pain] Onset: 05-30-2023 05-30-2023 Episodic Osteoarthritis (20 sources) Osteoarthritis of multiple joints ; Translations: [Polyosteoarthritis, unspecified] Onset: 02-13-2018 02-13-2018 Chronic Other aftercare (2 sources) Long-term current use of antipsychotic medication; Translations: [Other terminal gauger (current) drug therapy] Episodic Other aftercare (1 source) Removal of sutures done; Translations: [Encounter for removal of sutures] Episodic Other aftercare (1 source) Other correction (current) drug therapy; Translations: [terminal operator current use of antipsychotic medication] Onset: 05-29-2023 Episodic Other hereditary and degenerative nervous system conditions (20 sources) Restless legs; Translations: [Restless legs syndrome] Onset: 01-23-2018 01-23-2018 Chronic Other injuries and conditions due to external causes (1 source) Post-traumatic wound infection; Translations: [Other injury of unspecified body region, initial encounter] Episodic Other lower respiratory disease (1 source) Persistent cough; Translations: [Persistent cough] Episodic Other nervous system disorders (1 source) Other chronic pain; Translations: [Chronic pain of both knees] Onset: 05-29-2023 Chronic Other non-traumatic joint disorders (5 sources) Pain in right knee; Translations: [Pain in joint, lower leg] Onset: 05-29-2023 05-29-2023 Episodic Other non-traumatic joint disorders (1 source) Pain in left knee; Translations: [Chronic pain of both knees] Onset: 05-29-2023 Episodic Peripheral and visceral atherosclerosis (20 sources) Peripheral vascular disease; Translations: [Peripheral vascular disease, unspecified] Onset: 01-27-2022 Chronic Substance-related disorders (20 sources) Moderate smoker (20 or less per day) ; Translations: [Nicotine dependence, cigarettes, uncomplicated] Onset: 09-19-2016 09-19-2016 Chronic Unclassified (1 source) Subacute cough; Translations: [Subacute cough] Onset: 10-31-2022 Unclassified (1 source) Concussion with unknown loss of consciousness status, initial encounter; Translations: [Concussion with unknown loss of consciousness status, initial encounter] Onset: 07-26-2022 Varicose veins of lower extremity (1 source) Venous varices; Translations: [Varicose veins of right lower extremity with other complications] Episodic Past or Other Problems Problem Classification Problem Date Documented Date Episodic/Chronic Fracture of neck of femur (hip) (20 sources) Closed fracture of hip; Translations: [Fracture of unspecified part of neck of unspecified femur, initial encounter for closed fracture] Onset: 01-03-2022 01-03-2022 Episodic Miscellaneous mental health disorders (20 sources) Acute insomnia; Translations: [Adjustment insomnia] Onset: 09-19-2016 09-19-2016 Episodic Open wounds of head; neck; and trunk (1 source) Laceration without foreign body of scalp, initial encounter; Translations: [Laceration of scalp, initial encounter] Onset: 07-26-2022 Episodic Other injuries and conditions due to external causes (1 source) Other injury of unspecified body region, initial encounter; Translations: [Wound infection, posttraumatic] Onset: 08-03-2022 Episodic Other lower respiratory disease (19 sources) Cough; Translations: [Cough] Onset: 10-31-2022 Episodic Other nervous system disorders (20 sources) Impaired cognition; Translations: [Other symptoms and signs involving cognitive functions and awareness] Onset: 01-03-2022 01-03-2022 Episodic Other screening for suspected conditions (not mental disorders or infectious disease) (1 source) Encounter for screening for malignant neoplasm of colon; Translations: [Screening for colon cancer] Onset: 10-31-2022 Episodic Residual codes; unclassified (20 sources) Postmenopausal state; Translations: [Asymptomatic menopausal state] Onset: 03-06-2018 03-06-2018 Episodic Skin and subcutaneous tissue infections (1 source) Local infection of the skin and subcutaneous tissue, unspecified; Translations: [Wound infection, posttraumatic] Onset: 08-03-2022 Episodic Spondylosis; intervertebral disc disorders; other back problems (20 sources) Chronic neck pain; Translations: [Cervicalgia] Onset: 09-19-2016 09-19-2016 Episodic Superficial injury; contusion (1 source) Contusion of scalp, initial encounter; Translations: [Hematoma of scalp, initial encounter] Onset: 07-26-2022 Episodic Results Test Name Value Interpretation Reference Range Facil ity Vital Signs Date Time Vital Sign Value Performing Clinician Nilay ariza 05-30-2023 15:01-0400 Diastolic blood pressure 76 mm[Hg] Nurse Emile Work Phone: [facility] 05-30-2023 15:01-0400 Systolic blood pressure 122 mm[Hg] Nurse Emile Work Phone: [facility] 05-29-2023 08:09-0400 Body height 165.1 cm Erasmo Sheets DO Work Phone: [facility] 05-29-2023 08:09-0400 Body temperature 98.1 [degF] Erasmo Sheets DO Work Phone: [facility] 05-29-2023 08:09-0400 Body weight 58.15 kg Erasmo Sheets DO Work Phone: [facility] 05-29-2023 08:09-0400 Diastolic blood pressure 78 mm[Hg] Erasmo Sheets DO Work Phone: [facility] 05-29-2023 08:09-0400 Heart rate 80 /min Erasmo Sheets DO Work Phone: [facility] 05-29-2023 08:09-0400 Respiratory rate 16 /min Erasmo Sheets DO Work Phone: [facility] 05-29-2023 08:09-0400 Systolic blood pressure 124 mm[Hg] Erasmo Sheets DO Work Phone: [facility] 10-31-2022 10:34-0400 Body height 165.1 cm Erasmo Sheets DO Work Phone: [facility] 10-31-2022 10:34-0400 Body temperature 98.2 [degF] Erasmo Sheets DO Work Phone: [facility] 10-31-2022 10:34-0400 Body weight 57.06 kg Erasmo Sheets DO Work Phone: [facility] 10-31-2022 10:34-0400 Diastolic blood pressure 68 mm[Hg] Erasmo Sheets DO Work Phone: [facility] 10-31-2022 10:34-0400 Heart rate 93 /min Erasmo Sheets DO Work Phone: [facility] 10-31-2022 10:34-0400 Respiratory rate 16 /min Erasmo Sheets DO Work Phone: [facility] 10-31-2022 10:34-0400 SaO2% (BldA) [Mass fraction] 93 % Erasmo Sheets DO Work Phone: [facility] 10-31-2022 10:34-0400 Systolic blood pressure 120 mm[Hg] Erasmo Sheets DO Work Phone: [facility] 08-25-2022 08:46-0500 Body temperature 98.29 [degF] Nurse Grandin Work Phone: [facility] 08-25-2022 08:46-0500 Diastolic blood pressure 68 mm[Hg] Nurse Grandin Work Phone: [facility] 08-25-2022 08:46-0500 Systolic blood pressure 118 mm[Hg] Nurse Grandin Work Phone: [facility] 08-03-2022 10:50-0500 Body temperature 98.49 [degF] Nurse Grandin Work Phone: [facility] 08-03-2022 10:50-0500 Diastolic blood pressure 70 mm[Hg] Nurse Grandin Work Phone: [facility] 08-03-2022 10:50-0500 Systolic blood pressure 120 mm[Hg] Nurse Grandin Work Phone: [facility] 04-12-2022 15:33-0400 Body height 165.1 cm Annavika Tejada DO Work Phone: [facility] 04-12-2022 15:33-0400 Body weight 54.88 kg Anna Tejada DO Work Phone: [facility] 04-12-2022 15:33-0400 Diastolic blood pressure 74 mm[Hg] Anna Tejada DO Work Phone: [facility] 04-12-2022 15:33-0400 Heart rate 80 /min Anna Tejada DO Work Phone: [facility] 04-12-2022 15:33-0400 SaO2% (BldA) [Mass fraction] 97 % Anna Tejada DO Work Phone: [facility] 04-12-2022 15:33-0400 Systolic blood pressure 156 mm[Hg] Anna Tejada DO Work Phone: [facility] 01-14-2022 15:46-0400 Body height 165.1 cm Earsmo Sheets DO Work Phone: [facility] 01-14-2022 15:46-0400 Body temperature 99 [degF] Erasmo Sheets DO Work Phone: [facility] 01-14-2022 15:46-0400 Body weight 56.7 kg Erasmo Sheets DO Work Phone: [facility] 01-14-2022 15:46-0400 Diastolic blood pressure 74 mm[Hg] Erasmo Sheets DO Work Phone: [facility] 01-14-2022 15:46-0400 Heart rate 95 /min Erasmo Sheets DO Work Phone: [facility] 01-14-2022 15:46-0400 Respiratory rate 16 /min Erasmo Sheets DO Work Phone: [facility] 01-14-2022 15:46-0400 SaO2% (BldA) [Mass fraction] 96 % Erasmo Sheets DO Work Phone: [facility] 01-14-2022 15:46-0400 Systolic blood pressure 116 mm[Hg] Erasmo Sheets DO Work Phone: [facility] 12-07-2021 10:09-0400 Body height 165.1 cm Esther Leung [employer] S[employer].OIL SPRAYING MACHINE OPERATOR Work Phone: [facility] 12-07-2021 10:09-0400 Body temperature 97.59 [degF] Esther Leung [employer] S[employer]TER.OIL SPRAYING MACHINE OPERATOR Work Phone: [facility] 12-07-2021 10:09-0400 Body weight 56.88 kg Esther Saabden [employer]YSTER SORTER.OIL SPRAYING MACHINE OPERATOR Work Phone: [facility] 12-07-2021 10:09-0400 Diastolic blood pressure 60 mm[Hg] Esther Saabden OYSTER SORTER.OIL SPRAYING MACHINE OPERATOR Work Phone: [facility] 12-07-2021 10:09-0400 Heart rate 88 /min Esther Saabgali OYSTER SORTER.OIL SPRAYING MACHINE OPERATOR Work Phone: [facility] 12-07-2021 10:09-0400 SaO2% (BldA) [Mass fraction] 92 % Esther Saabgali [employer]YSTER SORTER.OIL SPRAYING MACHINE OPERATOR Work Phone: [facility] 12-07-2021 10:09-0400 Systolic blood pressure 106 mm[Hg] Esther Leung [employer]YSTER S[employer]TER.OIL SPRAYING MACHINE OPERATOR Work Phone: [facility] Encounters Encounter Date Encounter Type Care Provider Facility Start: 06-06-2023 Telephone encounter Erasmo Shen Sheets DO Work Phone: [facility] Procedures Date Procedure Procedure Detail Performing Clinician Start: 05-30-2023 ECG B/O MEDICARE ONL Y W/INTERP Erasmo C Sheets DO Work Phone: Start: 05-29-2023 INFLUENZA VACCINE, P RSV FREE, AGE 65+ YR, HIGH DOSE, QUADRIVALENT (FLUZONE HIGH-DOSE) Erasmo C Sheets DO Work Phone: Start: 05-29-2023 Lipid 1996 panel - S brenda or Plasma Erasmo Sheets DO Work Phone: Start: 08-25-2022 [employer] COVI D-19 BIVALENT BOOSTER VACCINE, AGE 12+ YR Erasmo C Sheets DO Work Phone: Start: 08-03-2022 INFLUENZA SEASONAL QUADRIVALENT HIGH DOSE AGE 65+ Erasmo C Sheets DO Work Phone: Start: 06-22-2020 Lipid 1996 panel - S brenda or Plasma Erasmo Sheets DO Work Phone: Start: 12-11-2012 Mammography Erasmo S heets DO Work Phone: Plan of Treatment Date Care Activity Detail Author Start: 05-26-2032 Urine microalbumin profile [facility] Start: 05-29-2028 Lipid 1996 panel - S brenda or Plasma Lipid Screening [facility] Start: 05-29-2026 Diabetes Screening Diabetes Screenin g [facility] Start: 12-01-2025 COLOGUARD (FIT-DNA) COLOGUARD (FIT-D NA) [facility] Start: 12-01-2025 COLORECTAL CANCER SCREENING COLORECTAL CANCER SCREENING [facility] Start: 06-22-2025 Lipid 1996 panel - S brenda or Plasma Lipid Screening [facility] Start: 06-22-2025 LIPID SCREEN LIPID SCREEN [facility] Start: 03-19-2025 DIABETES SCREEN DIABETES SCREEN [facility] Start: 03-19-2025 Diabetes Screening Diabetes Screenin g [facility] Start: 05-30-2024 BP Controlled (<130/80) BP Controlle d (<130/80) [facility] Start: 05-29-2024 Annual PCP Team Cabinet Mounter riley Disease Visit Annual PCP Team Chronic Disease Visit [facility] Start: 05-29-2024 BP Controlled (<130/80) BP Controlle d (<130/80) [facility] Start: 05-29-2024 Serum Creatinine Serum Creatinine Cl [facility] Start: 05-29-2024 Shingrix Vaccine (1 of 2) Marroquin grix Vaccine (1 of 2) [facility] Immunizations Immunization Date Immunization Notes Care Provider Beverly madden 05-29-2023 influenza (HD-IIV4) vaccine, age 65+ yr, high dose, quadrivalent, PF (FLUZONE HIGH-DOSE) Erasmo Sheets DO Work Phone: [facility] 10-31-2022 zoster RZV vaccine, PF, (SHINGRIX) 50 mcg/0.5 mL injection Erasmo Sheets DO Work Phone: [facility] Payers Date Payer Category Payer Medicare UHC AARP MEDICAR E [facility] AARP MEDICARE HMO [id number] 2019-Present [phone] [address] [address] [place] [address] O [id number] 2019 Medicare UHC AARP MEDICAR E [facility] AARP MEDICARE HMO [id number] 2019-Present [phone] [address] [address] [place] [address] O [id number] 2019 Medicare [id number] Social History Date Type Detail Facility Start: [birth year]-14-1969 End: 05-29-2023 Tobacco smoking status NHIS Smokes tobacco daily [facility] Start: [birth year]-14-1969 History of tobacco use Cigarette Smo ker [facility] Start: 06-20-2016 End: 05-29-2023 Tobacco use and exposure Smokeless tobacco non-user [facility] Start: 10-14-2021 End: 05-29-2023 Alcohol intake Current drinker of alcohol (finding) [facility] Start: 06-20-2016 History SDOH Alcohol Comment Nominal [facility] Start: 06-11-2019 End: 04-12-2022 Tobacco Comment Current smoker; Smoking details Tobacco comments 1 pk/day; Tobacco reviewed with patient 02/12/2016 [facility] Start: 1950 Sex Assigned At Not on file C [facility] Start: 11-23-2021 End: 05-26-2022 Exposure to SARS-CoV-2 (event) Not sure [facility] Start: 08-26-2022 End: 10-31-2022 History of Social function [facility] [place] [facility] Start: 08-26-2022 End: 10-31-2022 Tobacco use panel [facility] Adult Depression Scr eening Assessment 6 [facility] Clinical Notes 08-27-2018 to 06-06-2023 Telephone Encounter - Rowan Corbett MA - 06/06/2023 2:57 PM EDTTelephone Encounter - Erasmo Bennett DO - 06/06/2023 1:32 PM EDTSErasmo anglin DO - 05/30/2023 3:09 PM EDTPatient Instructions Note Date & Type Note Facility 06-06-2023 Miscellaneous Notes Patient notified. Rowan Corbett MA Please notify pt xrays of knees shows mild osteoarhrtitis, no other abnormalities Erasmo Bennett DO documented in this encounter [facility] 05-30-2023 Note HNO ID: [id number] Author: Erasmo Bennett DO Service: ? Author Type: Physician Type: Progress Notes Filed: 05/30/2023 3:11 PM Note Text: Pt is here for EKG. She has been having chest pressure, nausea and vomiting. EKG shows NSR today. Pt told to take Tums that she has at home to see if that helps. Rx for omeprazole 20 mg to take daily on an empty stomach for 2 weeks to see if that relieves discomfort. Pt has appt for f/u in 2 months Erasmo Bennett DO [facility] 05-30-2023 History of Presen t illness Narrative Pt is here for EKG. She has been having chest pressure, nausea and vomiting. EKG shows NSR today. Pt told to take Tums that she has at home to see if that helps. Rx for omeprazole 20 mg to take daily on an empty stomach for 2 weeks to see if that relieves discomfort. Pt has appt for f/u in 2 months Erasmo Bennett DO documented in this encounter [facility] 05-30-2023 Miscellaneous Notes I called pt back to discuss her symptoms. She has this once a day. She is not having the pain currently. I advised pt to come in today for a nurse visit. Erasmo Bennett DO Patient called stating leyla dominguez gets really bad indigestion with heaviness in her chest. She states that she has to force herself to vomit for relief. She would like to know what she can take to help. Renuka Nolan MA documented in this encounter [facility] 05-29-2023 Note HNO ID: [id number] Author: Kathryn Man RT(R) Service: ? Author Type: Technologist Type: Progress Notes Filed: 05/29/2023 10:04 AM Note Text: Radiology Service Progress Note PATIENT NAME: Kate Broderick DATE OF SERVICE: May 29, 2023 TIME: 10:04 AM PATIENT IDENTITY VERIFICATION COMPLETED USING TWO (2) IDENTIFIERS: Name and Date of confirmed by patient verbally. FALL SCREENING: Has the patient had 2 falls in the last year or 1 fall with injury or currently using an Ambulatory Assistive Device (Walker, Cane, Wheelchair, Crutches, etc.)? No PATIENT GENDER DATA: Female. status: : No status: NO. PATIENT RELEVANT IMPLANT DATA REVIEWED: Not Applicable RADIOLOGY DEPARTMENT: General X-ray: Exam(s) Completed: Lower Extremity X-Ray(s): Knee, AP / LAT Bilateral PERIPHERAL IV DATA: Not applicable SIGNED BY: RT Smita(R) May 29, 2023 10:04 AM [facility] 05-29-2023 Note HNO ID: [id number] Author: Erasmo Bennett DO Service: ? Author Type: Physician Type: Progress Notes Filed: 05/29/2023 11:36 AM Note Text: Subjective HPI Pt is here to discuss b/l lower extremity pain She is concerned it is due to poor circulation She saw Dr. Tejada, vascular specialist, on 04/12/22 Dr. Tejada recommended a venous incompetence study Pt does not think she proceeded with this study The patient is concerned because her feet are purple She feels like her legs are weak After she sits for a while, it is hard for her to get up She is not exercising because he knees hurt She is feeling tired, has little motivation to get things done She has a history of depression. She is taking cymbalta 60 mg bid and seroquel 100 mg at bedtime She continues to feel depressed She cannot afford the copay for a psychiatrist She is taking gabapentin 100 mg tid She is under the care of Mac Burnett, pain management She continues to smoke 1 PPD ALLERGIES Allergen Reactions Vicodin [Hydrocodon* Itching Current Outpatient Medications Medication Sig Dispense Refill albuterol HFA (PROAIR HFA) 90 mcg/actuation inhaler Inhale 2 Puffs as instructed every 4 hours as needed. 18 g 2 ascorbic acid, vitamin C, (VITAMIN C) 500 mg tablet Take 500 mg by mouth once daily. aspirin, enteric coated (ASPIRIN, ENTERIC COATED) 81 mg EC tablet Take 81 mg by mouth once daily. atorvastatin (LIPITOR) 40 mg tablet TAKE 1 TABLET BY MOUTH ONCE DAILY 90 tablet 3 benzonatate (TESSALON PERLES) 100 mg capsule Take 1 capsule by mouth three times daily as needed. 90 capsule 1 budesonide-formoterol (SYMBICORT) 160-4.5 mcg/actuation inhaler Inhale 2 Puffs as instructed twice daily. (Patient not taking: Reported on 05/29/2023) 10.2 g 2 calcium carbonate (CALCIUM 600 ORAL) Take 2 tablets by mouth once daily. cyanocobalamin (VITAMIN B-12) 500 mcg tablet Take by mouth once daily. cyclobenzaprine (FLEXERIL) 5 mg tablet Take 5 mg by mouth three times daily as needed. DULoxetine (CYMBALTA) 60 mg capsule TAKE 1 CAPSULE BY MOUTH TWICE DAILY 180 capsule 3 Ferrous Sulfate 134 mg (27 mg iron) tab Take 134 mg by mouth. (Patient not taking: Reported on 01/14/2022) fluticasone (FLONASE ALLERGY RELIEF) 50 mcg/actuation nasal spray Use 1 [place] in each nostril once daily. (Patient not taking: Reported on 04/12/2022) 1 Each 2 gabapentin (NEURONTIN) 100 mg capsule Take 100 mg by mouth three times daily. guaiFENesin (MUCINEX) 600 mg 12 hr tablet Take 1 tablet by mouth twice daily. (Patient not taking: Reported on 05/29/2023) 14 tablet 0 hydrOXYzine HCl (ATARAX) 25 mg tablet Take 1 tablet by mouth three times daily as needed. 270 tablet 0 levETIRAcetam (KEPPRA) 500 mg tablet Take 1 tablet by mouth twice daily. 60 tablet 0 lisinopril (ZESTRIL) 10 mg tablet TAKE 1 TABLET BY MOUTH ONCE DAILY 100 tablet 2 LYSINE ORAL Take by mouth. nabumetone (RELAFEN) 500 mg tablet Take 1 tablet by mouth once daily. OTC PRODUCT Nervive (Patient not taking: Reported on 05/29/2023) oxybutynin XL (DITROPAN XL) 5 mg 24 hr tablet Take 1 tablet by mouth once daily. (Patient not taking: Reported on 05/29/2023) 90 tablet 0 oxybutynin XL (DITROPAN XL) 5 mg 24 hr tablet Take 1 tablet by mouth once daily. (Patient not taking: Reported on 05/29/2023) 90 tablet 1 oxybutynin XL (DITROPAN XL) 5 mg 24 hr tablet TAKE 1 TABLET BY MOUTH DAILY 90 tablet 3 QUEtiapine (SEROQUEL) 50 mg tablet TAKE 1 TO 2 TABLETS BY MOUTH DAILY AT BEDTIME 180 tablet 3 No current facility-administered medications for this visit. 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) Chronic Neck Pain Adjustment Insomnia Moderate Smoker (20 Or Less Per Day) History of substance abuse (HCC) Urinary Incontinence Restless Leg Syndrome Osteoarthritis of Multiple Joints Postmenopausal Lumbar Back Pain Essential (Primary) Hypertension Hyperlipidemia, Mixed Anxiety Srinivasa (Generalized Anxiety Disorder) Stage 3a Chronic Kidney Disease (Hcc) Chronic Obstructive Pulmonary Disease (Hcc) Closed Fracture of Hip (Hcc) Impaired Cognition Small Vessel Disease (Hcc) Subacute Cough Social History Tobacco Use Smoking status: Every Day Packs/day: 1 Types: Cigarettes Start date: 08/14/1969 Smokeless tobacco: Never Tobacco comments: Current smoker; Smoking details Tobacco comments 1 pk/day; Tobacco reviewed with patient 02/12/2016 Vaping Use Vaping Use: Former Substance Use Topics Alcohol use: Yes Comment: Nominal Drug use: No Comment: No reported history Family History Problem Relation Age of Onset Psychiatry Sister Depressive disorder Reviewed past medical history, family history and surgeries. All medications and supplements were reviewed with the patient. Review of Systems Constitutional: Positive for malaise/fatigue. Negative for chills, diaphoresis, fever and weight loss. HE (more content not included)... [facility] 05-29-2023 History of Presen t illness Narrative Radiology Service Progress Note PATIENT NAME: Kate Broderick DATE OF SERVICE: May 29, 2023 TIME: 10:04 AM PATIENT IDENTITY VERIFICATION COMPLETED USING TWO (2) IDENTIFIERS: Name and Date of confirmed by patient verbally. FALL SCREENING: Has the patient had 2 falls in the last year or 1 fall with injury or currently using an Ambulatory Assistive Device (Walker, Cane, Wheelchair, Crutches, etc.)? No PATIENT GENDER DATA: Female. status: : No status: NO. PATIENT RELEVANT IMPLANT DATA REVIEWED: Not Applicable RADIOLOGY DEPARTMENT: General X-ray: Exam(s) Completed: Lower Extremity X-Ray(s): Knee, AP / LAT Bilateral PERIPHERAL IV DATA: Not applicable SIGNED BY: RT Smita(R) May 29, 2023 10:04 AM documented in this encounter [facility] 05-29-2023 Nurse Note Immunizations were given as ordered. Vaccination information sheet(s) given. Lexy Granados MA documented in this encounter [facility] 05-29-2023 History of Presen t illness Narrative Subjective HPI Pt is here to discuss b/l lower extremity pain She is concerned it is due to poor circulation She saw Dr. Tejada, vascular specialist, on 04/12/22 Dr. Tejada recommended a venous incompetence study Pt does not think she proceeded with this study The patient is concerned because her feet are purple She feels like her legs are weak After she sits for a while, it is hard for her to get up She is not exercising because he knees hurt She is feeling tired, has little motivation to get things done She has a history of depression. She is taking cymbalta 60 mg bid and seroquel 100 mg at bedtime She continues to feel depressed She cannot afford the copay for a psychiatrist She is taking gabapentin 100 mg tid She is under the care of Mac Burnett, pain management She continues to smoke 1 PPD ALLERGIES Allergen Reactions Vicodin [Hydrocodon* Itching Current Outpatient Medications Medication Sig Dispense Refill albuterol HFA (PROAIR HFA) 90 mcg/actuation inhaler Inhale 2 Puffs as instructed every 4 hours as needed. 18 g 2 ascorbic acid, vitamin C, (VITAMIN C) 500 mg tablet Take 500 mg by mouth once daily. aspirin, enteric coated (ASPIRIN, ENTERIC COATED) 81 mg EC tablet Take 81 mg by mouth once daily. atorvastatin (LIPITOR) 40 mg tablet TAKE 1 TABLET BY MOUTH ONCE DAILY 90 tablet 3 benzonatate (TESSALON PERLES) 100 mg capsule Take 1 capsule by mouth three times daily as needed. 90 capsule 1 budesonide-formoterol (SYMBICORT) 160-4.5 mcg/actuation inhaler Inhale 2 Puffs as instructed twice daily. (Patient not taking: Reported on 05/29/2023) 10.2 g 2 calcium carbonate (CALCIUM 600 ORAL) Take 2 tablets by mouth once daily. cyanocobalamin (VITAMIN B-12) 500 mcg tablet Take by mouth once daily. cyclobenzaprine (FLEXERIL) 5 mg tablet Take 5 mg by mouth three times daily as needed. DULoxetine (CYMBALTA) 60 mg capsule TAKE 1 CAPSULE BY MOUTH TWICE DAILY 180 capsule 3 Ferrous Sulfate 134 mg (27 mg iron) tab Take 134 mg by mouth. (Patient not taking: Reported on 01/14/2022) fluticasone (FLONASE ALLERGY RELIEF) 50 mcg/actuation nasal spray Use 1 [place] in each nostril once daily. (Patient not taking: Reported on 04/12/2022) 1 Each 2 gabapentin (NEURONTIN) 100 mg capsule Take 100 mg by mouth three times daily. guaiFENesin (MUCINEX) 600 mg 12 hr tablet Take 1 tablet by mouth twice daily. (Patient not taking: Reported on 05/29/2023) 14 tablet 0 hydrOXYzine HCl (ATARAX) 25 mg tablet Take 1 tablet by mouth three times daily as needed. 270 tablet 0 levETIRAcetam (KEPPRA) 500 mg tablet Take 1 tablet by mouth twice daily. 60 tablet 0 lisinopril (ZESTRIL) 10 mg tablet TAKE 1 TABLET BY MOUTH ONCE DAILY 100 tablet 2 LYSINE ORAL Take by mouth. nabumetone (RELAFEN) 500 mg tablet Take 1 tablet by mouth once daily. OTC PRODUCT Nervive (Patient not taking: Reported on 05/29/2023) oxybutynin XL (DITROPAN XL) 5 mg 24 hr tablet Take 1 tablet by mouth once daily. (Patient not taking: Reported on 05/29/2023) 90 tablet 0 oxybutynin XL (DITROPAN XL) 5 mg 24 hr tablet Take 1 tablet by mouth once daily. (Patient not taking: Reported on 05/29/2023) 90 tablet 1 oxybutynin XL (DITROPAN XL) 5 mg 24 hr tablet TAKE 1 TABLET BY MOUTH DAILY 90 tablet 3 QUEtiapine (SEROQUEL) 50 mg tablet TAKE 1 TO 2 TABLETS BY MOUTH DAILY AT BEDTIME 180 tablet 3 No current facility-administered medications for this visit. 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) Chronic Neck Pain Adjustment Insomnia Moderate Smoker (20 Or Less Per Day) History of substance abuse (HCC) Urinary Incontinence Restless Leg Syndrome Osteoarthritis of Multiple Joints Postmenopausal Lumbar Back Pain Essential (Primary) Hypertension Hyperlipidemia, Mixed Anxiety Srinivasa (Generalized Anxiety Disorder) Stage 3a Chronic Kidney Disease (Hcc) Chronic Obstructive Pulmonary Disease (Hcc) Closed Fracture of Hip (Hcc) Impaired Cognition Small Vessel Disease (Hcc) Subacute Cough Social History Tobacco Use Smoking status: Every Day Packs/day: 1 Types: Cigarettes Start date: 08/14/1968 Smokeless tobacco: Never Tobacco comments: Current smoker; Smoking details Tobacco comments 1 pk/day; Tobacco reviewed with patient 02/12/2016 Vaping Use Vaping Use: Former Substance Use Topics Alcohol use: Yes Comment: Nominal Drug use: No Comment: No reported history Family History Problem Relation Age of Onset Psychiatry Sister Depressive disorder Reviewed past medical history, family history and surgeries. All medications and supplements were reviewed with the patient. Review of Systems Constitutional: Positive for malaise/fatigue. Negative for chills, diaphoresis, fever and weight loss. HENT: Negative for ear pain and hearing loss. Eyes: Negative for blurred vision and double vision. Respiratory: Negative for cough and shortness of breath. Cardiovascular: Negative for chest pain, palpitations and leg swelling. Gastrointestinal: Negative for constipation, diarrhea and heartburn. Genitourinary: Negative for dysuria and frequency. Musculoskeletal: Positive for joint pain. Negative for back pain, falls and myalgias. B/l lower extremity pain Skin: Negative for itching and rash. Neurological: Negative for dizziness, weakness and headaches. Endo/Heme/Allergies: Does not bruise/bleed easily. Psychiatric/Behavioral: Positive for depression. Negative for substance abuse. The patient does not have insomnia. Objective BP 124/78 Pulse 80 Temp 36.7 C (98.1 F) Resp 16 Ht 165.1 cm (5' 5 ) Wt 58.2 kg (128 lb 3.2 oz) BMI 21.33 kg/m Physical Exam Constitutional: Appearance: Normal appearance. HENT: Head: Normocephalic and atraumatic. Nose: Nose normal. Mouth/Throat: Mouth: Mucous membranes are moist. Dentition: Normal dentition. Eyes: General: Lids are normal. Extraocular Movements: Extraocular movements intact. Conjunctiva/sclera: Conjunctivae normal. Pupils: Pupils are equal, round, and reactive to light. Neck: Thyroid: No thyroid mass or thyromegaly. Vascular: No carotid bruit. Trachea: Phonation normal. Cardiovascular: Rate and Rhythm: Normal rate and regular rhythm. Heart sounds: Normal heart sounds. No murmur heard. No friction rub. No gallop. Pulmonary: Effort: Pulmonary effort is normal. Breath sounds: Normal breath sounds. No wheezing or rales. Abdominal: General: Bowel sounds are normal. There is no distension. Palpations: Abdomen is soft. There is no mass. Tenderness: There is no abdominal tenderness. Musculoskeletal: General: No swelling or tenderness. Normal range of motion. Cervical back: Normal range of motion and neck supple. No edema. Comments: Dusky discoloration of feet b/l with cool toes, no ulcers Lymphadenopathy: Cervical: No cervical adenopathy. Skin: General: Skin is warm and dry. Findings: No erythema or rash. Nails: There is no clubbing. Neurological: Mental Status: She is alert and oriented to person, place, and time. Cranial Nerves: No cranial nerve deficit. Motor: Motor function is intact. Coordination: Coordination normal. Gait: Gait is intact. Psychiatric: Attention and Perception: Attention normal. Mood and Affect: Mood and affect normal. Speech: Speech normal. Behavior: Behavior normal. Behavior is cooperative. Thought Content: Thought content normal. Cognition and Memory: Cognition and memory normal. Judgment: Judgment normal. ASSESSMENT/PLAN: 1. Essential (primary) hypertension - ICD9: 401.9, ICD10: I10 (primary diagnosis) - Controlled - Recommend home blood pressure monitoring, to bring results to next visit - Encouraged sodium restriction, DASH or Mediterranean diet - Recommend regular aerobic exercise 2. Anxiety with depression - ICD9: 300.4, ICD10: F41.8 Pt is taking cymbalta 60 mg bid, which is the maximum dosage of this medication She is also taking seroquel 100 mg nightly, and I am not comfortable increasing the dosage of this medication Pt does not want to see a psychiatrist, because she cannot afford the copay Pt to continue current medications for now, consider referral to psychiatrist in the future - DULOXETINE 60 MG CAPSULE,DELAYED RELEASE 3. Chronic pain of both knees - ICD9: 719.46, 338.29, ICD10: M25.561, M25.562, G89.29 - XR KNEE LIMITED 2V AP/LAT LEFT - XR KNEE LIMITED 2V AP/LAT RIGHT - XR KNEE SURVEY ARTHRITIS 1V AP BILATERAL 4. Small vessel disease (HCC) - ICD9: 443.9, ICD10: I73.[address] Kee, who wanted her to get a venous imcompetency test 5. Other fatigue - ICD9: 780.79, ICD10: R53.83 - TSH BLD 6. Other emphysema (HCC) - ICD9: 492.8, ICD10: J43.8 - ALBUTEROL SULFATE HFA 90 MCG/ACTUATION AEROSOL INHALER 7. Primary osteoarthritis involving multiple joints - ICD9: 715.98, ICD10: M15.9 Continue NABUMETONE 500 MG TABLET 8. Encounter for immunization - ICD9: V03.89, ICD10: Z23 - INFLUENZA VACCINE, PRSV FREE, AGE 65+ YR, HIGH DOSE, QUADRIVALENT (FLUZONE HIGH-DOSE) - IMADM PRQ ID SUBQ/IM NJXS 1 VACC 9. Moderate smoker (20 or less per day) - ICD9: 305.1, ICD10: F17.210 - Cessation encouraged. - Physiologic and physical aspects of tobacco addiction as well as strategies for quitting were discussed. - Counseling was given focusing on the harmful effects of this addiction especially given the patient's medical condition(s) which will be worsened because of the chemicals in tobacco. Erasmo Bennett DO documented in this encounter [facility] 05-25-2023 Miscellaneous Notes The patient has been scheduled with [facility] for 05/29/23 at 8:00 am. Brandi Gutierrez LM on pt. Vm apt. Needed and that our office will call her later today to schedule appointment. Please help assist . Thanks. Rowan Corbett MA Please notify pt she should make appt because we will need to order testing before I can refer her Erasmo Bennett DO' Patient called stating she would like a referral to a good vascular surgeon because her feet are getting purple. Renuka Nolan MA documented in this encounter [facility] 05-24-2023 Miscellaneous Notes Patient is informed Renuka Nolan MA Pt due for fasting blood work - order attached Erasmo Bennett DO pharmacy electronically requesting refills as follows: Last seen 10/31/22 . Last refill 02/16/23 . Requested Prescriptions Pending Prescriptions Disp Refills QUEtiapine (SEROQUEL) 50 mg tablet [Pharmacy Med Name: QUEtiapine Fumarate 50 MG Oral Tablet] 180 tablet 3 Sig: TAKE 1 TO 2 TABLETS BY MOUTH DAILY AT BEDTIME Please review and advise. Lexy Granados MA documented in this encounter [facility] 03-29-2023 Miscellaneous Notes pharmacy electronically requesting refills as follows: Last seen 10/31/22 . Last refill 08/17/22 . Requested Prescriptions Pending Prescriptions Disp Refills lisinopril (ZESTRIL) 10 mg tablet [Pharmacy Med Name: Lisinopril 10 MG Oral Tablet] 100 tablet 2 Sig: TAKE 1 TABLET BY MOUTH ONCE DAILY Please review and advise. Lexy Granados MA documented in this encounter [facility] 03-02-2023 Miscellaneous Notes Patient requesting refills as follows: Last Office Visit 10/31/22. Last Refill 12/06/21. Requested Prescriptions Pending Prescriptions Disp Refills albuterol HFA (PROAIR HFA) 90 mcg/actuation inhaler 18 g 2 Sig: Inhale 2 Puffs as instructed every 4 hours as needed. Please review and advise. Renuka Nolan MA documented in this encounter [facility] 02-16-2023 Miscellaneous Notes dunaway requesting refills: Last office visit 10/31/2022. Last refill 01/18/2023. Nov none Requested Prescriptions Pending Prescriptions Disp Refills QUEtiapine (SEROQUEL) 50 mg tablet 180 tablet 0 Sig: Take 1-2 tablets by mouth daily at bedtime. Please review and advise. Rowan Corbett MA documented in this encounter [facility] 01-19-2023 Miscellaneous Notes Script was sent in yesterday documented in this encounter [facility] 12-22-2022 Miscellaneous Notes pharmacy electronically requesting refills as follows: Last seen 10/31/22 . Last refill 06/22/22 . Requested Prescriptions Pending Prescriptions Disp Refills oxybutynin XL (DITROPAN XL) 5 mg 24 hr tablet [Pharmacy Med Name: Oxybutynin Chloride ER 5 MG Oral Tablet Extended Release 24 Hour] 90 tablet 3 Sig: TAKE 1 TABLET BY MOUTH DAILY Please review and advise. Lexy Granados MA documented in this encounter [facility] 11-28-2022 Miscellaneous Notes No Show Documentation Kate Broderick no showed for an appointment on 11/28/22 with Erasmo Bennett DO at 10:20 am. She was scheduled for follow up, depression. I called and spoke with the patient regarding her missed appointment. Kate stated the reason that she missed her appointment was because forgot about appointment . Resources discussed/offered to patient: to reschedule No show determined to be fault of patient: Yes This is the patients first no show in the last 12 months. Patient was rescheduled for not at this time, Pt stated appt was not needed. Letter mailed : Yes Is this the Third or Fourth No Show ? No Montserrat Horne November 28, 2022 11:14 AM documented in this encounter [facility] 10-31-2022 Note HNO ID: [id number] Author: Erasmo Bennett DO Service: ? Author Type: Physician Type: Progress Notes Filed: 10/31/2022 9:36 PM Note Text: Subjective Depression Pertinent negatives include no weakness. Pertinent negatives include no fever. Pt is here for f/u for depression Her depression was better, but now she feels worthless She is not suicidal The last time she was here in 02/02, she had a cough A chest xray was ordered, but she has not had that test. Her cough has resolved She was also concerned about her feet turning purple PVR was done on 01/27/22 She was diagnosed with right small vessel disease She saw Dr. Tejada, vascular, who recommended she stop smoking and keep her feet covered so they stay warm She continues to smoke 1-2 PPD ALLERGIES Allergen Reactions Vicodin [Hydrocodon* Itching Current Outpatient Medications Medication Sig Dispense Refill OTC PRODUCT Nervive lisinopril (ZESTRIL, PRINIVIL) 10 mg tablet TAKE 1 TABLET BY MOUTH ONCE DAILY 90 tablet 3 atorvastatin (LIPITOR) 40 mg tablet Take 1 tablet by mouth every other day. (Patient taking differently: Take 40 mg by mouth once daily.) 45 tablet 1 oxybutynin XL (DITROPAN XL) 5 mg 24 hr tablet Take 1 tablet by mouth once daily. 90 tablet 1 oxybutynin XL (DITROPAN XL) 5 mg 24 hr tablet Take 1 tablet by mouth once daily. 90 tablet 0 QUEtiapine (SEROQUEL) 25 mg tablet TAKE 1 TO 2 TABLETS BY MOUTH DAILY AT BEDTIME 180 tablet 3 DULoxetine (CYMBALTA) 60 mg capsule TAKE 1 CAPSULE BY MOUTH TWICE DAILY 180 capsule 3 benzonatate (TESSALON PERLES) 100 mg capsule Take 1 capsule by mouth three times daily as needed. 90 capsule 1 ascorbic acid, vitamin C, (VITAMIN C) 500 mg tablet Take 500 mg by mouth once daily. cyanocobalamin (VITAMIN B-12) 500 mcg tablet Take by mouth once daily. budesonide-formoterol (SYMBICORT) 160-4.5 mcg/actuation inhaler Inhale 2 Puffs as instructed twice daily. 10.2 g 2 albuterol HFA (PROAIR HFA) 90 mcg/actuation inhaler Inhale 2 Puffs as instructed every 4 hours as needed. 18 g 2 cyclobenzaprine (FLEXERIL) 5 mg tablet Take 5 mg by mouth three times daily as needed. hydrOXYzine HCl (ATARAX) 25 mg tablet Take 1 tablet by mouth three times daily as needed. 270 tablet 0 aspirin, enteric coated (ASPIRIN, ENTERIC COATED) 81 mg EC tablet Take 81 mg by mouth once daily. LYSINE ORAL Take by mouth. calcium carbonate (CALCIUM 600 ORAL) Take 2 tablets by mouth once daily. levETIRAcetam (KEPPRA) 500 mg tablet Take 1 tablet by mouth twice daily. 60 tablet 0 gabapentin (NEURONTIN) 100 mg capsule Take 100 mg by mouth three times daily. zoster RZV vaccine, PF, (SHINGRIX) 50 mcg/0.5 mL injection Inject 0.5 mL intramuscularly one time only for 1 dose. Repeat 2nd dose in 2-6 months. 1 Each 1 ondansetron (ZOFRAN) 8 mg tablet Take 1 tablet by mouth every 8 hours as needed for nausea/vomiting. (Patient not taking: Reported on 10/31/2022) 30 tablet 0 Ferrous Sulfate 134 mg (27 mg iron) tab Take 134 mg by mouth. (Patient not taking: No sig reported) fluticasone (FLONASE ALLERGY RELIEF) 50 mcg/actuation nasal spray Use 1 [place] in each nostril once daily. (Patient not taking: No sig reported) 1 Each 2 guaiFENesin (MUCINEX) 600 mg 12 hr tablet Take 1 tablet by mouth twice daily. (Patient not taking: No sig reported) 14 tablet 0 No current facility-administered medications for this visit. 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) Chronic Neck Pain Adjustment Insomnia Moderate Smoker (20 Or Less Per Day) History of substance abuse (HCC) Urinary Incontinence Restless Leg Syndrome Osteoarthritis of Multiple Joints Postmenopausal Lumbar Back Pain Essential (Primary) Hypertension Hyperlipidemia, Mixed Anxiety Srinivasa (Generalized Anxiety Disorder) Stage 3a Chronic Kidney Disease (Hcc) Chronic Obstructive Pulmonary Disease (Hcc) Closed Fracture of Hip (Hcc) Impaired Cognition Social History Tobacco Use Smoking status: Every Day Types: Cigarettes Start date: 08/14/1968 Smokeless tobacco: Never Tobacco comments: Current smoker; Smoking details Tobacco comments 1 pk/day; Tobacco reviewed with patient 02/12/2016 Vaping Use Vaping Use: Former Substance Use Topics Alcohol use: Yes Comment: Nominal Drug use: No Comment: No reported history Family History Problem Relation Age of Onset Psychiatry Sister Depressive disorder Reviewed past medical history, family history and surgeries. All medications and supplements were reviewed with the patient. Review of Systems Constitutional: Negative for chills, diaphoresis, fever, malaise/fatigue and weight loss. HENT: Negative for ear pain and hearing loss. Eyes: Negative for blurred vision and double vision. Respiratory: Negative for cough and shortness of breath. Cardiovascular: Negative for chest pain, palpitations and leg swelling. Gastro (more content not included)... [facility] 10-31-2022 History of Presen t illness Narrative Subjective Depression Pertinent negatives include no weakness. Pertinent negatives include no fever. Pt is here for f/u for depression Her depression was better, but now she feels worthless She is not suicidal The last time she was here in 02/02, she had a cough A chest xray was ordered, but she has not had that test. Her cough has resolved She was also concerned about her feet turning purple PVR was done on 01/27/22 She was diagnosed with right small vessel disease She saw Dr. Tejada, vascular, who recommended she stop smoking and keep her feet covered so they stay warm She continues to smoke 1-2 PPD ALLERGIES Allergen Reactions Vicodin [Hydrocodon* Itching Current Outpatient Medications Medication Sig Dispense Refill OTC PRODUCT Nervive lisinopril (ZESTRIL, PRINIVIL) 10 mg tablet TAKE 1 TABLET BY MOUTH ONCE DAILY 90 tablet 3 atorvastatin (LIPITOR) 40 mg tablet Take 1 tablet by mouth every other day. (Patient taking differently: Take 40 mg by mouth once daily.) 45 tablet 1 oxybutynin XL (DITROPAN XL) 5 mg 24 hr tablet Take 1 tablet by mouth once daily. 90 tablet 1 oxybutynin XL (DITROPAN XL) 5 mg 24 hr tablet Take 1 tablet by mouth once daily. 90 tablet 0 QUEtiapine (SEROQUEL) 25 mg tablet TAKE 1 TO 2 TABLETS BY MOUTH DAILY AT BEDTIME 180 tablet 3 DULoxetine (CYMBALTA) 60 mg capsule TAKE 1 CAPSULE BY MOUTH TWICE DAILY 180 capsule 3 benzonatate (TESSALON PERLES) 100 mg capsule Take 1 capsule by mouth three times daily as needed. 90 capsule 1 ascorbic acid, vitamin C, (VITAMIN C) 500 mg tablet Take 500 mg by mouth once daily. cyanocobalamin (VITAMIN B-12) 500 mcg tablet Take by mouth once daily. budesonide-formoterol (SYMBICORT) 160-4.5 mcg/actuation inhaler Inhale 2 Puffs as instructed twice daily. 10.2 g 2 albuterol HFA (PROAIR HFA) 90 mcg/actuation inhaler Inhale 2 Puffs as instructed every 4 hours as needed. 18 g 2 cyclobenzaprine (FLEXERIL) 5 mg tablet Take 5 mg by mouth three times daily as needed. hydrOXYzine HCl (ATARAX) 25 mg tablet Take 1 tablet by mouth three times daily as needed. 270 tablet 0 aspirin, enteric coated (ASPIRIN, ENTERIC COATED) 81 mg EC tablet Take 81 mg by mouth once daily. LYSINE ORAL Take by mouth. calcium carbonate (CALCIUM 600 ORAL) Take 2 tablets by mouth once daily. levETIRAcetam (KEPPRA) 500 mg tablet Take 1 tablet by mouth twice daily. 60 tablet 0 gabapentin (NEURONTIN) 100 mg capsule Take 100 mg by mouth three times daily. zoster RZV vaccine, PF, (SHINGRIX) 50 mcg/0.5 mL injection Inject 0.5 mL intramuscularly one time only for 1 dose. Repeat 2nd dose in 2-6 months. 1 Each 1 ondansetron (ZOFRAN) 8 mg tablet Take 1 tablet by mouth every 8 hours as needed for nausea/vomiting. (Patient not taking: Reported on 10/31/2022) 30 tablet 0 Ferrous Sulfate 134 mg (27 mg iron) tab Take 134 mg by mouth. (Patient not taking: No sig reported) fluticasone (FLONASE ALLERGY RELIEF) 50 mcg/actuation nasal spray Use 1 [place] in each nostril once daily. (Patient not taking: No sig reported) 1 Each 2 guaiFENesin (MUCINEX) 600 mg 12 hr tablet Take 1 tablet by mouth twice daily. (Patient not taking: No sig reported) 14 tablet 0 No current facility-administered medications for this visit. 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) Chronic Neck Pain Adjustment Insomnia Moderate Smoker (20 Or Less Per Day) History of substance abuse (HCC) Urinary Incontinence Restless Leg Syndrome Osteoarthritis of Multiple Joints Postmenopausal Lumbar Back Pain Essential (Primary) Hypertension Hyperlipidemia, Mixed Anxiety Srinivasa (Generalized Anxiety Disorder) Stage 3a Chronic Kidney Disease (Hcc) Chronic Obstructive Pulmonary Disease (Hcc) Closed Fracture of Hip (Hcc) Impaired Cognition Social History Tobacco Use Smoking status: Every Day Types: Cigarettes Start date: 08/14/1968 Smokeless tobacco: Never Tobacco comments: Current smoker; Smoking details Tobacco comments 1 pk/day; Tobacco reviewed with patient 02/12/2016 Vaping Use Vaping Use: Former Substance Use Topics Alcohol use: Yes Comment: Nominal Drug use: No Comment: No reported history Family History Problem Relation Age of Onset Psychiatry Sister Depressive disorder Reviewed past medical history, family history and surgeries. All medications and supplements were reviewed with the patient. Review of Systems Constitutional: Negative for chills, diaphoresis, fever, malaise/fatigue and weight loss. HENT: Negative for ear pain and hearing loss. Eyes: Negative for blurred vision and double vision. Respiratory: Negative for cough and shortness of breath. Cardiovascular: Negative for chest pain, palpitations and leg swelling. Gastrointestinal: Negative for constipation, diarrhea and heartburn. Genitourinary: Negative for dysuria and frequency. Musculoskeletal: Negative for back pain, falls, joint pain and myalgias. Skin: Negative for itching and rash. Neurological: Negative for dizziness, weakness and headaches. Endo/Heme/Allergies: Does not bruise/bleed easily. Psychiatric/Behavioral: Positive for depression. Negative for substance abuse. The patient does not have insomnia. Objective BP 120/68 Pulse 93 Temp 36.8 C (98.2 F) Resp 16 Ht 165.1 cm (5' 5 ) Wt 57.1 kg (125 lb 12.8 oz) SpO2 93% BMI 20.93 kg/m Physical Exam Constitutional: Appearance: Normal appearance. HENT: Head: Normocephalic and atraumatic. Nose: Nose normal. Mouth/Throat: Mouth: Mucous membranes are moist. Dentition: Normal dentition. Eyes: General: Lids are normal. Extraocular Movements: Extraocular movements intact. Conjunctiva/sclera: Conjunctivae normal. Pupils: Pupils are equal, round, and reactive to light. Neck: Thyroid: No thyroid mass or thyromegaly. Vascular: No carotid bruit. Trachea: Phonation normal. Cardiovascular: Rate and Rhythm: Normal rate and regular rhythm. Heart sounds: Normal heart sounds. No murmur heard. No friction rub. No gallop. Pulmonary: Effort: Pulmonary effort is normal. Breath sounds: Normal breath sounds. No wheezing or rales. Abdominal: General: Bowel sounds are normal. There is no distension. Palpations: Abdomen is soft. There is no mass. Tenderness: There is no abdominal tenderness. Musculoskeletal: General: No swelling or tenderness. Normal range of motion. Cervical back: Normal range of motion and neck supple. No edema. Lymphadenopathy: Cervical: No cervical adenopathy. Skin: General: Skin is warm and dry. Findings: No erythema or rash. Nails: There is no clubbing. Neurological: Mental Status: She is alert and oriented to person, place, and time. Cranial Nerves: No cranial nerve deficit. Motor: Motor function is intact. Coordination: Coordination normal. Gait: Gait is intact. Psychiatric: Attention and Perception: Attention normal. Mood and Affect: Mood and affect normal. Speech: Speech normal. Behavior: Behavior normal. Behavior is cooperative. Thought Content: Thought content normal. Cognition and Memory: Cognition and memory normal. Judgment: Judgment normal. ASSESSMENT/PLAN: 1. Recurrent major depression in partial remission (HCC) - ICD9: 296.35, ICD10: F33.41 (primary diagnosis) Increase quetiapine from 25 - 50 mg at bedtime to 50 -100 mg at bedtime - QUETIAPINE 50 MG TABLET 2. Anxiety - ICD9: 300.00, ICD10: F41.9 Takes remeron 3. Small vessel disease (HCC) - ICD9: 443.9, ICD10: I73.9 Pt encouraged to stop smoking 4. Subacute cough - ICD9: 786.2, ICD10: R05.2 resolved 5. Screening for colon cancer - ICD9: V76.51, ICD10: Z12.11 - COLOGUARD 6. Immunization due - ICD9: V05.9, ICD10: Z23 - VARICELLA-ZOSTER GLYCOE VACC-AS01B ADJ(PF) 50 MCG/0.5 ML IM SUSP, KIT 7. Moderate smoker (20 or less per day) - ICD9: 305.1, ICD10: F17.210 - Cessation encouraged. - Physiologic and physical aspects of tobacco addiction as well as strategies for quitting were discussed. - Counseling was given focusing on the harmful effects of this addiction especially given the patient's medical condition(s) which will be worsened because of the chemicals in tobacco. Erasmo Bennett DO documented in this encounter [facility] 10-26-2022 Miscellaneous Notes ----- Message from December Hallie Horne sent at 10/26/2022 10:27 AM EDT ----- Regarding: FW: Medicine/Dr. Erasmo Bennett/Depression Nurse Triage Central scheduling has scheduled Pt on 10/27 ----- Message ----- From: Yessenia Schmid Sent: 10/26/2022 10:15 AM EDT To: [facility] Triage Pool Subject: Medicine/Dr. Erasmo Bennett/Depression Nurs# Subject Line Format: Medicine / [Provider Name] / [Issue] Patient has been identified by name and Date of (Y/N): y Patient: Kate Broderick Date of : 1950 Provider for this encounter: Erasmo Bennett DO Reason for the call/escalation: Patient has shakes from anxiety and depression Was Patient Referred to [facility]/Seek Emergency Treatment (Y/N): n Did Patient Agree (Y/N): n/a Was An Attempt Made To Transfer The Patient To The Office (Y/N): y Were You Able To Reach Someone At The Office (Y/N): n If Yes - Patient Was Transferred To (Caregivers Name): n/a If No - Which [facility] [employer]er Did You Speak With Regarding This Patient: [place] Was an appointment scheduled (Y/N): y Reason patient was requesting visit (RFV/signs and symptoms/diagnosis) : patient states she is depressed and has shakes due to anxiety. Patient request appointment to review medication she currently takes. 4cq denied scheduling called office twice with no answer. Called nurse hvac services professional and was informed the nurse hvac services professional was only after hours. Scheduled per [place], patient advised to seek emergency treatment if symptoms worsen or to call office back. Person calling if other than patient: n/a Return call to if other than patient: n/a Best contact number: [phone] Thank you, Yessenia Schmid October 26, 2022 9:59 AM documented in this encounter [facility] 08-25-2022 Note HNO ID: [id number] Author: Lexy Granados MA Service: ? Author Type: Vice Chair Type: Progress Notes Filed: 08/26/2022 2:54 PM Note Text: Immunizations were given as ordered. Vaccination information sheet(s) given. Lexy Granados MA [facility] 08-25-2022 History of Presen t illness Narrative Immunizations were given as ordered. Vaccination information sheet(s) given. Lexy Granados MA documented in this encounter [facility] 08-16-2022 Miscellaneous Notes Pharmacy requesting refills: Last office visit 01/14/2022 Last refill 10/18/2021 nov 08/25/2022 Requested Prescriptions Pending Prescriptions Disp Refills lisinopril (ZESTRIL, PRINIVIL) 10 mg tablet [Pharmacy Med Name: Lisinopril 10 MG Oral Tablet] 90 tablet 3 Sig: TAKE 1 TABLET BY MOUTH ONCE DAILY Please review and advise. Rowan Corbett MA documented in this encounter [facility] 08-12-2022 Miscellaneous Notes I called to notify pt Rx was sent to [facility]. Her mailbox was full Erasmo Bennett DO . Patient left message stating she has been nauseous every day and wanted to know if Dr. Bennett could send something in to help. Please advise. Lexy Granados MA documented in this encounter [facility] 08-03-2022 Note HNO ID: [id number] Author: Lexy Granados MA Service: ? Author Type: Vice Chair Type: Progress Notes Filed: 08/03/2022 10:50 AM Note Text: 5 sutures removed by Jasmin and one suture removed by Dr. Bennett. Bacitracin and a bandaide were applied. Immunizations were given as ordered. Vaccination information sheet(s) given. Lexy Granados MA [facility] 08-03-2022 Note HNO ID: [id number] Author: Erasmo Bennett DO Service: ? Author Type: Physician Type: Progress Notes Filed: 08/03/2022 10:50 AM Note Text: Pt is here for suture removal of the wound on her left forehead. She has 6 sutures, with honey-colored crust over the suture area. Wound is otherwise closed with no gaps, no bleeding. Pt advised to continue to use antibiotic ointment over the wound, and I will send in an oral antibiotic for her to take until finished. She asked if she can wash her hair, and I told her she can if she is careful to not rub the wound area. She expressed understanding. Erasmo Bennett DO [facility] 08-03-2022 History of Presen t illness Narrative 5 sutures removed by Jasmin and one suture removed by Dr. Bennett. Bacitracin and a bandaide were applied. Immunizations were given as ordered. Vaccination information sheet(s) given. Lexy Granados MA Pt is here for suture removal of the wound on her left forehead. She has 6 sutures, with honey-colored crust over the suture area. Wound is otherwise closed with no gaps, no bleeding. Pt advised to continue to use antibiotic ointment over the wound, and I will send in an oral antibiotic for her to take until finished. She asked if she can wash her hair, and I told her she can if she is careful to not rub the wound area. She expressed understanding. Erasmo Bennett DO documented in this encounter [facility] 08-01-2022 Note HNO ID: [id number] Author: Erasmo Bennett DO Service: ? Author Type: Physician Type: Progress Notes Filed: 08/01/2022 2:47 PM Note Text: Pt may receive her immunizations as long as they are covered by her insurance Erasmo Bennett DO [facility] 08-01-2022 Note HNO ID: [id number] Author: Elsie Ferraro LPN Service: ? Author Type: LICENSED NURSE Type: Progress Notes Filed: 08/01/2022 1:30 PM Note Text: ED Follow Up: Patient discharged from [facility] ED on 07/26/2022. 1. How are you feeling since your ED visit? Better, reporting fatigue but overall doing well. Have your symptoms improved or resolved? Yes 2. Were you prescribed any medications while in the ED or advised to stop any medication? No - If yes, were you able to fill your prescriptions? Not applicable -if stopped medication, what was the medication? na 3. Were you advised to schedule a follow up appointment with your provider? Yes - If no, Do you feel like you need an appointment scheduled? Yes - If yes, Do you need this scheduled now or has this already been scheduled? NV is scheduled for suture removal. 4. Were you able to contact the office or hvac services professional provider prior to your ED visit? No 5. Is there anything else I can do for you today? Yes Pt is requesting when she comes in for her suture removal that she also receives her influenza vaccine, third covid vaccine and her pneumococcal, if due. Please advise if she is able to receive all three during that visit. Elsie Ferraro LPN [facility] 08-01-2022 Note Patient Outreach (AG INTMLW) KATE BRODERICK ([id number]) 1950 F [facility] Date Time Provider Department 08/01/22 ERASMO BENNETT During your visit today, we recorded the following information about you: Elsie Ferraro LPN 08/01/2022 1:30 PM Signed ED Follow Up: Patient discharged from [facility] ED on 07/26/2022. 1. How are you feeling since your ED visit? Better, reporting fatigue but overall doing well. Have your symptoms improved or resolved? Yes 2. Were you prescribed any medications while in the ED or advised to stop any medication? No - If yes, were you able to fill your prescriptions? Not applicable -if stopped medication, what was the medication? na 3. Were you advised to schedule a follow up appointment with your provider? Yes - If no, Do you feel like you need an appointment scheduled? Yes - If yes, Do you need this scheduled now or has this already been scheduled? NV is scheduled for suture removal. 4. Were you able to contact the office or hvac services professional provider prior to your ED visit? No 5. Is there anything else I can do for you today? Yes Pt is requesting when she comes in for her suture removal that she also receives her influenza vaccine, third covid vaccine and her pneumococcal, if due. Please advise if she is able to receive all three during that visit. NEVAEH Oneal DO 08/01/2022 2:47 PM Signed Pt may receive her immunizations as long as they are covered by her insurance Erasmo Bennett DO Allergies As of Date: 08/01/2022 Noted Allergy Reaction VICODIN (HYDROCODONE-ACETAMINOPHE*06/20 9 - Itching Date Reviewed: 07/26/2022 Reviewed by: Nallely Plaza RN - Fully Assessed Reason for Visit: ED Follow Up [973] Cmt: [facility] ED discharge 07/26/2022 ED outreach Prescriptions as of 08/01/2022 - atorvastatin (LIPITOR) 40 mg tablet Take 1 tablet by mouth every other day. - oxybutynin XL (DITROPAN XL) 5 mg 24 hr tablet Take 1 tablet by mouth once daily. - oxybutynin XL (DITROPAN XL) 5 mg 24 hr tablet Take 1 tablet by mouth once daily. - QUEtiapine (SEROQUEL) 25 mg tablet TAKE 1 TO 2 TABLETS BY MOUTH DAILY AT BEDTIME - DULoxetine (CYMBALTA) 60 mg capsule TAKE 1 CAPSULE BY MOUTH TWICE DAILY - benzonatate (TESSALON PERLES) 100 mg capsule Take 1 capsule by mouth three times daily as needed. - ascorbic acid, vitamin C, (VITAMIN C) 500 mg tablet Take 500 mg by mouth once daily. - cyanocobalamin (VITAMIN B-12) 500 mcg tablet Take by mouth once daily. - Ferrous Sulfate 134 mg (27 mg iron) tab Take 134 mg by mouth. - budesonide-formoterol (SYMBICORT) 160-4.5 mcg/actuation inhaler Inhale 2 Puffs as instructed twice daily. - fluticasone (FLONASE ALLERGY RELIEF) 50 mcg/actuation nasal spray Use 1 [place] in each nostril once daily. - guaiFENesin (MUCINEX) 600 mg 12 hr tablet Take 1 tablet by mouth twice daily. - albuterol HFA (PROAIR HFA) 90 mcg/actuation inhaler Inhale 2 Puffs as instructed every 4 hours as needed. - lisinopril (ZESTRIL, PRINIVIL) 10 mg tablet TAKE 1 TABLET BY MOUTH ONCE DAILY - cyclobenzaprine (FLEXERIL) 5 mg tablet Take 5 mg by mouth three times daily as needed. - hydrOXYzine HCl (ATARAX) 25 mg tablet Take 1 tablet by mouth three times daily as needed. - aspirin, enteric coated (ASPIRIN, ENTERIC COATED) 81 mg EC tablet Take 81 mg by mouth once daily. - LYSINE ORAL Take by mouth. - calcium carbonate (CALCIUM 600 ORAL) Take 2 tablets by mouth once daily. - levETIRAcetam (KEPPRA) 500 mg tablet Take 1 tablet by mouth twice daily. - gabapentin (NEURONTIN) 100 mg capsule Take 100 mg by mouth three times daily. Problem List As Of Date 08/01/2022 Noted Resolved Esophagitis, unspecified [K20.90] 07/11/2006 02/13/2018 Acute gastritis without mention of hemorrhage [*07/11/2006 09/19/2016 Seizure disorder (HCC) [G40.909] Recurrent major depression in partial remission* Chronic neck pain [M54.2, G89.29] 09/19/2016 Adjustment insomnia [F51.02] 09/19/2016 Moderate smoker (20 or less per day) [F17.210] 09/19/2016 History of substance abuse (HCC) [F19.11] 09/19/2016 Urinary incontinence [R32] 01/18/2018 Restless leg syndrome [G25.81] 01/23/2018 Osteoarthritis of multiple joints [M15.9] 02/13/2018 Postmenopausal [Z78.0] 03/06/2018 RUQ abdominal pain [R10.11] 08/27/2018 12/04/2018 Nausea [R11.0] 08/27/2018 12/04/2018 Lumbar back pain [M54.50] 12/04/2018 Essential (primary) hypertension [I10] 01/27/2018 Hyperlipidemia, mixed [E78.2] 05/09/2021 Anxiety [F41.9] 06/15/2021 SRINIVASA (generalized anxiety disorder) [F41.1] 06/15/2021 Stage 3a chronic kidney disease (HCC) [N18.31] 12/29/2021 Chronic obstructive pulmonary disease (HCC) [J4*01/03/2022 Closed fracture of hip (HCC) [S72.009A] 01/03/2022 Impaired cognition [R41.89] 01/03/2022 (more content not included)... [facility] 07-28-[address] Bennett said okay to put in a 20 minute slot as sutures need to be out 7-10 days after placement on 07/26/22, please reschedule patient. Thanks!! Lexy Granados MA Dr. Bennett is that too long to wait to get the sutures out? Would you mind doing an ER follow up in a 20 minute slot? Lexy Granados MA ----- Message from Kena Alvarenga sent at 07/27/2022 2:45 PM EST ----- Regarding: FW: Carmelo/Donald/Gisele ons @ ER FU Appointment? Contact: ----- Message ----- From: Guillermina Meng Sent: 07/27/2022 2:18 PM EST To: [facility] Triage Pool Subject: Medicine/[place]/Donald/Vaccinati ons @ ER FU A# Subject Line Format: Medicine / [Provider Name] / [Issue] Patient has been identified by name and Date of (Y/N): y Patient: Kate Broderick Date of : 1950 Provider for this encounter: Erasmo Bennett DO Reason for the call/escalation: patient has ER FU appt on 08/24/21 (wanted a morning appt and only w/ specific providers) to get stitches removed from scalp. She'd also like to get flu, pneumonia and covid vaccinations at this appointment, if possible. Person calling if other than patient: n/a Return call to if other than patient: n/a Best contact number: [phone] Thank you, Guillermina Taqueria July 27, 2022 2:15 PM documented in this encounter [facility] 06-21-2022 Miscellaneous Notes patient phones requesting refills as follows: Last seen 01/14/22 . Last refill went to local and needs to go to [facility]. . Requested Prescriptions Pending Prescriptions Disp Refills atorvastatin (LIPITOR) 40 mg tablet 45 tablet 0 Sig: Take 1 tablet by mouth every other day. oxybutynin XL (DITROPAN XL) 5 mg 24 hr tablet 90 tablet 0 Sig: Take 1 tablet by mouth once daily. Please review and advise. Lexy Granados MA documented in this encounter [facility] 06-17-2022 Miscellaneous Notes Patient is informed Renuka Nolan MA Pt due for fasting blood work - order attached. Erasmo Bennett DO Patient requesting refills as follows: Last Office Visit 01/14/22. Last Refill 03/03/22. Requested Prescriptions Pending Prescriptions Disp Refills atorvastatin (LIPITOR) 40 mg tablet 45 tablet 0 Sig: Take 1 tablet by mouth every other day. oxybutynin XL (DITROPAN XL) 5 mg 24 hr tablet Sig: Take by mouth. Please review and advise. Renuka Nolan MA documented in this encounter [facility] 06-17-2022 Miscellaneous Notes [facility] . documented in this encounter [facility] 06-08-2022 Miscellaneous Notes pharmacy electronically requesting refills as follows: Last seen 01/14/22 . Last refill 03/15/22 . Requested Prescriptions Pending Prescriptions Disp Refills QUEtiapine (SEROQUEL) 25 mg tablet [Pharmacy Med Name: QUEtiapine Fumarate 25 MG Oral Tablet] 180 tablet 3 Sig: TAKE 1 TO 2 TABLETS BY MOUTH DAILY AT BEDTIME Please review and advise. Lexy Granados MA documented in this encounter [facility] 05-30-2022 History of Presen t illness Narrative ED Follow Up: Patient discharged from [facility] ED on 05/26/2022. 1. How are you feeling since your ED visit? Better Have your symptoms improved or resolved? Yes 2. Were you prescribed any medications while in the ED or advised to stop any medication? No - If yes, were you able to fill your prescriptions? No -if stopped medication, what was the medication? na 3. Were you advised to schedule a follow up appointment with your provider? No - If no, Do you feel like you need an appointment scheduled? No - If yes, Do you need this scheduled now or has this already been scheduled? No 4. Were you able to contact the office or hvac services professional provider prior to your ED visit? Not applicable 5. Is there anything else I can do for you today? No Patient states she is feeling better, the redness in foot is better, declined apt. At this time. Rowan Corbett MA documented in this encounter [facility] 04-12-2022 Note HNO ID: [id number] Author: Anna Tejada DO Service: ? Author Type: Physician Type: Progress Notes Filed: 04/12/2022 5:14 PM Note Text: [facility] [place] DEPARTMENT OF VASCULAR SURGERY OUTPATIENT VISIT DATE April 12, 2022 OUTPATIENT VISIT TYPE CONSULTATION SERVICE DATE: 04/12/2022 SERVICE TIME: 3:33 PM PRIMARY CARE PHYSICIAN: Erasmo Bennett DO REFERRING PROVIDER: Erasmo Bennett [address] [place] [id number] Consult requested for an opinion regarding the evaluation and treatment of the above. My final impression and recommendations will be communicated back to the requesting physician by way of the shared medical record or letter via [place] mail. CHIEF COMPLAINT: Peripheral arterial disease HISTORY OF PRESENT ILLNESS: Vascular consultation at the request of Dr. Erasmo Bennett. A copy of this consultation note will be provided to the requesting physician by way of shared Medical record or letter to requesting physician [place] mail. Ms. Broderick is a 72 year old female who is seen today for toe cyanosis. She does admit to right leg heaviness and weakness. Denies rest pain or ulceration. Does admit to lower extremity swelling. Denies temperature sensitivity to her hands or feet. States toes are always blue. She had PVRs and was referred to vascular surgery. No significant family history of vascular disease. She does admit to smoking 1-2 ppd. PAST MEDICAL HISTORY Diagnosis Date Acute gastritis without mention of hemorrhage Acute sinusitis may take sudafed PE Anxiety state Asthma Asthma Unspecified Atonic seizure (HCC) return to see Dr. 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 Kee, return agent airport Palpitations EKG wnl in the past (recently done before hip surgery in June 2015), stop Requip as it may cause heart palpitations Peripheral vascular disease (HCC) quit smoking to stop progression PMH - PAST MEDICAL HISTORY OF problems breathing PMH - PAST MEDICAL HISTORY OF problems sleeping at night Postmenopausal state dexa scan ordered after 12/08/12 Restless legs stop requip, as it may be causing heart palpitations, trial of gabapentin Seizure disorder (HCC) continue Keppra Tobacco dependence syndrome encourage cessation Urinary tract infection, site not specified PAST SURGICAL HISTORY Procedure Laterality Date CARPAL TUNNEL COLONOSCOPY FLX DX W/COLLJ SPEC WHEN PFRMD 03/2011 Colonoscopy EGD TRANSORAL BIOPSY SINGLE/MULTIPLE 07/11/06 LIG/TRNSXJ FLP TUBE ABDL/VAG APPR UNI/BI Tubal ligation NEPHROLITHOTOMY REMOVAL STAGE 1 PAST SURGICAL HISTORY OF back surgeries x 3 PAST SURGICAL HISTORY OF right broken leg has screws and pin PAST SURGICAL HISTORY OF age 6 weeks old tumor from right arm removed REPAIR, DETACHED RETINA, LASER Right 01/2019 TONSILLECTOMY PRIMARY/SECONDARY Tonsillectomy SOCIAL HISTORY: Social History Tobacco Use Smoking status: Every Day Types: Cigarettes Start date: 08/14/1968 Smokeless tobacco: Never Tobacco comments: Current smoker; Smoking details Tobacco comments 1 pk/day; Tobacco reviewed with patient 02/12/2016 Vaping Use Vaping Use: Former Substance Use Topics Alcohol use: Yes Comment: Nominal Drug use: No Comment: No reported history FAMILY HISTORY Problem Relation Age of Onset Psychiatry Sister Depressive disorder MEDICATIONS: QUEtiapine (SEROQUEL) 25 mg tablet TAKE 1 TO 2 TABLETS BY MOUTH DAILY AT BEDTIME atorvastatin (LIPITOR) 40 mg tablet Take 1 tablet by mouth every other day. benzonatate (TESSALON PERLES) 100 mg capsule Take 1 capsule by mouth three times daily as needed. ascorbic acid, vitamin C, (VITAMIN C) 500 mg tablet Take 500 mg by mouth once daily. cyanocobalamin (VITAMIN B-12) 500 mcg tablet Take by mouth once daily. budesonide-formoterol (SYMBICORT) 160-4.5 mcg/actuation inhaler Inhale 2 Puffs as instructed twice daily. albuterol HFA (PROAIR HFA) 90 mcg/actuation inhaler Inhale 2 Puffs as instructed every 4 hours a (more content not included)... [facility] 04-12-2022 History of Presen t illness Narrative Images from the original note were not included. [facility] [place] DEPARTMENT OF VASCULAR SURGERY OUTPATIENT VISIT DATE April 12, 2022 OUTPATIENT VISIT TYPE CONSULTATION SERVICE DATE: 04/12/2022 SERVICE TIME: 3:33 PM PRIMARY CARE PHYSICIAN: Erasmo Bennett DO REFERRING PROVIDER: Erasmo Bennett [address] [place] [id number] Consult requested for an opinion regarding the evaluation and treatment of the above. My final impression and recommendations will be communicated back to the requesting physician by way of the shared medical record or letter via [place] mail. CHIEF COMPLAINT: Peripheral arterial disease HISTORY OF PRESENT ILLNESS: Vascular consultation at the request of Dr. Erasmo Bennett. A copy of this consultation note will be provided to the requesting physician by way of shared Medical record or letter to requesting physician US mail. Ms. Broderick is a 72 year old female who is seen today for toe cyanosis. She does admit to right leg heaviness and weakness. Denies rest pain or ulceration. Does admit to lower extremity swelling. Denies temperature sensitivity to her hands or feet. States toes are always blue. She had PVRs and was referred to vascular surgery. No significant family history of vascular disease. She does admit to smoking 1-2 ppd. PAST MEDICAL HISTORY Diagnosis Date Acute gastritis without mention of hemorrhage Acute sinusitis may take sudafed PE Anxiety state Asthma Asthma Unspecified Atonic seizure (HCC) return to see Dr. 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 Kee, return agent airport Palpitations EKG wnl in the past (recently done before hip surgery in June 2015), stop Requip as it may cause heart palpitations Peripheral vascular disease (HCC) quit smoking to stop progression PMH - PAST MEDICAL HISTORY OF problems breathing PMH - PAST MEDICAL HISTORY OF problems sleeping at night Postmenopausal state dexa scan ordered after 12/08/12 Restless legs stop requip, as it may be causing heart palpitations, trial of gabapentin Seizure disorder (HCC) continue Keppra Tobacco dependence syndrome encourage cessation Urinary tract infection, site not specified PAST SURGICAL HISTORY Procedure Laterality Date CARPAL TUNNEL COLONOSCOPY FLX DX W/COLLJ SPEC WHEN PFRMD 03/2011 Colonoscopy EGD TRANSORAL BIOPSY SINGLE/MULTIPLE 07/11/06 LIG/TRNSXJ FLP TUBE ABDL/VAG APPR UNI/BI Tubal ligation NEPHROLITHOTOMY REMOVAL STAGE 1 PAST SURGICAL HISTORY OF back surgeries x 3 PAST SURGICAL HISTORY OF right broken leg has screws and pin PAST SURGICAL HISTORY OF age 6 weeks old tumor from right arm removed REPAIR, DETACHED RETINA, LASER Right 01/2019 TONSILLECTOMY PRIMARY/SECONDARY <AGE 11 Tonsillectomy SOCIAL HISTORY: Social History Tobacco Use Smoking status: Every Day Types: Cigarettes Start date: 08/14/1968 Smokeless tobacco: Never Tobacco comments: Current smoker; Smoking details Tobacco comments 1 pk/day; Tobacco reviewed with patient 02/12/2016 Vaping Use Vaping Use: Former Substance Use Topics Alcohol use: Yes Comment: Nominal Drug use: No Comment: No reported history FAMILY HISTORY Problem Relation Age of Onset Psychiatry Sister Depressive disorder MEDICATIONS: QUEtiapine (SEROQUEL) 25 mg tablet TAKE 1 TO 2 TABLETS BY MOUTH DAILY AT BEDTIME atorvastatin (LIPITOR) 40 mg tablet Take 1 tablet by mouth every other day. benzonatate (TESSALON PERLES) 100 mg capsule Take 1 capsule by mouth three times daily as needed. ascorbic acid, vitamin C, (VITAMIN C) 500 mg tablet Take 500 mg by mouth once daily. cyanocobalamin (VITAMIN B-12) 500 mcg tablet Take by mouth once daily. budesonide-formoterol (SYMBICORT) 160-4.5 mcg/actuation inhaler Inhale 2 Puffs as instructed twice daily. albuterol HFA (PROAIR HFA) 90 mcg/actuation inhaler Inhale 2 Puffs as instructed every 4 hours as needed. lisinopril (ZESTRIL, PRINIVIL) 10 mg tablet TAKE 1 TABLET BY MOUTH ONCE DAILY cyclobenzaprine (FLEXERIL) 5 mg tablet Take 5 mg by mouth three times daily as needed. DULoxetine (CYMBALTA) 60 mg capsule Take 1 capsule by mouth twice daily. aspirin, enteric coated (ASPIRIN, ENTERIC COATED) 81 mg EC tablet Take 81 mg by mouth once daily. LYSINE ORAL Take by mouth. calcium carbonate (CALCIUM 600 ORAL) Take 2 tablets by mouth once daily. levETIRAcetam (KEPPRA) 500 mg tablet Take 1 tablet by mouth twice daily. gabapentin (NEURONTIN) 100 mg capsule Take 100 mg by mouth three times daily. oxybutynin XL (DITROPAN XL) 5 mg 24 hr tablet Take by mouth. (Patient not taking: No sig reported) Ferrous Sulfate 134 mg (27 mg iron) tab Take 134 mg by mouth. (Patient not taking: No sig reported) fluticasone (FLONASE ALLERGY RELIEF) 50 mcg/actuation nasal spray Use 1 [place] in each nostril once daily. (Patient not taking: Reported on 04/12/2022) guaiFENesin (MUCINEX) 600 mg 12 hr tablet Take 1 tablet by mouth twice daily. (Patient not taking: Reported on 04/12/2022) hydrOXYzine HCl (ATARAX) 25 mg tablet Take 1 tablet by mouth three times daily as needed. (Patient not taking: Reported on 04/12/2022) ALLERGIES: ALLERGIES Allergen Reactions Vicodin [Hydrocodon* Itching REVIEW OF SYSTEM: Constitutional: No weight loss, malaise or fevers. HEENT: Negative for frequent or significant headaches, No changes in hearing or vision, no nose bleeds or other nasal problems Respiratory: Negative for cough, wheezing, or shortness of breath Cardiovascular: Negative for chest pain and palpitations and Positive for leg swelling Gatrointestinal: Negative for abdominal discomfort, blood in stools or black stools or change in bowel habits Genitourinary: Negative for dysuria and Positive for frequency and urgency Musculoskeletal: Negative for back pain and muscle pain and Positive for joint pain Endocrine: Negative for cold or heat intolerance, polyuria, polydipsia and goiter Hematology/Lymphatic: Negative for prolonged bleeding and Positive for bruises easily Neurologic: Negative for headaches and paralysis and Positive for seizures Integumentary: Negative for lesions, rash, and itching. PHYSICAL EXAM: VITALS: There were no vitals taken for this visit. General: Alert and oriented Integumentary: Normal color, no rash, no lesions. HEENT: EOM, pupils equal, round and reactive. Cardiovascular: Pulse regular. Lungs: No chest deformities or chest wall tenderness. Abdomen: Not examined Extremities: Trace right lower extremity edema, medical calf varicose veins, toe cyanosis. No ulcerations or tissue loss Neurological: Normal cognition and motor skills. Vascular: Dorsalis Pedal Right: Normal - Left: Normal Diagnostic tests reviewed for today's visit: Most recent labs Most recent imaging PVRs RIGHT SIDE Resting right ankle brachial index: 1.14 Normal ankle brachial index at rest in the right leg. Right ankle: Normal at rest. Right small vessel disease versus vasoconstriction. LEFT SIDE Resting left ankle brachial index: 1.12 Normal ankle brachial index at rest in the left leg. Left ankle: Normal at rest. IMPRESSION: Ms. Broderick is a 72 year old female with toe cyanosis, small vessel disease, edema. PLAN and RECOMMENDATIONS: Reviewed testing with Kate Will check venous incompetency study Recommend keeping feet warm and covered Discussed importance of smoking cessation. Recommend follow up after testing SIGNATURE: Anna Tejada DO PATIENT NAME: Kate Broderick DATE: April 12, 2022 TIME: 3:33 PM documented in this encounter [facility] 03-28-2022 History of Presen t illness Narrative ED Follow Up: Patient discharged from [facility] ED on 03/19/2022. 1. How are you feeling since your ED visit? NA left voicemail. Have your symptoms improved or resolved? Not applicable 2. Were you prescribed any medications while in the ED or advised to stop any medication? Not applicable - If yes, were you able to fill your prescriptions? Not applicable -if stopped medication, what was the medication? NA 3. Were you advised to schedule a follow up appointment with your provider? Not applicable - If no, Do you feel like you need an appointment scheduled? Not applicable - If yes, Do you need this scheduled now or has this already been scheduled? Not applicable 4. Were you able to contact the office or hvac services professional provider prior to your ED visit? Not applicable 5. Is there anything else I can do for you today? Not applicable Elsie Ferraro LPN documented in this encounter [facility] 03-15-2022 Miscellaneous Notes Called pt left VM that she is due for labs Roxie Espinosa MA Please remind pt to get blood work ordered on 03/03 thanks Erasmo Bennett DO Pharmacy requesting refills as follows: Last Office Visit 01/14/22 nov 04/14/22. Last Refill 05/10/21. Pending Prescriptions Disp Refills QUETIAPINE 25 MG TABLET 180 tablet 3 Sig: TAKE 1 TO 2 TABLETS BY MOUTH DAILY AT BEDTIME EBER: Yes Please review and advise. Renuka Nolan MA documented in this encounter [facility] 03-03-2022 Miscellaneous Notes Left message informing patient. Renuka Nolan MA Pt due for fasting blood work - please notify Erasmo Bennett DO patient phones requesting refills as follows: Last seen 01/14/22 . Last refill atorvastatin 12/24/21, benzonatate 12/02/21 . Pending Prescriptions Disp Refills ATORVASTATIN 40 MG TABLET 45 tablet 0 Sig: Take 1 tablet by mouth every other day. EBER: No BENZONATATE 100 MG CAPSULE 90 capsule 1 Sig: Take 1 capsule by mouth three times daily as needed. EBER: No Please review and advise. Lexy Granados MA documented in this encounter [facility] 02-28-2022 Miscellaneous Notes Patient states it was just one day where she felt week and was having a hard time walking she states she is fine and will make a apt. With dr. Bennett. Rowan Corbett MA Please call pt - although she has problems because of vascular disease, that should not cause pain that limits her ability to walk. If she is having a lot of problems, she should make appt to be seen here or go to the ED Erasmo Bennett DO ----- Message from Precious Arvizu sent at 02/28/2022 8:57 AM EDT ----- Regarding: FW: Medicine/Sheets/Help with Vascular Appointment ----- Message ----- From: Kaci Yadav Sent: 02/28/2022 8:56 AM EDT To: [facility] Triage Pool Subject: Medicine/Sheets/Help with Vascular Appointme# Subject Line Format: Medicine / [Provider Name] / [Issue] Patient has been identified by name and Date of (Y/N): Y Patient: Kate Broderick Date of : 1950 Provider for this encounter: Erasmo Bennett DO Reason for the call/escalation: Patient stated she needed assistance with walking due to leg and foot pain. Said she has appointment with Vascular department on 04/12/22 and is currently on the wait list. Patient would like to know if PCP could help get a sooner appointment with vascular doctor. Was Patient Referred to [facility]/Seek Emergency Treatment (Y/N): N Did Patient Agree (Y/N): na Was An Attempt Made To Transfer The Patient To The Office (Y/N): N Were You Able To Reach Someone At The Office (Y/N): na If Yes - Patient Was Transferred To (Caregivers Name): na If No - Which [facility] [employer] Did You Speak With Regarding This Patient: na Was an appointment scheduled (Y/N): N Reason patient was requesting visit (RFV/signs and symptoms/diagnosis) : Help with vascular appointment Person calling if other than patient: Patient Return call to if other than patient: na Best contact number: [phone] Thank you, Kaci Yadav February 28, 2022 8:53 AM documented in this encounter [facility] 02-15-2022 Miscellaneous Notes Patient lm on 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 Please advise. Rowan Corbett MA documented in this encounter [facility] 02-01-2022 Miscellaneous Notes Patient notified. Rowan Corbett MA Please call pt - her vascular study shows that she has some circulation problems in her right leg. The left leg is fine. I would like for her to see a vascular specialist in [place]. I will refer her to Dr. Tejada - attached Erasmo Bennett DO Patient left message stating she completed her vascular test last week and wanted to know what the results are. Please advise. Lexy Granados MA documented in this encounter [facility] 01-14-2022 History of Presen t illness Narrative Subjective HPI Pt is here to discuss weakness, numbness and redness of her lower extremities b/l She would like to be tested for vascular problems She has had a productive cough with sinus drainage for over 2 weeks She was seen by Naun Brar on 12/29 Finished course of doxycycline and prednisone Was given Rx for symbicort which she is using Before that she saw Carlos Leung on 12/07, was treated for copd exacerbation with doxycycline Review of Systems Constitutional: Negative for chills, diaphoresis, fever, malaise/fatigue and weight loss. HENT: Positive for congestion. Negative for ear pain and hearing loss. Eyes: Negative for blurred vision and double vision. Respiratory: Positive for cough and sputum production. Negative for shortness of breath. Cardiovascular: Negative for chest pain, palpitations and leg swelling. Gastrointestinal: Negative for constipation, diarrhea and heartburn. Genitourinary: Negative for dysuria and frequency. Musculoskeletal: Positive for myalgias. Negative for back pain, falls and joint pain. Skin: Negative for itching and rash. Neurological: Positive for sensory change and weakness. Negative for dizziness and headaches. Endo/Heme/Allergies: Does not bruise/bleed easily. Psychiatric/Behavioral: Negative for depression and substance abuse. The patient does not have insomnia. Objective BP 116/74 (BP Site: Right Arm, BP Position: Sitting, BP Cuff Size: Regular Adult) Pulse 95 Temp 37.2 C (99 F) Resp 16 Ht 165.1 cm (5' 5 ) Wt 56.7 kg (125 lb) SpO2 96% BMI 20.80 kg/m Physical Exam Constitutional: Appearance: Normal appearance. HENT: Head: Normocephalic and atraumatic. Nose: Nose normal. Mouth/Throat: Mouth: Mucous membranes are moist. Dentition: Normal dentition. Eyes: General: Lids are normal. Extraocular Movements: Extraocular movements intact. Conjunctiva/sclera: Conjunctivae normal. Pupils: Pupils are equal, round, and reactive to light. Neck: Thyroid: No thyroid mass or thyromegaly. Vascular: No carotid bruit. Trachea: Phonation normal. Cardiovascular: Rate and Rhythm: Normal rate and regular rhythm. Heart sounds: Normal heart sounds. No murmur heard. No friction rub. No gallop. Pulmonary: Effort: Pulmonary effort is normal. Breath sounds: Wheezing (in bases b/l on exp) present. No rales. Abdominal: General: Bowel sounds are normal. There is no distension. Palpations: Abdomen is soft. There is no mass. Tenderness: There is no abdominal tenderness. Musculoskeletal: General: No swelling or tenderness. Normal range of motion. Cervical back: Normal range of motion and neck supple. No edema. Right lower leg: No edema. Left lower leg: No edema. Lymphadenopathy: Cervical: No cervical adenopathy. Skin: General: Skin is warm and dry. Findings: Erythema (of lower extremities to mid-marroquin b/l) present. No rash. Nails: There is no clubbing. Neurological: Mental Status: She is alert and oriented to person, place, and time. Cranial Nerves: No cranial nerve deficit. Motor: Motor function is intact. Coordination: Coordination normal. Gait: Gait is intact. Psychiatric: Attention and Perception: Attention normal. Mood and Affect: Mood and affect normal. Speech: Speech normal. Behavior: Behavior normal. Behavior is cooperative. Thought Content: Thought content normal. Cognition and Memory: Cognition and memory normal. Judgment: Judgment normal. ASSESSMENT/PLAN: 1. Peripheral vascular disease (HCC) - ICD9: 443.9, ICD10: I73.9 (primary diagnosis) - PVR ANK/GTZ/TOE [facility] 2. Persistent cough - ICD9: 786.2, ICD10: R05.3 - XR CHEST 2V FRONTAL/LAT 3. COPD with exacerbation (HCC) - ICD9: 491.21, ICD10: J44.1 - DOXYCYCLINE MONOHYDRATE 100 MG TABLET Erasmo Bennett DO documented in this encounter [facility] 01-13-2022 Miscellaneous Notes Called patient and informed her she states she has no ride Bere Tobias MA Please call the patient - she should go to the ED Erasmo Bennett DO ----- Message from Jennifer Corona sent at 01/13/2022 11:54 AM EDT ----- Regarding: Medicine /Erasmo Bennett / shortness of breath-intermittent, weakness R side for 2 days Patient has been identified by name and Date of (Y/N): y Patient: Kate Broderick Date of : 1950 Provider for this encounter: Erasmo Bennett DO Reason for the call/escalation: shortness of breath-intermittent, weakness R side for 2 days Was Patient Referred to [facility]/Seek Emergency Treatment (Y/N): no Did Patient Agree (Y/N): n/a Was An Attempt Made To Transfer The Patient To The Office (Y/N): yes Were You Able To Reach Someone At The Office (Y/N): yes If Yes - Patient Was Transferred To (Caregivers Name): Brandi If No - Which [facility] [employer] Did You Speak With Regarding This Patient: n/a Was an appointment scheduled (Y/N): no Reason patient was requesting visit (RFV/signs and symptoms/diagnosis) : shortness of breath-intermittent, weakness R side for 2 days Person calling if other than patient: n/a Return call to if other than patient: n/a Best contact number: [phone] Thank you, Jennifer Corona January 13, 2022 11:54 AM documented in this encounter [facility] 01-12-2022 Miscellaneous Notes 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 She wants someone close to [place]. Please advise. Rowan Corbett MA documented in this encounter [facility] 12-24-2021 Miscellaneous Notes Kate Broderick had an initial phone encounter on 04/20/2021, re:colonoscopy. This was scheduled to be done at [facility] on Mon09/10/21, however this was canceled by CC due to Covid-19 process and shut-down of outpatient surgeries & procedures. We re-scheduled for 11/05/21, however the patient called in just before this to cancel due to illness. She is to call us when she is feeling better and ready to proceed. documented in this encounter [facility] 12-07-2021 Instructions Esther Leung APRN.CNP - 12/07/2021 10:27 AM EDT - Symptomatic management with rest, fluids, and analgesia as needed. - Cool mist humidifier at night. - Follow-up with PCP in 3-5 days if symptoms persist or worsen. - Go to the emergency department for fever greater than 102, neck stiffness, severe headache, drooling, signs of dehydration, chest pain, if you cough up blood, feel like you are going to pass out, or have difficulty breathing. documented in this encounter [facility] 12-07-2021 History of Presen t illness Narrative Images from the [place] [address] Date of Evaluation: 12/07/2021 Patient Name: Kate Broderick : 1950 Chief Complaint: Patient presents with: Fatigue: Has been going on since easter Cough Rhinitis Post Nasal Drip Subjective Ms. Broderick is a 71 year old female who presents with the following complaint(s): Runny nose PND Cough- tessalon perles are helping but sometimes has to cough something up and can't get it out Fatigue, mostly from coughing Sore throat initially- resolved now Started around Easter Legs feel weak No fever, chills, sweats, body aches Headache with coughing in both temples Ibuprofen as needed Friend was sick Wears her mask around her She is fully vaccinated for COVID. She is still smoking Will be picking up her new Albuterol inhaler today. Doesn't feel like the one she had at home was working much. The history is provided by the patient. No oil mixer was used. PAST MEDICAL HISTORY Diagnosis Date Acute gastritis without mention of hemorrhage Acute sinusitis may take sudafed PE Anxiety state Asthma Asthma Unspecified Atonic seizure (HCC) return to see Dr. 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 Kee, return agent airport Palpitations EKG wnl in the past (recently done before hip surgery in June 2015), stop Requip as it may cause heart palpitations Peripheral vascular disease (HCC) quit smoking to stop progression PMH - PAST MEDICAL HISTORY OF problems breathing PMH - PAST MEDICAL HISTORY OF problems sleeping at night Postmenopausal state dexa scan ordered after 12/08/12 Restless legs stop requip, as it may be causing heart palpitations, trial of gabapentin Seizure disorder (HCC) continue Keppra Tobacco dependence syndrome encourage cessation Urinary tract infection, site not specified PAST SURGICAL HISTORY Procedure Laterality Date CARPAL TUNNEL COLONOSCOPY FLX DX W/COLLJ SPEC WHEN PFRMD 03/2011 Colonoscopy EGD TRANSORAL BIOPSY SINGLE/MULTIPLE 07/11/06 LIG/TRNSXJ FLP TUBE ABDL/VAG APPR UNI/BI Tubal ligation NEPHROLITHOTOMY REMOVAL STAGE 1 PAST SURGICAL HISTORY OF back surgeries x 3 PAST SURGICAL HISTORY OF right broken leg has screws and pin PAST SURGICAL HISTORY OF age 6 weeks old tumor from right arm removed REPAIR, DETACHED RETINA, LASER Right 01/2019 TONSILLECTOMY PRIMARY/SECONDARY <AGE 11 Tonsillectomy FAMILY HISTORY Problem Relation Age of Onset Psychiatry Sister Depressive disorder Social History Tobacco Use Smoking status: Current Every Day Smoker Types: Cigarettes Start date: 08/14/1968 Smokeless tobacco: Never Used Tobacco comment: Current smoker; Smoking details Tobacco comments 1 pk/day; Tobacco reviewed with patient 02/12/2016 Vaping Use Vaping Use: Former Substance Use Topics Alcohol use: Yes Comment: Nominal Drug use: No Comment: No reported history Current Meds albuterol HFA (PROAIR HFA) 90 mcg/actuation inhaler Inhale 2 Puffs as instructed every 4 hours as needed. benzonatate (TESSALON PERLES) 100 mg capsule Take 1 capsule by mouth three times daily as needed. lisinopril (ZESTRIL, PRINIVIL) 10 mg tablet TAKE 1 TABLET BY MOUTH ONCE DAILY cyclobenzaprine (FLEXERIL) 5 mg tablet Take 5 mg by mouth three times daily as needed. DULoxetine (CYMBALTA) 60 mg capsule Take 1 capsule by mouth twice daily. hydrOXYzine HCl (ATARAX) 25 mg tablet Take 1 tablet by mouth three times daily as needed. atorvastatin (LIPITOR) 40 mg tablet Take 1 tablet by mouth every other day. QUEtiapine (SEROQUEL) 25 mg tablet TAKE 1 TO 2 TABLETS BY MOUTH DAILY AT BEDTIME aspirin, enteric coated (ASPIRIN, ENTERIC COATED) 81 mg EC tablet Take 81 mg by mouth once daily. LYSINE ORAL Take by mouth. calcium carbonate (CALCIUM 600 ORAL) Take 2 tablets by mouth once daily. levETIRAcetam (KEPPRA) 500 mg tablet Take 1 tablet by mouth twice daily. gabapentin (NEURONTIN) 100 mg capsule Take 100 mg by mouth three times daily. predniSONE (DELTASONE) 20 mg tablet Take 2 tablets by mouth once daily for 5 days. doxycycline monohydrate 100 mg tablet Take 1 tablet by mouth twice daily for 7 days. guaiFENesin (MUCINEX) 600 mg 12 hr tablet Take 1 tablet by mouth twice daily. Review of Systems Constitutional: Positive for fatigue. Negative for appetite change, chills, diaphoresis, fever and unexpected weight change. HENT: Positive for congestion, postnasal drip, rhinorrhea, sinus pressure and sinus pain. Negative for ear pain, sore throat and trouble swallowing. Respiratory: Positive for cough, chest tightness, shortness of breath and wheezing. Cardiovascular: Negative for chest pain and palpitations. Gastrointestinal: Negative. Musculoskeletal: Negative for arthralgias and myalgias. Skin: Negative. Neurological: Positive for headaches. Negative for dizziness and light-headedness. Hematological: Does not bruise/bleed easily. I have confirmed and edited as necessary the chief complaint, medications, past medical, family and social histories. Objective BP 106/60 (BP Site: Right Arm, BP Position: Sitting, BP Cuff Size: Regular Adult) Pulse 88 Temp 36.4 C (97.6 F) (Oral) Ht 165.1 cm (5' 5 ) Wt 56.9 kg (125 lb 6.4 oz) SpO2 92% BMI 20.87 kg/m Body mass index is 20.87 kg/m . Physical Exam Vitals and nursing note reviewed. Constitutional: Appearance: She is ill-appearing. HENT: Head: Normocephalic. Right Ear: Tympanic membrane, ear canal and external ear normal. Left Ear: Tympanic membrane, ear canal and external ear normal. Nose: Congestion and rhinorrhea present. Right Sinus: No maxillary sinus tenderness or frontal sinus tenderness. Left Sinus: No maxillary sinus tenderness or frontal sinus tenderness. Mouth/Throat: Mouth: Mucous membranes are moist. Pharynx: Oropharynx is clear. No posterior oropharyngeal erythema. Eyes: Conjunctiva/sclera: Conjunctivae normal. Pupils: Pupils are equal, round, and reactive to light. Cardiovascular: Rate and Rhythm: Normal rate and regular rhythm. Heart sounds: Normal heart sounds. No murmur heard. Pulmonary: Effort: Pulmonary effort is normal. Breath sounds: Normal air entry. Examination of the right-middle field reveals wheezing. Examination of the left-middle field reveals wheezing. Examination of the right-lower field reveals wheezing and rhonchi. Examination of the left-lower field reveals wheezing and rhonchi. Wheezing and rhonchi present. Abdominal: General: Bowel sounds are normal. Palpations: Abdomen is soft. There is no hepatomegaly or splenomegaly. Tenderness: There is no abdominal tenderness. Musculoskeletal: Cervical back: Neck supple. Lymphadenopathy: Cervical: No cervical adenopathy. Skin: General: Skin is warm and dry. Neurological: Mental Status: She is alert and oriented to person, place, and time. Psychiatric: Mood and Affect: Mood normal. Behavior: Behavior is cooperative. Cognition and Memory: Cognition normal. Data Reviewed: No new labs ASSESSMENT/PLAN: 1. COPD with exacerbation (HCC) - ICD9: 491.21, ICD10: J44.1 - Recommend using her Albuterol as prescribed for the next 24-48 hours - Will treat her with an antibiotic, Prednisone burst, and Mucinex - Symptomatic management with rest, fluids, and analgesia as needed. - Cool mist humidifier at night. - Follow-up with PCP in 3-5 days if symptoms persist or worsen. - Go to the emergency department for fever greater than 102, neck stiffness, severe headache, drooling, signs of dehydration, chest pain, if you cough up blood, feel like you are going to pass out, or have difficulty breathing. - PREDNISONE 20 MG TABLET - DOXYCYCLINE MONOHYDRATE 100 MG TABLET - GUAIFENESIN ER 600 MG TABLET, EXTENDED RELEASE 12 HR 2. Moderate smoker (20 or less per day) - ICD9: 305.1, ICD10: F17.210 - Complicates care - Cessation encouraged but declines at this time. - Physiologic and physical aspects of tobacco addiction as well as strategies for quitting were discussed. - Counseling was given focusing on the harmful effects of this addiction especially given the patient's medical condition(s) which will be worsened because of the chemicals in tobacco. - Counseling was given 3-4 minutes. Return if symptoms worsen or fail to improve. Discussed the above with the patient using shared decision making. The patient is in agreement with the diagnostic and treatment plans. Esther Leung APRN.HEYDI documented in this encounter [facility] 12-06-2021 Miscellaneous Notes Patient requesting refills: Last office visit 10/14/2021 Last refill 04/22/2021 nov tomorrow Pending Prescriptions Disp Refills ALBUTEROL SULFATE HFA 90 MCG/ACTUATION AEROSOL INHALER 18 g 2 Sig: Inhale 2 Puffs as instructed every 4 hours as needed. EBER: No Please review and advise. Rowan Corbett MA documented in this encounter [facility] 12-02-2021 Miscellaneous Notes Patient requesting refills as follows: Last Office Visit 10/14/21. Last Refill 10/14/21. Pending Prescriptions Disp Refills BENZONATATE 100 MG CAPSULE 90 capsule 1 Sig: Take 1 capsule by mouth three times daily as needed. EBER: No Please review and advise. Bere Tobias MA documented in this encounter [facility] documented as of this encounter (statuses as of 12/02/2021) [facility] History of Past illness Narrative* Problem Noted Date Resolved Date RUQ abdominal pain 08/27/2018 12/04/2018 Nausea 08/27/2018 12/04/2018 Esophagitis, unspecified 07/11/2006 018 Acute gastritis without mention of hemorrhage 09/19/2016 documented as of this encounter (statuses as of 12/06/2021) [facility] History of Past illness Narrative* Problem Noted Date Resolved Date RUQ abdominal pain 08/27/2018 12/04/2018 Nausea 08/27/2018 12/04/2018 Esophagitis, unspecified 07/11/2006 018 Acute gastritis without mention of hemorrhage 09/19/2016 documented as of this encounter (statuses as of 12/07/2021) [facility] History of Past illness Narrative* Problem Noted Date Resolved Date RUQ abdominal pain 08/27/2018 12/04/2018 Nausea 08/27/2018 12/04/2018 Esophagitis, unspecified 07/11/2006 018 Acute gastritis without mention of hemorrhage 09/19/2016 documented as of this encounter (statuses as of 12/24/2021) [address]2019 History of Past illness Narrative* Problem Noted Date Resolved Date RUQ abdominal pain 08/27/2018 12/04/2018 Nausea 08/27/2018 12/04/2018 Esophagitis, unspecified 07/11/2006 018 Acute gastritis without mention of hemorrhage 09/19/2016 documented as of this encounter (statuses as of 01/12/2022) [facility] History of Past illness Narrative* Problem Noted Date Resolved Date RUQ abdominal pain 08/27/2018 12/04/2018 Nausea 08/27/2018 12/04/2018 Esophagitis, unspecified 07/11/2006 018 Acute gastritis without mention of hemorrhage 09/19/2016 documented as of this encounter (statuses as of 01/13/2022) [facility] History of Past illness Narrative* Problem Noted Date Resolved Date RUQ abdominal pain 08/27/2018 12/04/2018 Nausea 08/27/2018 12/04/2018 Esophagitis, unspecified 07/11/2006 018 Acute gastritis without mention of hemorrhage 09/19/2016 documented as of this encounter (statuses as of 01/31/2022) [facility] History of Past illness Narrative* Problem Noted Date Resolved Date RUQ abdominal pain 08/27/2018 12/04/2018 Nausea 08/27/2018 12/04/2018 Esophagitis, unspecified 07/11/2006 018 Acute gastritis without mention of hemorrhage 09/19/2016 documented as of this encounter (statuses as of 02/01/2022) [facility] History of Past illness Narrative* Problem Noted Date Resolved Date RUQ abdominal pain 08/27/2018 12/04/2018 Nausea 08/27/2018 12/04/2018 Esophagitis, unspecified 07/11/2006 018 Acute gastritis without mention of hemorrhage 09/19/2016 documented as of this encounter (statuses as of 02/15/2022) [facility] History of Past illness Narrative* Problem Noted Date Resolved Date RUQ abdominal pain 08/27/2018 12/04/2018 Nausea 08/27/2018 12/04/2018 Esophagitis, unspecified 07/11/2006 018 Acute gastritis without mention of hemorrhage 09/19/2016 documented as of this encounter (statuses as of 02/28/2022) [facility] of Past illness Narrative* Problem Noted Date Resolved Date RUQ abdominal pain 08/27/2018 12/04/2018 Nausea 08/27/2018 12/04/2018 Esophagitis, unspecified 07/11/2006 018 Acute gastritis without mention of hemorrhage 09/19/2016 documented as of this encounter (statuses as of 03/03/2022) [facility] History of Past illness Narrative* Problem Noted Date Resolved Date RUQ abdominal pain 08/27/2018 12/04/2018 Nausea 08/27/2018 12/04/2018 Esophagitis, unspecified 07/11/2006 018 Acute gastritis without mention of hemorrhage 09/19/2016 documented as of this encounter (statuses as of 03/15/2022) [facility] of Past [facility] Narrative* Problem Noted Date Resolved Date RUQ abdominal pain 08/27/2018 12/04/2018 Nausea 08/27/2018 12/04/2018 Esophagitis, unspecified 07/11/2006 018 Acute gastritis without mention of hemorrhage 09/19/2016 documented as of this encounter (statuses as of 03/28/2022) [facility] Past [facility] Narrative* Problem Noted Date Resolved Date RUQ abdominal pain 08/27/2018 12/04/2018 Nausea 08/27/2018 12/04/2018 Esophagitis, unspecified 07/11/2006 018 Acute gastritis without mention of hemorrhage 09/19/2016 documented as of this encounter (statuses as of 04/12/2022) [facility] History of Past illness Narrative* Problem Noted Date Resolved Date RUQ abdominal pain 08/27/2018 12/04/2018 Nausea 08/27/2018 12/04/2018 Esophagitis, unspecified 07/11/20062 018 Acute gastritis without mention of hemorrhage 09/19/2016 documented as of this encounter (statuses as of 05/30/2022) [facility] History of Past illness Narrative* Problem Noted Date Resolved Date RUQ abdominal pain 08/27/2018 12/04/2018 Nausea 08/27/2018 12/04/2018 Esophagitis, unspecified 07/11/2006 018 Acute gastritis without mention of hemorrhage 09/19/2016 documented as of this encounter (statuses as of 06/08/2022) [facility] of Past illness Narrative* Problem Noted Date Resolved Date RUQ abdominal pain 08/27/2018 12/04/2018 Nausea 08/27/2018 12/04/2018 Esophagitis, unspecified 07/11/2006 018 Acute gastritis without mention of hemorrhage 09/19/2016 documented as of this encounter (statuses as of 06/17/2022) [facility] of Past [facility] Narrative* Problem Noted Date Resolved Date RUQ abdominal pain 08/27/2018 12/04/2018 Nausea 08/27/2018 12/04/2018 Esophagitis, unspecified 07/11/2006 018 Acute gastritis without mention of hemorrhage 09/19/2016 documented as of this encounter (statuses as of 06/18/2022) [facility] Past [facility] Narrative* Problem Noted Date Resolved Date RUQ abdominal pain 08/27/2018 12/04/2018 Nausea 08/27/2018 12/04/2018 Esophagitis, unspecified 07/11/2006 018 Acute gastritis without mention of hemorrhage 09/19/2016 documented as of this encounter (statuses as of 06/22/2022) [facility] of Past illness Narrative* Problem Noted Date Resolved Date RUQ abdominal pain 08/27/2018 12/04/2018 Nausea 08/27/2018 12/04/2018 Esophagitis, unspecified 07/11/2006 018 Acute gastritis without mention of hemorrhage 09/19/2016 documented as of this encounter (statuses as of 08/03/2022) [facility] of Past illness Narrative* Problem Noted Date Resolved Date RUQ abdominal pain 08/27/2018 12/04/2018 Nausea 08/27/2018 12/04/2018 Esophagitis, unspecified 07/11/2006 018 Acute gastritis without mention of hemorrhage 09/19/2016 documented as of this encounter (statuses as of 08/16/2022) [facility] Past [facility] Narrative* Problem Noted Date Resolved Date RUQ abdominal pain 08/27/2018 12/04/2018 Nausea 08/27/2018 12/04/2018 Esophagitis, unspecified 07/11/2006 018 Acute gastritis without mention of hemorrhage 09/19/2016 documented as of this encounter (statuses as of 08/18/2022) [facility] Past [facility] Narrative* Problem Noted Date Resolved Date RUQ abdominal pain 08/27/2018 12/04/2018 Nausea 08/27/2018 12/04/2018 Esophagitis, unspecified 07/11/2006 018 Acute gastritis without mention of hemorrhage 09/19/2016 documented as of this encounter (statuses as of 08/19/2022) [facility] of Past [facility] Narrative* Problem Noted Date Resolved Date RUQ abdominal pain 08/27/2018 12/04/2018 Nausea 08/27/2018 12/04/2018 Esophagitis, unspecified 07/11/20062 018 Acute gastritis without mention of hemorrhage 09/19/2016 documented as of this encounter (statuses as of 08/25/2022) [facility] Past [facility] Narrative* Problem Noted Date Resolved Date RUQ abdominal pain 08/27/2018 12/04/2018 Nausea 08/27/2018 12/04/2018 Esophagitis, unspecified 07/11/20062 018 Acute gastritis without mention of hemorrhage 09/19/2016 documented as of this encounter (statuses as of 08/26/2022) [facility] of Past [facility] Narrative* Problem Noted Date Resolved Date RUQ abdominal pain 08/27/2018 12/04/2018 Nausea 08/27/2018 12/04/2018 Esophagitis, unspecified 07/11/2006 018 Acute gastritis without mention of hemorrhage 09/19/2016 documented as of this encounter (statuses as of 10/26/2022) [facility] Past [facility] Narrative* Problem Noted Date Resolved Date RUQ abdominal pain 08/27/2018 12/04/2018 Nausea 08/27/2018 12/04/2018 Esophagitis, unspecified 07/11/2006 018 Acute gastritis without mention of hemorrhage 09/19/2016 documented as of this encounter (statuses as of 11/01/2022) [facility] Past [facility] Narrative* Problem Noted Date Resolved Date RUQ abdominal pain 08/27/2018 12/04/2018 Nausea 08/27/2018 12/04/2018 Esophagitis, unspecified 07/11/2006 018 Acute gastritis without mention of hemorrhage 09/19/2016 documented as of this encounter (statuses as of 11/28/2022) [facility] of Past [facility] Narrative* Problem Noted Date Resolved Date RUQ abdominal pain 08/27/2018 12/04/2018 Nausea 08/27/2018 12/04/2018 Esophagitis, unspecified 07/11/2006 018 Acute gastritis without mention of hemorrhage 09/19/2016 documented as of this encounter (statuses as of 12/23/2022) [facility]* Problem Noted Date Resolved Date RUQ abdominal pain 08/27/2018 12/04/2018 Nausea 08/27/2018 12/04/2018 Esophagitis, unspecified 07/11/2006 018 Acute gastritis without mention of hemorrhage 09/19/2016 documented as of this encounter (statuses as of 01/19/2023) [facility]* Problem Noted Date Resolved Date RUQ abdominal pain 08/27/2018 12/04/2018 Nausea 08/27/2018 12/04/2018 Esophagitis, unspecified 07/11/2006 018 Acute gastritis without mention of hemorrhage 09/19/2016 documented as of this encounter (statuses as of 02/16/2023) [facility]* Problem Noted Date Diagnosed Date Resolved Date RUQ abdominal pain 08/27/2018 9 Nausea 08/27/2018 12/04/2018 Esophagitis, unspecified 07/11/200610/2017 Acute gastritis without mention of hemorrhage 07/11/20 06 09/19/2016 documented as of this encounter (statuses as of 03/02/2023) [facility] Past [facility] Narrative* Problem Noted Date Diagnosed Date Resolved Date RUQ abdominal pain 08/27/2018 9 Nausea 08/27/2018 12/04/2018 Esophagitis, unspecified 07/11/200610/2017 Acute gastritis without mention of hemorrhage 07/11/20 06 09/19/2016 documented as of this encounter (statuses as of 03/29/2023) [facility]ative* Problem Noted Date Diagnosed Date Resolved Date RUQ abdominal pain 08/27/2018 9 Nausea 08/27/2018 12/04/2018 Esophagitis, unspecified 07/11/200610/2017 Acute gastritis without mention of hemorrhage 07/11/20 06 09/19/2016 documented as of this encounter (statuses as of 05/25/2023) [facility]* Problem Noted Date Diagnosed Date Resolved Date RUQ abdominal pain 08/27/2018 9 Nausea 08/27/2018 12/04/2018 Esophagitis, unspecified 07/11/200610/2017 Acute gastritis without mention of hemorrhage 07/11/20 06 09/19/2016 documented as of this encounter (statuses as of 05/25/2023) [facility]* Problem Noted Date Diagnosed Date Resolved Date RUQ abdominal pain 08/27/2018 9 Nausea 08/27/2018 12/04/2018 Esophagitis, unspecified 07/11/200610/2017 Acute gastritis without mention of hemorrhage 07/11/20 06 09/19/2016 documented as of this encounter (statuses as of 05/29/2023) [facility]* Problem Noted Date Diagnosed Date Resolved Date RUQ abdominal pain 08/27/2018 9 Nausea 08/27/2018 12/04/2018 Esophagitis, unspecified 07/11/200610/2017 Acute gastritis without mention of hemorrhage 07/11/20 06 09/19/2016 documented as of this encounter (statuses as of 05/30/2023) [facility]* Problem Noted Date Diagnosed Date Resolved Date RUQ abdominal pain 08/27/2018 9 Nausea 08/27/2018 12/04/2018 Esophagitis, unspecified 07/11/200610/2017 Acute gastritis without mention of hemorrhage 07/11/20 06 09/19/2016 documented as of this encounter (statuses as of 05/30/2023) [facility]* Problem Noted Date Diagnosed Date Resolved Date RUQ abdominal pain 08/27/2018 9 Nausea 08/27/2018 12/04/2018 Esophagitis, unspecified 07/11/200610/2017 Acute gastritis without mention of hemorrhage 07/11/20 06 09/19/2016 documented as of this encounter (statuses as of 05/31/2023) [facility]* Problem Noted Date Diagnosed Date Resolved Date RUQ abdominal pain 08/27/2018 9 Nausea 08/27/2018 12/04/2018 Esophagitis, unspecified 07/11/200610/2017 Acute gastritis without mention of hemorrhage 07/11/20 06 09/19/2016 documented as of this encounter (statuses as of 06/06/2023) [facility] note* Diagnosis [facility] Diagnosis COPD with exacerbation (HCC) Obstructive chronic bronchitis with exacerbation [facility] Diagnosis COPD with exacerbation (HCC)- Primary Obstructive chronic bronchitis with exacerbation Moderate smoker (20 or less per day) Tobacco use disorder [facility] Diagnosis Peripheral vascular disease (HCC)- Primary Peripheral vascular disease, unspecified Persistent cough Cough COPD with exacerbation (HCC) Obstructive chronic bronchitis with exacerbation [facility] Diagnosis Peripheral vascular disease of lower extremity (HCC)- Primary documented in this encounter [facility] note* Diagnosis Hyperlipidemia, mixed Mixed hyperlipidemia Cough documented in this encounter [facility] note* 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 Recurrent major depression in partial remission (HCC) Major depressive disorder, recurrent episode, in partial or unspecified remission documented in this encounter [facility] note* Diagnosis Symptomatic varicose veins of right lower extremity- Primary Peripheral vascular disease of lower extremity (HCC) documented in this encounter [facility] note* Diagnosis Recurrent major depression in partial remission (HCC) Major depressive disorder, recurrent episode, in partial or unspecified remission documented in this encounter [facility] note* Diagnosis Urge incontinence of urine- Primary Urge incontinence Hyperlipidemia, mixed Mixed hyperlipidemia documented in this encounter [facility] note* Diagnosis Hyperlipidemia, mixed Mixed hyperlipidemia Urge incontinence of urine Urge incontinence documented in this encounter [facility] note* Diagnosis Hyperlipidemia, mixed Mixed hyperlipidemia Urge incontinence of urine Urge incontinence documented in this encounter [facility] note* Diagnosis Wound infection, posttraumatic- Primary Posttraumatic wound infection not elsewhere classified Encounter for immunization Need for other specified prophylactic vaccination against single bacterial disease Encounter for removal of sutures documented in this encounter [facility] note* Diagnosis Nausea- Primary Nausea alone documented in this encounter [facility] note* Diagnosis Essential (primary) hypertension Unspecified essential hypertension documented in this encounter [facility] note* Diagnosis Immunization due- Primary Need for prophylactic vaccination and inoculation against unspecified single disease documented in this encounter [facility] note* Diagnosis Recurrent major depression in partial remission (HCC)- Primary Major depressive disorder, recurrent episode, in partial or unspecified remission Anxiety Anxiety state, unspecified Small vessel disease (HCC) Peripheral vascular disease, unspecified Subacute cough Cough Screening for colon cancer Special screening for malignant neoplasms, colon Immunization due Need for prophylactic vaccination and inoculation against unspecified single disease Moderate smoker (20 or less per day) Tobacco use disorder documented in this encounter [facility] note* Diagnosis Recurrent major depression in partial remission (HCC) Major depressive disorder, recurrent episode, in partial or unspecified remission documented in this encounter [facility] note* Diagnosis Recurrent major depression in partial remission (HCC) Major depressive disorder, recurrent episode, in partial or unspecified remission [facility] Diagnosis COPD with exacerbation (HCC) Obstructive chronic bronchitis with exacerbation [facility] Diagnosis Essential (primary) hypertension Unspecified essential hypertension [facility]* 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 Recurrent major depression in partial remission (HCC) Major depressive disorder, recurrent episode, in partial or unspecified remission [facility]* Diagnosis Essential (primary) hypertension- Primary Unspecified essential hypertension Anxiety with depression Chronic pain of both knees Small vessel disease (HCC) Peripheral vascular disease, unspecified Other fatigue Other emphysema (HCC) Other emphysema Primary osteoarthritis involving multiple joints Encounter for immunization Need for other specified prophylactic vaccination against single bacterial disease Moderate smoker (20 or less per day) Tobacco use disorder [facility] Diagnosis Chronic pain of both knees documented in this encounter [facility] note* Diagnosis Chronic pain of both knees [facility] Diagnosis Chronic pain of both knees documented in this encounter [facility] note* Diagnosis Other chest pain- Primary documented in this encounter [facility] for referral (narrative)* Outpatient Procedure (Routine) - Closed Specialty Diagnoses / Procedures Referred By Contac t Referred To Contact [facility] Diagnoses Peripheral vascular disease (HCC) Procedures PVR ANK/GTZ/TOE [facility] NON-INVAS PHYSIOLOGIC STD EXTREMITY ART 2 LEVEL Erasmo Bennett DO [address] [place] [address] [facility] [place] [address] [place] [address] Referral ID Status Reason Start Date Expiration Date V isits Requested Visits Authorized [id number] Closed Auto-Generate d Referral 01/14/2022 01/14/2023 1 1 [facility] for referral (narrative)* Outpatient Procedure (Routine) - Authorized Specialty Diagnoses / Procedures Referred By Contac t Referred To Contact [facility] Diagnoses Symptomatic varicose veins of right lower extremity Procedures US VENOUS INCOMPETENCY UNL VAS LAB DUP-SCAN XTR VEINS UNILATERAL/LIMITED STUDY Anna Tejada DO [address] [place] [address] [facility] [address] [place] [address] Referral ID Status Reason Start Date Expiration Date Visits Requested Visits Authorized [id number] Authorized Auto-Generat ed Referral 04/12/2022 04/12/2023 1 1 [facility] for referral (narrative)* Diagnostic Procedure Only (Routine) - Authorized Specialty Diagnoses / Procedures Referred By Contac t Referred To Contact XR IMAGING Diagnoses Chronic pain of both knees Procedures XR KNEE SURVEY ARTHRITIS 1V AP BILATERAL RADIOLOGIC EXAM BOTH KNEES STANDING ANTEROPOST Erasmo Bennett DO [address] [place] [address] [place] [address] Referral ID Status Reason Start Date Expiration Date Visits Requested Visits Authorized [id number] Authorized Auto-Generat ed Referral 06/27/2024 1 1 * Diagnostic Procedure Only (Routine) - Closed Specialty Diagnoses / Procedures Referred By Contac t Referred To Contact XR IMAGING Diagnoses Chronic pain of both knees Procedures XR KNEE LIMITED 2V AP/LAT RIGHT RADIOLOGIC EXAMINATION KNEE 1/2 VIEWS Erasmo Bennett DO [address] [place] [address] [place] [address] Referral ID Status Reason Start Date Expiration Date V isits Requested Visits Authorized [id number] Closed Auto-Generate d Referral 05/29/2023 06/27/2024 1 1 * Diagnostic Procedure Only (Routine) - Closed Specialty Diagnoses / Procedures Referred By Contac t Referred To Contact XR IMAGING Diagnoses Chronic pain of both knees Procedures XR KNEE LIMITED 2V AP/LAT LEFT RADIOLOGIC EXAMINATION KNEE 1/2 VIEWS Erasmo Bennett, DO [address] [place] [address] [place] [address] Referral ID Status Reason Start Date Expiration Date V isits Requested Visits Authorized [id number] Closed Auto-Generate d Referral 05/29/2023 06/27/2024 1 1 [facility] for visit Narrative* Diagnostic Procedure Only (Routine) - Authorized Specialty Diagnoses / Procedures Referred By Contac t Referred To Contact XR IMAGING Diagnoses Chronic pain of both knees Procedures XR KNEE SURVEY ARTHRITIS 1V AP BILATERAL RADIOLOGIC EXAM BOTH KNEES STANDING ANTEROPOST Erasmo Bennett, DO [address] [place] [address] [place] [address] Referral ID Status Reason Start Date Expiration Date Visits Requested Visits Authorized [id number] Authorized Auto-Generat ed Referral 06/27/2024 1 1 [facility] for visit Narrative* Diagnostic Procedure Only (Routine) - Closed Specialty Diagnoses / Procedures Referred By Contac t Referred To Contact XR IMAGING Diagnoses Chronic pain of both knees Procedures XR KNEE LIMITED 2V AP/LAT LEFT RADIOLOGIC EXAMINATION KNEE 1/2 VIEWS Donald Erasmo C, DO [address] [place] [address] [place] [address] Referral ID Status Reason Start Date Expiration Date V isits Requested Visits Authorized [id number] Closed Auto-Generate d Referral 05/29/2023 06/27/2024 1 1 [facility] for visit Narrative* Diagnostic Procedure Only (Routine) - Closed Specialty Diagnoses / Procedures Referred By Contac t Referred To Contact XR IMAGING Diagnoses Chronic pain of both knees Procedures XR KNEE LIMITED 2V AP/LAT RIGHT RADIOLOGIC EXAMINATION KNEE 1/2 VIEWS Donald Erasmo C, DO [address] [place] [address] [place] [address] Referral ID Status Reason Start Date Expiration Date V isits Requested Visits Authorized [id number] Closed Auto-Generate d Referral 05/29/2023 06/27/2024 1 1 [facility] Summary Purpose Family History No Family History Records FoundNo Family History Records FoundNo Family History Records Found Advance Directives No Advanced Directives Records FoundDocuments on File Type Date Recorded Patient [employer] Advance Directive(s) 06/28/2020 2:36 PM Advance Directive(s) 01/30/2018 12:11 PM Documents on File Type Date Recorded Patient [employer] Advance Directive(s) 06/28/2020 2:36 PM Advance Directive(s) 01/30/2018 12:11 PM Reason for Referral Specialty Diagnoses / Procedures Referred By Contac t Referred To Contact [facility] Department Diagnoses Peripheral vascular disease of lower extremity (HCC) Procedures CONSULT TO VASCULAR SURGERY OFFICE/OUTPATIENT [facility] 60-74 MINUTES Erasmo Bennett DO [address] [place] [address] Anna Tejada, [address] [address] Referral ID Status Reason Start Date Expiration Date Visits Requested Visits Authorized [id number] Pending Review PCP Requested Referral 02/01/2022 02/01/2023 1 1 Additional Source Comments INFORMATION SOURCE (unrecogn ized section and content) DATE CREATED AUTHOR AUTHOR'S ORGANIZ ATION 01/24/2023 [facility] DATE CREATED AUTHOR AUTHOR'S ORGANIZ ATION 06/08/2023 [facility] Source Comments (unrecognize d section and content) In the event this informatio n is protected by the Federal Confidentiality of Alcohol and Drug Abuse Patient Records regulations: The Federal rules restrict any use of the information to criminally investigate or prosecute any alcohol or drug abuse patient.[facility] the event this information is protected by the Federal Confidentiality of Alcohol and Drug Abuse Patient Records regulations: The Federal rules restrict any use of the information to criminally investigate or prosecute any alcohol or drug abuse patient.[facility] the event this information is protected by the Federal Confidentiality of Alcohol and Drug Abuse Patient Records regulations: The Federal rules restrict any use of the information to criminally investigate or prosecute any alcohol or drug abuse patient.[facility] the event this information is protected by the Federal Confidentiality of Alcohol and Drug Abuse Patient Records regulations: The Federal rules restrict any use of the information to criminally investigate or prosecute any alcohol or drug abuse patient.[facility]In the event this information is protected by the Federal Confidentiality of Alcohol and Drug Abuse Patient Records regulations: The Federal rules restrict any use of the information to criminally investigate or prosecute any alcohol or drug abuse patient.[facility] the event this information is protected by the Federal Confidentiality of Alcohol and Drug Abuse Patient Records regulations: The Federal rules restrict any use of the information to criminally investigate or prosecute any alcohol or drug abuse patient.[facility] HospitalIn the event this information is protected by the Federal Confidentiality of Alcohol and Drug Abuse Patient Records regulations: The Federal rules restrict any use of the information to criminally investigate or prosecute any alcohol or drug abuse patient.[facility] HospitalIn the event this information is protected by the Federal Confidentiality of Alcohol and Drug Abuse Patient Records regulations: The Federal rules restrict any use of the information to criminally investigate or prosecute any alcohol or drug abuse patient.[facility]In the event this information is protected by the Federal Confidentiality of Alcohol and Drug Abuse Patient Records regulations: The Federal rules restrict any use of the information to criminally investigate or prosecute any alcohol or drug abuse patient.[facility] HospitalIn the event this information is protected by the Federal Confidentiality of Alcohol and Drug Abuse Patient Records regulations: The Federal rules restrict any use of the information to criminally investigate or prosecute any alcohol or drug abuse patient.[facility] HospitalIn the event this information is protected by the Federal Confidentiality of Alcohol and Drug Abuse Patient Records regulations: The Federal rules restrict any use of the information to criminally investigate or prosecute any alcohol or drug abuse patient.[facility] HospitalIn the event this information is protected by the Federal Confidentiality of Alcohol and Drug Abuse Patient Records regulations: The Federal rules restrict any use of the information to criminally investigate or prosecute any alcohol or drug abuse patient.[facility] HospitalIn the event this information is protected by the Federal Confidentiality of Alcohol and Drug Abuse Patient Records regulations: The Federal rules restrict any use of the information to criminally investigate or prosecute any alcohol or drug abuse patient.[facility] HospitalIn the event this information is protected by the Federal Confidentiality of Alcohol and Drug Abuse Patient Records regulations: The Federal rules restrict any use of the information to criminally investigate or prosecute any alcohol or drug abuse patient.[facility] HospitalIn the event this information is protected by the Federal Confidentiality of Alcohol and Drug Abuse Patient Records regulations: The Federal rules restrict any use of the information to criminally investigate or prosecute any alcohol or drug abuse patient.[facility] HospitalIn the event this information is protected by the Federal Confidentiality of Alcohol and Drug Abuse Patient Records regulations: The Federal rules restrict any use of the information to criminally investigate or prosecute any alcohol or drug abuse patient.[facility] HospitalIn the event this information is protected by the Federal Confidentiality of Alcohol and Drug Abuse Patient Records regulations: The Federal rules restrict any use of the information to criminally investigate or prosecute any alcohol or drug abuse patient.[facility] HospitalIn the event this information is protected by the Federal Confidentiality of Alcohol and Drug Abuse Patient Records regulations: The Federal rules restrict any use of the information to criminally investigate or prosecute any alcohol or drug abuse patient.[facility] HospitalIn the event this information is protected by the Federal Confidentiality of Alcohol and Drug Abuse Patient Records regulations: The Federal rules restrict any use of the information to criminally investigate or prosecute any alcohol or drug abuse patient.[facility] HospitalIn the event this information is protected by the Federal Confidentiality of Alcohol and Drug Abuse Patient Records regulations: The Federal rules restrict any use of the information to criminally investigate or prosecute any alcohol or drug abuse patient.[facility] HospitalIn the event this information is protected by the Federal Confidentiality of Alcohol and Drug Abuse Patient Records regulations: The Federal rules restrict any use of the information to criminally investigate or prosecute any alcohol or drug abuse patient.[facility] HospitalIn the event this information is protected by the Federal Confidentiality of Alcohol and Drug Abuse Patient Records regulations: The Federal rules restrict any use of the information to criminally investigate or prosecute any alcohol or drug abuse patient.[facility] HospitalIn the event this information is protected by the Federal Confidentiality of Alcohol and Drug Abuse Patient Records regulations: The Federal rules restrict any use of the information to criminally investigate or prosecute any alcohol or drug abuse patient.[facility] HospitalIn the event this information is protected by the Federal Confidentiality of Alcohol and Drug Abuse Patient Records regulations: The Federal rules restrict any use of the information to criminally investigate or prosecute any alcohol or drug abuse patient.[facility] HospitalIn the event this information is protected by the Federal Confidentiality of Alcohol and Drug Abuse Patient Records regulations: The Federal rules restrict any use of the information to criminally investigate or prosecute any alcohol or drug abuse patient.[facility] HospitalIn the event this information is protected by the Federal Confidentiality of Alcohol and Drug Abuse Patient Records regulations: The Federal rules restrict any use of the information to criminally investigate or prosecute any alcohol or drug abuse patient.[facility] HospitalIn the event this information is protected by the Federal Confidentiality of Alcohol and Drug Abuse Patient Records regulations: The Federal rules restrict any use of the information to criminally investigate or prosecute any alcohol or drug abuse patient.[facility] HospitalIn the event this information is protected by the Federal Confidentiality of Alcohol and Drug Abuse Patient Records regulations: The Federal rules restrict any use of the information to criminally investigate or prosecute any alcohol or drug abuse patient.[facility] HospitalIn the event this information is protected by the Federal Confidentiality of Alcohol and Drug Abuse Patient Records regulations: The Federal rules restrict any use of the information to criminally investigate or prosecute any alcohol or drug abuse patient.[facility] HospitalIn the event this information is protected by the Federal Confidentiality of Alcohol and Drug Abuse Patient Records regulations: The Federal rules restrict any use of the information to criminally investigate or prosecute any alcohol or drug abuse patient.[facility] HospitalIn the event this information is protected by the Federal Confidentiality of Alcohol and Drug Abuse Patient Records regulations: The Federal rules restrict any use of the information to criminally investigate or prosecute any alcohol or drug abuse patient.[facility] HospitalIn the event this information is protected by the Federal Confidentiality of Alcohol and Drug Abuse Patient Records regulations: The Federal rules restrict any use of the information to criminally investigate or prosecute any alcohol or drug abuse patient.[facility] HospitalIn the event this information is protected by the Federal Confidentiality of Alcohol and Drug Abuse Patient Records regulations: The Federal rules restrict any use of the information to criminally investigate or prosecute any alcohol or drug abuse patient.[facility] HospitalIn the event this information is protected by the Federal Confidentiality of Alcohol and Drug Abuse Patient Records regulations: The Federal rules restrict any use of the information to criminally investigate or prosecute any alcohol or drug abuse patient.[facility] HospitalIn the event this information is protected by the Federal Confidentiality of Alcohol and Drug Abuse Patient Records regulations: The Federal rules restrict any use of the information to criminally investigate or prosecute any alcohol or drug abuse patient.[facility] HospitalIn the event this information is protected by the Federal Confidentiality of Alcohol and Drug Abuse Patient Records regulations: The Federal rules restrict any use of the information to criminally investigate or prosecute any alcohol or drug abuse patient.[facility] HospitalIn the event this information is protected by the Federal Confidentiality of Alcohol and Drug Abuse Patient Records regulations: The Federal rules restrict any use of the information to criminally investigate or prosecute any alcohol or drug abuse patient.[facility] HospitalIn the event this information is protected by the Federal Confidentiality of Alcohol and Drug Abuse Patient Records regulations: The Federal rules restrict any use of the information to criminally investigate or prosecute any alcohol or drug abuse patient.[facility] HospitalIn the event this information is protected by the Federal Confidentiality of Alcohol and Drug Abuse Patient Records regulations: The Federal rules restrict any use of the information to criminally investigate or prosecute any alcohol or drug abuse patient.[facility] HospitalIn the event this information is protected by the Federal Confidentiality of Alcohol and Drug Abuse Patient Records regulations: The Federal rules restrict any use of the information to criminally investigate or prosecute any alcohol or drug abuse patient.[facility] the event this information is protected by the Federal Confidentiality of Alcohol and Drug Abuse Patient Records regulations: The Federal rules restrict any use of the information to criminally investigate or prosecute any alcohol or drug abuse patient.[facility] HospitalIn the event this information is protected by the Federal Confidentiality of Alcohol and Drug Abuse Patient Records regulations: The Federal rules restrict any use of the information to criminally investigate or prosecute any alcohol or drug abuse patient.[facility] Reason for Visit (unrecogniz ed section and content) Reason Onset Date Comments Refill Request 12/06/2021 Reason Comments Fatigue Has been going on si nce easter Cough Rhinitis Post Nasal Drip Reason Comments Appointment Colonoscopy needs re scheduled d/t previous cancellation Reason Comments Referral Request Reason Comments Patient Question Reason Comments General Weakness for the last couple months she has been having weakness in her legs feet have been turning purple Reason Comments Patient Question Results Reason Onset Date Comments Refill Request 03/03/2022 Reason Onset Date Comments Refill Request Refill Request 03/15/2022 Reason Onset Date Comments ER F/U 03/28/2022 [facility] discharg e 03/19/2022 ED outreach Reason Comments New Patient Specialty Diagnoses / Procedures Referred By Get t Referred To Contact [facility] Department Diagnoses Peripheral vascular disease of lower extremity (HCC) Procedures CONSULT TO VASCULAR SURGERY OFFICE/OUTPATIENT NEW HIGH MDM 60-74 MINUTES Erasmo Bennett DO [address] [place] [address] Anna Tejada, DO [address] [address] Referral ID Status Reason Start Date Expiration Date Visits Requested Visits Authorized [id number] Pending Review PCP Requested Referral 02/01/2022 02/01/2023 1 1 Reason Onset Date Comments PT OUTREACH 05/30/2022 ED OUTREACH Reason Comments Refill Request Reason Onset Date Comments Refill Request 06/16/2022 Reason Onset Date Comments Refill Request 06/17/2022 Reason Onset Date Comments Refill Request 06/21/2022 Reason Comments flu vaccine and suture removal Reason Comments Patient Update Reason Comments covid booster vaccine Reason Comments Depression Follow up Reason Comments No Show Pt no showed for jose t on 11/28/22 Reason Onset Date Comments Refill Request 02/16/2023 Reason Onset Date Comments Refill Request 03/02/2023 Reason Comments Patient Question Appointment Reason Comments bilateral leg pain/weakness Has had it f or awhile and has seen a vascular doctor for it and they just told her she has peripheral artery disease and did not do anything further Reason Comments EKG Nurse visit per [place] Reason Comments Results Care Teams (unrecognized sec tion and content) [employer] Relationship Specialty Start Date End Date Erasmo Bennett DO PCP - General 05/12/06 [employer] Relationship Specialty Start Date End Date Erasmo Bennett DO PCP - General 05/12/06 [employer] Relationship Specialty Start Date End Date Erasmo Bennett DO PCP - General 05/12/06 [employer] Relationship Specialty Start Date End Date Erasmo Bennett DO PCP - General 05/12/06 [employer] Relationship Specialty Start Date End Date Erasmo Bennett DO PCP - General 05/12/06 [employer] Relationship Specialty Start Date End Date Erasmo Bennett DO PCP - General 05/12/06 [employer] Relationship Specialty Start Date End Date Sheets, Erasmo Shen, DO PCP - General 05/12/06 [employer] Relationship Specialty Start Date End Date Sheets, Erasmo Shen, DO PCP - General 05/12/06 [employer] Relationship Specialty Start Date End Date Sheets, Erasmo Shen, DO PCP - General 05/12/06 [employer] Relationship Specialty Start Date End Date Sheets, Erasmo Shen, DO PCP - General 05/12/06 [employer] Relationship Specialty Start Date End Date Sheets, rEasmo Shen, DO PCP - General 05/12/06 [employer] Relationship Specialty Start Date End Date Sheets, Erasmo Shen, DO PCP - General 05/12/06 [employer] Relationship Specialty Start Date End Date Sheets, Erasmo Shen, DO PCP - General 05/12/06 [employer] Relationship Specialty Start Date End Date Sheets, Erasmo Shen, DO PCP - General 05/12/06 [employer] Relationship Specialty Start Date End Date Sheets, Erasmo Shen, DO PCP - General 05/12/06 [employer] Relationship Specialty Start Date End Date Sheets, Erasmo Shen, DO PCP - General 05/12/06 [employer] Relationship Specialty Start Date End Date Sheets, Erasmo Shen, DO PCP - General 05/12/06 [employer] Relationship Specialty Start Date End Date Sheets Erasmo Shen DO PCP - General 05/12/06 [employer] Relationship Specialty Start Date End Date Sheets Erasmo Shen DO PCP - General 05/12/06 [employer] Relationship Specialty Start Date End Date Sheets Erasmo Shen DO PCP - General 05/12/06 [employer] Relationship Specialty Start Date End Date Sheets Erasmo Shen DO PCP - General 05/12/06 [employer] Relationship Specialty Start Date End Date Sheets Erasmo Shen DO PCP - General 05/12/06 [employer] Relationship Specialty Start Date End Date Sheets Erasmo Shen DO PCP - General 05/12/06 [employer] Relationship Specialty Start Date End Date Sheets Erasmo Shen DO PCP - General 05/12/06 [employer] Relationship Specialty Start Date End Date Sheets Erasmo Shen DO PCP - General 05/12/06 [employer] Relationship Specialty Start Date End Date Sheets Erasmo Shen DO PCP - General 05/12/06 [employer] Relationship Specialty Start Date End Date SheetsErasmo DO PCP - General 05/12/06 [employer] Relationship Specialty Start Date End Date Erasmo Bennett DO PCP General 05/12/06 [employer] Relationship Specialty Start Date End Date Erasmo Bennett DO [facility] 05/12/06 FOR RECORDS PERTAINING TO PATIENTS WHO ARE OR HAVE BEEN ENROLLED IN A CHEMICAL DEPENDENCY/SUBSTANCEABUSE PROGRAM, SOME INFORMATION MAY BE OMITTED. This clinical summary was aggregated from multiple sources. Caution should be exercised in using it in the provision of clinical care. This summary normalizes information from multiple sources, and as a consequence, information in this document may materially change the coding, format and clinical context of patient data. In addition, data may be omitted in some cases. CLINICAL DECISIONS SHOULD BE BASED ON THE PRIMARY CLINICAL RECORDS. [facility] [place], [facility]. provides no warranty or guarantee of the accuracy or completeness of information in this document.
[2023-09-29 13:08] LABS: KEPPRA (LEVETIRACETAM) 15.8 ug/mL (10.0-40.0)
== END | disposition home or self-care (01) ==
LOC: MTLAB 11:19
PROVIDERS: PCP Family Medicine; Referring Provider Psychiatry & Neurology Neurology; Visit Provider Psychiatry & Neurology Neurology
DX: G40.909 Epilepsy, unspecified, not intractable, without status epilepticus (principal)
CPT/HCPCS: 36415; 80177; 82140

== ENCOUNTER 2023-12-07 15:59 | Emergency (ER) | payer MEDICARE, SELFPAY ==
[2023-12-07 16:01] VITALS: BP 133/81; PULSE 79; RESP 16; TEMP 36.2; O2SAT 99; BMI 22.4
--- NOTE | 2023-12-07 16:15 | RAD_ITS ---
EXAM: XR CHEST, 1 VIEW CLINICAL INDICATION: chest pain TECHNIQUE: Frontal view of the chest. COMPARISON: No relevant prior studies available. FINDINGS: LUNGS AND PLEURAL SPACES: Unremarkable. No consolidation or edema. No pneumothorax. No effusion. HEART: Unremarkable. Cardiac silhouette not enlarged. MEDIASTINUM: Central airways and mediastinal contour are unremarkable. BONES/JOINTS: Unremarkable. No acute fracture. SOFT TISSUES: Unremarkable. RAD/Chest 1 View (Portable) IMPRESSION: No radiographic evidence of acute cardiopulmonary disease. Electronically Signed: Robby Wallace MD at 16:31 EDT ,
--- NOTE | 2023-12-07 16:15 | EKG12_ITS ---
Test Reason : CP Blood Pressure : / mmHG Vent. Rate : 066 BPM Atrial Rate : 066 BPM P-R Int : 158 ms QRS Dur : 080 ms QT Int : 420 ms P-R-T Axes : 028 043 055 degrees QTc Int : 440 ms Normal sinus rhythm Normal ECG Confirmed by LESLEY SHAW, MARCO ([id number]), publications editor SILVIA DIAZ ([id number]) on 12/11/2023 10:32:04 AM Referred By: GILBERTO Confirmed By:CHICHO SUTTON MD
[2023-12-07 16:30] LABS: Absolute Lymphocyte Count 1.75 X10^3/uL (0.83-4.51); Absolute Neutrophil Count 2.9 X10^3/uL (2.0-7.7); Basophil# 0.04 X10^3/uL; Basophil% 0.7 % (0-1); Eosinophil# 0.14 X10^3/uL; Eosinophils% 2.6 % (0-5); Hematocrit 32.7 % (37-47); Hemoglobin 11.2 g/dL (12.0-15.0); Lymphocyte # 1.75 X10^3/ul (0.83-4.51); Lymphocyte % 32.5 % (19-41); Mean Corp Hgb Conc 34.3 g/dL (32-36); Mean Corpuscular Hgb 32.7 pg (27.0-32.0); Mean Corpuscular Volume 95.3 fL (81-99); Mean Platelet Vol. 9.2 fl (6.2-12.0); Monocyte# 0.54 X10^3/uL; NRBC Flagged by Analyzer 0 % (0-5); Neutrophil # 2.91 X10^3/uL (2.7-7.7); Platelet Count 287 K/mm3 (150-450); RBC Distribution Width CV 12.4 % (11.6-14.6); RBC Distribution Width SD 43.7 fl (35.1-43.9); Red Blood Count 3.43 M/mm3 (4.2-5.4); White Blood Count 5.4 K/mm3 (4.4-11.0)
[2023-12-07 16:47] LABS: Anion Gap 7 (5-15); BUN 15 mg/dL (7-18); BUN/Creat Ratio 18.8 RATIO (10-20); Calcium,Total 8.3 mg/dL (8.5-10.1); Chloride 99 mmol/L (98-107); EST Glomerular Filtration Rate 74 mL/min (>60); Est Glom Filt Rate - Afr Amer 90 mL/min (>60); Estimated Creatinine Clearance 55.52 ml/min; Glucose 92 mg/dL (74-106); Potassium 3.5 mmol/L (3.5-5.1); Sodium Level 131 mmol/L (136-145); Troponin-I HS (w/2H Reflex) 7 pg/mL (3.0-54.0)
[2023-12-07 18:00] VITALS: BP 149/83; PULSE 63; RESP 18
--- NOTE | 2023-12-07 18:14 | EDS_ITS ---
<Statement entered by Orin Steward MD - 12/07/23 23:18> I have personally performed a face to face assessment of the patient and have reviewed the ADRIANA Note. Patient presents secondary to chest heaviness. She has had symptoms for the past 2 weeks. She thinks that she is having stomach problems and called her insurance company today to see if she needed a GI referral. When she told the insurance worker her symptoms she was encouraged to come to the emergency room. Patient sitting upright in bed no acute distress. Speaking full sentences. Head and neck examination unremarkable. Heart is regular rate and rhythm. Lung sounds are clear. Abdomen is soft and nontender. Neuro exam unremarkable. EKG is sinus at 66 with no evidence of acute ischemia. CBC and chemistry studies are unremarkable with a normal troponin. LFTs and lipase are normal. Chest x-ray per my interpretation reveals hyperinflation consistent with COPD. No focal infiltrate. Radiology interpretation reviewed. Patient advised of her lab workup and findings. No evidence of acute cardiac abnormality at this time. Patient be discharged to home with close follow-up and return instructions are given. HPI History of Present Illness Chief Complaint: Chest Pain Narrative Narrative: Patient is a 73-year-old female with history of COPD, hypertension, seizure disorder on Keppra, smoking 1.5 pack/day, drinking 3-6 beers daily presents to the emerged department with 2 weeks of generalized heaviness to her chest, epigastric area. She called her insurance company today to see if she needs a referral to a GI specialist, she told the woman her symptoms and they told her she should go to the ER. Patient states that she does not feel more short of breath, she does not know if she is having gas or an ulcer. She is here for evaluation [facility] Medical History Anxiety Back problem Cerebrovascular disease Chronic bronchitis Closed left hip fracture COPD (chronic obstructive pulmonary disease) Depressed Epilepsy Essential hypertension Fatigue Hearing problem Hip fracture, right History of emotional problems Insomnia 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 of localized onset, not intractable, without status epilepticus MCI (mild cognitive impairment) Osteoarthritis Osteoporosis SBO (small bowel obstruction) Seizures Therapeutic drug monitoring Home Medications duloxetine 30 mg capsule,delayed release 30 mg PO BID depression 03/19/20 [Hi story Last Taken 06/28/20 08:00 1] gabapentin 100 mg capsule 100 mg PO TID PRN PRN lower back pain 03/19/20 [History Last Taken 06/28/20 08:00 1] lisinopril 10 mg tablet 10 mg PO DAILY sleep 03/19/20 [History Last Taken 06/28/20 08:00 1] quetiapine 25 mg tablet 25 mg PO QHS sleep 03/19/20 [History Last Taken 06/27/20 22:00 1] aspirin 81 mg tablet,delayed release 81 mg PO DAILY blood thinner 06/23/20 [History Last Taken 06/28/20 0800] oxybutynin chloride 5 mg tablet,extended release 24 hr 5 mg PO DAILY Check with primary doctor 06/23/20 [History Last Taken 06/28/20 08:00 1] albuterol sulfate 90 mcg/actuation aerosol inhaler 2 puff inhalation Q4H PRN PRN wheezing/SOB 06/28/20 [History Last Taken Unknown] atorvastatin 40 mg tablet 40 mg PO DAILY 12/22/20 [History Last Taken Unknown] calcium carbonate (Calcium 600) 1,200 mg PO DAILY 01/25/22 [History Last Taken Unknown] levetiracetam 500 mg tablet 500 mg PO BID seizure prevention #180 tabs 09/26/23 [Rx Last Taken Unknown] pantoprazole 40 mg tablet,delayed release (Protonix) 40 mg PO DAILY #30 tabs 12/07/23 [Rx Last Taken Unknown] Allergy/AdvReac Type Severity Reaction Status Date / Time hydrocodone bitartrate Allergy Mild Rash Verified 12/07/23 16:00 [From Vicodin] Surgical History H/O tubal ligation History of back surgery History of carpal tunnel surgery of right wrist History of right hip replacement History of tonsillectomy Retinal detachment, right Social History (Updated 11/07/22 @ 14:42 by Lori Razo) Smoking Status: Current every day smoker tobacco type: cigarettes Tobacco: How many years used: 30 Electronic Cigarette Use: not used second hand exposure: Yes alcohol intake: current alcohol intake frequency: holidays/special occasions only substance use type: does not use what type of physical activity do you participate in: none teri/faith: Religion seatbelt use: always ROS ROS ED ROS Narrative Constitutional: Negative for fever, chills, weight loss, weakness Eyes: Negative for vision loss, vision change, double vision ENT: Negative for any sore throat, ear pain, congestion Cardiovascular: Negative for any chest pain, palpitations. Positive for chest tightness Respiratory: Negative for any sputum production, hemoptysis, dyspnea, dyspnea on exertion, orthopnea. Positive for chronic cough Gastrointestinal: Negative for any abdominal pain, nausea, vomiting, diarrhea, constipation, blood in stool, blood in vomit. Positive for epigastric pain : Negative for any urinary frequency, dysuria, retention, blood in urine Muscle skeletal: Negative for any neck pain, back pain Neurological: Negative for any headache, syncope, dizziness Skin: Negative for any rashes, itching, abrasions, lacerations Psychiatric: Negative for any depression, anxiety, stress, suicidal ideation, homicidal ideation Hematologic: Negative for any excessive bruising, easy bleeding EXAM Physical Exam Narrative Exam Narrative: Vital signs reviewed. HEET: Head normocephalic atraumatic, TMs clear bilaterally. Posterior pharynx is clear, moist mucous membranes. Nares clear bilaterally. Neck: Supple with no lymphadenopathy or tenderness. No signs of meningismus. Cardiac: Regular rate and rhythm no murmurs gallops or rubs, equal peripheral pulses bilaterally. Respiratory: Lungs clear to auscultation bilaterally. No chest tenderness. Abdomen: Soft, nontender, nondistended. No abdominal bruit or pulsatile masses. No hepatosplenomegaly Extremities: No peripheral edema, no signs of gross trauma or deformity. Active full range of motion of all extremities. Neuro: Cranial nerves II through XII intact, no focal neurological deficits. Skin: Clean dry and intact with no rash, purpura, petechiae, vesicles or pust ules. Backs/flank: No CVA tenderness, no midline spinal tenderness, no deformity. Psych: Normal mood and affect. No SI, HI or acute psychosis. Const Vital Signs: 12/07/23 16:01 12/07/23 18:56 12/07/23 18:00 Temperature 97.2 F L Temperature Source Temporal Pulse Rate 79 63 Respiratory Rate 16 18 Blood Pressure 133/81 H 149/83 H Blood Pressure Mean 98 105 Pulse Ox 99 Oxygen Delivery Method Room Air Room Air Room Air Positive well nourished and well developed General Appearance ED: well developed MDM MDM Lab Data Labs: Laboratory Results - last 24 hr 12/07/23 16:20 WBC 5.4 RBC 3.43 L Hgb 11.2 L Hct 32.7 L MCV 95.3 MCH 32.7 H MCHC 34.3 RDW Std Deviation 43.7 RDW Coeff of Ran 12.4 Plt Count 287 MPV 9.2 Immature Gran % (Auto) 0.200 Neut % (Auto) 54.0 Lymph % (Auto) 32.5 [place] % (Auto) 10.0 Eos % (Auto) 2.6 Baso % (Auto) 0.7 Absolute Neuts (auto) 2.9 Absolute Lymphs (auto) 1.75 Nucleated RBC % 0 Sodium 131 L Potassium 3.5 Chloride 99 Carbon Dioxide 25.0 Anion Gap 7 BUN 15 Creatinine 0.80 Estim Creat Clear Calc 55.52 Est GFR (MDRD) Af Amer 90 Est GFR (MDRD) Non-Af 74 BUN/Creatinine Ratio 18.8 Glucose 92 Calcium 8.3 L Total Bilirubin 0.30 Direct Bilirubin 0.10 AST 29 ALT 19 Alkaline Phosphatase 43 L Troponin I High Sens 7 Total Protein 6.2 L Albumin 3.3 Globulin 2.9 Lipase 96 H Radiography Diagnostic Testing: Clinical Impression(s) from Imaging Studies Chest X-Ray 12/07/23 16:15 IMPRESSION: No radiographic evidence of acute cardiopulmonary disease. Electronically Signed: Robby Wallace MD at 16:31 EDT , Treatment and Re-Evaluation :: Differential diagnosis includes however is not limited to: ACS, AR, COPD exacerbation, GERD, liver disease Patient appears to be in no obvious respiratory distress vital signs are stable. Patient presents to the emergency department with complaints of 2 weeks of intermittent epigastric pain, chest tightness. Patient will receive a full cardiac workup. Patient did have a workup started out in triage, EKG was unremarkable. CBC showed a slight anemia with a hemoglobin of 11.2 however this is stable. Chemistries show slight hyponatremia with a sodium 131, calcium was 8.3, troponin was 7 which is negative. I will add on a liver panel, lipase secondary to the patient's drinking history. Chest x-ray was completed, this showed no radiographic evidence of acute cardiopulmonary disease. This was interpreted by ER physician. Patient will receive a GI cocktail, will be reevaluated. Patient reevaluation was feeling better. Patient's lipase was only slightly elevated at 96, patient's troponin again was negative. Patient's liver panel was unremarkable. At this time, I do believe the patient is suffering from more of a gastritis, this is secondary to the alcohol abuse and smoking. Do not believe there is any cardiac involvement. At this time, patient be discharged home, she placed on Protonix 40 mg daily in the morning, she will be given a referral to Dr. Henderson, all questions were answered, patient stable for discharge. Discharge Plan Triage Chief Complaint: Chest Pain ED Midlevel Provider: Howard Mace ED Provider: Orin Steward Dx/Rx/DC Orders Clinical Impression: Alcohol abuse, Gastritis, Tobacco abuse Instructions: ED Gastritis (Adult) Prescriptions: New pantoprazole [Protonix] 40 mg tablet,delayed release (DR/EC) 40 mg PO DAILY Qty: 30 1RF No Action quetiapine 25 mg tablet 25 mg PO QHS gabapentin 100 mg capsule 100 mg PO TID PRN PRN (Reason: lower back pain) Patient Comments: TAKE 1 CAPSULE BY MOUTH THREE TIMES DAILY lisinopril 10 mg tablet 10 mg PO DAILY duloxetine 30 mg capsule,delayed release(DR/EC) 30 mg PO BID oxybutynin chloride 5 mg tablet extended release 24hr 5 mg PO DAILY Rx Instructions: sleep\ aspirin 81 mg tablet,delayed release (DR/EC) 81 mg PO DAILY atorvastatin 40 mg tablet 40 mg PO DAILY calcium carbonate [Calcium 600] 600 mg calcium (1,500 mg) tablet 1,200 mg PO DAILY levetiracetam 500 mg tablet 500 mg PO BID Qty: 180 2RF albuterol sulfate 1 PUFF inhaler 2 puff INHALATION Q4H PRN PRN (Reason: wheezing/SOB) Primary Care Provider: Ashley Bennett Referrals: Ashley Bennett DO [Primary Care Provider] - Activity Restrictions/Additional Instructions: Please follow-up outpatient. Try to decrease your smoking, decrease your drinking. Disposition Disposition: Home, Self Care
[2023-12-07 18:28] LABS: Reflex Troponin-HS? (from REC) Y
[2023-12-07] MEDS: Mag Hydrox/Al Hydrox/Simeth 30 ML UDC PO (18:59)
[2023-12-07 19:02] LABS: Lipase 96 U/L (13-75)
[2023-12-07 19:04] LABS: AST(SGOT) 29 U/L (15-37); Alanine Aminotransfer ALT/SGPT 19 U/L (13-56); Albumin, Serum 3.3 g/dL (3.2-5.0); Alkaline Phosphatase 43 U/L (45-117); Globulin 2.9 g/dL (2.2-4.2); Protein, Total 6.2 g/dL (6.4-8.2)
[2023-12-07 19:24] VITALS: BP 147/81; PULSE 64; RESP 17; TEMP 36.4; O2SAT 99
== END 2023-12-07 19:28 | disposition home or self-care (01) ==
PROVIDERS: Nurse Practitioner; Emergency Provider Emergency Medicine; PCP Family Medicine; Visit Provider Emergency Medicine
DX: J44.9 Chronic obstructive pulmonary disease, unspecified (principal); K29.70 Gastritis, unspecified, without bleeding; I10 Essential (primary) hypertension; F10.10 Alcohol abuse, uncomplicated; F17.210 Nicotine dependence, cigarettes, uncomplicated; Z79.899 Other long term (current) drug therapy
CPT/HCPCS: 71045; 80048; 80076; 83690; 84484; 85025; 93005; 99284; A4216

== ENCOUNTER → 2024-03-19 | Outpatient (CLI) | payer MEDICARE, SELFPAY ==
--- NOTE | 2024-03-19 09:06 | VDLE_ITS ---
Reason For Study: Bilateral leg pain RIGHT LEFT CFV is compressible, spontaneous, phasic, CFV is compressible, spontaneous, phasic, competent and demonstrates normal competent, and demonstrates normal augmentation. augmentation. FV is compressible, spontaneous, phasic, FV is compressible, spontaneous, phasic, competent and demonstrates normal competent and demonstrates normal augmentation. augmentation. POP V is compressible, spontaneous, phasic, POP V is compressible, spontaneous, phasic, competent and demonstrates normal competent and demonstrates normal augmentation. augmentation. T/P Trunk is compressible. T/P Trunk is compressible. PTV is compressible. PTV is compressible. RT PerV is compressible. LT PerV is compressible. SFJ is competent and measures 0.77 cm. SFJ is competent and measures 0.80 cm. GSV proximal thigh measures 0.45 x 0.50 cm. GSV proximal thigh measures 0.47 x 0.53 cm. GSV above knee is competent. GSV at knee measures 0.36 x 0.36 cm. GSV at knee measures 0.32 x 0.34 cm. GSV is competent throughout. GSV below knee is INCOMPETENT for greater Unable to visualize SSV due to vessel size. than 0.5 seconds. Nonvascularized structure is noted in the SSV proximal calf is competent and measures left popliteal fossa that measures 1.10 x 0.07 x 0.08 cm. 2.49 x 4.00 cm. Procedure This is a venous duplex using B-mode, color flow and spectral Doppler. Exam performed in department. Patient was scanned in reverse Trendelenburg position during reflux assessment. VL/Venous Duplex US - Compa Extrem Interpretation Summary Deep veins of the bilateral lower extremities are patent and compressible segme ntally. There is no evidence of bilateral lower extremity deep vein thrombosis. The bilateral great saphenous veins appear patent and compressible segmentally. Positive for reflux in the right great saphenous vein below the knee. Nonvascularized structure is noted in the left popliteal fossa that measures 1. 10 x 2.49 x 4.00 cm. Ordering Physician: Anabel Rhodes Referring Physician: Ashley Bennett Performed By: Fabi Guzman RVT
--- NOTE | 2024-03-19 09:06 | ART_ITS ---
Reason For Study: Claudication Procedure A bilateral lower extremity continuous wave Doppler with analog waveform analysis,segmental pressures,and ankle brachial indexes without exercise. Performed with Raynaud's protocol. Left Segmental Pressures Left brachial= 116mmHg. Left posterior tibial artery = 145mmHg. Left dorsalis pedis artery = 128mmHg. Left digit = 120 mmHg. The left dorsalis pedis waveforms are triphasic. The left posterior tibial artery waveforms are triphasic. Right Segmental Pressures Right brachial= 122mmHg. Right posterior tibial artery = 125mmHg. Right dorsalis pedis artery = 140mmHg. Right digit = 109 mmHg. The right dorsalis pedis waveforms are triphasic. The right posterior tibial artery waveforms are triphasic. Indices The right ankle brachial index by the dorsalis pedis is 1.15. The right ankle brachial index by the posterior tibial artery is 1.02. The right digital-brachial index is 0.89. The left ankle brachial index by the dorsalis pedis is 1.05. The left ankle brachial index by the posterior tibial artery is 1.19. The left digital-brachial index is 0.98. VL/Lower Ext Art Exam w/ Exercise Interpretation Summary Right NAJMA 1.15, normal. TBI and Doppler/PVR waveforms of the right leg normal a t rest. Left NAJMA 1.19, normal. TBI and Doppler/PVR waveforms of the left leg normal at rest. Bilateral lower extremities with exaggerated response to cold exposure Ordering Physician: Anabel Rhodes Referring Physician: Ashley Bennett Performed By: Fabi Guzman RVT
== END | disposition home or self-care (01) ==
LOC: CVS 09:02
PROVIDERS: PCP Family Medicine; Referring Provider Physician Assistant; Visit Provider Physician Assistant
DX: M79.605 Pain in left leg (principal); M79.604 Pain in right leg; I73.9 Peripheral vascular disease, unspecified
CPT/HCPCS: 93924; 93970

== ENCOUNTER 2024-04-01 07:25 | Day surgery (SDC) | payer MEDICARE, SELFPAY ==
--- NOTE | 2024-04-01 07:59 | PRE.ANES_ITS ---
ASA Classification* ASA Classification ASA Classification: 3 Assessment & Plan Anesthesia* Anesthesia Assessment Anesthesia Assessment: Discussed sedation and/or anesthesia options, risks, benefits, and alternatives with patient/parents/legal guardian/POA. Questions invited. The patient/parents/legal guardian/POA seems to understand and agrees to proceed with anesthesia plan. Reviewed the physical assessment, medical history, allergy history and patient home medications list prior to surgery/procedure/anesthetic and documented any changes. Performed airway and anesthesia risk assessments. Anesthesia Type Anesthesia Type: MAC (see written pre anesthesia record for full assessment) Anesthesia Focused Assessment* Airway Assessment Mouth opens: >3 cm Mallampati Score: II Focused Labs Anesthesia Preop lab: CBC WBC 5.4 K/mm3 (4.4-11.0) 12/07/23 16:20 RBC 3.43 M/mm3 (4.2-5.4) L 12/07/23 16:20 Hgb 11.2 g/dL (12.0-15.0) L 12/07/23 16:20 Hct 32.7 % (37-47) L 12/07/23 16:20 Plt Count 287 K/mm3 (150-450) 12/07/23 16:20 CHEMISTRY Potassium 3.5 mmol/L (3.5-5.1) 12/07/23 16:20 Sodium 131 mmol/L (136-145) L 12/07/23 16:20 Magnesium 2.2 mg/dL (1.6-2.6) 10/05/17 05:40 BUN 15 mg/dL (7-18) 12/07/23 16:20 Creatinine 0.80 mg/dL (0.55-1.02) 12/07/23 16:20 Glucose 92 mg/dL (74-106) 12/07/23 16:20 TSH 0.96 uIU/mL (0.358-3.74) 05/08/15 07:00 COAG PT 12.6 SECONDS (11.7-14.9) 12/14/17 13:01 Pre-Assessment Diagnosis/Proposed Procedure Planned Operative Procedure(s): BLOCK, CAUDAL Anesthesia History 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 When Was Last Pacemaker Check QUESTION #4 FULL TEXT: You/Your Family Experience fever (hyperthermia) with Anesthesia Last Oral Intake Last Oral intake: Last Oral Intake NPO since Meds taken in AM with sips of water? 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 Female Yes 03/27/24 14:43 HX of Motion Sickness No 03/27/24 14:43 HX of N/V After Surgery No 03/27/24 14:43 Non-Smoker No 03/27/24 14:43 Duration of Surgery greater No 03/27/24 14:43 than 60 minutes Number of Risk Factors 1 03/27/24 14:43 PONV Score Low Risk 03/27/24 14:43 Height & Weight Height & Weight: Anesthesia: Height & Weight Height 5 ft 5 in 12/07/23 16:01 Respiratory Assessment Respiratory Assessment - evaporative cooler installer: Respiratory Tract Infection Hx - evaporative cooler installer Hx Respiratory Tract Infection No 03/27/24 14:43 STOP Sleep Apnea STOP Sleep Apnea - evaporative cooler installer: STOP Sleep Apnea - evaporative cooler installer Hx Hypertension Yes: CONTROLLED WITH MED 03/27/24 14:43 Hx Sleep Apnea No 03/27/24 14:43 CPAP No 12/19/17 19:48 BIPAP No 12/19/17 19:48 Do you snore loudly (louder No 03/27/24 14:43 than talking or can be heard Do you often feel tired/ No 03/27/24 14:43 fatigued/ sleepy during daytime? Has anyone observed you stop No 03/27/24 14:43 breathing during sleep? STOP Results Negative 03/27/24 14:43 QUESTION #5 FULL TEXT : Do you snore loudly (louder than talking or can be heard through closed doors)? 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 Specify any problems Hx of Preganancy in last 3 N/A 03/27/24 14:43 Months Nurse Filling Out Transfusion NBUCHER 03/27/24 14:43 & Questions: Date: 03/27/24 03/27/24 14:43 Time: 14:45 03/27/24 14:43 Patient unable to answer at this time (ie. confused, unrespo /Reproduction History /Reproductive History - evaporative cooler installer: /Reproductive Hx- evaporative cooler installer Hx Now No 03/27/24 14:43 Gestational Age (in weeks): EDC: Hx Hx Para Hx Section SAB No 03/27/24 14:43 Active Medications Active Medications: Current Medications Generic Name Dose Route Start Last Admin Trade Name Freq PRN Reason Stop Dose Admin Lactated Ringer's 1,000 mls @ 15 mls/hr 04/01/24 07:45 IV .Q48H JAMIE PFSH Medical History Wears glasses Wears dentures Wears partial dentures Depression Arthritis High cholesterol Injury of back Back pain GERD (gastroesophageal reflux disease) Smoker COPD (chronic obstructive pulmonary disease) Hypertension History of edema Essential hypertension Therapeutic drug monitoring Cerebrovascular disease 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 of localized onset, not intractable, without status epilepticus SBO (small bowel obstruction) Epilepsy Fatigue MCI (mild cognitive impairment) Osteoarthritis Osteoporosis Seizures Hearing problem History of emotional problems Chronic bronchitis Back problem Closed left hip fracture Insomnia Hip fracture, right COPD (chronic obstructive pulmonary disease) Depressed Anxiety Home Medications ?Medication ?Instructions ?Recorded ?Last Taken ?Type duloxetine 30 mg capsule,delayed 30 mg PO BID depression 03/19/20 06/28/20 08:00 History release 1 gabapentin 100 mg capsule 100 mg PO TID PRN PRN lower back 03/19/20 06/28/20 08:00 History pain 1 lisinopril 10 mg tablet 10 mg PO DAILY sleep 03/19/20 06/28/20 08:00 History 1 quetiapine 25 mg tablet 25 mg PO QHS sleep 03/19/20 06/27/20 22:00 History 1 aspirin 81 mg tablet,delayed 81 mg PO DAILY blood thinner 06/23/20 06/28/20 History release 0800 oxybutynin chloride 5 mg 5 mg PO DAILY Check with primary 06/23/20 06/28/20 08:00 History tablet,extended release 24 hr doctor 1 albuterol sulfate 90 mcg/actuation 2 puff inhalation Q4H PRN PRN 06/28/20 Unknown History aerosol inhaler wheezing/SOB atorvastatin 40 mg tablet 40 mg PO DAILY 12/22/20 Unknown History calcium carbonate (Calcium 600) 1,200 mg PO DAILY 01/25/22 Unknown History levetiracetam 500 mg tablet 500 mg PO BID seizure prevention 09/26/23 Unknown Rx #180 tabs pantoprazole 40 mg tablet,delayed 40 mg PO DAILY #30 tabs 12/07/23 Unknown Rx release (Protonix) Allergy/AdvReac Type Severity Reaction Status Date / Time hydrocodone bitartrate (From Allergy Mild Rash Verified 04/01/24 07:56 Vicodin) Family History Other Diabetes Myocardial infarction Surgical History History of back surgery History of right hip replacement H/O tubal ligation History of tonsillectomy History of carpal tunnel surgery of right wrist Retinal detachment, right Social History Smoking Status: Current every day smoker tobacco type: cigarettes Tobacco: How many years used: 30 Electronic Cigarette Use: not used second hand exposure: Yes alcohol intake: current alcohol intake frequency: holidays/special occasions only substance use type: does not use what type of physical activity do you participate in: none teri/zoroastrianism: Sabianist seatbelt use: always Review of Systems (Anesthesia) ROS Narrative System reviewed and no additional complaints, except as documented.
--- NOTE | 2024-04-01 08:00 | RAD_ITS ---
STUDY: X-RAY - SACRUM/COCCYX REASON FOR EXAM: Female, 74 years old. CAUDAL BLOCK TECHNIQUE: 1 view(s) of the sacrum and coccyx were obtained. COMPARISON: None. FINDINGS: 2.9 seconds of fluoroscopy of the sacrum was utilized in the operating room during a caudal block and a single image is submitted for interpretation. . RAD/Fluor Guidance for Spine Inj IMPRESSION: Fluoroscopy during caudal block. Electronically Signed: Kam Sorto MD at 13:38 EDT ,
[2024-04-01] MEDS: Lactated Ringers 1,000 ML 15 ML IV (08:01)
[2024-04-01 08:02] VITALS: BP 156/70; PULSE 66; RESP 18; TEMP 36.5; O2SAT 94; BMI 20.1
[2024-04-01] MEDS: MethylPREDNISolone Acetate 80 MG/ML Vial (09:03)
[2024-04-01] MEDS: Lidocaine 1% (5 ml sdv) 5 ML Vial (09:03)
[2024-04-01] MEDS: 0.9% Normal Saline (Pres. free 10 ML Vial (09:03)
--- NOTE | 2024-04-01 09:05 | OP.PCM_ITS ---
Report of Operation Date of Procedure: 04/01/24 Pre-Operative Diagnosis: Lumbosacral radiculopathy, lumbosacral degenerative di sc disease, lumbosacral spinal stenosis Post-Operative Diagnosis: Lumbosacral radiculopathy, lumbosacral degenerative disc disease, lumbosacral spinal stenosis Surgery/Procedure Performed:: Diagnostic/therapeutic caudal epidural steroid injection under fluoroscopic guidance Type of Anesthesia: MAC Estimated Blood Loss (mL): Minimal Description of Procedure: DESCRIPTION OF PROCEDURE: History and physical of today was reviewed. Risks and benefits of the procedure were explained. The patient understood and agreed to proceed. Informed consent was obtained. IV inserted per routine protocol. The patient was taken to the operating room and placed in the prone position with a pillow positioned underneath the abdomen. The lower back and tailbone area was prepped and draped in a sterile fashion using iodine x3. Under fluoroscopy guidance on a lateral view, the caudal space was identified. The skin and subcutaneous tissue was anesthetized with approximately 3 mL of 1% lidocaine using a 25-gauge regular needle. Under direct visualization with fluoroscopy, using a 22-gauge 3-1/2-inch spinal needle, the needle was advanced via the skin through the sacral hiatus. The tip of the needle was passed through the sacrococcygeal ligament and advanced to approximately S4 area. After negative aspiration of blood or CSF, a total of 3 mL of contrast was injected to confirm correct placement of the needle as well as cephalad spread. The spread was followed to approximately L5 area. After confirmation on AP as well as lateral view and repeated negative aspiration, a total of 15 mL of preservative-free 0.125% Marcaine with 80 mg of Depo-Medrol was injected easily. The needle was then removed intact. The patient experienced no sign or symptoms of intrathecal or intravascular injection. The patient experienced no paresthesia. The procedure was completed without any apparent difficulty or any complications. The patient appeared to tolerate it well. ASSESSMENT AND PLAN: This is a 74-year-old female with lumbosacral radiculopathy, lumbosacral degenerative disc disease, lumbosacral spinal stenosis status post diagnostic/therapeutic caudal epidural steroid injection, patient will continue her current medications, patient will follow in approximately 2 weeks for reevaluation. Complications None
[2024-04-01 09:10] VITALS: BP 144/89; BP 156/70; PULSE 67; RESP 16; TEMP 36.1; O2SAT 100
--- NOTE | 2024-04-01 09:12 | PCM.POST.ANE ---
Anesthesia: Postop Eval I Current Vital Signs Temperature: 97 F Pulse Rate: 72 Blood Pressure: 144/89 Respiratory Rate: 16 Pulse Ox: 98 Oxygen Delivery Method: Room Air Assessment Airway patent: Yes Spontaneous unlabored respirations: Yes Mental status: Awake and Calm nausea: No Vomiting: No Anesthesia Complication: No Fluid Hydration Crystalloid volume administer (ml): 400 Total IV fluid infused: 400 Progress Note Anesthesia document: Postop Eval 1 completed: Yes
[2024-04-01 09:13] VITALS: BP 144/89; PULSE 72; RESP 16; TEMP 36.1; O2SAT 98
[2024-04-01 09:15] VITALS: BP 147/80; BP 156/70; PULSE 69; RESP 16; O2SAT 100
[2024-04-01 09:20] VITALS: BP 153/81; BP 156/70; PULSE 66; RESP 16; TEMP 36.7; O2SAT 96
[2024-04-01 09:38] VITALS: BP 156/70
--- NOTE | 2024-04-01 09:43 | PCM.POSTANE2 ---
Anesthesia Postop Eval I Sum Postop Eval Completion status Anesthesia document: Postop Eval 1 completed: Yes Anesthesia Postop Eval I Summary Anesthesia Postop Eval I Summary: Anesthesia Postop Eval I: Assessment Summary Airway patent Yes 04/01/24 09:13 COMPLIANCE REPRESENTATIVE.[email or web address] Angel Spontaneous unlabored Yes 04/01/24 09:13 COMPLIANCE REPRESENTATIVEMARGARITA respirations Mental status Awake,Calm 04/01/24 09:13 COMPLIANCE REPRESENTATIVE.MANUEL nausea No 04/01/24 09:13 COMPLIANCE REPRESENTATIVE.MANUEL Vomiting No 04/01/24 09:13 COMPLIANCE REPRESENTATIVEMARGARITA Anesthesia Postop Eval I: Fluid Summary Crystalloid volume administer 400 04/01/24 09:13 RENNY.MANUEL (ml) Colloids volume administered ( ml) Blood Product volume administered (ml) Total IV fluid infused 400 04/01/24 09:13 JD Anesthesia Postop Eval I: Summary Notes Anesthesia Complication No 04/01/24 09:13 JD Anesthesia Complication Comment: Post-operative progress note Anesthesia: Postop Eval II Evaluation Mental status: Awake Pain Level: 0 nausea: No Vomiting: No
== END 2024-04-01 10:07 | disposition home or self-care (01) ==
LOC: SDC 07:25 → AC 07:27
PROVIDERS: PCP Family Medicine; Referring Provider Anesthesiology Pain Medicine; Visit Provider Anesthesiology Pain Medicine
PROC: 3E0S3BZ Introduction of Anesthetic Agent into Epidural Space, Percutaneous Approach (ICD-10-PCS; CPT 62282; principal; 2024-04-01 08:55)
DX: M51.17 Intervertebral disc disorders with radiculopathy, lumbosacral region (principal); J44.9 Chronic obstructive pulmonary disease, unspecified; G40.009 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 of localized onset, not intractable, without status epilepticus; M47.27 Other spondylosis with radiculopathy, lumbosacral region; M48.07 Spinal stenosis, lumbosacral region; M17.0 Bilateral primary osteoarthritis of knee; E78.00 Pure hypercholesterolemia, unspecified; I10 Essential (primary) hypertension; Z79.82 Long term (current) use of aspirin; Z79.899 Other long term (current) drug therapy; Z79.891 Long term (current) use of opiate analgesic
CPT/HCPCS: 62323; 64483; 77003; J7120; J3490

== ENCOUNTER 2024-07-01 07:57 | Day surgery (SDC) | payer MEDICARE, SELFPAY ==
[2024-07-01] VITALS (7 sets, daily range): BP systolic 113–131; BP diastolic 72–78; PULSE 71–80; RESP 14–18; TEMP 36.6–37.2; O2SAT 97–100; BMI 19.2
--- NOTE | 2024-07-01 08:03 | PRE.ANES_ITS ---
ASA Classification* ASA Classification ASA Classification: 3 Assessment & Plan Anesthesia* Anesthesia Assessment Anesthesia Assessment: Discussed sedation and/or anesthesia options, risks, benefits, and alternatives with patient/parents/legal guardian/POA. Questions invited. The patient/parents/legal guardian/POA seems to understand and agrees to proceed with anesthesia plan. Reviewed the physical assessment, medical history, allergy history and patient home medications list prior to surgery/procedure/anesthetic and documented any changes. Performed airway and anesthesia risk assessments. Anesthesia Type Anesthesia Type: MAC Anesthesia Focused Assessment* Airway Assessment Mouth opens: >3 cm Mallampati Score: II Focused Labs Anesthesia Preop lab: CBC WBC 5.4 K/mm3 (4.4-11.0) 12/07/23 16:20 RBC 3.43 M/mm3 (4.2-5.4) L 12/07/23 16:20 Hgb 11.2 g/dL (12.0-15.0) L 12/07/23 16:20 Hct 32.7 % (37-47) L 12/07/23 16:20 Plt Count 287 K/mm3 (150-450) 12/07/23 16:20 CHEMISTRY Potassium 3.5 mmol/L (3.5-5.1) 12/07/23 16:20 Sodium 131 mmol/L (136-145) L 12/07/23 16:20 Magnesium 2.2 mg/dL (1.6-2.6) 10/05/17 05:40 BUN 15 mg/dL (7-18) 12/07/23 16:20 Creatinine 0.80 mg/dL (0.55-1.02) 12/07/23 16:20 Glucose 92 mg/dL (74-106) 12/07/23 16:20 TSH 0.96 uIU/mL (0.358-3.74) 05/08/15 07:00 COAG PT 12.6 SECONDS (11.7-14.9) 12/14/17 13:01 Pre-Assessment Diagnosis/Proposed Procedure Planned Operative Procedure(s): right transforaminal block Anesthesia History 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 When Was Last Pacemaker Check QUESTION #4 FULL TEXT: You/Your Family Experience fever (hyperthermia) with Anesthesia Last Oral Intake Last Oral intake: Last Oral Intake NPO since Meds taken in AM with sips of water? 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 - biblical languages professor: PONV - biblical languages professor Female HX of Motion Sickness HX of N/V After Surgery Non-Smoker Duration of Surgery greater than 60 minutes Number of Risk Factors PONV Score Height & Weight Height & Weight: Anesthesia: Height & Weight Height 5 ft 6 in 05/16/24 10:54 Respiratory Assessment Respiratory Assessment - biblical languages professor: Respiratory Tract Infection Hx - biblical languages professor Hx Respiratory Tract Infection No 03/27/24 14:43 STOP Sleep Apnea STOP Sleep Apnea - biblical languages professor: STOP Sleep Apnea - biblical languages professor Hx Hypertension Yes: CONTROLLED WITH MED 03/27/24 14:43 Hx Sleep Apnea No 04/01/24 09:20 CPAP No 04/01/24 09:10 BIPAP No 12/19/17 19:48 Do you snore loudly (louder than talking or can be heard Do you often feel tired/ fatigued/ sleepy during daytime? Has anyone observed you stop breathing during sleep? STOP Results QUESTION #5 FULL TEXT : Do you snore loudly (louder than talking or can be heard through closed doors)? Tobacco Use History Tobacco Use History - biblical languages professor: Tobacco Use History - biblical languages professor Tobacco Use Smoking Status Current every day smoker 03/27/24 14:43 Hx Tobacco Use Yes 03/27/24 14:43 Years Smoking Packs Smoked per Day Smoking Cessation Date was within the last 15 years Hx Smoking Cessation Date Hx Smoking Cessation Yes 03/27/24 14:43 Counseling Hematologic Medial History Hematologic Hx - biblical languages professor: Hematologic Medical Hx - nursing consultant Hx of Blood Transfusion Hx of Transfusion in last 3 Months Date of Last Transfusion (if within last 3 months) Ever experience any problems with transfusion(s)? Specify any problems Hx of Preganancy in last 3 Months Nurse Filling Out Transfusion & Questions: Date: Time: Patient unable to answer at this time (ie. 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: /Reproductive Hx- biblical languages professor Hx Now Gestational Age (in weeks): EDC: Hx Hx Para Hx Section SAB No 03/27/24 14:43 PFS Medical History Wears glasses Wears dentures Wears partial dentures Depression Arthritis High cholesterol Injury of back Back pain GERD (gastroesophageal reflux disease) Smoker COPD (chronic obstructive pulmonary disease) Hypertension History of edema Essential hypertension Therapeutic drug monitoring Cerebrovascular disease 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 of localized onset, not intractable, without status epilepticus SBO (small bowel obstruction) Epilepsy Fatigue MCI (mild cognitive impairment) Osteoarthritis Osteoporosis Seizures Hearing problem History of emotional problems Chronic bronchitis Back problem Closed left hip fracture Insomnia Hip fracture, right COPD (chronic obstructive pulmonary disease) Depressed Anxiety Home Medications ?Medication ?Instructions ?Recorded ?Last Taken ?Type duloxetine 30 mg capsule,delayed 30 mg PO BID depression 03/19/20 03/31/24 History release gabapentin 100 mg capsule 100 mg PO TID PRN PRN lower back 03/19/20 03/31/24 History pain lisinopril 10 mg tablet 10 mg PO DAILY sleep 03/19/20 03/31/24 History quetiapine 25 mg tablet 25 mg PO QHS sleep 03/19/20 03/31/24 History aspirin 81 mg tablet,delayed 81 mg PO DAILY blood thinner 06/23/20 03/31/24 History release oxybutynin chloride 5 mg 5 mg PO DAILY Check with primary 06/23/20 03/31/24 History tablet,extended release 24 hr doctor albuterol sulfate 90 mcg/actuation 2 puff inhalation Q4H PRN PRN 06/28/20 Unknown History aerosol inhaler wheezing/SOB atorvastatin 40 mg tablet 40 mg PO DAILY 12/22/20 03/31/24 History calcium carbonate (Calcium 600) 1,200 mg PO DAILY 01/25/22 03/31/24 History levetiracetam 500 mg tablet 500 mg PO BID seizure prevention 09/26/23 03/31/24 Rx #180 tabs pantoprazole 40 mg tablet,delayed 40 mg PO DAILY #30 tabs 12/07/23 03/31/24 Rx release (Protonix) Allergy/AdvReac Type Severity Reaction Status Date / Time hydrocodone bitartrate (From Allergy Mild Rash Verified 05/16/24 10:59 Vicodin) Family History Other Diabetes Myocardial infarction Surgical History History of back surgery History of right hip replacement H/O tubal ligation History of tonsillectomy History of carpal tunnel surgery of right wrist Retinal detachment, right Social History Smoking Status: Current every day smoker tobacco type: cigarettes Tobacco: How many years used: 30 Electronic Cigarette Use: not used second hand exposure: Yes alcohol intake: current alcohol intake frequency: holidays/special occasions only substance use type: does not use what type of physical activity do you participate in: none teri/bahai: Jewish seatbelt use: always Review of Systems (Anesthesia) ROS Narrative System reviewed and no additional complaints, except as documented.
--- NOTE | 2024-07-01 08:10 | RAD_ITS ---
PROCEDURE: Right transforaminal nerve block. DATE OF EXAMINATION: July 01, 2024. INDICATION: Female, 74 years old. Low back pain. FLUOROSCOPY TIME (if supplied): (8 seconds) minutes/seconds. 1.4 mGy.. 2 images were submitted. RAD/Lumbar Spine 2 or 3 Views IMPRESSION: Intraoperative fluoroscopic services provided for right transforaminal nerve block. Electronically Signed: Praveen Carranza MD at 12:55 EST ,
[2024-07-01] MEDS: Bupivacaine 0.25% 30 ML Vial (09:11)
[2024-07-01] MEDS: MethylPREDNISolone Acetate 80 MG/ML Vial (09:11)
[2024-07-01] MEDS: Lidocaine 1% (5 ml sdv) 5 ML Vial (09:12)
--- NOTE | 2024-07-01 09:20 | PCM.POST.ANE ---
Anesthesia: Postop Eval I Current Vital Signs Temperature: 98.2 F Pulse Rate: 74 Blood Pressure: 113/72 Respiratory Rate: 18 Pulse Ox: 98 Assessment Airway patent: Yes Spontaneous unlabored respirations: Yes nausea: No Vomiting: No Anesthesia Complication: No Fluid Hydration Crystalloid volume administer (ml): 0 Total IV fluid infused: 0 Progress Note Anesthesia document: Postop Eval 1 completed: Yes
--- NOTE | 2024-07-01 09:30 | PCM.OPRPT ---
Operative Report (Standard) Operative Information Surgery/Procedure Performed: Right-sided lumbar transforaminal epidural steroid injection L4-5, L5-S1 Surgeon: Ortega Lopez Date of Procedure: 07/01/24 Procedure Start Time: Procedure Stop Time: Pre-Operative Diagnosis: Lumbosacral radiculopathy, lumbosacral degenerative disc disease, lumbosacral spinal stenosis Post-Operative Diagnosis: Lumbosacral radiculopathy, lumbosacral degenerative disc disease, lumbosacral spinal stenosis Select all DRAINS/GRAFTS/IMPLANTS that apply: None Type of Anesthesia: Local MAC and MAC Estimated Blood Loss: <1 cc Specimen collected: No Description of surgery: PROCEDURE PERFORMED: Right-sided lumbar transforaminal epidural steroid injection, L4-5 and L5-S1. DESCRIPTION OF PROCEDURE: History and physical of today was reviewed. Risks and benefits of the procedure were explained. The patient understood and agreed to proceed. Informed consent was obtained. IV inserted per routine protocol. The patient was taken to the operating room and placed in the prone position with a pillow positioned underneath the abdomen. The right side of the lower back was prepped and draped in a sterile fashion using iodine x3. Under fluoroscopy guidance on oblique view, the L4 through S1 vertebral bodies were visualized. The skin and subcutaneous tissue was anesthetized with approximately 5 mL of 1% lidocaine using a 25-gauge regular needle. Under direct visualization with fluoroscopy at approximately 35-degree angle, starting on the right L4, ending on the right L5, using a 22-gauge 5-inch spinal needle, the needle was advanced via the skin. The tip of the needle was maneuvered and directed towards the inferior and medial gutter of the transverse process at the superiormost aspect of the neural foramen. Once the tip of the needle was at the vicinity of the foramen, after negative aspiration for blood or CSF, a total of 1 mL of contrast was injected in divided doses between both levels to confirm correct placement of the needle as well as medial spread. The confirmation was obtained on AP as well as lateral view. After repeated negative aspiration and confirmation on AP as well as lateral view, a total of 6 mL of preservative-free 0.25% Marcaine with 80 mg of Depo-Medrol was injected in divided doses between both levels. The needles were then removed intact. The patient experienced no sign or symptoms of intrathecal or intravascular injection. The patient experienced no paresthesia. The procedure was completed without any apparent difficulty or any complications. The patient appeared to tolerate it well. Assessment and plan: This is a 74-year-old female with lumbosacral radiculopathy, lumbosacral degenerative disc disease, lumbosacral spinal stenosis, status post right-sided lumbar transforaminal epidural steroid injection L4-5, L5-S1, patient will continue her current medications, patient will follow approximately 2 weeks for reevaluation. Surgical Findings: see [employer] mobile application architect: No Complications Complications: No Admit VTE Documentation VTE Present on Admission: No VTE Pharm Prophylaxis ordered?: No
--- NOTE | 2024-07-01 10:12 | POSTOPAN2_ITS ---
Anesthesia Postop Eval I Sum Postop Eval Completion status Anesthesia document: Postop Eval 1 completed: Yes Anesthesia Postop Eval I Summary Anesthesia Postop Eval I Summary: Anesthesia Postop Eval I: Assessment Summary Airway patent Yes 07/01/24 09:20 RELATIONS DIRECTOR.CSIR Spontaneous unlabored Yes 07/01/24 09:20 RELATIONS DIRECTOR.CSIR respirations Mental status nausea No 07/01/24 09:20 RELATIONS DIRECTOR.CSIR Vomiting No 07/01/24 09:20 RELATIONS DIRECTOR.CSIR Anesthesia Postop Eval I: Fluid Summary Crystalloid volume administer 0 07/01/24 09:20 RELATIONS DIRECTOR.CSIR (ml) Colloids volume administered ( ml) Blood Product volume administered (ml) Total IV fluid infused 0 07/01/24 09:20 RELATIONS DIRECTOR.CSIR Anesthesia Postop Eval I: Summary Notes Anesthesia Complication No 07/01/24 09:20 RELATIONS DIRECTOR.CSIR Anesthesia Complication Comment: Post-operative progress note Anesthesia: Postop Eval II Evaluation Mental status: Awake Pain Level: 1 nausea: No Vomiting: No
--- NOTE | 2024-07-01 10:12 | PCM.POSTANE2 ---
Anesthesia Postop Eval I Sum Postop Eval Completion status Anesthesia document: Postop Eval 1 completed: Yes Anesthesia Postop Eval I Summary Anesthesia Postop Eval I Summary: Anesthesia Postop Eval I: Assessment Summary Airway patent Yes 07/01/24 09:20 QUALITY IMPROVEMENT MANAGER.CSIR Spontaneous unlabored Yes 07/01/24 09:20 QUALITY IMPROVEMENT MANAGER.CSIR respirations Mental status nausea No 07/01/24 09:20 QUALITY IMPROVEMENT MANAGER.CSIR Vomiting No 07/01/24 09:20 QUALITY IMPROVEMENT MANAGER.CSIR Anesthesia Postop Eval I: Fluid Summary Crystalloid volume administer 0 07/01/24 09:20 QUALITY IMPROVEMENT MANAGER.CSIR (ml) Colloids volume administered ( ml) Blood Product volume administered (ml) Total IV fluid infused 0 07/01/24 09:20 QUALITY IMPROVEMENT MANAGER.CSIR Anesthesia Postop Eval I: Summary Notes Anesthesia Complication No 07/01/24 09:20 QUALITY IMPROVEMENT MANAGER.CSIR Anesthesia Complication Comment: Post-operative progress note Anesthesia: Postop Eval II Evaluation Mental status: Awake Pain Level: 1 nausea: No Vomiting: No
== END 2024-07-01 10:15 | disposition home or self-care (01) ==
LOC: SDC 07:58 → AC 08:00
PROVIDERS: PCP Family Medicine; Referring Provider Anesthesiology Pain Medicine; Visit Provider Anesthesiology Pain Medicine
PROC: 3E0S3BZ Introduction of Anesthetic Agent into Epidural Space, Percutaneous Approach (ICD-10-PCS; CPT 64484; principal; 2024-07-01 09:05)
DX: M51.17 Intervertebral disc disorders with radiculopathy, lumbosacral region (principal); J44.9 Chronic obstructive pulmonary disease, unspecified; G40.009 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 of localized onset, not intractable, without status epilepticus; M48.07 Spinal stenosis, lumbosacral region; I10 Essential (primary) hypertension; K21.9 Gastro-esophageal reflux disease without esophagitis; F32.A Depression, unspecified; F41.9 Anxiety disorder, unspecified; E78.00 Pure hypercholesterolemia, unspecified; F17.210 Nicotine dependence, cigarettes, uncomplicated; M81.0 Age-related osteoporosis without current pathological fracture; G47.00 Insomnia, unspecified; Z79.82 Long term (current) use of aspirin; Z87.19 Personal history of other diseases of the digestive system; Z79.899 Other long term (current) drug therapy; Z96.641 Presence of right artificial hip joint
CPT/HCPCS: 64484; 64483; 72100; A4216; J2405

== ENCOUNTER 2025-01-23 09:52 | Day surgery (SDC) | payer MEDICARE, SELFPAY ==
[2025-01-23] VITALS (7 sets, daily range): BP systolic 136–148; BP diastolic 72–80; PULSE 63–83; RESP 16; TEMP 36.3–37; O2SAT 100; BMI 19.3
--- NOTE | 2025-01-23 10:20 | PCM.PRE.AN2 ---
ASA Classification* ASA Classification ASA Classification: 3 Assessment & Plan Anesthesia* Anesthesia Assessment Anesthesia Assessment: Discussed sedation and/or anesthesia options, risks, benefits, and alternatives with patient/parents/legal guardian/POA. Questions invited. The patient/parents/legal guardian/POA seems to understand and agrees to proceed with anesthesia plan. Reviewed the physical assessment, medical history, allergy history and patient home medications list prior to surgery/procedure/anesthetic and documented any changes. Performed airway and anesthesia risk assessments. Anesthesia Type Anesthesia Type: MAC Anesthesia Focused Assessment* Airway Assessment Mouth opens: >3 cm Mallampati Score: II Labs Anesthesia Preop lab: CBC WBC 5.4 K/mm3 (4.4-11.0) 12/07/23 16:20 12/07/23 RBC 3.43 M/mm3 (4.2-5.4) L 12/07/23 16:20 12/07/23 Hgb 11.2 g/dL (12.0-15.0) L 12/07/23 16:20 12/07/23 Hct 32.7 % (37-47) L 12/07/23 16:20 12/07/23 Plt Count 287 K/mm3 (150-450) 12/07/23 16:20 12/07/23 CHEMISTRY Potassium 3.5 mmol/L (3.5-5.1) 12/07/23 16:20 12/07/23 Sodium 131 mmol/L (136-145) L 12/07/23 16:20 12/07/23 Magnesium 2.2 mg/dL (1.6-2.6) 10/05/17 05:40 10/05/17 BUN 15 mg/dL (7-18) 12/07/23 16:20 12/07/23 Creatinine 0.80 mg/dL (0.55-1.02) 12/07/23 16:20 12/07/23 Glucose 92 mg/dL (74-106) 12/07/23 16:20 12/07/23 TSH 0.96 uIU/mL (0.358-3.74) 05/08/15 07:00 05/08/15 COAG PT 12.6 SECONDS (11.7-14.9) 12/14/17 13:01 12/14/17 Pre-Assessment Diagnosis/Proposed Procedure Planned Operative Procedure(s): COLONOSCOPY Anesthesia History Anesthesia History - content administrator: Anesthesia History - content administrator Hx Hospitalization No 01/20/25 10:38 Any Problems With Anesthesia No 01/20/25 10:38 Cholinesterase deficiency No 01/20/25 10:38 You/Your Family Experience No 01/20/25 10:38 fever (hyperthermia) with Relationship Recent Exposure to Contagious No 07/01/24 08:18 Disease Does patient have nerve No 01/20/25 10:38 stimulator Patient instructed to have device shut off --Does patient have Pacemaker or ICD? When Was Last Pacemaker Check QUESTION #4 FULL TEXT: You/Your Family Experience fever (hyperthermia) with Anesthesia Last Oral Intake Last Oral intake: Last Oral Intake NPO since Meds taken in AM with sips of water? 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 - content administrator: PONV - content administrator Female Yes 01/20/25 10:38 HX of Motion Sickness No 01/20/25 10:38 HX of N/V After Surgery No 01/20/25 10:38 Non-Smoker No 01/20/25 10:38 Duration of Surgery greater No 01/20/25 10:38 than 60 minutes Number of Risk Factors 1 01/20/25 10:38 PONV Score Low Risk 01/20/25 10:38 Height & Weight Height & Weight: Anesthesia: Height & Weight Height 5 ft 6 in 12/09/24 09:47 Respiratory Assessment Respiratory Assessment - content administrator: Respiratory Tract Infection Hx - content administrator Hx Respiratory Tract Infection No 01/20/25 10:38 STOP Sleep Apnea STOP Sleep Apnea - content administrator: STOP Sleep Apnea - content administrator Hx Hypertension Yes: CONTROLLED WITH MEDS 01/20/25 10:38 Hx Sleep Apnea No 01/20/25 10:38 CPAP No 07/01/24 09:18 BIPAP No 12/19/17 19:48 Do you snore loudly (louder No 01/20/25 10:38 than talking or can be heard Do you often feel tired/ No 01/20/25 10:38 fatigued/ sleepy during daytime? Has anyone observed you stop No 01/20/25 10:38 breathing during sleep? STOP Results Negative 01/20/25 10:38 QUESTION #5 FULL TEXT : Do you snore loudly (louder than talking or can be heard through closed doors)? 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 Specify any problems Hx of Preganancy in last 3 No 01/20/25 10:38 Months Nurse Filling Out Transfusion [id number] 01/20/25 10:38 & Questions: Date: 01/20/25 01/20/25 10:38 Time: 10:46 01/20/25 10:38 Patient unable to answer at this time (ie. confused, unrespo /Reproduction History /Reproductive History - content administrator: /Reproductive Hx- content administrator Hx Now No 01/20/25 10:38 Gestational Age (in weeks): EDC: Hx Hx Para Hx Section SAB No 01/20/25 10:38 Active Medications Active Medications: Current Medications Generic Name Dose Route Start Last Admin Trade Name Freq PRN Reason Stop Dose Admin Lactated Ringer's 1,000 mls @ 15 mls/hr 01/23/25 10:15 IV .Q48H JAMIE PFSH Medical History Alcohol use Gastric reflux History of steroid therapy History of pain when walking Chronic pain Unintentional weight loss Wears glasses Wears dentures Wears partial dentures Depression Arthritis High cholesterol Injury of back Back pain GERD (gastroesophageal reflux disease) Smoker COPD (chronic obstructive pulmonary disease) Hypertension History of edema Essential hypertension Therapeutic drug monitoring Cerebrovascular disease 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 of localized onset, not intractable, without status epilepticus SBO (small bowel obstruction) Epilepsy Fatigue MCI (mild cognitive impairment) Osteoarthritis Osteoporosis Seizures Hearing problem History of emotional problems Chronic bronchitis Back problem Closed left hip fracture Insomnia Hip fracture, right COPD (chronic obstructive pulmonary disease) Depressed Anxiety Home Medications ?Medication ?Instructions ?Recorded ?Last Taken ?Type gabapentin 100 mg capsule 100 mg PO TID PRN PRN lower back 03/19/20 07/01/24 History pain lisinopril 10 mg tablet 10 mg PO DAILY sleep 03/19/20 07/01/24 History quetiapine 25 mg tablet 25 mg PO QHS sleep 03/19/20 06/30/24 History aspirin 81 mg tablet,delayed 81 mg PO DAILY blood thinner 06/23/20 01/20/25 History release albuterol sulfate 90 mcg/actuation 2 puff inhalation Q4H PRN PRN 06/28/20 Unknown History aerosol inhaler wheezing/SOB atorvastatin 40 mg tablet 40 mg PO DAILY 12/22/20 07/01/24 History calcium carbonate (Calcium 600) 600 mg PO DAILY 01/25/22 07/01/24 History cyclobenzaprine 5 mg tablet 5 mg PO DAILY PRN PRN muscle spasm 07/01/24 06/30/24 History oxycodone-acetaminophen 5 mg-325 1 tab PO TID PRN pain 07/01/24 06/30/24 History mg tablet levetiracetam 500 mg tablet 500 mg PO BID seizure prevention 07/28/24 Unknown Rx #180 tabs docusate sodium 50 mg capsule 50 mg PO QDAY 12/06/24 Unknown History meclizine 25 mg tablet 25 mg PO QDAY PRN dizziness 12/06/24 Unknown History oxybutynin chloride 10 mg 10 mg PO QDAY 12/06/24 Unknown History tablet,extended release 24 hr ascorbate calcium (vitamin C) 500 500 mg PO DAILY 01/20/25 Unknown History mg tablet benzonatate 100 mg capsule 100 mg PO TID PRN PRN cough 01/20/25 Unknown History buspirone 5 mg tablet 5 mg PO TID 01/20/25 Unknown History cholecalciferol (vitamin D3) 25 25 mcg PO DAILY 01/20/25 Unknown History mcg (1,000 unit) capsule duloxetine 60 mg capsule,delayed 120 mg PO DAILY 01/20/25 Unknown History release famotidine 20 mg tablet (Acid 20 mg PO DAILY PRN GERD 01/20/25 Unknown History Controller) lysine 500 mg tablet (L-Lysine) 500 mg PO DAILY 01/20/25 Unknown History mecobalamin (vitamin B12) 1,000 1,000 mcg PO DAILY 01/20/25 Unknown History mcg chewable tablet multivitamin with minerals-folic 1 tab PO DAILY 01/20/25 Unknown History acid 80 mcg chewable tablet (Centrum Adult 50 Plus) polyethylene glycol 3350 17 17 g PO QHS PRN 01/20/25 Unknown History gram/dose oral powder (Miralax) Allergy/AdvReac Type Severity Reaction Status Date / Time hydrocodone bitartrate (From Allergy Mild Rash Verified 01/20/25 10:26 Vicodin) Family History Other Diabetes Myocardial infarction Surgical History History of back surgery History of right hip replacement H/O tubal ligation History of tonsillectomy History of carpal tunnel surgery of right wrist Retinal detachment, right Social History Smoking Status: Heavy Smoker (>10/day) Tobacco: How many years used: 30 Electronic Cigarette Use: not used second hand exposure: Yes alcohol intake: current alcohol intake frequency: holidays/special occasions only substance use type: does not use what type of physical activity do you participate in: none teri/baptism: Orthodox seatbelt use: always Review of Systems (Anesthesia) ROS Narrative System reviewed and no additional complaints, except as documented.
[2025-01-23] MEDS: Lactated Ringers 1,000 ML 15 ML IV (10:38)
--- NOTE | 2025-01-23 11:00 | COLBX_PTH ---
PATIENT: KATE LEMUS LOC: EN U#:[id number] AGE/SX: 75/F ROOM: RE01/23/[address]: Dr. Emiliano Henderson DO : 1950 BED: DIS: 01/23/2025 SPEC #: [id number] RECD: 01/23/25 12:53 STATUS: ZACH REQueta #: [id number] RIZWANA: 01/23/25 11:[address]: Emiliano Henderson DEPT: SURGICAL PATHOLOGY RECD BY: Johnnie Posadas ENTERED: 01/23/25 14:37 SP TYPE: COLON BX NANDA DR: Dr. Ashley Bennett DO Tissues: A - Sigmoid colon biopsy Procedures: Surgery Specimen Level IV HEADER OPERATION: Colonoscopy and polypectomy PRE-OP DIAGNOSIS: Unintentional weight loss, constipation TISSUE SUBMITTED: A- Sigmoid colon polyp MICROSCOPIC DIAGNOSIS A. Colon, sigmoid, polyp, biopsy: Hyperplastic polyp. MICROSCOPIC DESCRIPTION Slides are reviewed. GROSS DESCRIPTION A. Received in formalin labeled with the patient's name and date of . Designated as polyp at sigmoid colon is a 0.3 cm sylvester tissue fragment. Entirely submitted in 1 cassette. [facility] [place] 01/23/2025 CPT:71612
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
--- NOTE | 2025-01-23 11:55 | OP.CCLET_ITS ---
01/23/2025 Ashley Bennett Re : Colonoscopy procedure for Carmela Broderick Dear Donald This procedure was performed on January. My impressions and recommendations are as follows: Impressions : - Rectal prolapse. - Diverticulosis in the recto-sigmoid colon and in the sigmoid colon. - Stool in the rectum, in the recto-sigmoid colon, in the sigmoid colon, in the descending colon, in the transverse colon, in the ascending colon and in the cecum. - One 5 mm polyp in the sigmoid colon, removed with a jumbo cold forceps. Resected and retrieved. Recommendations : - Repeat colonoscopy in 5 years for surveillance. - Return to GI office in 1 week. - Continue present medications. My findings are described in the full procedure note, which is enclosed. If I can be of further assistance, please feel free to contact me at . Sincerely, Emiliano Henderson, 01/23/2025 11:55:28 AM This report has been signed electronically.
--- NOTE | 2025-01-23 11:55 | OP.COLON_ITS ---
Patient Name: Carmela Broderick Procedure Date: 01/23/2025 11:18 AM Date of : 1950 Age: 75 Procedure: Colonoscopy Indications: Screening for colorectal malignant neoplasm Providers: Emiliano Henderson DO Referring MD: Ashley Bennett Medicines: Monitored Anesthesia Care Patient Profile: This is a 75 year old female. Refer to note in patient chart for documentation of history and physical. Last Colonoscopy: date unknown. Unable to locate last colonoscopy report. Complications: No immediate complications. Procedure: Pre-Anesthesia Assessment: - Prior to the procedure, a History and Physical was performed, and patient medications and allergies were reviewed. The patient is competent. The risks and benefits of the procedure and the sedation options and risks were discussed with the patient. All questions were answered and informed consent was obtained. Patient identification and proposed procedure were verified by the physician in the pre-procedure area. Mental Status Examination: alert and oriented. Airway Examination: normal oropharyngeal airway and neck mobility. Respiratory Examination: clear to auscultation. CV Examination: normal. Prophylactic Antibiotics: The patient does not require prophylactic antibiotics. Prior Anticoagulants: The patient has taken no anticoagulant or antiplatelet agents except for NSAID medication. ASA Grade Assessment: II - A patient with mild systemic disease. After reviewing the risks and benefits, the patient was deemed in satisfactory condition to undergo the procedure. The anesthesia plan was to use moderate sedation / analgesia (conscious sedation). Immediately prior to administration of medications, the patient was re-assessed for adequacy to receive sedatives. The heart rate, respiratory rate, oxygen saturations, blood pressure, adequacy of pulmonary ventilation, and response to care were monitored throughout the procedure. The physical status of the patient was re-assessed after the procedure. After I obtained informed consent, the scope was passed under direct vision. Throughout the procedure, the patient's blood pressure, pulse, and oxygen saturations were monitored continuously. The adult colonoscope was introduced through the anus and advanced to the cecum, identified by appendiceal orifice and ileocecal valve. The quality of the bowel preparation was poor. Scope In: 11:28:23 AM Scope Withdrawal Time 0 hours 5 minutes 45 seconds Scope Out: 11:45:58 AM Total Procedure Duration Time 0 hours 17 minutes 35 seconds Findings: The perianal and digital rectal examinations were normal. Mild rectal prolapse was present. A few small-mouthed diverticula were found in the recto-sigmoid colon and sigmoid colon. A large amount of stool was found in the rectum, in the recto-sigmoid colon, in the sigmoid colon, in the descending colon, in the transverse colon, in the ascending colon and in the cecum. A 5 mm polyp was found in the sigmoid colon. The polyp was sessile. The polyp was removed with a jumbo cold forceps. Resection and retrieval were complete. Verification of patient identification for the specimen was done. Estimated blood loss was minimal. Impression: - Rectal prolapse. - Diverticulosis in the recto-sigmoid colon and in the sigmoid colon. - Stool in the rectum, in the recto-sigmoid colon, in the sigmoid colon, in the descending colon, in the transverse colon, in the ascending colon and in the cecum. - One 5 mm polyp in the sigmoid colon, removed with a jumbo cold forceps. Resected and retrieved. Recommendation: - Repeat colonoscopy in 5 years for surveillance. - Return to GI office in 1 week. - Continue present medications. Procedure Code(s): --- Professional --- 07414, Colonoscopy, flexible; with biopsy, single or multiple CPT copyright 2021 [employer]. All rights reserved. The codes documented in this report are preliminary and upon investment trader review may be revised to meet current compliance requirements. Emiliano Henderson DO 01/23/2025 11:55:28 AM This report has been signed electronically. Number of Addenda: 0 Note Initiated On: 01/23/2025 11:18 AM
--- NOTE | 2025-01-23 11:56 | PCM.POST.ANE ---
Anesthesia: Postop Eval I Current Vital Signs Temperature: 97.8 F Pulse Rate: 67 Blood Pressure: 140/80 Respiratory Rate: 16 Pulse Ox: 100 Oxygen Delivery Method: Room Air Assessment Airway patent: Yes Spontaneous unlabored respirations: Yes Mental status: Awake and Calm nausea: No Vomiting: No Anesthesia Complication: No Fluid Hydration Crystalloid volume administer (ml): 500 Total IV fluid infused: 500 Progress Note Anesthesia document: Postop Eval 1 completed: Yes
--- NOTE | 2025-01-23 12:25 | PCM.POSTANE2 ---
Anesthesia Postop Eval I Sum Postop Eval Completion status Anesthesia document: Postop Eval 1 completed: Yes Anesthesia Postop Eval I Summary Anesthesia Postop Eval I Summary: Anesthesia Postop Eval I: Assessment Summary Airway patent Yes 01/23/25 11:57 [email or web address] Spontaneous unlabored Yes 01/23/25 11:57 [email or web address] respirations Mental status Awake,Calm 01/23/25 11:57 [email or web address] nausea No 01/23/25 11:57 [email or web address] Vomiting No 01/23/25 11:57 [email or web address] Anesthesia Postop Eval I: Fluid Summary Crystalloid volume administer 500 01/23/25 11:57 [email or web address] (ml) Colloids volume administered ( ml) Blood Product volume administered (ml) Total IV fluid infused 500 01/23/25 11:57 [email or web address] Anesthesia Postop Eval I: Summary Notes Anesthesia Complication No 01/23/25 11:57 [email or web address] Anesthesia Complication Comment: Post-operative progress note Anesthesia: Postop Eval II Evaluation Mental status: Awake Pain Level: 0 nausea: No Vomiting: No
== END 2025-01-23 13:23 | disposition home or self-care (01) ==
LOC: EN 09:54 → AC 10:03
PROVIDERS: PCP Family Medicine; Referring Provider Family Medicine; Visit Provider Internal Medicine Gastroenterology
PROC: 0DJD8ZZ Inspection of Lower Intestinal Tract, Via Natural or Artificial Opening Endoscopic (ICD-10-PCS; CPT 45378; principal; 2025-01-23 10:55)
DX: K63.5 Polyp of colon (principal); J44.9 Chronic obstructive pulmonary disease, unspecified; K62.3 Rectal prolapse; R63.4 Abnormal weight loss; K57.30 Diverticulosis of large intestine without perforation or abscess without bleeding; Z63.79 Other stressful life events affecting family and household; E78.00 Pure hypercholesterolemia, unspecified; I10 Essential (primary) hypertension; F41.9 Anxiety disorder, unspecified; K21.9 Gastro-esophageal reflux disease without esophagitis; F17.200 Nicotine dependence, unspecified, uncomplicated; F32.A Depression, unspecified; Z79.899 Other long term (current) drug therapy; Z79.82 Long term (current) use of aspirin; K59.00 Constipation, unspecified
CPT/HCPCS: 45380; 88305; J2405